=== PATIENT | female | born 1945 | race Caucasian/White ===

== ENCOUNTER 2017-02-10 16:35 | Emergency (ER) | payer MEDICARE, MEDICAID ==
[2017-02-10] MEDS ORDERED: IPRATROPIUM/ALBUTEROL 0.5-2.5 MG/3 ML AMPUL NEB ONE (17:17)
[2017-02-10] MEDS ORDERED: METHYLPREDNISOLONE INJ 125 MG/2 ML SDV IV ONE (17:18)
--- NOTE | 2017-02-10 17:22 | ER Document Report ---
ED Medical Screen (RME) - General Mode of Arrival: Ambulatory Information source: Patient TRAVEL OUTSIDE OF THE [place] IN LAST 30 DAYS: No <TATE RIVERA - Last Filed: 02/10/17 17:39> <STU COYNE - Last Filed: 02/10/17 20:17> - General Chief Complaint: Blood Pressure Problem Stated Complaint: BLOOD PRESSURE ISSUES Time Seen by Provider: 02/10/17 17:13 Notes: Patient is a 71 year old female with a history of COPD presents to the emergency department complaining of sore throat, discomfort in her chest, and a high blood pressure problem with associated symptoms of a productive cough with green sputum. Patient states that she went to a walk in clinic where they found her blood pressure to be 230/120. Upon arrival to the emergency department her blood pressure dropped to 165/117. Patient states that the discomfort in her chest feels similar to when she previously had bronchitis and pneumonia. I have greeted and performed a rapid initial assessment of this patient. A comprehensive ED assessment and evaluation of the patient, analysis of test results and completion of the medical decision making process will be conducted by additional ED providers. (TATE RIVERA) - Related Data Allergies/Adverse Reactions: acetaminophen [From Percocet] Allergy (Verified 02/09/16 16:46) atorvastatin calcium [From Lipitor] Allergy (Verified 02/09/16 16:46) ciprofloxacin [From Cipro] Allergy (Verified 02/09/16 16:46) ciprofloxacin HCl [From Cipro] Allergy (Verified 02/09/16 16:46) erythromycin base [Erythromycin Base] Allergy (Verified 02/09/16 16:46) oxycodone HCl [From Percocet] Allergy (Verified 02/09/16 16:46) simvastatin [Simvastatin] Allergy (Verified 02/09/16 16:46) Sulfa (Sulfonamide Antibiotics) Allergy (Verified 02/09/16 16:46) Past Medical History - General Information source: Patient - Past Medical History Cardiac Medical History: Reports: Hx Hypertension Pulmonary Medical History: Reports: Hx COPD <TATE RIVERA - Last Filed: 02/10/17 17:39> - Vital signs Vitals: Temp Pulse Resp BP Pulse Ox 98.9 F 89 24 H 155/117 H 86 L 02/10/17 16:51 02/10/17 16:51 02/10/17 16:51 02/10/17 16:51 02/10/17 16:51 Course <TATE RIVERA - Last Filed: 02/10/17 17:39> - Laboratory Result Diagrams: 02/10/17 18:21 02/10/17 18:21 <STU COYNE - Last Filed: 02/10/17 20:17> - Re-evaluation Re-evalutation: 02/10/17 20:17 I personally performed the services described in the documentation, reviewed and edited the documentation which was dictated to the scribe in my presence, and it accurately records my words and actions. (STU COYNE) - Vital Signs Vital signs: Temp Pulse Resp BP Pulse Ox 98.9 F 89 24 H 155/117 H 86 L 02/10/17 16:51 02/10/17 16:51 02/10/17 16:51 02/10/17 16:51 02/10/17 16:51 - Laboratory Laboratory results interpreted by me: 02/10/17 02/10/17 02/10/17 18:21 18:21 19:03 MCH 26.9 L MCHC 31.6 L RDW 14.7 H Monocytes % 15.9 H Carbon Dioxide 35 H Est GFR (Non-Af Amer) 54 L Alkaline Phosphatase 146 H Urine Blood SMALL H Scribe Documentation - Scribe Written by Scribkatina:: Katelyn Coelho, 02/10/2017 17:22 acting as scribe for :: Edilberto <TATE RIVERA - Last Filed: 02/10/17 17:39>
[2017-02-10 18:51] LABS: ABSOLUTE BASOPHILS # (AUTO) 0.1 10^3/uL (0.0-0.2); ABSOLUTE EOSINOPHILS # (AUTO) 0.1 10^3/uL (0.0-0.6); ABSOLUTE LYMPHOCYTES (AUTO) 2.6 10^3/uL (0.5-4.7); ABSOLUTE MONOCYTES (AUTO) 1.2 10^3/uL (0.1-1.4); ABSOLUTE NEUT (AUTO) 3.3 10^3/uL (1.7-8.2); EOSINOPHILS % (AUTO) 1.7 % (0-6); HEMATOCRIT 38.2 % (36.0-47.0); LYMPHOCYTES % (AUTO) 35.5 % (13-45); MEAN CORPUSCULAR HEMOGLOBIN 26.9 pg (27.0-33.4); MEAN CORPUSCULAR HGB CONC 31.6 g/dL (32.0-36.0); MEAN CORPUSCULAR VOLUME 85 fl (80-97); MONOCYTES % (AUTO) 15.9 % (3-13); PLATELET COUNT 229 10^3/uL (150-450); RED BLOOD COUNT 4.47 10^6/uL (3.72-5.28); RED CELL DISTRIBUTION WIDTH 14.7 % (11.5-14.0); SEGMENTED NEUTROPHILS % (AUTO) 45.9 % (42-78); TOTAL CELLS COUNTED % (AUTO) 100 %; WHITE BLOOD COUNT 7.2 10^3/uL (4.0-10.5)
--- NOTE | 2017-02-10 18:51 | RADIOLOGY REPORT (SQ) ---
EXAM DESCRIPTION: CHEST PA/LAT COMPLETED DATE/TIME: 02/10/2017 6:41 pm REASON FOR STUDY: cough COMPARISON: 02/09/2016. EXAM PARAMETERS: NUMBER OF VIEWS: two views TECHNIQUE: Digital Frontal and Lateral radiographic views of the chest acquired. RADIATION DOSE: NA LIMITATIONS: none FINDINGS: LUNGS AND PLEURA: No opacities, masses or pneumothorax. No pleural effusion. MEDIASTINUM AND HILAR STRUCTURES: No masses or contour abnormalities. HEART AND VASCULAR STRUCTURES: Heart normal size. No evidence for failure. BONES: No acute findings. HARDWARE: None in the chest. OTHER: No other significant finding. IMPRESSION: NO SIGNIFICANT RADIOGRAPHIC FINDING IN THE CHEST. TECHNICAL DOCUMENTATION: JOB ID: [id number] [employer]- All Rights Reserved
--- NOTE | 2017-02-10 19:14 | ER Document Report ---
ED General - General Chief Complaint: Blood Pressure Problem Stated Complaint: BLOOD PRESSURE ISSUES Time Seen by Provider: 02/10/17 17:13 Mode of Arrival: Ambulatory Notes: 71 years old female presents today with difficulty in breathing, feverish, coughing yellow-green sputum for the last 4 days, with a history of COPD on oxygen at home. Her blood pressure also was elevated. Denies any chest pain. Denies any palpitation diaphoresis. Denies any other constitutional symptoms TRAVEL OUTSIDE OF THE [place] IN LAST 30 DAYS: No - Related Data Allergies/Adverse Reactions: acetaminophen [From Percocet] Allergy (Verified 02/09/16 16:46) atorvastatin calcium [From Lipitor] Allergy (Verified 02/09/16 16:46) ciprofloxacin [From Cipro] Allergy (Verified 02/09/16 16:46) ciprofloxacin HCl [From Cipro] Allergy (Verified 02/09/16 16:46) erythromycin base [Erythromycin Base] Allergy (Verified 02/09/16 16:46) oxycodone HCl [From Percocet] Allergy (Verified 02/09/16 16:46) simvastatin [Simvastatin] Allergy (Verified 02/09/16 16:46) Sulfa (Sulfonamide Antibiotics) Allergy (Verified 02/09/16 16:46) Past Medical History - General Information source: Patient - Social History Smoking Status: Former Smoker Frequency of alcohol use: None Drug Abuse: None Family History: Reviewed & Not Pertinent, COPD, Hyperlipidemia, Hypertension Patient has suicidal ideation: No Patient has homicidal ideation: No - Past Medical History Cardiac Medical History: Reports: Hx Hypertension Pulmonary Medical History: Reports: Hx COPD Renal/ Medical History: Denies: Hx Peritoneal Dialysis Review of Systems - Review of Systems Notes: REVIEW OF SYSTEMS: CONSTITUTIONAL : Denies fever, chills, or sweats. Denies recent illness. EENT: Denies eye, ear, throat, or mouth pain or symptoms. Denies nasal or sinus congestion or discharge. Denies throat, tongue, or mouth swelling or difficulty swallowing. CARDIOVASCULAR: Denies chest pain. Denies palpitations or racing or irregular heart beat. Denies ankle edema. RESPIRATORY: As per history of complain GASTROINTESTINAL: Denies abdominal pain or distention. Denies nausea, vomiting , or diarrhea. Denies blood in vomitus, stools, or per rectum. Denies black, tarry stools. Denies constipation. GENITOURINARY: Denies difficulty urinating, painful urination, burning, frequency, blood in urine, or discharge. FEMALE GENITOURINARY: Denies vaginal bleeding, heavy or abnormal periods, irregular periods. Denies vaginal discharge or odor. MUSCULOSKELETAL: Denies back or neck pain or stiffness. Denies joint pain or swelling. SKIN: Denies rash, lesions or sores. HEMATOLOGIC : Denies easy bruising or bleeding. LYMPHATIC: Denies swollen, enlarged glands. NEUROLOGICAL: Denies confusion or altered mental status. Denies passing out or loss of consciousness. Denies dizziness or lightheadedness. Denies headache. Denies weakness or paralysis or loss of use of either side. Denies problems with gait or speech. Denies sensory loss, numbness, or tingling. Denies seizures. PSYCHIATRIC: Denies anxiety or stress. Denies depression, suicidal ideation, or homicidal ideation. ALL OTHER SYSTEMS REVIEWED AND NEGATIVE. PHYSICAL EXAMINATION: GENERAL: Well-appearing, morbidly obese, mild to moderate discomfort HEAD: Atraumatic, normocephalic. EYES: Pupils equal round and reactive to light, extraocular movements intact, conjunctiva are normal. ENT: Nares patent, oropharynx clear without exudates. Moist mucous membranes. NECK: Normal range of motion, supple without lymphadenopathy LUNGS: Bilaterally decreased breath sounds scattered mild wheezes throughout the lung field HEART: Regular rate and rhythm without murmurs ABDOMEN: Soft, nontender, nondistended abdomen. No guarding, no rebound. No masses appreciated. Female : deferred Musculoskeletal: Normal range of motion, no pitting or edema. No cyanosis. NEUROLOGICAL: Cranial nerves grossly intact. Normal speech, normal gait. Normal sensory, motor exams PSYCH: Normal mood, normal affect. SKIN: Warm, Dry, normal turgor, no rashes or lesions noted. Dictation was performed using [employer] voice recognition software Physical Exam - Vital signs Vitals: Temp Pulse Resp BP Pulse Ox 98.9 F 89 24 H 155/117 H 86 L 02/10/17 16:51 02/10/17 16:51 02/10/17 16:51 02/10/17 16:51 02/10/17 16:51 Course - Re-evaluation Re-evalutation: 02/10/17 21:29 Blood pressure was elevated therefore she was given clonidine, on reexamination lungs have improved daily variation no wheezing, patient is feeling much better. - Vital Signs Vital signs: Temp Pulse Resp BP Pulse Ox 98.9 F 89 24 H 155/117 H 86 L 02/10/17 16:51 02/10/17 16:51 02/10/17 16:51 02/10/17 16:51 02/10/17 16:51 - Laboratory Result Diagrams: 02/10/17 18:21 02/10/17 18:21 Laboratory results interpreted by me: 02/10/17 02/10/17 02/10/17 18:21 18:21 19:03 MCH 26.9 L MCHC 31.6 L RDW 14.7 H Monocytes % 15.9 H Carbon Dioxide 35 H Est GFR (Non-Af Amer) 54 L Alkaline Phosphatase 146 H Urine Blood SMALL H - Diagnostic Test Radiology reviewed: Reports reviewed - Radiology report reviewed appears normal chest x-ray - EKG Interpretation by Me EKG shows normal: Sinus rhythm - Sinus rhythm at the rate of 74 bpm, lots of muscular activity is noted, otherwise no acute ST elevation ST depression T- wave inversion noted. Discharge - Discharge Clinical Impression: COPD with exacerbation Hypertension Qualifiers: Hypertension type: essential hypertension Qualified Code(s): I10 - Essential ( primary) hypertension Condition: Fair Disposition: HOME, SELF-CARE Instructions: Chronic Obstructive Lung Disease ([facility]), High Blood Pressure ([facility]) Prescriptions: Albuterol Sulfate [Proair Hfa Inhalation Aerosol 8.5 gm Mdi] 2 puff IH Q4 PRN # 1 mdi PRN Reason: Methylprednisolone [Medrol Dosepack (4 mg/Tab) 21 Tab/Dosepak] 4 mg PO ASDIR PRN #21 tab.[id number] PRN Reason: Referrals: JOSE JUAN ARTIS MD [Primary Care Provider] - Follow up as needed
[2017-02-10 19:19] LABS: ALANINE AMINOTRANSFERASE 29 U/L (9-52); ALKALINE PHOSPHATASE 146 U/L (38-126); ANION GAP 6 (5-19); ASPARTATE AMINO TRANSFERASE 26 U/L (14-36); BILIRUBIN,DIRECT 0.3 mg/dL (0.0-0.4); BILIRUBIN,TOTAL 0.3 mg/dL (0.2-1.3); BLOOD UREA NITROGEN 11 mg/dL (7-20); CALCIUM 9.3 mg/dL (8.4-10.2); CARBON DIOXIDE 35 mmol/L (22-30); CHLORIDE 98 mmol/L (98-107); GLUCOSE 99 mg/dL (75-110); POTASSIUM 4.7 mmol/L (3.6-5.0); SODIUM 138.7 mmol/L (137-145); TOTAL PROTEIN 8.2 g/dL (6.3-8.2)
[2017-02-10 19:29] LABS: APPEARANCE,URINE CLEAR; BILIRUBIN,URINE NEGATIVE (NEGATIVE); COLOR,URINE YELLOW; GLUCOSE, URINE NEGATIVE (NEGATIVE); KETONES,URINE NEGATIVE (NEGATIVE); LEUKOCYTE ESTERASE,URINE NEGATIVE (NEGATIVE); NITRITE,URINE NEGATIVE (NEGATIVE); PROTEIN,URINE NEGATIVE (NEGATIVE); URINE SPECIFIC GRAVITY 1.011; UROBILINOGEN,URINE NEGATIVE mg/dL (<2.0)
[2017-02-10 19:40] LABS: INTERNATIONAL RATION (INR) 0.85; PROTHROMBIN TIME 12.3 SEC (11.4-15.4)
[2017-02-10] MEDS ORDERED: CLONIDINE HCL 0.2 MG TABLET PO ONE (21:12)
[2017-02-10 23:14] VITALS: BP 141/93
--- NOTE | 2017-02-11 12:10 | EKG REPORT ---
SEVERITY:- ABNORMAL ECG - SINUS TACHYCARDIA MULTIFORM VENTRICULAR PREMATURE COMPLEXES BORDERLINE INFERIOR Q WAVES ABNRM R PROG, CONSIDER ASMI OR LEAD PLACEMENT : Confirmed by: Tori Mcdaniel MD 11-Feb-2017 12:10:01
== END 2017-02-10 23:14 | disposition home or self-care (01) ==
LOC: ER 16:35
DX: J44.1 Chronic obstructive pulmonary disease with (acute) exacerbation (principal); Z99.81 Dependence on supplemental oxygen; I10 Essential (primary) hypertension; R05 Cough; E66.01 Morbid (severe) obesity due to excess calories; Z68.43 Body mass index [BMI] 50.0-59.9, adult; Z88.5 Allergy status to narcotic agent; Z88.8 Allergy status to other drugs, medicaments and biological substances; Z88.1 Allergy status to other antibiotic agents; Z88.2 Allergy status to sulfonamides; Z87.891 Personal history of nicotine dependence
CPT/HCPCS: 93005; 94640; 99284; 36415; 87040; 87086; 85025; 85610; 87088; 80053; 81001; 87186; 83605; 71020; 93010; A9270 ×2; J7620

== ENCOUNTER 2017-04-13 15:30 | Inpatient (IN) | payer MEDICARE, MEDICAID ==
[2017-04-13] MEDS ORDERED: ASPIRIN 81 MG TABLET, CHEWABLE PO ONE (16:05)
[2017-04-13] MEDS ORDERED: FUROSEMIDE INJ/PF 40 MG/4 ML SDV IV ONE (16:06)
--- NOTE | 2017-04-13 16:07 | ER Document Report ---
ED Respiratory Problem - General Chief Complaint: Respiratory Distress Stated Complaint: RESPIRATORY DISTRESS Time Seen by Provider: 04/13/17 16:05 Notes: 71-year-old female to the emergency department chief complaint of respiratory distress. [facility]. Has been home for 5 days. States that she began to get worsening shortness of breath. States that she is not on any antibiotics currently but on steroids. When EMS arrived found patient with increased respiratory rate with oxygen saturations of 88% on room air. States that she has had shingles for approximately 1 month on the left side of the chest. Complaining of pain in the right lower chest at this time. Denies any fever, chills, sweats. No abdominal pain. Pain in the right side of the chest is described as sharp and nonradiating. Nothing seems to make it better or worse. Extremely out of breath. TRAVEL OUTSIDE OF THE [place] IN LAST 30 DAYS: No - HPI Patient complains to provider of: Chest pain, Short of breath Duration: Worse/persistent - Related Data Allergies/Adverse Reactions: acetaminophen [From Percocet] Allergy (Verified 04/13/17 16:04) atorvastatin calcium [From Lipitor] Allergy (Verified 04/13/17 16:04) ciprofloxacin [From Cipro] Allergy (Verified 04/13/17 16:04) ciprofloxacin HCl [From Cipro] Allergy (Verified 04/13/17 16:04) erythromycin base [Erythromycin Base] Allergy (Verified 04/13/17 16:04) oxycodone HCl [From Percocet] Allergy (Verified 04/13/17 16:04) simvastatin [Simvastatin] Allergy (Verified 04/13/17 16:04) Sulfa (Sulfonamide Antibiotics) Allergy (Verified 04/13/17 16:04) Past Medical History - General Information source: Patient, Emergency Med Personnel - Social History Smoking Status: Former Smoker Cigarette use (# per day): No Chew tobacco use (# tins/day): No Frequency of alcohol use: None Drug Abuse: None Lives with: Family Family History: Reviewed & Not Pertinent, COPD, Hyperlipidemia, Hypertension Patient has suicidal ideation: No Patient has homicidal ideation: No - Past Medical History Cardiac Medical History: Reports: Hx Hypertension Pulmonary Medical History: Reports: Hx COPD Renal/ Medical History: Denies: Hx Peritoneal Dialysis Review of Systems - Review of Systems Constitutional: denies: Fever, Malaise, Weakness EENT: denies: Double vision, Throat pain, Difficulty swallowing, Mouth pain Cardiovascular: Chest pain, Dyspnea. denies: Palpitations, Heart racing Respiratory: Cough, Short of breath, Wheezing Gastrointestinal: denies: Abdominal pain, Diarrhea, Nausea Genitourinary: denies: Dysuria, Hematuria, Urgency Musculoskeletal: denies: Back pain, Joint pain, Muscle pain Skin: Lesions, Rash, Other - Shingles Hematologic/Lymphatic: denies: Anemia, Blood clots, Easy bleeding, Easy bruising Neurological/Psychological: denies: Dementia, Weakness, Headaches, Numbness Physical Exam - Vital signs Vitals: Resp Pulse Ox 28 H 94 04/13/17 15:45 04/13/17 15:45 Interpretation: Normal - General General appearance: Appears well, Alert Notes: Currently on CPAP - HEENT Head: Normocephalic, Atraumatic Eyes: Normal Pupils: PERRL - Respiratory Respiratory status: No respiratory distress Chest status: Nontender Breath sounds: Normal. No: Rhonchi, Stridor, Wheezing Chest palpation: Normal - Cardiovascular Rhythm: Regular Heart sounds: Normal auscultation Murmur: No - Abdominal Inspection: Normal Distension: No distension Bowel sounds: Normal Tenderness: Nontender Organomegaly: No organomegaly - Back Back: Normal, Nontender - Extremities General upper extremity: Normal inspection, Nontender, Normal color, Normal ROM , Normal temperature General lower extremity: Normal inspection, Nontender, Edema, Normal color, Normal ROM, Normal temperature, Normal weight bearing. No: Carlie's sign - Neurological Neuro grossly intact: Yes Cognition: Normal Orientation: AAOx4 Tamara Coma Scale Eye Opening: Spontaneous [place] Coma Scale Verbal: Oriented [place] Coma Scale Motor: Obeys Commands Tamara Coma Scale Total: 15 Speech: Normal Motor strength normal: LUE, RUE, LLE, RLE Sensory: Normal - Psychological Associated symptoms: Normal affect, Normal mood - Skin Skin Temperature: Warm Skin Moisture: Dry Skin Color: Normal Course - Re-evaluation Re-evalutation: 04/13/17 16:47 Patient placed on CPAP. History of the. Recently hospitalized in [place]. Patient states that she is currently on steroids. Afebrile at this time. Will continue on CPAP. Get chest x-ray, ABG. Complaining of pain in her right chest. Recent hospitalization could be concerning for PE. Will order d-dimer at this time and reassess per 04/13/17 17:44 Patient with slightly elevated potassium at 6.0, mild renal insufficiency with creatinine of 1.5. D-dimer extremely elevated with recent hospital stay will get CTA of the chest. Chest x-ray consistent with right pleural effusion. Patient complaining of right-sided chest pain. Need to rule out PE. Consulted hospitalist, Dr. Knapp will admit at this time once CT is completed. Starting on antibiotics as well based on elevated WBC count and questionable pneumonia on CT. No prior history of MRSA so starting on Zosyn at this time with her history of allergy to fluoroquinolones 04/13/17 17:45 Laboratory 04/13/17 04/13/17 04/13/17 15:50 15:50 15:50 WBC 21.5 H RBC 4.54 Hgb 12.3 Hct 38.4 MCV 85 MCH 27.2 MCHC 32.1 RDW 16.4 H Plt Count 204 Total Counted 100 Seg Neutrophils % Not Reportable Seg Neuts % (Manual) 81 H Band Neutrophils % 10 H Lymphocytes % Not Reportable Lymphocytes % (Manual) 6 L Monocytes % Not Reportable Monocytes % (Manual) 3 Eosinophils % Not Reportable Eosinophils % (Manual) 0 Basophils % Not Reportable Basophils % (Manual) 0 Absolute Neutrophils Not Reportable Abs Neuts (Manual) 19.6 H Absolute Lymphocytes Not Reportable Abs Lymphs (Manual) 1.3 Absolute Monocytes Not Reportable Abs Monocytes (Manual) 0.6 Absolute Eosinophils Not Reportable Absolute Eos (Manual) 0.0 Absolute Basophils Not Reportable Abs Basophils (Manual) 0.0 Large Platelets PRESENT Platelet Comment ADEQUATE Polychromasia SLIGHT Anisocytosis 1+ PT INR D-Dimer Carbonic Acid HCO3/H2CO3 Ratio ABG pH ABG pCO2 ABG pO2 ABG HCO3 ABG Total CO2 ABG O2 Saturation ABG Base Excess FiO2 Sodium 134.7 L Potassium 6.0 H* Chloride 94 L Carbon Dioxide 29 Anion Gap 12 BUN 48 H Creatinine 1.49 H Est GFR ( Amer) 42 L Est GFR (Non-Af Amer) 34 L Glucose 259 H Calcium 9.1 Total Bilirubin 0.9 Direct Bilirubin 0.3 Neonat Total Bilirubin Not Reportable Neonat Direct Bilirubin Not Reportable Neonat Indirect Bili Not Reportable AST 20 ALT 34 Alkaline Phosphatase 85 Creatine Kinase < 20 L CK-MB (CK-2) 0.26 Troponin I 0.016 NT-Pro-B Natriuret Pep 942 H Total Protein 6.7 Albumin 3.9 04/13/17 04/13/17 15:50 16:00 WBC RBC Hgb Hct MCV MCH MCHC RDW Plt Count Total Counted Seg Neutrophils % Seg Neuts % (Manual) Band Neutrophils % Lymphocytes % Lymphocytes % (Manual) Monocytes % Monocytes % (Manual) Eosinophils % Eosinophils % (Manual) Basophils % Basophils % (Manual) Absolute Neutrophils Abs Neuts (Manual) Absolute Lymphocytes Abs Lymphs (Manual) Absolute Monocytes Abs Monocytes (Manual) Absolute Eosinophils Absolute Eos (Manual) Absolute Basophils Abs Basophils (Manual) Large Platelets Platelet Comment Polychromasia Anisocytosis PT 12.9 INR 0.91 D-Dimer 3.84 H Carbonic Acid 1.28 HCO3/H2CO3 Ratio 21:1 ABG pH 7.43 ABG pCO2 42.4 ABG pO2 70.4 L ABG HCO3 27.6 H ABG Total CO2 28.9 H ABG O2 Saturation 94.6 ABG Base Excess 3.0 FiO2 40% Sodium Potassium Chloride Carbon Dioxide Anion Gap BUN Creatinine Est GFR ( Amer) Est GFR (Non-Af Amer) Glucose Calcium Total Bilirubin Direct Bilirubin Neonat Total Bilirubin Neonat Direct Bilirubin Neonat Indirect Bili AST ALT Alkaline Phosphatase Creatine Kinase CK-MB (CK-2) Troponin I NT-Pro-B Natriuret Pep Total Protein Albumin Chest X-Ray 04/13/17 16:05 IMPRESSION: LEFT LOWER LOBE INFILTRATE SUSPICIOUS FOR PNEUMONIA. FAINT DENSITY IN THE RIGHT LUNG BASE. POSSIBLE SMALL PLEURAL EFFUSIONS. - Vital Signs Vital signs: Temp Pulse Resp BP Pulse Ox 97.9 F 83 26 H 133/57 H 93 04/13/17 16:04 04/13/17 16:04 04/13/17 16:04 04/13/17 16:04 04/13/17 16:04 - Laboratory Result Diagrams: 04/13/17 15:50 04/13/17 15:50 Laboratory results interpreted by me: 04/13/17 04/13/17 04/13/17 15:50 15:50 15:50 WBC 21.5 H RDW 16.4 H Seg Neuts % (Manual) 81 H Band Neutrophils % 10 H Lymphocytes % (Manual) 6 L Abs Neuts (Manual) 19.6 H D-Dimer ABG pO2 ABG HCO3 ABG Total CO2 Sodium 134.7 L Potassium 6.0 H* Chloride 94 L BUN 48 H Creatinine 1.49 H Est GFR ( Amer) 42 L Est GFR (Non-Af Amer) 34 L Glucose 259 H Creatine Kinase < 20 L NT-Pro-B Natriuret Pep 942 H 04/13/17 04/13/17 15:50 16:00 WBC RDW Seg Neuts % (Manual) Band Neutrophils % Lymphocytes % (Manual) Abs Neuts (Manual) D-Dimer 3.84 H ABG pO2 70.4 L ABG HCO3 27.6 H ABG Total CO2 28.9 H Sodium Potassium Chloride BUN Creatinine Est GFR ( Amer) Est GFR (Non-Af Amer) Glucose Creatine Kinase NT-Pro-B Natriuret Pep - EKG Interpretation by Nd EKG shows normal: Sinus rhythm, [place], Intervals, QRS Complexes, ST-T Waves Critical Care Note - Critical Care Note Total time excluding time spent on procedures (mins): 60 Comments: Hypoxia, respiratory distress Discharge - Discharge Clinical Impression: Pneumonia of both lower lobes Qualifiers: Pneumonia type: due to unspecified organism Qualified Code(s): J18.9 - Pneumonia, unspecified organism Disposition: ADMITTED INPATIENT Admitting Provider: Hospitalist Unit Admitted: IMCU - Dr. Knapp Referrals: JOSE JUAN ARTIS MD [Primary Care Provider] - Follow up as needed
[2017-04-13 16:17] LABS: HEMATOCRIT 38.4 % (36.0-47.0); HEMOGLOBIN 12.3 g/dL (12.0-15.5); MEAN CORPUSCULAR HEMOGLOBIN 27.2 pg (27.0-33.4); MEAN CORPUSCULAR HGB CONC 32.1 g/dL (32.0-36.0); MEAN CORPUSCULAR VOLUME 85 fl (80-97); PLATELET COUNT 204 10^3/uL (150-450); RED BLOOD COUNT 4.54 10^6/uL (3.72-5.28); RED CELL DISTRIBUTION WIDTH 16.4 % (11.5-14.0); WHITE BLOOD COUNT 21.5 10^3/uL (4.0-10.5)
[2017-04-13 16:20] LABS: INTERNATIONAL RATION (INR) 0.91; PROTHROMBIN TIME 12.9 SEC (11.4-15.4)
[2017-04-13 16:23] LABS: D-DIMER 3.84 ug/mL (0.00-0.50)
[2017-04-13 16:33] LABS: ABSOLUTE LYMPHOCYTES# (MANUAL) 1.3 10^3/uL (0.5-4.7); ABSOLUTE MONOCYTES # (MANUAL) 0.6 10^3/uL (0.1-1.4); ABSOLUTE NEUTROPHILS# (MANUAL) 19.6 10^3/uL (1.7-8.2); BAND NEUTROPHILS % (MANUAL) 10 % (3-5); BASOPHILS % (MANUAL) 0 % (0-2); EOSINOPHILS % (MANUAL) 0 % (0-6); LYMPHOCYTES % (MANUAL) 6 % (13-45); MONOCYTES % (MANUAL) 3 % (3-13); SEGMENTED NEUTROPHILS % (MAN) 81 % (42-78); TOTAL CELLS COUNTED 100
[2017-04-13 16:34] LABS: PLATELET COMMENT ADEQUATE
[2017-04-13 16:35] LABS: ALANINE AMINOTRANSFERASE 34 U/L (9-52); ALBUMIN 3.9 g/dL (3.5-5.0); ALKALINE PHOSPHATASE 85 U/L (38-126); ANION GAP 12 (5-19); ANISOCYTOSIS 1+; ASPARTATE AMINO TRANSFERASE 20 U/L (14-36); BILIRUBIN,DIRECT 0.3 mg/dL (0.0-0.4); BILIRUBIN,TOTAL 0.9 mg/dL (0.2-1.3); BLOOD UREA NITROGEN 48 mg/dL (7-20); CALCIUM 9.1 mg/dL (8.4-10.2); CARBON DIOXIDE 29 mmol/L (22-30); CHLORIDE 94 mmol/L (98-107); GLUCOSE 259 mg/dL (75-110); PLATELET LARGE PRESENT; POLYCHROMASIA SLIGHT; SODIUM 134.7 mmol/L (137-145); TOTAL PROTEIN 6.7 g/dL (6.3-8.2)
[2017-04-13 16:39] LABS: CREATINE KINASE < 20 U/L (30-135)
[2017-04-13] MEDS ORDERED: HYDROMORPHONE HCL INJ/PF 2 MG/ML AMPULE IV ONE (16:40)
[2017-04-13 16:48] LABS: CREATINE KINASE MB 0.26 ng/mL (<4.55); TROPONIN I 0.016 ng/mL
--- NOTE | 2017-04-13 16:56 | RADIOLOGY REPORT (SQ) ---
EXAM DESCRIPTION: CHEST SINGLE VIEW COMPLETED DATE/TIME: 04/13/2017 4:48 pm REASON FOR STUDY: sob COMPARISON: 02/10/2017. EXAM PARAMETERS: NUMBER OF VIEWS: One view. TECHNIQUE: Single frontal radiographic view of the chest acquired. RADIATION DOSE: NA LIMITATIONS: None. FINDINGS: LUNGS AND PLEURA: Left lower lobe infiltrate. Faint density in the right lung base. Poss ible pleural effusions. MEDIASTINUM AND HILAR STRUCTURES: No masses. Contour normal. HEART AND VASCULAR STRUCTURES: Cardiomegaly. Normal vasculature. BONES: No acute findings. HARDWARE: None in the chest. OTHER: No other significant finding. IMPRESSION: LEFT LOWER LOBE INFILTRATE SUSPICIOUS FOR PNEUMONIA. FAINT DENSITY IN THE RIGHT LUNG BA SE. POSSIBLE SMALL PLEURAL EFFUSIONS. TECHNICAL DOCUMENTATION: JOB ID: [id number] [employer]- All Rights Reserved Reading location - IP/workstation name: [email or web address]
[2017-04-13 17:10] LABS: ARTERIAL BLOOD FIO2 40%; ARTERIAL BLOOD H2CO3 1.28 mmol/L (1.05-1.35); ARTERIAL BLOOD HCO3 27.6 mmol/L (20-26); ARTERIAL BLOOD O2 SATURATION 94.6 % (94-98); ARTERIAL BLOOD PCO2 42.4 mmHg (35-45); ARTERIAL BLOOD PH 7.43 (7.35-7.45); ARTERIAL BLOOD PO2 70.4 mmHg (80-100); ARTERIAL BLOOD TOTAL CO2 28.9 mmol/L (21-25)
[2017-04-13] MEDS ORDERED: PIPERACILLIN/TAZOBACTAM 3.375 GM VIAL IV ONE (17:37)
[2017-04-13] MEDS ORDERED: NORMAL SALINE 1000 ML 1,000 ML IV ONE (18:44)
[2017-04-13] MEDS ORDERED: ALBUTEROL SULFATE 0.083% NEB 2.5 MG/3 ML AMPUL NEB ONE (18:46)
[2017-04-13] MEDS ORDERED: CALCIUM GLUCONATE 1000 MG/10 ML INJ IV ONE ×2 (18:47→20:30)
[2017-04-13] MEDS ORDERED: GLUCAGON,HUMAN RECOMB 1 MG INJ SUBCUT PRN (19:11)
[2017-04-13] MEDS ORDERED: DEXTROSE 40% GEL 15 GM TUBE PO PRN ×2 (19:11)
[2017-04-13] MEDS ORDERED: DEXTROSE 50%-WATER 25 GM/50 ML DISP.SYRIN IV PRN ×2 (19:11)
[2017-04-13 19:26] LABS: APPEARANCE,URINE CLEAR; BILIRUBIN,URINE NEGATIVE (NEGATIVE); COLOR,URINE YELLOW; GLUCOSE, URINE NEGATIVE (NEGATIVE); KETONES,URINE NEGATIVE (NEGATIVE); LEUKOCYTE ESTERASE,URINE NEGATIVE (NEGATIVE); NITRITE,URINE NEGATIVE (NEGATIVE); PROTEIN,URINE NEGATIVE (NEGATIVE); URINE SPECIFIC GRAVITY 1.012; UROBILINOGEN,URINE NEGATIVE mg/dL (<2.0)
[2017-04-13] MEDS ORDERED: VANCOMYCIN HCL INJ 1000 MG VIAL IV ONE (19:27)
--- NOTE | 2017-04-13 19:54 | PDOC H&P ---
History of Present Illness Admission Date/PCP: 04/13/17 17:54 JOSE JUAN ARTIS MD Patient complains of: SOB, right sided chest pain, weakness History of Present Illness: JEANNIE NAVA is a 71 year old female with history of HTN, CAD, and multiple recent hospitalizations who presents to ED for worsening respiratory distress. Was recently discharged from [facility] 2 weeks ago with CHF and herpes zoster. States that over the last 3-4 days she has become progressively more SOB. Associated symptoms include right sided pleuretic chest pain. She notes subjective fevers. Denies chills, abdominal pain, NV. She did have zoster on left chest wall which was diagnosed over 2 weeks ago and has been healing. She no longer is on anti-viral therapy for shingles. In ED, CXR was notable for LLL infiltrate. She was noted to have elevated d. dimer however troponin was negative. WBC was 21.5 with left shift. ABG showed pH 7.43 however pO2 was 70.4. Started on BiPAP with improvement in breathing. Other labs notable for K 6.0. At time of my examination, patient was awake and coversant. States she was feeling much better overall. CTA chest ordered and pending. Past Medical History Cardiac Medical History: Reports: Congestive Heart Failure, Hypertension Pulmonary Medical History: Reports: Bronchitis, Chronic Obstructive Pulmonary Disease (COPD) Infectious Medical History: Reports: Other Infectious History Note: Herpes Zoster Social History Information Source: Patient Lives with: Family Smoking Status: Former Smoker Frequency of Alcohol Use: None Family History Family History: Reviewed & Not Pertinent, COPD, Hyperlipidemia, Hypertension Parental Family History Reviewed: No Children Family History Reviewed: NA Sibling(s) Family History Reviewed.: NA Medication/Allergy Home Medications: Alprazolam [Xanax] 1 mg PO DAILY 04/13/17 Amlodipine Besylate [Norvasc 2.5 mg Tablet] 2.5 mg PO DAILY 04/13/17 Aspirin [Aspirin 81 mg Chewable Tablet] 81 mg PO DAILY 04/13/17 Fluoxetine HCl [Prozac] 10 mg PO DAILY 04/13/17 Furosemide [Lasix 40 mg Tablet] 60 mg PO DAILY 04/13/17 Isosorbide Mononitrate [Isosorbide Mononitrate ER] 30 mg PO QPM 04/13/17 Isosorbide Mononitrate [Isosorbide Mononitrate ER] 60 mg PO QAM 04/13/17 Methylprednisolone [Medrol Dosepack (4 mg/Tab) 21 Tab/Dosepak] 4 mg PO ASDIR PRN 04/13/17 Metoprolol Succinate [Toprol Xl 50 mg Tab.sr] 50 mg PO DAILY 04/13/17 Nitroglycerin [Nitrostat] 0.4 mg SL Q5MP PRN 04/13/17 Ondansetron [Zofran Odt 4 mg Tablet] 4 mg PO Q8HP PRN 04/13/17 Pantoprazole Sodium [Protonix] 40 mg PO DAILY 04/13/17 Spironolactone [Aldactone 25 mg Tablet] 25 mg PO DAILY 04/13/17 Tiotropium [place] [Spiriva Handihaler 18 mcg/dose (30 Dose)] 1 cap IH DAILY 03/02 Valsartan [Diovan 80 mg Tablet] 80 mg PO DAILY 04/13/17 Allergies/Adverse Reactions: acetaminophen [From Percocet] Allergy (Verified 04/13/17 16:04) atorvastatin calcium [From Lipitor] Allergy (Verified 04/13/17 16:04) ciprofloxacin [From Cipro] Allergy (Verified 04/13/17 16:04) ciprofloxacin HCl [From Cipro] Allergy (Verified 04/13/17 16:04) erythromycin base [Erythromycin Base] Allergy (Verified 04/13/17 16:04) oxycodone HCl [From Percocet] Allergy (Verified 04/13/17 16:04) simvastatin [Simvastatin] Allergy (Verified 04/13/17 16:04) Sulfa (Sulfonamide Antibiotics) Allergy (Verified 04/13/17 16:04) Review of Systems All systems: reviewed and no additional remarkable complaints except as stated Constitutional: PRESENT: as per HPI Physical Exam Vital Signs: Temp Pulse Resp BP Pulse Ox 97.9 F 83 26 H 133/57 H 93 04/13/17 16:04 04/13/17 16:04 04/13/17 16:04 04/13/17 16:04 04/13/17 16:04 General appearance: PRESENT: cooperative, mild distress - On BiPAP, morbidly obese Head exam: PRESENT: normocephalic Ear exam: PRESENT: other - BiPAP in place Respiratory exam: PRESENT: chest wall tenderness - left sided, s/p shingles, crackles, decreased breath sounds - bilateral R>L, difficult exam due to habitus , rhonchi Cardiovascular exam: PRESENT: RRR, +S1, +S2. ABSENT: tachycardia GI/Abdominal exam: PRESENT: soft. ABSENT: tenderness Extremities exam: PRESENT: pedal edema Neurological exam: PRESENT: alert, awake, CN II-XII grossly intact Psychiatric exam: PRESENT: appropriate affect Results Impressions: Chest X-Ray 04/13/17 16:05 IMPRESSION: LEFT LOWER LOBE INFILTRATE SUSPICIOUS FOR PNEUMONIA. FAINT DENSITY IN THE RIGHT LUNG BASE. POSSIBLE SMALL PLEURAL EFFUSIONS. Assessment & Plan - Diagnosis (1) Pneumonia of both lower lobes Qualifiers: Pneumonia type: due to unspecified organism Qualified Code(s): J18.9 - Pneumonia, unspecified organism Is this a current diagnosis for this admission?: Yes Plan: SOB, hypoxia, leukocytosis, CXR with LLL inflitrate - Recent hospitalization so will cover for HCAP - Started on Zosyn IV q8 hours + Vanc * 1 dose (no history of MRSA) - Blood cultures pending - Improving on BiPAP, will continue overnight, repeat ABG in AM (2) CAD (coronary artery disease) Is this a current diagnosis for this admission?: Yes Plan: Known ischemic disease, medically managed - Continue home beta-chiara and imdur - Holding lisinopril for now given active infection (3) Pulmonary emboli Is this a current diagnosis for this admission?: No Plan: Rule out PE given right sided chest pain and elevated D dimer. Patient is in sinus rhythm and troponin is negative. However did have recent hospitalization and obese, which increases risk for clot - CTA chest ordered - Will be followed up tonight, if positive start Heparin GTT (4) Hyperkalemia Is this a current diagnosis for this admission?: Yes Plan: K 6.0, unable to review EKG - Will give IVF, IV calcium gluconate and kayaxalate - Follow up on EKG - Recheck K at 0000 on 3/2, am labs (5) YARELY (acute kidney injury) Is this a current diagnosis for this admission?: Yes Plan: Unclear baseline, diruesis with IV lasix in setting of pleural effusions and volume overload - Will closely monitor as patient is getting contrast with CT today (6) HTN (hypertension) Qualifiers: Hypertension type: essential hypertension Qualified Code(s): I10 - Essential (primary) hypertension Is this a current diagnosis for this admission?: Yes Plan: Per above, holding some home meds in setting of infection. (7) Leukocytosis Qualifiers: Leukocytosis type: bandemia Qualified Code(s): D72.825 - Bandemia Is this a current diagnosis for this admission?: Yes Plan: Secondary to PNA - Will check UA and blood cultures - On broad spectrum antibiotics, will nima (8) Herpes zoster Qualifiers: Herpes zoster complications: without complications Qualified Code(s): B02.9 - Zoster without complications Is this a current diagnosis for this admission?: Yes Plan: Diagnosed at recent hospitalization 2+ weeks ago - Completed anti-viral course - Continues to have lesions on left chest wall but improving - Discussed with charge out clerk regarding isolation who felt that patient did not need droplet precautions at this time - Time Time Spent: Greater than 70 Minutes Medications reviewed and adjusted accordingly: Yes
[2017-04-13] MEDS ORDERED: SODIUM POLYSTYRENE SULFONATE 15 GM/60 ML PO ONE (20:30)
[2017-04-13] MEDS: VANCOMYCIN HCL 1,500 MG in DEXTROSE 5%-WATER 250 ML IV SCH (22:07)
[2017-04-13] MEDS: HEPARIN SOD (PORCINE) 5,000 UNIT/ML 1 ML SYRINGE SUBCUT SCH (22:07)
[2017-04-14] MEDS ORDERED: PIPERACILLIN/TAZOBACTAM 2.25 GM VIAL IV SCH
[2017-04-14 00:40] LABS: ANION GAP 10 (5-19); BLOOD UREA NITROGEN 50 mg/dL (7-20); CALCIUM 9.4 mg/dL (8.4-10.2); CARBON DIOXIDE 26 mmol/L (22-30); CHLORIDE 96 mmol/L (98-107); GLUCOSE 262 mg/dL (75-110); POTASSIUM 5.4 mmol/L (3.6-5.0); SODIUM 131.6 mmol/L (137-145)
[2017-04-14] MEDS: PIPERACILLIN SODIUM/TAZOBACTAM 2.25 GM in NORMAL SALINE 100 ML IV SCH ×3 (01:24→17:36)
[2017-04-14] MEDS: HYDROMORPHONE HCL INJ/PF 2 MG/ML AMPULE IV PRN ×4 (02:33→23:39)
[2017-04-14] MEDS: HEPARIN SOD (PORCINE) 5,000 UNIT/ML 1 ML SYRINGE SUBCUT SCH ×3 (05:27→21:20)
[2017-04-14 05:37] LABS: HEMATOCRIT 37.5 % (36.0-47.0); HEMOGLOBIN 11.7 g/dL (12.0-15.5); MEAN CORPUSCULAR HEMOGLOBIN 26.4 pg (27.0-33.4); MEAN CORPUSCULAR HGB CONC 31.2 g/dL (32.0-36.0); MEAN CORPUSCULAR VOLUME 85 fl (80-97); PLATELET COUNT 155 10^3/uL (150-450); RED BLOOD COUNT 4.43 10^6/uL (3.72-5.28); RED CELL DISTRIBUTION WIDTH 16.4 % (11.5-14.0); WHITE BLOOD COUNT 16.4 10^3/uL (4.0-10.5)
[2017-04-14 05:57] LABS: ANION GAP 11 (5-19); BLOOD UREA NITROGEN 51 mg/dL (7-20); CALCIUM 9.1 mg/dL (8.4-10.2); CARBON DIOXIDE 29 mmol/L (22-30); CHLORIDE 96 mmol/L (98-107); GLUCOSE 203 mg/dL (75-110); POTASSIUM 5.1 mmol/L (3.6-5.0); SODIUM 135.6 mmol/L (137-145)
[2017-04-14 06:08] LABS: ABSOLUTE LYMPHOCYTES# (MANUAL) 1.1 10^3/uL (0.5-4.7); ABSOLUTE MONOCYTES # (MANUAL) 0.3 10^3/uL (0.1-1.4); ABSOLUTE NEUTROPHILS# (MANUAL) 14.9 10^3/uL (1.7-8.2); BAND NEUTROPHILS % (MANUAL) 6 % (3-5); BASOPHILS % (MANUAL) 0 % (0-2); EOSINOPHILS % (MANUAL) 0 % (0-6); LYMPHOCYTES % (MANUAL) 7 % (13-45); MONOCYTES % (MANUAL) 2 % (3-13); SEGMENTED NEUTROPHILS % (MAN) 85 % (42-78); TOTAL CELLS COUNTED 100
[2017-04-14 06:13] LABS: ANISOCYTOSIS 1+; OVALOCYTES SLIGHT; PLATELET COMMENT ADEQUATE; TOXIC GRANULATION SLIGHT; TOXIC VACUOLATION PRESENT
--- NOTE | 2017-04-14 06:42 | EKG REPORT ---
SEVERITY:- BORDERLINE ECG - SINUS RHYTHM BORDERLINE INFERIOR Q WAVES : Confirmed by: Andrew Berger MD 14-Apr-2017 06:42:08
[2017-04-14 06:58] LABS: ARTERIAL BLOOD BASE EXCESS 3.7 mmol/L; ARTERIAL BLOOD H2CO3 1.69 mmol/L (1.05-1.35); ARTERIAL BLOOD HCO3 30.6 mmol/L (20-26); ARTERIAL BLOOD O2 SATURATION 94.2 % (94-98); ARTERIAL BLOOD PCO2 56.1 mmHg (35-45); ARTERIAL BLOOD PH 7.35 (7.35-7.45); ARTERIAL BLOOD PO2 74.9 mmHg (80-100); ARTERIAL BLOOD TOTAL CO2 32.3 mmol/L (21-25)
[2017-04-14 07:06] LABS: ARTERIAL BLOOD FIO2 45%
[2017-04-14] MEDS ORDERED: ISOSORBIDE MONONITRATE 30 MG TAB.ER.24H PO SCH (08:00)
[2017-04-14] MEDS: ISOSORBIDE MONONITRATE 60 MG TAB.ER.24H PO SCH (08:32)
[2017-04-14] MEDS: METOPROLOL SUCCINATE 50 MG TAB.SR.24H PO SCH (09:19)
[2017-04-14] MEDS: ASPIRIN 81 MG TABLET, CHEWABLE PO SCH (09:19)
[2017-04-14] MEDS: TIOTROPIUM BROMIDE DPI 5 CAP/KIT (18 MCG/CAP) IH SCH (09:20)
[2017-04-14] MEDS ORDERED: ALPRAZOLAM 0.5 MG TABLET PO SCH (10:00)
--- NOTE | 2017-04-14 15:34 | PDOC PROGRESS REPORT ---
Subjective Progress Note for:: 04/14/17 Subjective:: On BiPAP overnight. Breathing much improved. Was able to get down to 4L NC with good O2 sats. Requested to be put back on BipAP for comfort reasons later this morning however was not hypoxic. Continues to have right sided CP with coughing. CTA chest was never down due to difficulty placing IV access. Denies fevers, chills, abdominal pain, NV. Was able to eat full breakfast while BiPAP was off earlier in day. No other complaints at this time. Reason For Visit: PNEUMONIA Physical Exam Vital Signs: Temp Pulse Resp BP Pulse Ox 97.9 F 80 16 98/44 L 94 04/14/17 11:52 04/14/17 11:52 04/14/17 11:52 04/14/17 11:52 04/14/17 11:52 Intake & Output 04/13/17 04/14/17 04/15/17 06:59 06:59 06:59 Intake Total 531 237 Output Total 875 500 Balance -344 -263 Weight 135.2 kg General appearance: PRESENT: no acute distress, morbidly obese, other - Comfortable on BiPAP Head exam: PRESENT: normocephalic Mouth exam: PRESENT: dry mucosa Respiratory exam: PRESENT: rhonchi, unlabored Cardiovascular exam: PRESENT: RRR. ABSENT: tachycardia GI/Abdominal exam: PRESENT: soft. ABSENT: tenderness Extremities exam: PRESENT: +1 edema Neurological exam: PRESENT: alert, awake, CN II-XII grossly intact Psychiatric exam: PRESENT: appropriate affect Results Laboratory Results: 04/14/17 05:13 04/14/17 05:13 04/14/17 04/14/17 04/14/17 00:16 05:13 05:13 WBC 16.4 H RBC 4.43 Hgb 11.7 L Hct 37.5 MCV 85 MCH 26.4 L MCHC 31.2 L RDW 16.4 H Plt Count 155 Seg Neutrophils % Not Reportable Lymphocytes % Not Reportable Monocytes % Not Reportable Eosinophils % Not Reportable Basophils % Not Reportable Absolute Neutrophils Not Reportable Absolute Lymphocytes Not Reportable Absolute Monocytes Not Reportable Absolute Eosinophils Not Reportable Absolute Basophils Not Reportable Carbonic Acid HCO3/H2CO3 Ratio ABG pH ABG pCO2 ABG pO2 ABG HCO3 ABG O2 Saturation ABG Base Excess FiO2 Sodium 131.6 L 135.6 L Potassium 5.4 H 5.1 H Chloride 96 L 96 L Carbon Dioxide 26 29 Anion Gap 10 11 BUN 50 H 51 H Creatinine 1.55 H 1.65 H Est GFR ( Amer) 40 L 37 L Est GFR (Non-Af Amer) 33 L 30 L Glucose 262 H 203 H Calcium 9.4 9.1 04/14/17 06:35 WBC RBC Hgb Hct MCV MCH MCHC RDW Plt Count Seg Neutrophils % Lymphocytes % Monocytes % Eosinophils % Basophils % Absolute Neutrophils Absolute Lymphocytes Absolute Monocytes Absolute Eosinophils Absolute Basophils Carbonic Acid 1.69 H HCO3/H2CO3 Ratio 18:1 ABG pH 7.35 ABG pCO2 56.1 H ABG pO2 74.9 L ABG HCO3 30.6 H ABG O2 Saturation 94.2 ABG Base Excess 3.7 FiO2 45% Sodium Potassium Chloride Carbon Dioxide Anion Gap BUN Creatinine Est GFR ( Amer) Est GFR (Non-Af Amer) Glucose Calcium 04/13/17 19:55 Troponin I < 0.012 Impressions: Chest X-Ray 04/13/17 16:05 IMPRESSION: LEFT LOWER LOBE INFILTRATE SUSPICIOUS FOR PNEUMONIA. FAINT DENSITY IN THE RIGHT LUNG BASE. POSSIBLE SMALL PLEURAL EFFUSIONS. Assessment & Plan - Diagnosis (1) Pneumonia of both lower lobes Qualifiers: Pneumonia type: due to unspecified organism Qualified Code(s): J18.9 - Pneumonia, unspecified organism Is this a current diagnosis for this admission?: Yes Plan: SOB, hypoxia, leukocytosis, CXR with LLL inflitrate - Recent hospitalization so will cover for HCAP - Blood cultures 1/2 bottles for GPC, will await speciation - Continue Zosyn IV 2.25 q8 hours + Vanc qhs - ABG from 04/14: compensated, Oxygenat - Improving on BiPAP, can use as needed, repeat VBG and lactate in AM (2) CAD (coronary artery disease) Is this a current diagnosis for this admission?: Yes Plan: Known ischemic disease, medically managed - Continue home beta-chiara and imdur - Holding lisinopril for now given YARELY - BP well controlled, can add back medications when stabilized (3) Pulmonary emboli Is this a current diagnosis for this admission?: No Plan: Initial c/f PE given right sided chest pain and elevated D dimer. Patient is in sinus rhythm and troponin is negative. Has been HDS and not tachycardic. She did did have recent hospitalization and obese, which increases risk for clot. Has had trouble obtaining IV access. Given improvement in respiratory status, cancelled CTA. Low threshold to obtain if pt persistently hypoxic or worsens symptomatically (4) Hyperkalemia Is this a current diagnosis for this admission?: Yes Plan: Improving -=K 6.0 at admission, unable to review EKG - Received IVF, IV calcium gluconate and kayaxalate - Improved K today, currently 06/13 - Recheck K at 0000 on 3/2, am labs (5) YARELY (acute kidney injury) Is this a current diagnosis for this admission?: Yes Plan: Unclear baseline, unchanged from admission, Will closely monitor (6) HTN (hypertension) Qualifiers: Hypertension type: essential hypertension Qualified Code(s): I10 - Essential (primary) hypertension Is this a current diagnosis for this admission?: Yes Plan: Per above, holding some home meds in setting of infection and YARELY (7) Leukocytosis Qualifiers: Leukocytosis type: bandemia Qualified Code(s): D72.825 - Bandemia Is this a current diagnosis for this admission?: Yes Plan: Secondary to PNA, improving currently 16.4 - UA negative - Blood cultures per above - On broad spectrum antibiotics, will tailor based on speciation (8) Herpes zoster Qualifiers: Herpes zoster complications: without complications Qualified Code(s): B02.9 - Zoster without complications Is this a current diagnosis for this admission?: Yes
[2017-04-14] MEDS: IPRATROPIUM/ALBUTEROL 0.5-2.5 MG/3 ML AMPUL NEB SCH ×2 (16:42→20:57)
[2017-04-14] MEDS: VANCOMYCIN HCL 1,500 MG in DEXTROSE 5%-WATER 250 ML IV SCH (21:20)
[2017-04-15 01:33] LABS: CREATINE KINASE MB 0.55 ng/mL (<4.55)
[2017-04-15 01:38] LABS: TROPONIN I < 0.012 ng/mL
[2017-04-15] MEDS: PIPERACILLIN SODIUM/TAZOBACTAM 2.25 GM in NORMAL SALINE 100 ML IV SCH ×3 (03:29→17:07)
[2017-04-15] MEDS: HEPARIN SOD (PORCINE) 5,000 UNIT/ML 1 ML SYRINGE SUBCUT SCH ×3 (05:26→22:24)
[2017-04-15 06:23] LABS: ABSOLUTE LYMPHOCYTES (AUTO) 0.9 10^3/uL (0.5-4.7); ABSOLUTE MONOCYTES (AUTO) 0.7 10^3/uL (0.1-1.4); ABSOLUTE NEUT (AUTO) 12.9 10^3/uL (1.7-8.2); BASOPHILS % (AUTO) 0.2 % (0-2); EOSINOPHILS % (AUTO) 0.2 % (0-6); HEMATOCRIT 35.1 % (36.0-47.0); HEMOGLOBIN 10.9 g/dL (12.0-15.5); LYMPHOCYTES % (AUTO) 6.3 % (13-45); MEAN CORPUSCULAR HEMOGLOBIN 26.3 pg (27.0-33.4); MEAN CORPUSCULAR HGB CONC 31.1 g/dL (32.0-36.0); MEAN CORPUSCULAR VOLUME 85 fl (80-97); MONOCYTES % (AUTO) 4.6 % (3-13); PLATELET COUNT 149 10^3/uL (150-450); RED BLOOD COUNT 4.14 10^6/uL (3.72-5.28); RED CELL DISTRIBUTION WIDTH 16.7 % (11.5-14.0); SEGMENTED NEUTROPHILS % (AUTO) 88.7 % (42-78); TOTAL CELLS COUNTED % (AUTO) 100 %; WHITE BLOOD COUNT 14.5 10^3/uL (4.0-10.5)
[2017-04-15 07:10] LABS: ANION GAP 9 (5-19); BLOOD UREA NITROGEN 59 mg/dL (7-20); CALCIUM 8.5 mg/dL (8.4-10.2); CARBON DIOXIDE 30 mmol/L (22-30); CHLORIDE 96 mmol/L (98-107); CREATINE KINASE 48 U/L (30-135); GLUCOSE 141 mg/dL (75-110); POTASSIUM 4.5 mmol/L (3.6-5.0); SODIUM 134.8 mmol/L (137-145)
[2017-04-15 07:18] LABS: CREATINE KINASE MB 0.52 ng/mL (<4.55)
[2017-04-15 07:19] LABS: TROPONIN I < 0.012 ng/mL
[2017-04-15] MEDS: ISOSORBIDE MONONITRATE 60 MG TAB.ER.24H PO SCH (07:54)
--- NOTE | 2017-04-15 08:45 | EKG REPORT ---
SEVERITY:- ABNORMAL ECG - SINUS TACHYCARDIA EARLY PRECORDIAL TRANSITIION, CONSIDER OLD INFEROPOSTERIOR [place]. : Confirmed by: Andrew Berger MD 15-Apr-2017 08:44:48
[2017-04-15] MEDS: IPRATROPIUM/ALBUTEROL 0.5-2.5 MG/3 ML AMPUL NEB SCH ×4 (09:04→20:25)
[2017-04-15] MEDS: TIOTROPIUM BROMIDE DPI 5 CAP/KIT (18 MCG/CAP) IH SCH (09:30)
[2017-04-15] MEDS: METOPROLOL SUCCINATE 50 MG TAB.SR.24H PO SCH (09:31)
[2017-04-15] MEDS: ASPIRIN 81 MG TABLET, CHEWABLE PO SCH (09:31)
[2017-04-15] MEDS: ALPRAZOLAM 0.5 MG TABLET PO SCH (09:32)
--- NOTE | 2017-04-15 11:17 | PDOC PROGRESS REPORT ---
Subjective Progress Note for:: 04/15/17 Reason For Visit: PNEUMONIA Physical Exam Vital Signs: Temp Pulse Resp BP Pulse Ox 98.0 F 90 18 111/54 L 90 L 04/15/17 07:38 04/15/17 09:04 04/15/17 09:04 04/15/17 07:38 04/15/17 09:04 Intake & Output 04/14/17 04/15/17 04/16/17 06:59 06:59 06:59 Intake Total 531 2085 Output Total 875 1550 Balance -344 535 Weight 135.2 kg 124.8 kg General appearance: PRESENT: no acute distress, morbidly obese, well-developed Head exam: PRESENT: atraumatic Eye exam: PRESENT: conjunctiva pink, EOMI, PERRLA. ABSENT: scleral icterus Ear exam: PRESENT: normal external ear exam Respiratory exam: PRESENT: decreased breath sounds, rhonchi, unlabored Cardiovascular exam: PRESENT: RRR. ABSENT: diastolic murmur, rubs, systolic murmur Pulses: PRESENT: normal dorsalis pedis pul GI/Abdominal exam: PRESENT: normal bowel sounds, soft. ABSENT: distended, guarding, mass, organolmegaly, rebound, tenderness Extremities exam: PRESENT: full ROM. ABSENT: calf tenderness, clubbing, pedal edema Neurological exam: PRESENT: alert, awake, oriented to person, oriented to place , oriented to time, oriented to situation, CN II-XII grossly intact. ABSENT: motor sensory deficit Results Laboratory Results: 04/15/17 05:45 04/15/17 05:45 04/15/17 04/15/17 05:45 05:45 WBC 14.5 H RBC 4.14 Hgb 10.9 L Hct 35.1 L MCV 85 MCH 26.3 L MCHC 31.1 L RDW 16.7 H Plt Count 149 L Seg Neutrophils % 88.7 H Lymphocytes % 6.3 L Monocytes % 4.6 Eosinophils % 0.2 Basophils % 0.2 Absolute Neutrophils 12.9 H Absolute Lymphocytes 0.9 Absolute Monocytes 0.7 Absolute Eosinophils 0.0 Absolute Basophils 0.0 Sodium 134.8 L Potassium 4.5 Chloride 96 L Carbon Dioxide 30 Anion Gap 9 BUN 59 H Creatinine 1.48 H Est GFR ( Amer) 42 L Est GFR (Non-Af Amer) 35 L Glucose 141 H Calcium 8.5 04/13/17 04/15/17 04/15/17 19:55 00:33 00:33 Creatine Kinase 53 CK-MB (CK-2) 0.55 Troponin I < 0.012 < 0.012 04/15/17 04/15/17 05:45 05:45 Creatine Kinase 48 CK-MB (CK-2) 0.52 Troponin I < 0.012 Impressions: Chest X-Ray 04/13/17 16:05 IMPRESSION: LEFT LOWER LOBE INFILTRATE SUSPICIOUS FOR PNEUMONIA. FAINT DENSITY IN THE RIGHT LUNG BASE. POSSIBLE SMALL PLEURAL EFFUSIONS. Assessment & Plan - Time Time Spent with patient: 15-24 minutes Medications reviewed and adjusted accordingly: Yes Anticipated discharge: Home - Plan Summary Plan Summary: Patient admitted with respiratory failure and was initially on BiPAP but currently improved. She states that her breathing is better although continues to have some pleuritic chest pain she has been tolerating nasal cannula and I have encouraged her to ambulate as tolerated Pneumonia of both lobes due to unspecified organisms. She was recently hospitalized so she is receiving coverage for possible H. 2. Acute hypoxemic respiratory failure secondary to pneumonia this is improving will continue oxygen support as tolerated 3. Stable coronary artery disease currently in beta-blockers and vasodilators. Lisinopril is currently on hold due to [place] I. 4. Hypokalemia with initial potassium at 6. She has received Kayexalate as well as calcium gluconate and potassium is now within normal. 5. Acute kidney injury likely secondary to ATN secondary to acute infection will continue to monitor kidney function. 6. There is a suggestion of pulmonary embolism initially on admission however it appears that this has been ruled out based on clinical grounds as the patient 's respiratory failure has improved and there is a low probability of infection. 7. Hypertension benign essential 8. Possible sepsis at admission with tachypnea hypoxemia leukocytosis and source infection of pneumonia. This is resolving
[2017-04-15] MEDS ORDERED: BISACODYL 5 MG TABEC PO PRN (13:03)
[2017-04-15 13:37] LABS: CREATINE KINASE MB 0.46 ng/mL (<4.55); TROPONIN I 0.017 ng/mL
[2017-04-15] MEDS ORDERED: POLYETHYLENE GLYCOL 3350 POWDER 17 GM/1 PACKET PO ONE (14:00)
[2017-04-15] MEDS: OXYCODONE-ACETAMINOPHEN 5-325 MG TABLET PO PRN (14:11)
[2017-04-15] MEDS: DOCUSATE SODIUM 100 MG CAPSULE PO SCH (17:06)
[2017-04-15] MEDS: VANCOMYCIN HCL 1,500 MG in DEXTROSE 5%-WATER 250 ML IV SCH (22:24)
[2017-04-16 06:29] LABS: ABSOLUTE EOSINOPHILS # (AUTO) 0.2 10^3/uL (0.0-0.6); ABSOLUTE LYMPHOCYTES (AUTO) 1.3 10^3/uL (0.5-4.7); ABSOLUTE MONOCYTES (AUTO) 0.7 10^3/uL (0.1-1.4); ABSOLUTE NEUT (AUTO) 7.9 10^3/uL (1.7-8.2); BASOPHILS % (AUTO) 0.1 % (0-2); EOSINOPHILS % (AUTO) 2.3 % (0-6); HEMATOCRIT 34.2 % (36.0-47.0); HEMOGLOBIN 10.9 g/dL (12.0-15.5); LYMPHOCYTES % (AUTO) 12.7 % (13-45); MEAN CORPUSCULAR HEMOGLOBIN 26.7 pg (27.0-33.4); MEAN CORPUSCULAR HGB CONC 31.8 g/dL (32.0-36.0); MEAN CORPUSCULAR VOLUME 84 fl (80-97); MONOCYTES % (AUTO) 6.9 % (3-13); PLATELET COUNT 149 10^3/uL (150-450); RED BLOOD COUNT 4.07 10^6/uL (3.72-5.28); RED CELL DISTRIBUTION WIDTH 16.3 % (11.5-14.0); TOTAL CELLS COUNTED % (AUTO) 100 %; WHITE BLOOD COUNT 10.2 10^3/uL (4.0-10.5)
[2017-04-16 06:34] LABS: ANION GAP 7 (5-19); BLOOD UREA NITROGEN 49 mg/dL (7-20); CARBON DIOXIDE 31 mmol/L (22-30); CHLORIDE 100 mmol/L (98-107); GLUCOSE 116 mg/dL (75-110); POTASSIUM 4.7 mmol/L (3.6-5.0); SODIUM 137.8 mmol/L (137-145)
[2017-04-16] MEDS: PIPERACILLIN SODIUM/TAZOBACTAM 2.25 GM in NORMAL SALINE 100 ML IV SCH ×2 (07:31→10:21)
[2017-04-16] MEDS: HEPARIN SOD (PORCINE) 5,000 UNIT/ML 1 ML SYRINGE SUBCUT SCH ×2 (07:32→13:28)
[2017-04-16] MEDS: IPRATROPIUM/ALBUTEROL 0.5-2.5 MG/3 ML AMPUL NEB SCH ×4 (08:13→20:35)
[2017-04-16] MEDS: ISOSORBIDE MONONITRATE 60 MG TAB.ER.24H PO SCH (09:00)
[2017-04-16] MEDS: OXYCODONE-ACETAMINOPHEN 5-325 MG TABLET PO PRN (09:22)
[2017-04-16] MEDS: NITROGLYCERIN 0.4 MG/TAB 25 TAB/BOTTLE SL PRN (09:41)
[2017-04-16] MEDS: POLYETHYLENE GLYCOL 3350 POWDER 17 GM/1 PACKET PO SCH (10:18)
[2017-04-16] MEDS: TIOTROPIUM BROMIDE DPI 5 CAP/KIT (18 MCG/CAP) IH SCH (10:19)
[2017-04-16] MEDS: DOCUSATE SODIUM 100 MG CAPSULE PO SCH ×2 (10:20→17:52)
[2017-04-16] MEDS: ASPIRIN 81 MG TABLET, CHEWABLE PO SCH (10:20)
[2017-04-16] MEDS: METOPROLOL SUCCINATE 50 MG TAB.SR.24H PO SCH (10:20)
[2017-04-16] MEDS: ALPRAZOLAM 0.5 MG TABLET PO SCH (10:21)
--- NOTE | 2017-04-16 13:38 | PDOC PROGRESS REPORT ---
Subjective Progress Note for:: 04/16/17 Subjective:: Patient reports feeling better, has a cough with productive sputum Reason For Visit: PNEUMONIA Physical Exam Vital Signs: Temp Pulse Resp BP Pulse Ox 98.7 F 94 22 H 137/62 H 98 04/16/17 12:09 04/16/17 12:09 04/16/17 12:09 04/16/17 12:09 04/16/17 12:09 Intake & Output 04/15/17 04/16/17 04/17/17 06:59 06:59 06:59 Intake Total 2085 1251 173 Output Total 1550 1475 Balance 535 -224 173 Weight 124.8 kg 124.1 kg General appearance: PRESENT: no acute distress, obese, well-developed, well- nourished Head exam: PRESENT: atraumatic Eye exam: PRESENT: conjunctiva pink, EOMI, PERRLA. ABSENT: scleral icterus Ear exam: PRESENT: normal external ear exam Respiratory exam: PRESENT: crackles, rales, rhonchi, unlabored. ABSENT: chest wall tenderness, tachypnea, wheezes Cardiovascular exam: PRESENT: RRR. ABSENT: diastolic murmur, rubs, systolic murmur GI/Abdominal exam: PRESENT: normal bowel sounds, soft. ABSENT: distended, guarding, mass, organolmegaly, rebound, tenderness Rectal exam: PRESENT: deferred Neurological exam: PRESENT: alert, awake, oriented to person, oriented to place , oriented to time, oriented to situation, CN II-XII grossly intact. ABSENT: motor sensory deficit Results Laboratory Results: 04/16/17 05:20 04/16/17 05:20 04/16/17 04/16/17 05:20 05:20 WBC 10.2 RBC 4.07 Hgb 10.9 L Hct 34.2 L MCV 84 MCH 26.7 L MCHC 31.8 L RDW 16.3 H Plt Count 149 L Seg Neutrophils % 78.0 Lymphocytes % 12.7 L Monocytes % 6.9 Eosinophils % 2.3 Basophils % 0.1 Absolute Neutrophils 7.9 Absolute Lymphocytes 1.3 Absolute Monocytes 0.7 Absolute Eosinophils 0.2 Absolute Basophils 0.0 Sodium 137.8 Potassium 4.7 Chloride 100 Carbon Dioxide 31 H Anion Gap 7 BUN 49 H Creatinine 1.15 Est GFR ( Amer) 56 L Est GFR (Non-Af Amer) 46 L Glucose 116 H Calcium 9.0 04/13/17 19:55 Blood Blood Culture - Final Staphylococcus Aureus 04/13/17 04/15/17 04/15/17 19:55 00:33 00:33 Creatine Kinase 53 CK-MB (CK-2) 0.55 Troponin I < 0.012 < 0.012 04/15/17 04/15/17 04/15/17 05:45 05:45 12:39 Creatine Kinase 48 40 CK-MB (CK-2) 0.52 Troponin I < 0.012 04/15/17 12:39 Creatine Kinase CK-MB (CK-2) 0.46 Troponin I 0.017 Impressions: Chest X-Ray 04/13/17 16:05 IMPRESSION: LEFT LOWER LOBE INFILTRATE SUSPICIOUS FOR PNEUMONIA. FAINT DENSITY IN THE RIGHT LUNG BASE. POSSIBLE SMALL PLEURAL EFFUSIONS. Assessment & Plan - Time Time Spent with patient: 15-24 minutes Medications reviewed and adjusted accordingly: Yes Anticipated discharge: Home - Plan Summary Plan Summary: Pneumonia of both lobes due to unspecified organisms. I have stopped Zosyn and Vanc and started Clindamycin for MSSA coverage 2. Acute hypoxemic respiratory failure secondary to pneumonia this is improving. She uses 2 L of oxygen chronically 3. Stable coronary artery disease currently in beta-blockers and vasodilators. Lisinopril is currently on hold due to AK I. Restarted as appropriate 4. Hypokalemia with initial potassium at 6. She has received Kayexalate as well as calcium gluconate and potassium is now within normal. 5. Acute kidney injury likely secondary to ATN secondary to acute infection will continue to monitor kidney function. 6. There is a suggestion of pulmonary embolism initially on admission however this has been ruled out based on clinical grounds as the patient's respiratory failure has improved and there is a low pretest probability of PE. 7. Hypertension benign essential controlled 8. Possible sepsis at admission with tachypnea hypoxemia leukocytosis and source infection of pneumonia. This is resolving 9. MSSA bacteremia currently on clindamycin. Once she is stable this can be changed to oral clindamycin and she can be discharged home
[2017-04-16] MEDS ORDERED: CLINDAMYCIN 300 MG/D5W RTU 300 MG/50 ML RTUPB IV ONE (15:00)
[2017-04-17] MEDS: HEPARIN SOD (PORCINE) 5,000 UNIT/ML 1 ML SYRINGE SUBCUT SCH ×4 (00:22→21:31)
[2017-04-17] MEDS: CLINDAMYCIN 300 MG/D5W RTU 300 MG/50 ML RTUPB IV SCH ×4 (00:22→21:31)
[2017-04-17] MEDS: IPRATROPIUM/ALBUTEROL 0.5-2.5 MG/3 ML AMPUL NEB SCH ×4 (08:07→21:05)
[2017-04-17] MEDS: ASPIRIN 81 MG TABLET, CHEWABLE PO SCH (09:49)
[2017-04-17] MEDS: POLYETHYLENE GLYCOL 3350 POWDER 17 GM/1 PACKET PO SCH (09:50)
[2017-04-17] MEDS: METOPROLOL SUCCINATE 50 MG TAB.SR.24H PO SCH (09:50)
[2017-04-17] MEDS: ALPRAZOLAM 0.5 MG TABLET PO SCH (09:50)
[2017-04-17] MEDS: DOCUSATE SODIUM 100 MG CAPSULE PO SCH ×2 (09:51→18:18)
[2017-04-17] MEDS: TIOTROPIUM BROMIDE DPI 5 CAP/KIT (18 MCG/CAP) IH SCH (09:51)
[2017-04-17] MEDS: ISOSORBIDE MONONITRATE 60 MG TAB.ER.24H PO SCH (09:51)
[2017-04-17] MEDS: OXYCODONE-ACETAMINOPHEN 5-325 MG TABLET PO PRN ×2 (10:00→21:29)
--- NOTE | 2017-04-17 16:44 | PDOC PROGRESS REPORT ---
Subjective Progress Note for:: 04/17/17 Subjective:: Patient reports feeling better, has a cough with productive sputum. This appears to be loosening up with IS Reason For Visit: PNEUMONIA Physical Exam Vital Signs: Temp Pulse Resp BP Pulse Ox 98.2 F 86 20 123/49 L 97 04/17/17 11:55 04/17/17 11:55 04/17/17 11:55 04/17/17 11:55 04/17/17 11:55 Intake & Output 04/16/17 04/17/17 04/18/17 06:59 06:59 06:59 Intake Total 1251 781 Output Total 1475 Balance -224 781 Weight 124.1 kg 125 kg General appearance: PRESENT: no acute distress, morbidly obese, well-developed, well-nourished Head exam: PRESENT: atraumatic Ear exam: PRESENT: normal external ear exam Neck exam: ABSENT: carotid bruit, JVD, lymphadenopathy, thyromegaly Respiratory exam: PRESENT: crackles - bases, rhonchi Cardiovascular exam: PRESENT: RRR. ABSENT: diastolic murmur, rubs, systolic murmur Pulses: PRESENT: normal dorsalis pedis pul GI/Abdominal exam: PRESENT: normal bowel sounds, soft. ABSENT: distended, guarding, mass, organolmegaly, rebound, tenderness Rectal exam: PRESENT: deferred Extremities exam: PRESENT: full ROM. ABSENT: calf tenderness, clubbing, pedal edema Neurological exam: PRESENT: alert, awake, oriented to person, oriented to place , oriented to time, oriented to situation, CN II-XII grossly intact. ABSENT: motor sensory deficit Results Laboratory Results: 04/16/17 05:20 04/16/17 05:20 04/13/17 04/15/17 04/15/17 19:55 00:33 00:33 Creatine Kinase 53 CK-MB (CK-2) 0.55 Troponin I < 0.012 < 0.012 04/15/17 04/15/17 04/15/17 05:45 05:45 12:39 Creatine Kinase 48 40 CK-MB (CK-2) 0.52 Troponin I < 0.012 04/15/17 12:39 Creatine Kinase CK-MB (CK-2) 0.46 Troponin I 0.017 Impressions: Chest X-Ray 03/01/18 16:05 IMPRESSION: LEFT LOWER LOBE INFILTRATE SUSPICIOUS FOR PNEUMONIA. FAINT DENSITY IN THE RIGHT LUNG BASE. POSSIBLE SMALL PLEURAL EFFUSIONS. Assessment & Plan - Time Time Spent with patient: 15-24 minutes Medications reviewed and adjusted accordingly: Yes Anticipated discharge: Home Within: within 72 hours - Plan Summary Plan Summary: 1. Bilateral Pneumonia due to MSSA. I have stopped Zosyn and Vanc and started Clindamycin for MSSA coverage on 04/16 2. Acute hypoxemic respiratory failure secondary to pneumonia this is improving. She uses 2 L of oxygen chronically 3. Stable coronary artery disease currently in beta-blockers and vasodilators. Lisinopril is currently on hold due to [place] I. Restarted as appropriate 4. Hypokalemia with initial potassium at 6. She has received Kayexalate as well as calcium gluconate and potassium is now within normal. 5. Acute kidney injury likely secondary to ATN secondary to acute infection will continue to monitor kidney function. 6. There is a suggestion of pulmonary embolism initially on admission however this has been ruled out based on clinical grounds as the patient's respiratory failure has improved and there is a low pretest probability of PE. 7. Hypertension benign essential controlled 8. Sepsis on admission with tachypnea hypoxemia leukocytosis and source infection of pneumonia. This is resolving 9. MSSA bacteremia currently on clindamycin. Once she is stable this can be changed to oral clindamycin and she can be discharged home 10. Encourage ambulation as tolerated
[2017-04-18] MEDS: CLINDAMYCIN 300 MG/D5W RTU 300 MG/50 ML RTUPB IV SCH ×3 (05:22→21:13)
[2017-04-18] MEDS: OXYCODONE-ACETAMINOPHEN 5-325 MG TABLET PO PRN ×3 (05:36→19:53)
[2017-04-18] MEDS: HEPARIN SOD (PORCINE) 5,000 UNIT/ML 1 ML SYRINGE SUBCUT SCH ×3 (05:37→21:11)
[2017-04-18 06:01] LABS: ABSOLUTE EOSINOPHILS # (AUTO) 0.3 10^3/uL (0.0-0.6); ABSOLUTE LYMPHOCYTES (AUTO) 1.4 10^3/uL (0.5-4.7); ABSOLUTE MONOCYTES (AUTO) 0.8 10^3/uL (0.1-1.4); BASOPHILS % (AUTO) 0.3 % (0-2); EOSINOPHILS % (AUTO) 4.1 % (0-6); HEMOGLOBIN 10.9 g/dL (12.0-15.5); LYMPHOCYTES % (AUTO) 18.6 % (13-45); MEAN CORPUSCULAR HGB CONC 32.2 g/dL (32.0-36.0); MEAN CORPUSCULAR VOLUME 84 fl (80-97); PLATELET COUNT 154 10^3/uL (150-450); RED BLOOD COUNT 4.05 10^6/uL (3.72-5.28); RED CELL DISTRIBUTION WIDTH 16.2 % (11.5-14.0); TOTAL CELLS COUNTED % (AUTO) 100 %; WHITE BLOOD COUNT 7.6 10^3/uL (4.0-10.5)
[2017-04-18 06:20] LABS: ANION GAP 9 (5-19); BLOOD UREA NITROGEN 33 mg/dL (7-20); CALCIUM 8.8 mg/dL (8.4-10.2); CARBON DIOXIDE 26 mmol/L (22-30); CHLORIDE 103 mmol/L (98-107); GLUCOSE 113 mg/dL (75-110); SODIUM 138.3 mmol/L (137-145)
[2017-04-18] MEDS: IPRATROPIUM/ALBUTEROL 0.5-2.5 MG/3 ML AMPUL NEB SCH ×4 (08:27→20:11)
[2017-04-18] MEDS: ASPIRIN 81 MG TABLET, CHEWABLE PO SCH (09:35)
[2017-04-18] MEDS: ISOSORBIDE MONONITRATE 60 MG TAB.ER.24H PO SCH (09:35)
[2017-04-18] MEDS: DOCUSATE SODIUM 100 MG CAPSULE PO SCH ×2 (09:36→18:02)
[2017-04-18] MEDS: METOPROLOL SUCCINATE 50 MG TAB.SR.24H PO SCH (09:36)
[2017-04-18] MEDS: ALPRAZOLAM 0.5 MG TABLET PO SCH (09:36)
[2017-04-18] MEDS: POLYETHYLENE GLYCOL 3350 POWDER 17 GM/1 PACKET PO SCH (09:36)
[2017-04-18] MEDS: TIOTROPIUM BROMIDE DPI 5 CAP/KIT (18 MCG/CAP) IH SCH (09:37)
--- NOTE | 2017-04-18 15:39 | PDOC PROGRESS REPORT ---
Subjective Progress Note for:: 04/18/17 Subjective:: Patient reports that she is having left-sided back pain. Patient states that it feels like pins and needles. Patient reports that she has had shingles in the past is concerned that she has shingles this time. Patient reports that her plan is to go home however she states that she has not worked with physical therapy and she does not feel strong enough to ambulate safely on her own. Reason For Visit: PNEUMONIA Physical Exam Vital Signs: Temp Pulse Resp BP Pulse Ox 98.0 F 88 18 138/66 H 91 L 04/18/17 12:05 04/18/17 14:00 04/18/17 12:18 04/18/17 12:05 04/18/17 12:18 Intake & Output 04/17/17 04/18/17 04/19/17 06:59 06:59 06:59 Intake Total 781 1120 700 Output Total 150 Balance 781 970 700 Weight 125 kg General appearance: PRESENT: no acute distress, well-developed, well-nourished Head exam: PRESENT: atraumatic, normocephalic Eye exam: PRESENT: conjunctiva pink, EOMI. ABSENT: scleral icterus Ear exam: PRESENT: normal external ear exam Mouth exam: PRESENT: moist, tongue midline Neck exam: ABSENT: carotid bruit, JVD, lymphadenopathy, thyromegaly Respiratory exam: PRESENT: clear to auscultation ayden. ABSENT: rales, rhonchi, wheezes Cardiovascular exam: PRESENT: RRR. ABSENT: diastolic murmur, rubs, systolic murmur Pulses: PRESENT: normal dorsalis pedis pul Vascular exam: PRESENT: normal capillary refill GI/Abdominal exam: PRESENT: normal bowel sounds, soft. ABSENT: distended, guarding, mass, organolmegaly, rebound, tenderness Rectal exam: PRESENT: deferred Extremities exam: PRESENT: full ROM. ABSENT: calf tenderness, clubbing, pedal edema Musculoskeletal exam: PRESENT: full ROM Neurological exam: PRESENT: alert, awake, oriented to person, oriented to place , oriented to time, oriented to situation, CN II-XII grossly intact. ABSENT: motor sensory deficit Psychiatric exam: PRESENT: appropriate affect, normal mood. ABSENT: homicidal ideation, suicidal ideation Skin exam: PRESENT: other - Left side back tenderness to palpation with mild erythema present no blisters found Results Laboratory Results: 04/18/17 05:20 04/18/17 05:20 04/18/17 04/18/17 05:20 05:20 WBC 7.6 RBC 4.05 Hgb 10.9 L Hct 34.0 L MCV 84 MCH 27.0 MCHC 32.2 RDW 16.2 H Plt Count 154 Seg Neutrophils % 66.0 Lymphocytes % 18.6 Monocytes % 11.0 Eosinophils % 4.1 Basophils % 0.3 Absolute Neutrophils 5.0 Absolute Lymphocytes 1.4 Absolute Monocytes 0.8 Absolute Eosinophils 0.3 Absolute Basophils 0.0 Sodium 138.3 Potassium 5.0 Chloride 103 Carbon Dioxide 26 Anion Gap 9 BUN 33 H Creatinine 1.01 Est GFR ( Amer) > 60 Est GFR (Non-Af Amer) 54 L Glucose 113 H Calcium 8.8 04/13/17 04/15/17 04/15/17 19:55 00:33 00:33 Creatine Kinase 53 CK-MB (CK-2) 0.55 Troponin I < 0.012 < 0.012 04/15/17 04/15/17 04/15/17 05:45 05:45 12:39 Creatine Kinase 48 40 CK-MB (CK-2) 0.52 Troponin I < 0.012 04/15/17 12:39 Creatine Kinase CK-MB (CK-2) 0.46 Troponin I 0.017 Impressions: Chest X-Ray 04/13/17 16:05 IMPRESSION: LEFT LOWER LOBE INFILTRATE SUSPICIOUS FOR PNEUMONIA. FAINT DENSITY IN THE RIGHT LUNG BASE. POSSIBLE SMALL PLEURAL EFFUSIONS. Assessment & Plan - Diagnosis (1) MSSA (methicillin susceptible Staphylococcus aureus) septicemia Is this a current diagnosis for this admission?: Yes Plan: Clindamycin (2) Hypertension Is this a current diagnosis for this admission?: Yes Plan: Continue current treatment (3) Sepsis Is this a current diagnosis for this admission?: Yes Plan: Secondary to MSSA bacteremia and pneumonia: continue clindamycin (4) CAD (coronary artery disease) Is this a current diagnosis for this admission?: Yes Plan: We will continue home medications (5) Herpes zoster Qualifiers: Herpes zoster complications: without complications Qualified Code(s): B02.9 - Zoster without complications Is this a current diagnosis for this admission?: Yes Plan: Will start patient on Valtrex (6) Leukocytosis Qualifiers: Leukocytosis type: bandemia Qualified Code(s): D72.825 - Bandemia Is this a current diagnosis for this admission?: Yes Plan: Resolved (7) Pneumonia of both lower lobes Qualifiers: Pneumonia type: due to unspecified organism Qualified Code(s): J18.9 - Pneumonia, unspecified organism Is this a current diagnosis for this admission?: Yes Plan: Secondary to MSSA pneumonia: We will continue clindamycin - Time Time Spent with patient: 25-34 minutes
[2017-04-18] MEDS ORDERED: METOCLOPRAMIDE HCL ORAL SOLN 10 MG/10 ML UDCUP PO ONE (18:30)
[2017-04-18] MEDS ORDERED: LIDOCAINE 2% VISCOUS SOLN 20 ML UDCUP PO ONE (18:30)
[2017-04-18] MEDS ORDERED: MAG HYDROX/AL HYDROX/SIMETH SUSP 30 ML UDCUP PO ONE (18:30)
[2017-04-18] MEDS: NITROGLYCERIN 0.4 MG/TAB 25 TAB/BOTTLE SL PRN (20:56)
[2017-04-18] MEDS: VALACYCLOVIR HCL 500 MG TABLET PO SCH (21:12)
--- NOTE | 2017-04-18 21:18 | EKG REPORT ---
SEVERITY:- ABNORMAL ECG - SINUS TACHYCARDIA INFERIOR INFARCT, AGE INDETERMINATE : Confirmed by: Samuel Henao 18-Apr-2017 21:17:23
[2017-04-19] MEDS: OXYCODONE-ACETAMINOPHEN 5-325 MG TABLET PO PRN ×3 (04:39→17:14)
[2017-04-19] MEDS: CLINDAMYCIN 300 MG/D5W RTU 300 MG/50 ML RTUPB IV SCH ×3 (06:07→21:48)
[2017-04-19] MEDS: VALACYCLOVIR HCL 500 MG TABLET PO SCH ×3 (06:08→21:33)
[2017-04-19] MEDS: LANSOPRAZOLE 30 MG TAB.RAP.DR PO SCH (06:09)
[2017-04-19] MEDS: HEPARIN SOD (PORCINE) 5,000 UNIT/ML 1 ML SYRINGE SUBCUT SCH ×3 (06:11→21:48)
[2017-04-19 06:35] LABS: HEMATOCRIT 32.3 % (36.0-47.0); HEMOGLOBIN 10.2 g/dL (12.0-15.5); MEAN CORPUSCULAR HEMOGLOBIN 26.8 pg (27.0-33.4); MEAN CORPUSCULAR HGB CONC 31.5 g/dL (32.0-36.0); MEAN CORPUSCULAR VOLUME 85 fl (80-97); PLATELET COUNT 160 10^3/uL (150-450); RED BLOOD COUNT 3.81 10^6/uL (3.72-5.28); RED CELL DISTRIBUTION WIDTH 16.7 % (11.5-14.0)
[2017-04-19 06:45] LABS: ALANINE AMINOTRANSFERASE 57 U/L (9-52); ALBUMIN 2.6 g/dL (3.5-5.0); ALKALINE PHOSPHATASE 173 U/L (38-126); ANION GAP 6 (5-19); ASPARTATE AMINO TRANSFERASE 32 U/L (14-36); BILIRUBIN,DIRECT 0.5 mg/dL (0.0-0.4); BILIRUBIN,TOTAL 0.6 mg/dL (0.2-1.3); BLOOD UREA NITROGEN 30 mg/dL (7-20); CALCIUM 9.1 mg/dL (8.4-10.2); CARBON DIOXIDE 26 mmol/L (22-30); CHLORIDE 105 mmol/L (98-107); GLUCOSE 105 mg/dL (75-110); POTASSIUM 5.2 mmol/L (3.6-5.0); SODIUM 136.7 mmol/L (137-145); TOTAL PROTEIN 5.5 g/dL (6.3-8.2)
[2017-04-19 07:11] LABS: ABSOLUTE LYMPHOCYTES# (MANUAL) 1.5 10^3/uL (0.5-4.7); ABSOLUTE MONOCYTES # (MANUAL) 0.6 10^3/uL (0.1-1.4); ABSOLUTE NEUTROPHILS# (MANUAL) 4.5 10^3/uL (1.7-8.2); BAND NEUTROPHILS % (MANUAL) 4 % (3-5); BASOPHILS % (MANUAL) 0 % (0-2); EOSINOPHILS % (MANUAL) 6 % (0-6); LYMPHOCYTES % (MANUAL) 21 % (13-45); MONOCYTES % (MANUAL) 9 % (3-13); NUCLEATED RED BLOOD CELLS 1 /100 WBC (0); SEGMENTED NEUTROPHILS % (MAN) 60 % (42-78); TOTAL CELLS COUNTED 100
[2017-04-19 07:12] LABS: ANISOCYTOSIS 1+; POLYCHROMASIA SLIGHT; TOXIC GRANULATION SLIGHT
[2017-04-19 07:13] LABS: OVALOCYTES SLIGHT; PLATELET COMMENT ADEQUATE; POIKILOCYTOSIS SLIGHT; SCHISTOCYTES SLIGHT
[2017-04-19] MEDS: IPRATROPIUM/ALBUTEROL 0.5-2.5 MG/3 ML AMPUL NEB SCH ×4 (08:35→20:20)
[2017-04-19] MEDS: ISOSORBIDE MONONITRATE 60 MG TAB.ER.24H PO SCH (08:44)
[2017-04-19] MEDS: NITROGLYCERIN 0.4 MG/TAB 25 TAB/BOTTLE SL PRN (09:28)
[2017-04-19] MEDS: ASPIRIN 81 MG TABLET, CHEWABLE PO SCH (09:30)
[2017-04-19] MEDS: DOCUSATE SODIUM 100 MG CAPSULE PO SCH ×2 (09:30→17:14)
[2017-04-19] MEDS: ALPRAZOLAM 0.5 MG TABLET PO SCH (09:30)
[2017-04-19] MEDS: POLYETHYLENE GLYCOL 3350 POWDER 17 GM/1 PACKET PO SCH (09:31)
[2017-04-19] MEDS: METOPROLOL SUCCINATE 50 MG TAB.SR.24H PO SCH (09:31)
[2017-04-19] MEDS: TIOTROPIUM BROMIDE DPI 5 CAP/KIT (18 MCG/CAP) IH SCH (11:34)
--- NOTE | 2017-04-19 12:38 | PDOC PROGRESS REPORT ---
Subjective Progress Note for:: 04/19/17 Subjective:: Patient states that she is not doing very well due to feeling weak. Patient states that she is coughing. Readdressed the importance of patient going to rehab prior to going home. Patient states that she gets that she will be agreeable to going to rehab because she can not go home the way that she is currently. Spoke to case management about rehab placement Reason For Visit: PNEUMONIA Physical Exam Vital Signs: Temp Pulse Resp BP Pulse Ox 99.1 F 85 16 130/48 H 95 04/19/17 08:03 04/19/17 11:56 04/19/17 11:56 04/19/17 08:03 04/19/17 11:56 Intake & Output 04/18/17 04/19/17 04/20/17 06:59 06:59 06:59 Intake Total 1120 1305 Output Total 150 300 Balance 970 1005 Weight 124.1 kg General appearance: PRESENT: no acute distress, well-developed, well-nourished Head exam: PRESENT: atraumatic, normocephalic Eye exam: PRESENT: conjunctiva pink, EOMI, PERRLA. ABSENT: scleral icterus Ear exam: PRESENT: normal external ear exam Mouth exam: PRESENT: moist, tongue midline Neck exam: ABSENT: carotid bruit, JVD, lymphadenopathy, thyromegaly Respiratory exam: PRESENT: decreased breath sounds, other - + coarse breath sounds upper and lower lobes. ABSENT: rales, rhonchi, wheezes Cardiovascular exam: PRESENT: RRR. ABSENT: diastolic murmur, rubs, systolic murmur Pulses: PRESENT: normal dorsalis pedis pul Vascular exam: PRESENT: normal capillary refill GI/Abdominal exam: PRESENT: normal bowel sounds, soft. ABSENT: distended, guarding, mass, organolmegaly, rebound, tenderness Rectal exam: PRESENT: deferred Extremities exam: PRESENT: full ROM. ABSENT: calf tenderness, clubbing, pedal edema Musculoskeletal exam: PRESENT: full ROM Neurological exam: PRESENT: alert, awake, oriented to person, oriented to place , oriented to time, oriented to situation, CN II-XII grossly intact. ABSENT: motor sensory deficit Psychiatric exam: PRESENT: appropriate affect, normal mood. ABSENT: homicidal ideation, suicidal ideation Skin exam: PRESENT: dry, intact, warm. ABSENT: cyanosis, rash Results Laboratory Results: 04/19/17 05:40 04/19/17 05:40 04/19/17 04/19/17 05:40 05:40 WBC 7.0 RBC 3.81 Hgb 10.2 L Hct 32.3 L MCV 85 MCH 26.8 L MCHC 31.5 L RDW 16.7 H Plt Count 160 Seg Neutrophils % Not Reportable Lymphocytes % Not Reportable Monocytes % Not Reportable Eosinophils % Not Reportable Basophils % Not Reportable Absolute Neutrophils Not Reportable Absolute Lymphocytes Not Reportable Absolute Monocytes Not Reportable Absolute Eosinophils Not Reportable Absolute Basophils Not Reportable Sodium 136.7 L Potassium 5.2 H Chloride 105 Carbon Dioxide 26 Anion Gap 6 BUN 30 H Creatinine 1.03 Est GFR ( Amer) > 60 Est GFR (Non-Af Amer) 53 L Glucose 105 Calcium 9.1 Magnesium 1.8 Total Bilirubin 0.6 AST 32 ALT 57 H Alkaline Phosphatase 173 H Total Protein 5.5 L Albumin 2.6 L 04/16/17 10:40 Sputum Gram Stain - Final 04/16/17 10:40 Sputum Sputum Culture - Final Staphylococcus Aureus Greatly Reduced Normal Brunilda 04/13/17 04/15/17 04/15/17 19:55 00:33 00:33 Creatine Kinase 53 CK-MB (CK-2) 0.55 Troponin I < 0.012 < 0.012 04/15/17 04/15/17 04/15/17 05:45 05:45 12:39 Creatine Kinase 48 40 CK-MB (CK-2) 0.52 Troponin I < 0.012 04/15/17 12:39 Creatine Kinase CK-MB (CK-2) 0.46 Troponin I 0.017 Impressions: Chest X-Ray 04/13/17 16:05 IMPRESSION: LEFT LOWER LOBE INFILTRATE SUSPICIOUS FOR PNEUMONIA. FAINT DENSITY IN THE RIGHT LUNG BASE. POSSIBLE SMALL PLEURAL EFFUSIONS. Assessment & Plan - Diagnosis (1) MSSA (methicillin susceptible Staphylococcus aureus) septicemia Is this a current diagnosis for this admission?: Yes Plan: Clindamycin (2) Hypertension Is this a current diagnosis for this admission?: Yes Plan: Continue current treatment (3) Sepsis Is this a current diagnosis for this admission?: Yes Plan: Secondary to MSSA bacteremia and pneumonia: continue clindamycin (4) CAD (coronary artery disease) Is this a current diagnosis for this admission?: Yes Plan: We will continue home medications (5) Herpes zoster Qualifiers: Herpes zoster complications: without complications Qualified Code(s): B02.9 - Zoster without complications Is this a current diagnosis for this admission?: Yes Plan: Will continue on Valtrex (6) Leukocytosis Qualifiers: Leukocytosis type: bandemia Qualified Code(s): D72.825 - Bandemia Is this a current diagnosis for this admission?: Yes Plan: Resolved (7) Pneumonia of both lower lobes Qualifiers: Pneumonia type: due to unspecified organism Qualified Code(s): J18.9 - Pneumonia, unspecified organism Is this a current diagnosis for this admission?: Yes Plan: Secondary to MSSA pneumonia: We will continue clindamycin (8) Debility Is this a current diagnosis for this admission?: Yes Plan: Patient is agreed to go to rehab. PT OT has been ordered and case management has been made aware. - Time Time Spent with patient: 15-24 minutes
[2017-04-19] MEDS ORDERED: SODIUM POLYSTYRENE SULFONATE 15 GM/60 ML PO ONE (13:30)
[2017-04-19] MEDS: GABAPENTIN 100 MG CAPSULE PO SCH (21:32)
[2017-04-20] MEDS: OXYCODONE-ACETAMINOPHEN 5-325 MG TABLET PO PRN ×2 (03:59→14:38)
[2017-04-20] MEDS: CLINDAMYCIN 300 MG/D5W RTU 300 MG/50 ML RTUPB IV SCH (05:17)
[2017-04-20] MEDS: LANSOPRAZOLE 30 MG TAB.RAP.DR PO SCH (05:18)
[2017-04-20] MEDS: VALACYCLOVIR HCL 500 MG TABLET PO SCH ×3 (05:18→23:26)
[2017-04-20] MEDS: GABAPENTIN 100 MG CAPSULE PO SCH ×3 (05:18→23:26)
[2017-04-20] MEDS: HEPARIN SOD (PORCINE) 5,000 UNIT/ML 1 ML SYRINGE SUBCUT SCH ×3 (05:18→23:26)
[2017-04-20 05:28] LABS: ABSOLUTE EOSINOPHILS # (AUTO) 0.3 10^3/uL (0.0-0.6); ABSOLUTE LYMPHOCYTES (AUTO) 1.7 10^3/uL (0.5-4.7); ABSOLUTE MONOCYTES (AUTO) 0.8 10^3/uL (0.1-1.4); ABSOLUTE NEUT (AUTO) 4.4 10^3/uL (1.7-8.2); BASOPHILS % (AUTO) 0.3 % (0-2); EOSINOPHILS % (AUTO) 3.7 % (0-6); HEMATOCRIT 33.2 % (36.0-47.0); HEMOGLOBIN 10.6 g/dL (12.0-15.5); LYMPHOCYTES % (AUTO) 23.5 % (13-45); MEAN CORPUSCULAR HEMOGLOBIN 27.2 pg (27.0-33.4); MEAN CORPUSCULAR VOLUME 85 fl (80-97); MONOCYTES % (AUTO) 10.7 % (3-13); PLATELET COUNT 181 10^3/uL (150-450); RED BLOOD COUNT 3.92 10^6/uL (3.72-5.28); RED CELL DISTRIBUTION WIDTH 16.9 % (11.5-14.0); SEGMENTED NEUTROPHILS % (AUTO) 61.8 % (42-78); TOTAL CELLS COUNTED % (AUTO) 100 %; WHITE BLOOD COUNT 7.1 10^3/uL (4.0-10.5)
[2017-04-20 05:42] LABS: ANION GAP 8 (5-19); BLOOD UREA NITROGEN 29 mg/dL (7-20); CALCIUM 9.1 mg/dL (8.4-10.2); CARBON DIOXIDE 28 mmol/L (22-30); CHLORIDE 103 mmol/L (98-107); GLUCOSE 118 mg/dL (75-110); POTASSIUM 4.8 mmol/L (3.6-5.0)
[2017-04-20] MEDS: IPRATROPIUM/ALBUTEROL 0.5-2.5 MG/3 ML AMPUL NEB SCH ×4 (07:25→19:29)
[2017-04-20] MEDS: ISOSORBIDE MONONITRATE 60 MG TAB.ER.24H PO SCH (07:52)
[2017-04-20] MEDS: TIOTROPIUM BROMIDE DPI 5 CAP/KIT (18 MCG/CAP) IH SCH (09:27)
[2017-04-20] MEDS: POLYETHYLENE GLYCOL 3350 POWDER 17 GM/1 PACKET PO SCH (09:27)
[2017-04-20] MEDS: METOPROLOL SUCCINATE 50 MG TAB.SR.24H PO SCH (09:28)
[2017-04-20] MEDS: DOCUSATE SODIUM 100 MG CAPSULE PO SCH ×2 (09:28→18:10)
[2017-04-20] MEDS: ASPIRIN 81 MG TABLET, CHEWABLE PO SCH (09:28)
[2017-04-20] MEDS: ALPRAZOLAM 0.5 MG TABLET PO SCH (09:28)
--- NOTE | 2017-04-20 13:37 | PDOC DISCHARGE SUMMARY ---
General - Admit/Disc Date/PCP Admission Date/Primary Care Provider: 04/13/17 17:54 JOSE JUAN ARTIS MD Discharge Date: 04/20/17 - Discharge Diagnosis (1) MSSA (methicillin susceptible Staphylococcus aureus) septicemia Is this a current diagnosis for this admission?: Yes Summary: Secondary to MSSA pneumonia: Patient will continue on clindamycin. She will complete a total of 14 days. (2) Hypertension Is this a current diagnosis for this admission?: Yes Summary: Continue current medications. Patient's Lasix has been changed to as needed. (3) Sepsis Is this a current diagnosis for this admission?: Yes Summary: MSSA pneumonia and bacteremia: Patient's on clindamycin will complete a total of 14 days of treatment. (4) CAD (coronary artery disease) Is this a current diagnosis for this admission?: Yes Summary: Continue current management (5) Herpes zoster Is this a current diagnosis for this admission?: Yes Summary: Continue antiviral. (6) Leukocytosis Is this a current diagnosis for this admission?: Yes Summary: Resolved. Secondary to MSSA pneumonia and bacteremia. (7) Pneumonia of both lower lobes Is this a current diagnosis for this admission?: Yes Summary: MSSA pneumonia: We will continue on clindamycin (8) Debility Is this a current diagnosis for this admission?: Yes Summary: Patient will go to rehab for strengthening. - Additional Information Resuscitation Status: Do Not Intubate Discharge Diet: Cardiac Discharge Activity: Activity As Tolerated Prescriptions: Alprazolam [Xanax] 1 mg PO DAILY #5 tablet Clindamycin HCl [Cleocin 300 mg Capsule] 300 mg PO TID #21 capsule Furosemide [Lasix 40 mg Tablet] 40 mg PO DAILYP PRN #30 tablet PRN Reason: If weight increases by 3-5lbs Gabapentin [Neurontin 100 mg Capsule] 100 mg PO Q8 #24 capsule Lisinopril [Zestril] 2.5 mg PO DAILY #30 tablet Oxycodone HCl/Acetaminophen [Percocet 5-325 mg Tablet] 2 tab PO Q6HP PRN #5 tablet PRN Reason: Valacyclovir HCl [Valtrex 500 mg Tablet] 1,000 mg PO Q8 #60 tablet Home Medications: Amlodipine Besylate [Norvasc 2.5 mg Tablet] 2.5 mg PO DAILY 04/13/17 Aspirin [Aspirin 81 mg Chewable Tablet] 81 mg PO DAILY 04/13/17 Fluoxetine HCl [Prozac] 10 mg PO DAILY 04/13/17 Isosorbide Mononitrate [Isosorbide Mononitrate ER] 60 mg PO QAM 04/13/17 Metoprolol Succinate [Toprol Xl 50 mg Tab.sr] 50 mg PO DAILY 04/13/17 Nitroglycerin [Nitrostat] 0.4 mg SL Q5MP PRN 04/13/17 Ondansetron [Zofran Odt 4 mg Tablet] 4 mg PO Q8HP PRN 04/13/17 Spironolactone [Aldactone 25 mg Tablet] 25 mg PO DAILY 04/13/17 Tiotropium [place] [Spiriva Handihaler 18 mcg/dose (30 Dose)] 1 cap IH DAILY 03/02 Alprazolam [Xanax] 1 mg PO DAILY #5 tablet 04/20/17 Clindamycin HCl [Cleocin 300 mg Capsule] 300 mg PO TID #21 capsule 04/20/17 Furosemide [Lasix 40 mg Tablet] 40 mg PO DAILYP PRN #30 tablet 04/20/17 Gabapentin [Neurontin 100 mg Capsule] 100 mg PO Q8 #24 capsule 04/20/17 Ipratropium/Albuterol Sulfate [Duoneb 3 ml Ampul] 3 ml [facility] [id number] vial.neb 09/30 Lansoprazole [Prevacid 30 mg Odt Tablet] 30 mg PO Q6AM tab.rap. 04/20/17 Lisinopril [Zestril] 2.5 mg PO DAILY #30 tablet 04/20/17 Oxycodone HCl/Acetaminophen [Percocet 5-325 mg Tablet] 2 tab PO Q6HP PRN #5 tablet 04/20/17 Polyethylene Glycol 3350 [Miralax Powder 17 gm/Packet] 17 gm PO DAILY powd.pack 04/20/17 Valacyclovir HCl [Valtrex 500 mg Tablet] 1,000 mg PO Q8 #60 tablet 04/20/17 History of Present Illness Patient complains of: Shortness of breath and right-sided chest discomfort History of Present Illness: JEANNIE NAVA is a 71 year old female presented to our facility with complaint of shortness of breath. Patient was recently discharged from [facility] 2 weeks ago for CHF and herpes zoster. Hospital Course Hospital Course: Patient 71-year-old female that presents to our facility with complaints of shortness of breath. Patient was found to have MSSA pneumonia and bacteremia. Patient was initially placed on vancomycin and then switched to clindamycin. Patient will complete a total of 14 days of treatment. Patient was noted to be debilitated and therefore recommendation was for patient to go to rehab. Patient complained of left side back discomfort which demonstrated erythema consistent with herpes zoster therefore patient was placed back on Valtrex. Patient's blood pressure medications were adjusted as well as diuretic made as needed. Physical Exam Vital Signs: Temp Pulse Resp BP Pulse Ox 98.1 F 90 18 133/67 H 98 04/20/17 12:41 04/20/17 12:41 04/20/17 12:41 04/20/17 12:41 04/20/17 12:41 Intake & Output 04/19/17 04/20/17 04/21/17 06:59 06:59 06:59 Intake Total 1305 1302 847 Output Total 300 Balance 1005 1302 847 Weight 124.1 kg 125.1 kg General appearance: PRESENT: no acute distress, well-developed, well-nourished Head exam: PRESENT: atraumatic, normocephalic Eye exam: PRESENT: conjunctiva pink, EOMI. ABSENT: scleral icterus Ear exam: PRESENT: normal external ear exam Mouth exam: PRESENT: moist, tongue midline Neck exam: ABSENT: carotid bruit, JVD, lymphadenopathy, thyromegaly Respiratory exam: PRESENT: other - Coarse breath sounds heard at bases. ABSENT : rales, rhonchi Cardiovascular exam: PRESENT: RRR. ABSENT: diastolic murmur, rubs, systolic murmur Pulses: PRESENT: normal dorsalis pedis pul Vascular exam: PRESENT: normal capillary refill GI/Abdominal exam: PRESENT: normal bowel sounds, soft. ABSENT: distended, guarding, mass, organolmegaly, rebound, tenderness Rectal exam: PRESENT: deferred Extremities exam: PRESENT: full ROM. ABSENT: calf tenderness, clubbing, pedal edema Musculoskeletal exam: PRESENT: full ROM Neurological exam: PRESENT: alert, awake, oriented to person, oriented to place , oriented to time, oriented to situation, CN II-XII grossly intact. ABSENT: motor sensory deficit Psychiatric exam: PRESENT: appropriate affect, normal mood. ABSENT: homicidal ideation, suicidal ideation Skin exam: PRESENT: dry, intact, warm. ABSENT: cyanosis, rash Results Laboratory Results: 04/20/17 04:43 04/20/17 04:43 04/20/17 04/20/17 04:43 04:43 WBC 7.1 RBC 3.92 Hgb 10.6 L Hct 33.2 L MCV 85 MCH 27.2 MCHC 32.0 RDW 16.9 H Plt Count 181 Seg Neutrophils % 61.8 Lymphocytes % 23.5 Monocytes % 10.7 Eosinophils % 3.7 Basophils % 0.3 Absolute Neutrophils 4.4 Absolute Lymphocytes 1.7 Absolute Monocytes 0.8 Absolute Eosinophils 0.3 Absolute Basophils 0.0 Sodium 139.0 Potassium 4.8 Chloride 103 Carbon Dioxide 28 Anion Gap 8 BUN 29 H Creatinine 1.13 Est GFR ( Amer) 57 L Est GFR (Non-Af Amer) 47 L Glucose 118 H Calcium 9.1 Magnesium 1.8 04/13/17 04/15/17 04/15/17 19:55 00:33 00:33 Creatine Kinase 53 CK-MB (CK-2) 0.55 Troponin I < 0.012 < 0.012 04/15/17 04/15/17 04/15/17 05:45 05:45 12:39 Creatine Kinase 48 40 CK-MB (CK-2) 0.52 Troponin I < 0.012 04/15/17 12:39 Creatine Kinase CK-MB (CK-2) 0.46 Troponin I 0.017 Impressions: Chest X-Ray 04/13/17 16:05 IMPRESSION: LEFT LOWER LOBE INFILTRATE SUSPICIOUS FOR PNEUMONIA. FAINT DENSITY IN THE RIGHT LUNG BASE. POSSIBLE SMALL PLEURAL EFFUSIONS. Qualifiers - * PATEINT BEING DISCHARGED WITH ANY OF THE FOLLOWING DIAGNOSIS?: No Plan Time Spent: Greater than 30 Minutes
[2017-04-20] MEDS ORDERED: NAFCILLIN SODIUM IV PRN (14:34)
[2017-04-20] MEDS ORDERED: NORMAL SALINE IV PRN (14:34)
--- NOTE | 2017-04-20 14:35 | Progress Note ---
Provider Note Provider Note: ID Consult Note Pt is a 71 yo female who p/w respiratory distress, leukocytosis, and LLL PNA on CXR with sputum growth of MSSA and MSSA in blood cx obtained on admission on 04/13. She has methicillin sensitive Staph aureus bacteremia due to pneumonia. Recommendations 1. Repeat blood cultures to document clearance of bacteremia 2. Treat patient with IV Ancef 2 g q 8h 3. Obtain a TTE. If this is positive for infective endocarditis, then the patient will need further evaluation and a prolonged course of IV Ancef. 4. Treat for a minimum of one additional week of IV Ancef if the repeat blood cultures are negative, the TTE is negative, and there is not any evidence of metastatic infection on exam or by history (e.g. bacteremic seeding of a joint or new onset back pain that would raise suspicion for discitis/vertebral osteomyelitis). Mike Starks MD Pager: [phone]
--- NOTE | 2017-04-20 14:46 | PDOC PROGRESS REPORT ---
Subjective Progress Note for:: 04/20/17 Subjective:: Pt states that she is doing better. No new issues. Reason For Visit: PNEUMONIA Physical Exam Vital Signs: Temp Pulse Resp BP Pulse Ox 98.1 F 90 18 133/67 H 98 04/20/17 12:41 04/20/17 12:41 04/20/17 12:41 04/20/17 12:41 04/20/17 12:41 Intake & Output 04/19/17 04/20/17 04/21/17 06:59 06:59 06:59 Intake Total 1305 1302 847 Output Total 300 Balance 1005 1302 847 Weight 124.1 kg 125.1 kg General appearance: PRESENT: no acute distress, well-developed, well-nourished Head exam: PRESENT: atraumatic, normocephalic Eye exam: PRESENT: conjunctiva pink, EOMI. ABSENT: scleral icterus Ear exam: PRESENT: normal external ear exam Mouth exam: PRESENT: moist, tongue midline Neck exam: ABSENT: carotid bruit, JVD, lymphadenopathy, thyromegaly Respiratory exam: PRESENT: clear to auscultation ayden. ABSENT: rales, rhonchi, wheezes Cardiovascular exam: PRESENT: RRR. ABSENT: diastolic murmur, rubs, systolic murmur Pulses: PRESENT: normal dorsalis pedis pul Vascular exam: PRESENT: normal capillary refill GI/Abdominal exam: PRESENT: normal bowel sounds, soft. ABSENT: distended, guarding, mass, organolmegaly, rebound, tenderness Rectal exam: PRESENT: deferred Extremities exam: PRESENT: pedal edema. ABSENT: calf tenderness, clubbing Musculoskeletal exam: PRESENT: full ROM Neurological exam: PRESENT: alert, awake, oriented to person, oriented to place , oriented to time, oriented to situation, CN II-XII grossly intact. ABSENT: motor sensory deficit Psychiatric exam: PRESENT: appropriate affect, normal mood. ABSENT: homicidal ideation, suicidal ideation Skin exam: PRESENT: dry, intact, warm. ABSENT: cyanosis, rash Results Laboratory Results: 04/20/17 04:43 04/20/17 04:43 04/20/17 04/20/17 04:43 04:43 WBC 7.1 RBC 3.92 Hgb 10.6 L Hct 33.2 L MCV 85 MCH 27.2 MCHC 32.0 RDW 16.9 H Plt Count 181 Seg Neutrophils % 61.8 Lymphocytes % 23.5 Monocytes % 10.7 Eosinophils % 3.7 Basophils % 0.3 Absolute Neutrophils 4.4 Absolute Lymphocytes 1.7 Absolute Monocytes 0.8 Absolute Eosinophils 0.3 Absolute Basophils 0.0 Sodium 139.0 Potassium 4.8 Chloride 103 Carbon Dioxide 28 Anion Gap 8 BUN 29 H Creatinine 1.13 Est GFR ( Amer) 57 L Est GFR (Non-Af Amer) 47 L Glucose 118 H Calcium 9.1 Magnesium 1.8 04/13/17 04/15/17 04/15/17 19:55 00:33 00:33 Creatine Kinase 53 CK-MB (CK-2) 0.55 Troponin I < 0.012 < 0.012 04/15/17 04/15/17 04/15/17 05:45 05:45 12:39 Creatine Kinase 48 40 CK-MB (CK-2) 0.52 Troponin I < 0.012 04/15/17 12:39 Creatine Kinase CK-MB (CK-2) 0.46 Troponin I 0.017 Impressions: Chest X-Ray 04/13/17 16:05 IMPRESSION: LEFT LOWER LOBE INFILTRATE SUSPICIOUS FOR PNEUMONIA. FAINT DENSITY IN THE RIGHT LUNG BASE. POSSIBLE SMALL PLEURAL EFFUSIONS. Assessment & Plan - Diagnosis (1) MSSA (methicillin susceptible Staphylococcus aureus) septicemia Is this a current diagnosis for this admission?: Yes Plan: Received call from Dr. Starks who recommended that patient have a RAMONA, repeat blood cultures and switch patient to Nafcillin. Appreciate his assistance with care. Will hold on discharge. (2) Hypertension Is this a current diagnosis for this admission?: Yes Plan: Continue current treatment (3) Sepsis Is this a current diagnosis for this admission?: Yes Plan: Secondary to MSSA bacteremia and pneumonia: We will place on nafcillin (4) CAD (coronary artery disease) Is this a current diagnosis for this admission?: Yes Plan: We will continue home medications (5) Herpes zoster Qualifiers: Herpes zoster complications: without complications Qualified Code(s): B02.9 - Zoster without complications Is this a current diagnosis for this admission?: Yes Plan: Will continue on Valtrex (6) Leukocytosis Qualifiers: Leukocytosis type: bandemia Qualified Code(s): D72.825 - Bandemia Is this a current diagnosis for this admission?: Yes Plan: Resolved (7) Pneumonia of both lower lobes Qualifiers: Pneumonia type: due to unspecified organism Qualified Code(s): J18.9 - Pneumonia, unspecified organism Is this a current diagnosis for this admission?: Yes Plan: Secondary to MSSA pneumonia: Dr. Starks recommended that patient have RAMONA, repeat blood cultures, and be switched to Nafcillin. (8) Debility Is this a current diagnosis for this admission?: Yes Plan: Patient is agreed to go to rehab. PT OT has been ordered and case management has been made aware. - Time Time Spent with patient: 15-24 minutes
[2017-04-20] MEDS: NITROGLYCERIN 0.4 MG/TAB 25 TAB/BOTTLE SL PRN (19:32)
[2017-04-21] MEDS: HEPARIN SOD (PORCINE) 5,000 UNIT/ML 1 ML SYRINGE SUBCUT SCH ×3 (05:21→22:06)
[2017-04-21] MEDS: VALACYCLOVIR HCL 500 MG TABLET PO SCH ×3 (05:22→22:06)
[2017-04-21] MEDS: GABAPENTIN 100 MG CAPSULE PO SCH ×3 (05:22→22:07)
[2017-04-21] MEDS: LANSOPRAZOLE 30 MG TAB.RAP.DR PO SCH (05:22)
[2017-04-21 07:13] LABS: ALANINE AMINOTRANSFERASE 72 U/L (9-52); ALBUMIN 3.2 g/dL (3.5-5.0); ALKALINE PHOSPHATASE 243 U/L (38-126); ANION GAP 11 (5-19); ASPARTATE AMINO TRANSFERASE 37 U/L (14-36); BILIRUBIN,DIRECT 1.5 mg/dL (0.0-0.4); BILIRUBIN,TOTAL 1.7 mg/dL (0.2-1.3); BLOOD UREA NITROGEN 32 mg/dL (7-20); CALCIUM 9.8 mg/dL (8.4-10.2); CARBON DIOXIDE 25 mmol/L (22-30); CHLORIDE 101 mmol/L (98-107); GLUCOSE 144 mg/dL (75-110); POTASSIUM 5.2 mmol/L (3.6-5.0); SODIUM 136.5 mmol/L (137-145); TOTAL PROTEIN 6.5 g/dL (6.3-8.2)
[2017-04-21] MEDS: IPRATROPIUM/ALBUTEROL 0.5-2.5 MG/3 ML AMPUL NEB SCH ×4 (08:00→20:38)
[2017-04-21] MEDS: POLYETHYLENE GLYCOL 3350 POWDER 17 GM/1 PACKET PO SCH (11:21)
[2017-04-21] MEDS: OXYCODONE-ACETAMINOPHEN 5-325 MG TABLET PO PRN ×2 (11:21→22:06)
[2017-04-21] MEDS: DOCUSATE SODIUM 100 MG CAPSULE PO SCH ×2 (11:23→18:44)
[2017-04-21] MEDS: ALPRAZOLAM 0.5 MG TABLET PO SCH (11:23)
[2017-04-21] MEDS: ASPIRIN 81 MG TABLET, CHEWABLE PO SCH (11:24)
[2017-04-21] MEDS: METOPROLOL SUCCINATE 50 MG TAB.SR.24H PO SCH (11:24)
[2017-04-21] MEDS: ISOSORBIDE MONONITRATE 60 MG TAB.ER.24H PO SCH (11:25)
[2017-04-21] MEDS: TIOTROPIUM BROMIDE DPI 5 CAP/KIT (18 MCG/CAP) IH SCH (11:26)
--- NOTE | 2017-04-21 14:14 | PDOC PROGRESS REPORT ---
Subjective Progress Note for:: 04/21/17 Subjective:: Patient states that she is feeling tired. Reason For Visit: PNEUMONIA Physical Exam Vital Signs: Temp Pulse Resp BP Pulse Ox 97.9 F 91 18 129/53 H 93 04/21/17 11:45 04/21/17 11:45 04/21/17 11:45 04/21/17 11:45 04/21/17 11:45 Intake & Output 04/20/17 04/21/17 04/22/17 06:59 06:59 06:59 Intake Total 1302 1319 350 Balance 1302 1319 350 Weight 125.1 kg 125.4 kg General appearance: PRESENT: no acute distress, well-developed, well-nourished Head exam: PRESENT: atraumatic, normocephalic Eye exam: PRESENT: conjunctiva pink, EOMI Ear exam: PRESENT: normal external ear exam Mouth exam: PRESENT: moist, tongue midline Neck exam: ABSENT: carotid bruit, JVD, lymphadenopathy, thyromegaly Respiratory exam: PRESENT: clear to auscultation ayden. ABSENT: rales, rhonchi, wheezes Cardiovascular exam: PRESENT: RRR. ABSENT: diastolic murmur, rubs, systolic murmur Pulses: PRESENT: normal dorsalis pedis pul Vascular exam: PRESENT: normal capillary refill GI/Abdominal exam: PRESENT: normal bowel sounds, soft. ABSENT: distended, guarding, mass, organolmegaly, rebound, tenderness Rectal exam: PRESENT: deferred Extremities exam: PRESENT: full ROM. ABSENT: calf tenderness, clubbing, pedal edema Neurological exam: PRESENT: alert, awake, oriented to person, oriented to place , oriented to time, oriented to situation, CN II-XII grossly intact. ABSENT: motor sensory deficit Psychiatric exam: PRESENT: appropriate affect, normal mood. ABSENT: homicidal ideation, suicidal ideation Skin exam: PRESENT: dry, intact, warm. ABSENT: cyanosis, rash Results Laboratory Results: 04/20/17 04:43 04/21/17 06:35 04/21/17 06:35 Sodium 136.5 L Potassium 5.2 H Chloride 101 Carbon Dioxide 25 Anion Gap 11 BUN 32 H Creatinine 1.32 H Est GFR ( Amer) 48 L Est GFR (Non-Af Amer) 39 L Glucose 144 H Calcium 9.8 Total Bilirubin 1.7 H AST 37 H ALT 72 H Alkaline Phosphatase 243 H Total Protein 6.5 Albumin 3.2 L 04/13/17 04/15/17 04/15/17 19:55 00:33 00:33 Creatine Kinase 53 CK-MB (CK-2) 0.55 Troponin I < 0.012 < 0.012 04/15/17 04/15/17 04/15/17 05:45 05:45 12:39 Creatine Kinase 48 40 CK-MB (CK-2) 0.52 Troponin I < 0.012 04/15/17 12:39 Creatine Kinase CK-MB (CK-2) 0.46 Troponin I 0.017 Impressions: Chest X-Ray 04/13/17 16:05 IMPRESSION: LEFT LOWER LOBE INFILTRATE SUSPICIOUS FOR PNEUMONIA. FAINT DENSITY IN THE RIGHT LUNG BASE. POSSIBLE SMALL PLEURAL EFFUSIONS. Assessment & Plan - Diagnosis (1) MSSA (methicillin susceptible Staphylococcus aureus) septicemia Is this a current diagnosis for this admission?: Yes Plan: TE D echo pending and patient on Ancef. Patient repeat blood cultures obtained. (2) Hypertension Is this a current diagnosis for this admission?: Yes Plan: Continue current treatment (3) Sepsis Is this a current diagnosis for this admission?: Yes Plan: Secondary to MSSA bacteremia and pneumonia: We will place on Ancef (4) CAD (coronary artery disease) Is this a current diagnosis for this admission?: Yes Plan: We will continue home medications (5) Herpes zoster Qualifiers: Herpes zoster complications: without complications Qualified Code(s): B02.9 - Zoster without complications Is this a current diagnosis for this admission?: Yes Plan: Will continue on Valtrex (6) Leukocytosis Qualifiers: Leukocytosis type: bandemia Qualified Code(s): D72.825 - Bandemia Is this a current diagnosis for this admission?: Yes Plan: Resolved (7) Pneumonia of both lower lobes Qualifiers: Pneumonia type: due to unspecified organism Is this a current diagnosis for this admission?: Yes Plan: Secondary to MSSA pneumonia: 2D echo pending, repeat cultures obtained, patient on Ancef (8) Debility Is this a current diagnosis for this admission?: Yes Plan: Patient is agreed to go to rehab. PT OT has been ordered and case management has been made aware. (9) Hyperkalemia Is this a current diagnosis for this admission?: Yes Plan: We will give Kayexalate. BMP in am. - Time Time Spent with patient: 15-24 minutes
[2017-04-21] MEDS ORDERED: SODIUM POLYSTYRENE SULFONATE 15 GM/60 ML PO ONE (14:45)
--- NOTE | 2017-04-21 18:05 | XCELERA REPORT ---
[address] [address] Transthoracic Echocardiogram Report Name: JEANNIE NAVA Age: 71 yrs Gender: Female : 1945 Patient Status: Inpatient Patient Location: [address] [place] [address] Study Date: 04/21/2017 10:46 AM Height: 62 in Weight: 275 lb BSA: 2.2 m2 Procedure: A complete two-dimensional transthoracic echocardiogram was performed (2D, M-mode, spectral and color flow Doppler). The study was technically difficult with many images being suboptimal in quality. Reason For Study: MSSA Bacteremia Ordering Physician: NASH ESPAÑA Performed By: Edwige Quigley Interpretation Summary The study was technically difficult with many images being suboptimal in quality. The left ventricular ejection fraction is normal. Doppler measurements suggest pseudonormalized left ventricular relaxation, which is associated with grade II/IV or mild to moderate diastolic dysfunction There is borderline concentric left ventricular hypertrophy. The left ventricle is grossly normal size. Wall motion cannot be accurately commented on, but no definite regional wall motion abnormalities noted. The right ventricular systolic function is normal. The right atrium is normal in size The left atrial size is normal. There is no mitral valve stenosis. There is no mitral regurgitation noted. There is no aortic valve stenosis No aortic regurgitation is present. There is a trace to mild amount of tricuspid regurgitation There is mild to moderate pulmonary hypertension by echo Right ventricular systolic pressure is estimated to be elevated at 40- 50mmHg. The aortic root is not well visualized. The inferior vena cava was not well visualized There is no pericardial effusion. No definite vegetations noted but if clinical suspicion is high, then consider RAMONA and multiple blood cultures. MMode/2D Measurements & Calculations RVDd: 2.8 cm LVIDd: 4.9 cm FS: 29.9 % Ao root diam: 2.2 cm IVSd: 0.98 cm LVIDs: 3.4 cm EDV(Teich): 111.8 ml LVPWd: 0.96 cm ESV(Teich): 48.2 ml Ao root area: 3.8 cm2 EF(Teich): 56.9 % LA dimension: 2.8 cm Doppler Measurements & Calculations MV E max juanita: MV P1/2t max juanita: Ao V2 max: LV V1 max P.7 cm/sec 65.2 cm/sec 154.2 cm/sec 6.1 mmHg MV A max juanita: MV P1/2t: 65.4 msec Ao max PG: LV V1 max: 144.1 cm/sec 9.5 mmHg 123.9 cm/sec MV E/A: 0.45 MVA(P1/2t): 3.4 cm2 MV dec slope: 291.9 cm/sec2 MV dec time: 0.21 sec PA V2 max: TR max juanita: 115.5 cm/sec 310.8 cm/sec PA max P.3 mmHgTR max P.6 mmHg Left Ventricle The left ventricle is grossly normal size. There is borderline concentric left ventricular hypertrophy. The left ventricular ejection fraction is normal. Doppler measurements suggest pseudonormalized left ventricular relaxation, which is associated with grade II/IV or mild to moderate diastolic dysfunction. Wall motion cannot be accurately commented on, but no definite regional wall motion abnormalities noted. Right Ventricle The right ventricle is grossly normal size. There is normal right ventricular wall thickness. The right ventricular systolic function is normal. Atria The right atrium is normal in size. The left atrial size is normal. Interarterial septum not well visualized and not well dopplered. Cannot comment on ASD/PFO presence. Mitral Valve The mitral valve is not well visualized. There is no mitral valve stenosis. There is no mitral regurgitation noted. Aortic Valve The aortic valve is not well visualized secondary to technical limitations. There is no aortic valve stenosis. No aortic regurgitation is present. Tricuspid Valve The tricuspid valve is not well visualized secondary to technical limitations. There is no tricuspid stenosis. There is a trace to mild amount of tricuspid regurgitation. There is mild to moderate pulmonary hypertension by echo. Right ventricular systolic pressure is estimated to be elevated at 40-50mmHg. Pulmonic Valve The pulmonic valve is not well visualized. Great Vessels The aortic root is not well visualized. The inferior vena cava was not well visualized. Effusions There is no pericardial effusion. Incidental Findings No definite vegetations noted but if clinical suspicion is high, then consider RAMONA and multiple blood cultures. : ANSH ESPAÑA > Samuel Henao
[2017-04-21] MEDS: CEFAZOLIN 2 GM/D5W RTU 2 GM/50 ML RTUPB IV SCH (18:42)
[2017-04-22] MEDS: CEFAZOLIN 2 GM/D5W RTU 2 GM/50 ML RTUPB IV SCH ×2 (02:48→10:07)
[2017-04-22] MEDS: GABAPENTIN 100 MG CAPSULE PO SCH ×3 (05:34→21:03)
[2017-04-22] MEDS: LANSOPRAZOLE 30 MG TAB.RAP.DR PO SCH (05:34)
[2017-04-22] MEDS: VALACYCLOVIR HCL 500 MG TABLET PO SCH ×2 (05:35→13:22)
[2017-04-22] MEDS: HEPARIN SOD (PORCINE) 5,000 UNIT/ML 1 ML SYRINGE SUBCUT SCH ×3 (05:35→21:02)
[2017-04-22 07:49] LABS: ALANINE AMINOTRANSFERASE 49 U/L (9-52); ALBUMIN 2.6 g/dL (3.5-5.0); ALKALINE PHOSPHATASE 218 U/L (38-126); ANION GAP 11 (5-19); ASPARTATE AMINO TRANSFERASE 33 U/L (14-36); BLOOD UREA NITROGEN 41 mg/dL (7-20); CALCIUM 8.6 mg/dL (8.4-10.2); CARBON DIOXIDE 25 mmol/L (22-30); CHLORIDE 106 mmol/L (98-107); GLUCOSE 111 mg/dL (75-110); POTASSIUM 4.2 mmol/L (3.6-5.0); SODIUM 142.1 mmol/L (137-145); TOTAL PROTEIN 5.8 g/dL (6.3-8.2)
[2017-04-22 07:54] LABS: ABSOLUTE EOSINOPHILS # (AUTO) 0.3 10^3/uL (0.0-0.6); ABSOLUTE LYMPHOCYTES (AUTO) 1.5 10^3/uL (0.5-4.7); ABSOLUTE MONOCYTES (AUTO) 0.6 10^3/uL (0.1-1.4); ABSOLUTE NEUT (AUTO) 5.5 10^3/uL (1.7-8.2); BASOPHILS % (AUTO) 0.4 % (0-2); EOSINOPHILS % (AUTO) 3.2 % (0-6); HEMATOCRIT 30.9 % (36.0-47.0); HEMOGLOBIN 9.8 g/dL (12.0-15.5); LYMPHOCYTES % (AUTO) 19.4 % (13-45); MEAN CORPUSCULAR HEMOGLOBIN 27.1 pg (27.0-33.4); MEAN CORPUSCULAR HGB CONC 31.7 g/dL (32.0-36.0); MEAN CORPUSCULAR VOLUME 86 fl (80-97); MONOCYTES % (AUTO) 7.7 % (3-13); PLATELET COUNT 197 10^3/uL (150-450); RED BLOOD COUNT 3.62 10^6/uL (3.72-5.28); RED CELL DISTRIBUTION WIDTH 16.8 % (11.5-14.0); SEGMENTED NEUTROPHILS % (AUTO) 69.3 % (42-78); TOTAL CELLS COUNTED % (AUTO) 100 %; WHITE BLOOD COUNT 7.9 10^3/uL (4.0-10.5)
[2017-04-22] MEDS: ISOSORBIDE MONONITRATE 60 MG TAB.ER.24H PO SCH (08:23)
[2017-04-22] MEDS: IPRATROPIUM/ALBUTEROL 0.5-2.5 MG/3 ML AMPUL NEB SCH ×4 (08:27→20:11)
[2017-04-22] MEDS: ASPIRIN 81 MG TABLET, CHEWABLE PO SCH (10:03)
[2017-04-22] MEDS: METOPROLOL SUCCINATE 50 MG TAB.SR.24H PO SCH (10:04)
[2017-04-22] MEDS: POLYETHYLENE GLYCOL 3350 POWDER 17 GM/1 PACKET PO SCH (10:04)
[2017-04-22] MEDS: DOCUSATE SODIUM 100 MG CAPSULE PO SCH ×2 (10:04→17:05)
[2017-04-22] MEDS: TIOTROPIUM BROMIDE DPI 5 CAP/KIT (18 MCG/CAP) IH SCH (10:06)
[2017-04-22] MEDS ORDERED: RINGERS SOLUTION,LACTATED 1,000 ML IV PRN (11:04)
--- NOTE | 2017-04-22 11:18 | PDOC PROGRESS REPORT ---
Subjective Progress Note for:: 04/22/17 Subjective:: Patient reports that she feels weak today. Reason For Visit: PNEUMONIA Physical Exam Vital Signs: Temp Pulse Resp BP Pulse Ox 97.3 F 81 20 152/83 H 95 04/22/17 07:38 04/22/17 08:27 04/22/17 08:27 04/22/17 07:38 04/22/17 08:27 Intake & Output 04/21/17 04/22/17 04/23/17 06:59 06:59 07:59 Intake Total 1319 195 Balance 1319 1955 Weight 125.4 kg 124.9 kg General appearance: PRESENT: no acute distress, well-developed, well-nourished Head exam: PRESENT: atraumatic, normocephalic Eye exam: PRESENT: conjunctiva pink, EOMI. ABSENT: scleral icterus Ear exam: PRESENT: normal external ear exam Mouth exam: PRESENT: moist, tongue midline Neck exam: ABSENT: carotid bruit, JVD, lymphadenopathy, thyromegaly Respiratory exam: PRESENT: decreased breath sounds. ABSENT: rales, rhonchi, wheezes Cardiovascular exam: PRESENT: RRR. ABSENT: diastolic murmur, rubs, systolic murmur Pulses: PRESENT: normal dorsalis pedis pul Vascular exam: PRESENT: normal capillary refill GI/Abdominal exam: PRESENT: normal bowel sounds, soft. ABSENT: distended, guarding, mass, organolmegaly, rebound, tenderness Rectal exam: PRESENT: deferred Extremities exam: PRESENT: full ROM, pedal edema, +1 edema. ABSENT: calf tenderness, clubbing Musculoskeletal exam: PRESENT: full ROM Neurological exam: PRESENT: alert, awake, oriented to person, oriented to place , oriented to time, oriented to situation, CN II-XII grossly intact. ABSENT: motor sensory deficit Psychiatric exam: PRESENT: appropriate affect, normal mood. ABSENT: homicidal ideation, suicidal ideation Skin exam: PRESENT: dry, intact, warm. ABSENT: cyanosis, rash Results Laboratory Results: 04/22/17 06:55 04/22/17 06:55 04/22/17 04/22/17 06:55 06:55 WBC 7.9 RBC 3.62 L Hgb 9.8 L Hct 30.9 L MCV 86 MCH 27.1 MCHC 31.7 L RDW 16.8 H Plt Count 197 Seg Neutrophils % 69.3 Lymphocytes % 19.4 Monocytes % 7.7 Eosinophils % 3.2 Basophils % 0.4 Absolute Neutrophils 5.5 Absolute Lymphocytes 1.5 Absolute Monocytes 0.6 Absolute Eosinophils 0.3 Absolute Basophils 0.0 Sodium 142.1 Potassium 4.2 Chloride 106 Carbon Dioxide 25 Anion Gap 11 BUN 41 H Creatinine 2.76 H Est GFR ( Amer) 20 L Est GFR (Non-Af Amer) 17 L Glucose 111 H Calcium 8.6 Total Bilirubin 1.0 AST 33 ALT 49 Alkaline Phosphatase 218 H Total Protein 5.8 L Albumin 2.6 L 04/13/17 04/15/17 04/15/17 19:55 00:33 00:33 Creatine Kinase 53 CK-MB (CK-2) 0.55 Troponin I < 0.012 < 0.012 04/15/17 04/15/17 04/15/17 05:45 05:45 12:39 Creatine Kinase 48 40 CK-MB (CK-2) 0.52 Troponin I < 0.012 04/15/17 12:39 Creatine Kinase CK-MB (CK-2) 0.46 Troponin I 0.017 Impressions: Chest X-Ray 04/13/17 16:05 IMPRESSION: LEFT LOWER LOBE INFILTRATE SUSPICIOUS FOR PNEUMONIA. FAINT DENSITY IN THE RIGHT LUNG BASE. POSSIBLE SMALL PLEURAL EFFUSIONS. Assessment & Plan - Diagnosis (1) YARELY (acute kidney injury) Is this a current diagnosis for this admission?: Yes Plan: Adding of chronic kidney disease stage II now with presumed ATN from nafcillin: ID had recommended nafcillin or Ancef therefore nafcillin was started however ID then changed recommendation to Ancef and patient was switched to Ancef. Patient has developed acute renal injury and has been placed on IV fluids. Renal ultrasound has been ordered. Will have Menard placed for strict ins and outs. Pharmacy has been called to renally reduce dose of Ancef. (2) MSSA (methicillin susceptible Staphylococcus aureus) septicemia Is this a current diagnosis for this admission?: Yes Plan: 2 D echo negative and patient on Ancef. Pharmacy to have Ancef dose adjusted. Patient has developed acute renal injury. During phone call Dr. Starks had recommended nafcillin or Ancef therefore order was placed for nafcillin and then switched to Ancef after Dr. Starks posted his note. (3) Hypertension Is this a current diagnosis for this admission?: Yes Plan: Continue current treatment (4) Sepsis Is this a current diagnosis for this admission?: Yes Plan: Secondary to MSSA bacteremia and pneumonia: We will place on Ancef (5) CAD (coronary artery disease) Is this a current diagnosis for this admission?: Yes Plan: We will continue home medications (6) Herpes zoster Qualifiers: Herpes zoster complications: without complications Qualified Code(s): B02.9 - Zoster without complications Is this a current diagnosis for this admission?: Yes Plan: Will continue on Valtrex (7) Leukocytosis Qualifiers: Leukocytosis type: bandemia Qualified Code(s): D72.825 - Bandemia Is this a current diagnosis for this admission?: Yes Plan: Resolved (8) Pneumonia of both lower lobes Qualifiers: Pneumonia type: due to unspecified organism Is this a current diagnosis for this admission?: Yes Plan: Secondary to MSSA pneumonia: 2D echo negative, repeat cultures obtained no growth, patient on Ancef (9) Debility Is this a current diagnosis for this admission?: Yes Plan: Patient is agreed to go to rehab. PT OT has been ordered and case management has been made aware. (10) Hyperkalemia Is this a current diagnosis for this admission?: Yes Plan: Resolved - Time Time Spent with patient: 25-34 minutes
[2017-04-22] MEDS ORDERED: NORMAL SALINE 1000 ML 500 ML IV ONE (12:30)
[2017-04-22] MEDS: CEFAZOLIN 1 GM/D5W RTU 1 GM/50 ML RTUPB IV SCH (21:03)
[2017-04-23] MEDS: LANSOPRAZOLE 30 MG TAB.RAP.DR PO SCH (06:02)
[2017-04-23] MEDS: HEPARIN SOD (PORCINE) 5,000 UNIT/ML 1 ML SYRINGE SUBCUT SCH ×3 (06:03→22:02)
[2017-04-23] MEDS: GABAPENTIN 100 MG CAPSULE PO SCH ×3 (06:05→22:02)
[2017-04-23 06:10] LABS: ABSOLUTE EOSINOPHILS # (AUTO) 0.3 10^3/uL (0.0-0.6); ABSOLUTE LYMPHOCYTES (AUTO) 1.4 10^3/uL (0.5-4.7); ABSOLUTE MONOCYTES (AUTO) 0.6 10^3/uL (0.1-1.4); BASOPHILS % (AUTO) 0.6 % (0-2); EOSINOPHILS % (AUTO) 3.6 % (0-6); HEMATOCRIT 31.9 % (36.0-47.0); HEMOGLOBIN 10.1 g/dL (12.0-15.5); LYMPHOCYTES % (AUTO) 19.5 % (13-45); MEAN CORPUSCULAR HGB CONC 31.7 g/dL (32.0-36.0); MEAN CORPUSCULAR VOLUME 85 fl (80-97); MONOCYTES % (AUTO) 8.7 % (3-13); PLATELET COUNT 223 10^3/uL (150-450); RED BLOOD COUNT 3.74 10^6/uL (3.72-5.28); SEGMENTED NEUTROPHILS % (AUTO) 67.6 % (42-78); TOTAL CELLS COUNTED % (AUTO) 100 %; WHITE BLOOD COUNT 7.3 10^3/uL (4.0-10.5)
[2017-04-23 06:49] LABS: ALANINE AMINOTRANSFERASE 26 U/L (9-52); ALBUMIN 2.7 g/dL (3.5-5.0); ALKALINE PHOSPHATASE 227 U/L (38-126); ANION GAP 10 (5-19); ASPARTATE AMINO TRANSFERASE 30 U/L (14-36); BILIRUBIN,DIRECT 0.6 mg/dL (0.0-0.4); BILIRUBIN,TOTAL 0.6 mg/dL (0.2-1.3); BLOOD UREA NITROGEN 35 mg/dL (7-20); CALCIUM 8.6 mg/dL (8.4-10.2); CARBON DIOXIDE 23 mmol/L (22-30); CHLORIDE 110 mmol/L (98-107); GLUCOSE 104 mg/dL (75-110); POTASSIUM 4.2 mmol/L (3.6-5.0); SODIUM 142.6 mmol/L (137-145); TOTAL PROTEIN 6.2 g/dL (6.3-8.2)
[2017-04-23] MEDS: IPRATROPIUM/ALBUTEROL 0.5-2.5 MG/3 ML AMPUL NEB SCH ×4 (08:13→20:02)
[2017-04-23] MEDS: TIOTROPIUM BROMIDE DPI 5 CAP/KIT (18 MCG/CAP) IH SCH (10:15)
[2017-04-23] MEDS: VALACYCLOVIR HCL 500 MG TABLET PO SCH (10:15)
[2017-04-23] MEDS: ASPIRIN 81 MG TABLET, CHEWABLE PO SCH (10:19)
[2017-04-23] MEDS: METOPROLOL SUCCINATE 50 MG TAB.SR.24H PO SCH (10:19)
[2017-04-23] MEDS: ISOSORBIDE MONONITRATE 60 MG TAB.ER.24H PO SCH (10:21)
[2017-04-23] MEDS: CEFAZOLIN 1 GM/D5W RTU 1 GM/50 ML RTUPB IV SCH ×2 (10:21→22:02)
[2017-04-23] MEDS: DOCUSATE SODIUM 100 MG CAPSULE PO SCH ×2 (10:22→18:34)
[2017-04-23] MEDS: POLYETHYLENE GLYCOL 3350 POWDER 17 GM/1 PACKET PO SCH (10:22)
--- NOTE | 2017-04-23 11:28 | PDOC PROGRESS REPORT ---
Subjective Progress Note for:: 04/23/17 Subjective:: Pt states that she is doing ok. Pt states that she is breathing well. Nursing states that pt has not had any additional issues. Reason For Visit: PNEUMONIA Physical Exam Vital Signs: Temp Pulse Resp BP Pulse Ox 98.6 F 102 H 20 149/80 H 97 04/23/17 05:13 04/23/17 08:13 04/23/17 08:13 04/23/17 05:13 04/23/17 08:13 Intake & Output 04/22/17 04/23/17 04/24/17 05:59 06:59 06:59 Intake Total Output Total Balance Weight General appearance: PRESENT: no acute distress, well-developed, well-nourished Head exam: PRESENT: atraumatic, normocephalic Eye exam: PRESENT: conjunctiva pink, EOMI. ABSENT: scleral icterus Ear exam: PRESENT: normal external ear exam Mouth exam: PRESENT: moist, tongue midline Neck exam: ABSENT: carotid bruit, JVD, lymphadenopathy, thyromegaly Respiratory exam: PRESENT: decreased breath sounds. ABSENT: rales, rhonchi, wheezes Cardiovascular exam: PRESENT: RRR. ABSENT: diastolic murmur, rubs, systolic murmur Pulses: PRESENT: normal dorsalis pedis pul Vascular exam: PRESENT: normal capillary refill GI/Abdominal exam: PRESENT: normal bowel sounds, soft. ABSENT: distended, guarding, mass, organolmegaly, rebound, tenderness Rectal exam: PRESENT: deferred Extremities exam: PRESENT: full ROM, pedal edema, +1 edema. ABSENT: calf tenderness, clubbing Musculoskeletal exam: PRESENT: full ROM Neurological exam: PRESENT: alert, awake, oriented to person, oriented to place , oriented to time, oriented to situation, CN II-XII grossly intact. ABSENT: motor sensory deficit Psychiatric exam: PRESENT: appropriate affect, normal mood. ABSENT: homicidal ideation, suicidal ideation Skin exam: PRESENT: dry, intact, warm. ABSENT: cyanosis, rash Results Laboratory Results: 04/23/17 05:48 04/23/17 05:48 04/23/17 04/23/17 05:48 05:48 WBC 7.3 RBC 3.74 Hgb 10.1 L Hct 31.9 L MCV 85 MCH 27.0 MCHC 31.7 L RDW 17.0 H Plt Count 223 Seg Neutrophils % 67.6 Lymphocytes % 19.5 Monocytes % 8.7 Eosinophils % 3.6 Basophils % 0.6 Absolute Neutrophils 5.0 Absolute Lymphocytes 1.4 Absolute Monocytes 0.6 Absolute Eosinophils 0.3 Absolute Basophils 0.0 Sodium 142.6 Potassium 4.2 Chloride 110 H Carbon Dioxide 23 Anion Gap 10 BUN 35 H Creatinine 2.16 H Est GFR ( Amer) 27 L Est GFR (Non-Af Amer) 22 L Glucose 104 Calcium 8.6 Magnesium 1.7 Total Bilirubin 0.6 AST 30 ALT 26 Alkaline Phosphatase 227 H Total Protein 6.2 L Albumin 2.7 L 04/13/17 04/15/17 04/15/17 19:55 00:33 00:33 Creatine Kinase 53 CK-MB (CK-2) 0.55 Troponin I < 0.012 < 0.012 04/15/17 04/15/17 04/15/17 05:45 05:45 12:39 Creatine Kinase 48 40 CK-MB (CK-2) 0.52 Troponin I < 0.012 04/15/17 12:39 Creatine Kinase CK-MB (CK-2) 0.46 Troponin I 0.017 Impressions: Chest X-Ray 04/13/17 16:05 IMPRESSION: LEFT LOWER LOBE INFILTRATE SUSPICIOUS FOR PNEUMONIA. FAINT DENSITY IN THE RIGHT LUNG BASE. POSSIBLE SMALL PLEURAL EFFUSIONS. Assessment & Plan - Diagnosis (1) YARELY (acute kidney injury) Is this a current diagnosis for this admission?: Yes Plan: Adding of chronic kidney disease stage II now with presumed ATN from nafcillin: ID had recommended nafcillin or Ancef therefore nafcillin was started however ID then changed recommendation to Ancef and patient was switched to Ancef. Patient has developed acute renal injury and has been placed on IV fluids. Renal function is improving. Will continue IVFs at current rate. (2) MSSA (methicillin susceptible Staphylococcus aureus) septicemia Is this a current diagnosis for this admission?: Yes Plan: 2 D echo negative and patient on Ancef. Pharmacy to have Ancef dose adjusted. (3) Hypertension Is this a current diagnosis for this admission?: Yes Plan: Continue current treatment (4) Sepsis Is this a current diagnosis for this admission?: Yes Plan: Secondary to MSSA bacteremia and pneumonia: We will continue Ancef (5) CAD (coronary artery disease) Is this a current diagnosis for this admission?: Yes Plan: We will continue home medications (6) Herpes zoster Qualifiers: Herpes zoster complications: without complications Qualified Code(s): B02.9 - Zoster without complications Is this a current diagnosis for this admission?: Yes Plan: Will continue on Valtrex (7) Leukocytosis Qualifiers: Leukocytosis type: bandemia Qualified Code(s): D72.825 - Bandemia Is this a current diagnosis for this admission?: Yes Plan: Resolved (8) Pneumonia of both lower lobes Qualifiers: Pneumonia type: due to unspecified organism Is this a current diagnosis for this admission?: Yes Plan: Secondary to MSSA pneumonia: 2D echo negative, repeat cultures obtained no growth, and patient on Ancef (9) Debility Is this a current diagnosis for this admission?: Yes Plan: Patient is agreed to go to rehab. PT OT has been ordered and case management has been made aware. (10) Hyperkalemia Is this a current diagnosis for this admission?: Yes Plan: Resolved - Time Time Spent with patient: 15-24 minutes
[2017-04-24] MEDS: GABAPENTIN 100 MG CAPSULE PO SCH ×3 (05:02→22:13)
[2017-04-24] MEDS: LANSOPRAZOLE 30 MG TAB.RAP.DR PO SCH (06:15)
[2017-04-24] MEDS: HEPARIN SOD (PORCINE) 5,000 UNIT/ML 1 ML SYRINGE SUBCUT SCH ×3 (06:15→22:13)
[2017-04-24] MEDS: ONDANSETRON 4 MG TAB.RAPDIS PO PRN (07:07)
[2017-04-24 07:20] LABS: ABSOLUTE EOSINOPHILS # (AUTO) 0.2 10^3/uL (0.0-0.6); ABSOLUTE LYMPHOCYTES (AUTO) 1.2 10^3/uL (0.5-4.7); ABSOLUTE MONOCYTES (AUTO) 0.6 10^3/uL (0.1-1.4); ABSOLUTE NEUT (AUTO) 4.1 10^3/uL (1.7-8.2); BASOPHILS % (AUTO) 0.6 % (0-2); EOSINOPHILS % (AUTO) 3.9 % (0-6); HEMATOCRIT 30.1 % (36.0-47.0); HEMOGLOBIN 9.6 g/dL (12.0-15.5); LYMPHOCYTES % (AUTO) 19.2 % (13-45); MEAN CORPUSCULAR HEMOGLOBIN 27.2 pg (27.0-33.4); MEAN CORPUSCULAR HGB CONC 31.9 g/dL (32.0-36.0); MEAN CORPUSCULAR VOLUME 85 fl (80-97); PLATELET COUNT 221 10^3/uL (150-450); RED BLOOD COUNT 3.54 10^6/uL (3.72-5.28); RED CELL DISTRIBUTION WIDTH 17.1 % (11.5-14.0); SEGMENTED NEUTROPHILS % (AUTO) 66.3 % (42-78); TOTAL CELLS COUNTED % (AUTO) 100 %; WHITE BLOOD COUNT 6.3 10^3/uL (4.0-10.5)
[2017-04-24 07:41] LABS: ALANINE AMINOTRANSFERASE 21 U/L (9-52); ALBUMIN 2.6 g/dL (3.5-5.0); ALKALINE PHOSPHATASE 200 U/L (38-126); ANION GAP 10 (5-19); ASPARTATE AMINO TRANSFERASE 44 U/L (14-36); BILIRUBIN,DIRECT 0.5 mg/dL (0.0-0.4); BILIRUBIN,TOTAL 0.5 mg/dL (0.2-1.3); BLOOD UREA NITROGEN 24 mg/dL (7-20); CALCIUM 8.7 mg/dL (8.4-10.2); CARBON DIOXIDE 24 mmol/L (22-30); CHLORIDE 108 mmol/L (98-107); GLUCOSE 88 mg/dL (75-110); POTASSIUM 4.5 mmol/L (3.6-5.0); SODIUM 141.7 mmol/L (137-145); TOTAL PROTEIN 5.5 g/dL (6.3-8.2)
[2017-04-24] MEDS: ISOSORBIDE MONONITRATE 60 MG TAB.ER.24H PO SCH (08:09)
[2017-04-24] MEDS: IPRATROPIUM/ALBUTEROL 0.5-2.5 MG/3 ML AMPUL NEB SCH ×4 (09:03→19:56)
[2017-04-24] MEDS: CEFAZOLIN 1 GM/D5W RTU 1 GM/50 ML RTUPB IV SCH ×2 (10:34→22:13)
[2017-04-24] MEDS: TIOTROPIUM BROMIDE DPI 5 CAP/KIT (18 MCG/CAP) IH SCH (10:35)
[2017-04-24] MEDS: ASPIRIN 81 MG TABLET, CHEWABLE PO SCH (10:35)
[2017-04-24] MEDS: METOPROLOL SUCCINATE 50 MG TAB.SR.24H PO SCH (10:37)
[2017-04-24] MEDS: VALACYCLOVIR HCL 500 MG TABLET PO SCH (10:39)
[2017-04-24] MEDS: DOCUSATE SODIUM 100 MG CAPSULE PO SCH ×2 (10:40→17:09)
[2017-04-24] MEDS: POLYETHYLENE GLYCOL 3350 POWDER 17 GM/1 PACKET PO SCH (10:40)
--- NOTE | 2017-04-24 11:20 | PDOC PROGRESS REPORT ---
Subjective Progress Note for:: 04/24/17 Subjective:: Pt states that she is having difficulty swallowing. Pt states that it started 3 days ago but then mentions that it has been going on for a while. Pt states that she can not eat anything. Pt denies difficulty breathing, no chest pain, no numbness or tingling. Pt was eating a popsicle at time of encounter. Reason For Visit: PNEUMONIA Physical Exam Vital Signs: Temp Pulse Resp BP Pulse Ox 99.1 F 110 H 20 174/82 H 98 04/24/17 07:50 04/24/17 09:03 04/24/17 09:03 04/24/17 07:50 04/24/17 09:03 Intake & Output 04/23/17 04/24/17 04/25/17 06:59 06:59 06:59 Intake Total 4037 Output Total 1050 Balance 2987 Weight 126 kg General appearance: PRESENT: no acute distress, well-developed, well-nourished, other - Sitting in chair and appeared in no acute distress. Head exam: PRESENT: atraumatic, normocephalic Eye exam: PRESENT: conjunctiva pink, EOMI. ABSENT: scleral icterus Ear exam: PRESENT: normal external ear exam Mouth exam: PRESENT: moist, tongue midline Neck exam: ABSENT: carotid bruit, JVD, lymphadenopathy, thyromegaly Respiratory exam: PRESENT: clear to auscultation ayden. ABSENT: rales, rhonchi, wheezes Cardiovascular exam: PRESENT: RRR. ABSENT: diastolic murmur, rubs, systolic murmur Pulses: PRESENT: normal dorsalis pedis pul Vascular exam: PRESENT: normal capillary refill GI/Abdominal exam: PRESENT: normal bowel sounds, soft. ABSENT: distended, guarding, mass, organolmegaly, rebound, tenderness Rectal exam: PRESENT: deferred Extremities exam: PRESENT: full ROM, pedal edema, +1 edema. ABSENT: calf tenderness, clubbing Musculoskeletal exam: PRESENT: full ROM Neurological exam: PRESENT: alert, awake, oriented to person, oriented to place , oriented to time, oriented to situation, CN II-XII grossly intact. ABSENT: motor sensory deficit Psychiatric exam: PRESENT: appropriate affect, normal mood. ABSENT: homicidal ideation, suicidal ideation Skin exam: PRESENT: dry, intact, warm. ABSENT: cyanosis, rash Results Laboratory Results: 04/24/17 06:25 04/24/17 06:25 04/24/17 04/24/17 06:25 06:25 WBC 6.3 RBC 3.54 L Hgb 9.6 L Hct 30.1 L MCV 85 MCH 27.2 MCHC 31.9 L RDW 17.1 H Plt Count 221 Seg Neutrophils % 66.3 Lymphocytes % 19.2 Monocytes % 10.0 Eosinophils % 3.9 Basophils % 0.6 Absolute Neutrophils 4.1 Absolute Lymphocytes 1.2 Absolute Monocytes 0.6 Absolute Eosinophils 0.2 Absolute Basophils 0.0 Sodium 141.7 Potassium 4.5 Chloride 108 H Carbon Dioxide 24 Anion Gap 10 BUN 24 H Creatinine 1.33 H Est GFR ( Amer) 47 L Est GFR (Non-Af Amer) 39 L Glucose 88 Calcium 8.7 Magnesium 1.5 L Total Bilirubin 0.5 AST 44 H ALT 21 Alkaline Phosphatase 200 H Total Protein 5.5 L Albumin 2.6 L 04/13/17 04/15/17 04/15/17 19:55 00:33 00:33 Creatine Kinase 53 CK-MB (CK-2) 0.55 Troponin I < 0.012 < 0.012 04/15/17 04/15/17 04/15/17 05:45 05:45 12:39 Creatine Kinase 48 40 CK-MB (CK-2) 0.52 Troponin I < 0.012 04/15/17 12:39 Creatine Kinase CK-MB (CK-2) 0.46 Troponin I 0.017 Impressions: Chest X-Ray 04/13/17 16:05 IMPRESSION: LEFT LOWER LOBE INFILTRATE SUSPICIOUS FOR PNEUMONIA. FAINT DENSITY IN THE RIGHT LUNG BASE. POSSIBLE SMALL PLEURAL EFFUSIONS. Assessment & Plan - Diagnosis (1) YARELY (acute kidney injury) Is this a current diagnosis for this admission?: Yes Plan: Adding of chronic kidney disease stage II now with presumed ATN from nafcillin: Resolved. Will continue IVF for one more day and then discontinue. (2) MSSA (methicillin susceptible Staphylococcus aureus) septicemia Is this a current diagnosis for this admission?: Yes Plan: 2 D echo negative and patient on Ancef. (3) Hypertension Is this a current diagnosis for this admission?: Yes Plan: Will place on hydralazine PRN for SBP greater than 160mmHg. (4) Sepsis Is this a current diagnosis for this admission?: Yes Plan: Secondary to MSSA bacteremia and pneumonia: We will continue Ancef (5) CAD (coronary artery disease) Is this a current diagnosis for this admission?: Yes Plan: We will continue home medications (6) Herpes zoster Qualifiers: Herpes zoster complications: without complications Qualified Code(s): B02.9 - Zoster without complications Is this a current diagnosis for this admission?: Yes Plan: Will continue on Valtrex (7) Leukocytosis Qualifiers: Leukocytosis type: bandemia Qualified Code(s): D72.825 - Bandemia Is this a current diagnosis for this admission?: Yes Plan: Resolved (8) Pneumonia of both lower lobes Qualifiers: Pneumonia type: due to unspecified organism Is this a current diagnosis for this admission?: Yes Plan: Secondary to MSSA pneumonia: 2D echo negative, repeat cultures obtained no growth, and patient on Ancef (9) Debility Is this a current diagnosis for this admission?: Yes Plan: Patient is agreed to go to rehab. PT OT has been ordered and case management has been made aware. (10) Hyperkalemia Is this a current diagnosis for this admission?: Yes Plan: Resolved (11) Hypomagnesemia Is this a current diagnosis for this admission?: Yes Plan: Will give magnesium replacement. Will check Mg in am. (12) Dysphagia Is this a current diagnosis for this admission?: Yes Plan: Will order Modified Barium swallow. - Time Time Spent with patient: 25-34 minutes
[2017-04-24] MEDS: MAGNESIUM SULFATE/D5W 1 GM/100 ML RTUPB IV SCH ×2 (14:09→15:17)
--- NOTE | 2017-04-24 14:14 | RADIOLOGY REPORT (SQ) ---
EXAM DESCRIPTION: PICC INSERTION; FLUORO/CV PLACEMENT; U/S GUIDE FOR VASCULAR ACCESS COMPLETED DATE/TIME: 04/24/2017 1:40 pm REASON FOR STUDY: IV antibiotics; IV ABX COMPARISON: None. FLUOROSCOPY TIME: 0.22 minutes. 1 images saved to PACS. TECHNIQUE: Fluoroscopic and ultrasound guided PICC placement. LIMITATIONS: None. PROCEDURE: After written consent and assessment were obtained, the patient was brought into the fluo roscopy room and place supine on the table. Ultrasound was used on the patient's right arm for PICC access. The right arm was prepped and draped in a sterile fashion along with the ultrasound probe. Th e entry site was anesthetized with 1% lidocaine. A 21 gauge 7 cm needle was advanced through the skin and into the basilic vein under live ultrasound guidance. An ultrasound image was saved to PACS con firming access site. A .018 guide wire was then inserted through the needle and into the venous syst em. The needle was the removed and an 11 blade scalpel was used to make a 1cm skin incision. A 5 fr peel-away sheath was advanced over the wire and into the venous system. A measurement was then made u sing the existing wire and live fluoroscopic guidance. The wire was then removed and the trimmed. The PICC was advanced through the peel-away sheath and into the venous system. The peel-away sheath was removed and the catheter was adhered to the patients arm with a stat lock. The catheter was then aspi rated and flushed and a sterile bandage was placed over the access site. A fluoroscopic spot image w as saved to PACS confirming the catheter tip within the superior vena cava. IMPRESSION: SUCCESSFUL PLACEMENT OF A 5 FR DUAL LUMEN 39 CM PICC IN THE RIGHT BASILIC VEIN. COMMENT: Patient medication list reviewed: Yes- Quality ID# [id number]:Eligible professional attests to doc umenting in the medical record they obtained, updated, or reviewed the patient's current medications. . Quality ID 145: Final reports for procedures using fluoroscopy that document radiation exposure cecilia darrell, or exposure time and number of fluorographic images (if radiation exposure indices are not avail able) Quality ID #76: The patient was prepped and draped using maximum sterile barrier technique including cap, mask, sterile gown, sterile gloves, a large sterile sheet, hand hygiene, and 2% Chlorhexidine fo r cutaneous antisepsis. When ultrasound is used, sterile ultrasound techniques are followed requiring sterile gel and sterile probes. TECHNICAL DOCUMENTATION: JOB ID: [id number] [employer]- All Rights Reserved Reading location - IP/workstation name: [email or web address]
--- NOTE | 2017-04-24 14:55 | Progress Note ---
Provider Note Provider Note: ID Consult Note Reviewed chart and spoke with clinical pharmacist. Ms Figueredo has had repeat BCx that are negative x 3 days. She also had TTE, which did not describe any mobile echodensities but unfortunately was not able to clearly visualize the aortic valve or mitral valve. She had an increase in creatinine while on nafcillin, which has improved to 1.3. She is now on cefazolin IV. Impression / Recommendations MSSA bacteremia due to pneumonia - Low grade initial bacteremia with negative, although suboptimal TTE, and negative repeat blood cultures. - If clinical suspicion for endocarditis is low, would complete 3 more days of therapy with IV Ancef. Mike Starks MD pager [phone]
--- NOTE | 2017-04-24 15:15 | ST Inp Modified Barium Swallow ---
Medical Diagnosis - ICD-10 Tx Diagnosis Coding (1) Dysphagia ICD-10 Code(s): R13.10 - DYSPHAGIA, UNSPECIFIED ST Inpatient MBS - General Date: 04/24/17 Date of Onset: 04/17/17 - History History Obtained From: Other - EMR -: Medical - Current diagnoses per progress note: acute kidney injury, methicillin susceptible staphyloccus aureus septicemia, hypertension, sepsis, coronary artery disease, herpes zoster, leukocytosis, pneumonia of both lower lobes, debility, hyperkalemia, hypomagnesemia, dysphagia. Per 04/24/17 progress note, patient informed physician she can't eat anything. Urgent MBSS ordered. Patient reports food & liquids get to level below larynx but above sternal notch and get stuck. Reports if they go further she begins to regurgitate and cough. Reports has been occurring for last week. Reports previous swallowing problems, reflux, and gallbladder problems but that current problems are worse. Reports is able to eat popsicles but denies any other foods that are consistently able to be swallowed. Medications: Medications Reviewed Allergies: Refer to medical record - Subjective Current Nutritional Means: PO Current PO Diet: Regular - patient reports at baseline she has many foods she avoids such as chewy & crunchy foods Current Symptoms: Poor intake Pain: 4/5 - "rotten" feeling; reports pain in arm due to shingles - Objective Assessment: Upright, Left Lateral - Food Trials Food Trials Used: Thin liquids, Pureed, Soft solids The Patient: Was Able to Self Feed - Assessment Labial Function: Within Functional Limits Lingual Function: Within Functional Limits Mandibular Function: Within Functional Limits - Pharyngeal Stage Initiation of Pharyngeal Stage: Delayed Decreased Laryngeal Elevation: No Reduced Velo-Pharyngeal Closure: no Reduced Pressure Generation: Yes Reduced Tongue Base Retraction: No Pre-Swallowing Pooling in Valleculae: Mild Pre-Swallowing Pooling in Pyriforms: None Reduced Thyro-Hyiod Approximation: No Reduced Epiglottic Excursion: No Reduced Pharyngeal Peristalsis: Yes Multiple Swallows With: Cleared w/ Dry Swallow Post Swallow Residuals in Valleculae: Mild Post Swallow Residuals in Pyriforms: Mild - Impression/Summary Laryngeal Penetration: No Tracheal Aspiration: no Effective Compensatory Strategies: hard swallow Patient Presents With: Pharyngeal stage dysph., Mild-Moderate Risk of Aspiration: Moderate Risk of Nutritional Compromise: Severe - Recommendations NPO: no Solid Diet Recommendations: Mechanical Soft, Chopped Meat Liquid Diet Recommendations: Thin Regular Diet: No Strict Aspitarion Precautions: Yes Dysphagia Therapy with FILM PRODUCER: Yes, Inpatient - follow up x1 to ensure understandings of precautions Recommended Techniques: Fully Upright During Meal, Small Bites and Sips, Alternate Bites/Sips Supervision: Distant Other Recommendations: Patient presents with residuals in vallecula that cleared with second swallow. Patient independently initiates second swallow for puree & solids, but required verbal cue for liquids. Unable to visualize esophageal stage but given patient's history and presentation further assessment may be beneficial. Recommendations: 1. Mechanical soft diet with chopped meats. 2. Thin liquids by cup or spoon, no straws. 3. Alternate bites & sips, small bites & sips, hard or dry swallow after sips of liquids. 4. Strict aspiration precautions. 5. Follow up with ST to ensure understanding of precautions. ST provided verbal and written information at [facility] to patient. - Time Total Time: 20 Total Timed Minutes: 0 ST F.L. Impairment Category - Rationale Based On Rationale Based On: Clin Find., Obj Measures - Swallowing Current G8996: CI 1-19% Impaired Goal G8997: CI 1-19% Impaired
--- NOTE | 2017-04-24 15:33 | RADIOLOGY REPORT (SQ) ---
EXAM DESCRIPTION: SVETA SWALLOW COMPLETED DATE/TIME: 04/24/2017 1:39 pm REASON FOR STUDY: difficulty swallowing. COMPARISON: None. TECHNIQUE: Videofluoroscopic swallowing examination was performed in conjunction with speech patholo gy. Videofluoroscopic imaging was obtained and reviewed and these are the findings: RADIATION DOSE: 1 minutes 51 seconds of fluoroscopy was used. 1 images saved to PACS. LIMITATIONS: None FINDINGS: The patient was brought into the fluoro room and placed upright on a modified barium swall ow chair. The patient was then given multiple consistencies mixed with barium to swallow under live fluoroscopic video guidance. According to the Speech Pathologist there was no penetration or aspirat ion. Post swallow residual contrast seen within the vallecula and piriform sinuses. IMPRESSION: NO EVIDENCE OF PENETRATION OR ASPIRATION. PLEASE SEE SPEECH PATHOLOGIST REPORT FOR OTHE R FINDINGS AND RECOMMENDATIONS. COMMENT: Quality ID 145: Final reports for procedures using fluoroscopy that document radiation exp osure indices, or exposure time and number of fluorographic images (if radiation exposure indices are not available) TECHNICAL DOCUMENTATION: JOB ID: [id number] [employer]- All Rights Reserved Reading location - IP/workstation name: [facility]
[2017-04-24] MEDS ORDERED: NORMAL SALINE 10 ML SDV (AFTER EACH USE) IV PRN (15:52)
[2017-04-24] MEDS: NORMAL SALINE 10 ML SDV (SCHEDULED) IV SCH (22:13)
[2017-04-24] MEDS: HYDRALAZINE HCL 50 MG TABLET PO PRN (23:43)
[2017-04-25] MEDS: LANSOPRAZOLE 30 MG TAB.RAP.DR PO SCH (06:11)
[2017-04-25] MEDS: GABAPENTIN 100 MG CAPSULE PO SCH ×3 (06:11→23:32)
[2017-04-25] MEDS: HEPARIN SOD (PORCINE) 5,000 UNIT/ML 1 ML SYRINGE SUBCUT SCH ×3 (06:11→23:32)
[2017-04-25] MEDS: IPRATROPIUM/ALBUTEROL 0.5-2.5 MG/3 ML AMPUL NEB SCH ×4 (07:59→20:13)
[2017-04-25] MEDS: ISOSORBIDE MONONITRATE 60 MG TAB.ER.24H PO SCH (08:10)
[2017-04-25] MEDS: HYDRALAZINE HCL 50 MG TABLET PO PRN (08:10)
[2017-04-25] MEDS: VALACYCLOVIR HCL 500 MG TABLET PO SCH ×2 (10:34→23:33)
[2017-04-25] MEDS: METOPROLOL SUCCINATE 50 MG TAB.SR.24H PO SCH (10:34)
[2017-04-25] MEDS: CEFAZOLIN 1 GM/D5W RTU 1 GM/50 ML RTUPB IV SCH (10:36)
[2017-04-25] MEDS: ASPIRIN 81 MG TABLET, CHEWABLE PO SCH (10:36)
[2017-04-25] MEDS: TIOTROPIUM BROMIDE DPI 5 CAP/KIT (18 MCG/CAP) IH SCH (10:36)
[2017-04-25] MEDS: NORMAL SALINE 10 ML SDV (SCHEDULED) IV SCH ×2 (10:37→23:32)
[2017-04-25] MEDS: POLYETHYLENE GLYCOL 3350 POWDER 17 GM/1 PACKET PO SCH (10:38)
[2017-04-25] MEDS: DOCUSATE SODIUM 100 MG CAPSULE PO SCH ×2 (10:38→18:14)
[2017-04-25 13:47] LABS: ANION GAP 7 (5-19); BLOOD UREA NITROGEN 19 mg/dL (7-20); CALCIUM 8.9 mg/dL (8.4-10.2); CARBON DIOXIDE 28 mmol/L (22-30); CHLORIDE 105 mmol/L (98-107); GLUCOSE 125 mg/dL (75-110); POTASSIUM 4.4 mmol/L (3.6-5.0); SODIUM 139.8 mmol/L (137-145)
[2017-04-25] MEDS: CEFAZOLIN 2 GM/D5W RTU 2 GM/50 ML RTUPB IV SCH (18:15)
--- NOTE | 2017-04-25 21:09 | PDOC PROGRESS REPORT ---
Subjective Progress Note for:: 04/25/17 Subjective:: Pt states that she is still having problems swallowing. Pt states that her breathing is about the same. Reason For Visit: PNEUMONIA Physical Exam Vital Signs: Temp Pulse Resp BP Pulse Ox 98.8 F 96 18 178/86 H 98 04/25/17 16:14 04/25/17 16:30 04/25/17 16:30 04/25/17 16:14 04/25/17 16:30 Intake & Output 04/24/17 04/25/17 04/26/17 06:59 06:59 06:59 Intake Total 4037 1989 1117 Output Total 1050 975 800 Balance 2987 1014 317 Weight 126 kg 128 kg General appearance: PRESENT: no acute distress, morbidly obese, well-developed, well-nourished Head exam: PRESENT: atraumatic, normocephalic Eye exam: PRESENT: conjunctiva pink, EOMI. ABSENT: scleral icterus Ear exam: PRESENT: normal external ear exam Mouth exam: PRESENT: moist, tongue midline Neck exam: ABSENT: carotid bruit, JVD, lymphadenopathy, thyromegaly Respiratory exam: PRESENT: clear to auscultation ayden. ABSENT: rales, rhonchi, wheezes Cardiovascular exam: PRESENT: RRR. ABSENT: diastolic murmur, rubs, systolic murmur Pulses: PRESENT: normal dorsalis pedis pul Vascular exam: PRESENT: normal capillary refill GI/Abdominal exam: PRESENT: normal bowel sounds, soft. ABSENT: distended, guarding, mass, organolmegaly, rebound, tenderness Rectal exam: PRESENT: deferred Extremities exam: PRESENT: full ROM, pedal edema, +1 edema. ABSENT: calf tenderness, clubbing Neurological exam: PRESENT: alert, awake, oriented to person, oriented to place , oriented to time, oriented to situation, CN II-XII grossly intact. ABSENT: motor sensory deficit Psychiatric exam: PRESENT: appropriate affect, normal mood. ABSENT: homicidal ideation, suicidal ideation Skin exam: PRESENT: dry, intact, warm. ABSENT: cyanosis, rash Results Laboratory Results: 04/24/17 06:25 04/25/17 12:45 04/25/17 12:45 Sodium 139.8 Potassium 4.4 Chloride 105 Carbon Dioxide 28 Anion Gap 7 BUN 19 Creatinine 1.17 Est GFR ( Amer) 55 L Est GFR (Non-Af Amer) 45 L Glucose 125 H Calcium 8.9 04/20/17 16:22 Blood Blood Culture - Final NO GROWTH IN 5 DAYS 04/20/17 14:55 Blood Blood Culture - Final NO GROWTH IN 5 DAYS 04/13/17 04/15/17 04/15/17 19:55 00:33 00:33 Creatine Kinase 53 CK-MB (CK-2) 0.55 Troponin I < 0.012 < 0.012 04/15/17 04/15/17 04/15/17 05:45 05:45 12:39 Creatine Kinase 48 40 CK-MB (CK-2) 0.52 Troponin I < 0.012 04/15/17 12:39 Creatine Kinase CK-MB (CK-2) 0.46 Troponin I 0.017 Impressions: Chest X-Ray 04/13/17 16:05 IMPRESSION: LEFT LOWER LOBE INFILTRATE SUSPICIOUS FOR PNEUMONIA. FAINT DENSITY IN THE RIGHT LUNG BASE. POSSIBLE SMALL PLEURAL EFFUSIONS. Guidance Fluoroscopy 04/24/17 00:00 IMPRESSION: SUCCESSFUL PLACEMENT OF A 5 FR DUAL LUMEN 39 CM PICC IN THE RIGHT BASILIC VEIN. Interventional Vascular Procedure 04/24/17 00:00 IMPRESSION: SUCCESSFUL PLACEMENT OF A 5 FR DUAL LUMEN 39 CM PICC IN THE RIGHT BASILIC VEIN. Modified Barium Swallow 04/24/17 00:00 IMPRESSION: NO EVIDENCE OF PENETRATION OR ASPIRATION. PLEASE SEE SPEECH PATHOLOGIST REPORT FOR OTHER FINDINGS AND RECOMMENDATIONS. PICC Line Insertion 04/24/17 00:00 IMPRESSION: SUCCESSFUL PLACEMENT OF A 5 FR DUAL LUMEN 39 CM PICC IN THE RIGHT BASILIC VEIN. Assessment & Plan - Diagnosis (1) YARELY (acute kidney injury) Is this a current diagnosis for this admission?: Yes Plan: Adding of chronic kidney disease stage II now with presumed ATN from nafcillin: Resolved. Fluids discontinued. (2) MSSA (methicillin susceptible Staphylococcus aureus) septicemia Is this a current diagnosis for this admission?: Yes Plan: 2 D echo negative and patient on Ancef. (3) Hypertension Is this a current diagnosis for this admission?: Yes Plan: Will place on hydralazine PRN for SBP greater than 160mmHg. (4) Sepsis Is this a current diagnosis for this admission?: Yes Plan: Secondary to MSSA bacteremia and pneumonia: We will continue Ancef (5) CAD (coronary artery disease) Is this a current diagnosis for this admission?: Yes Plan: We will continue home medications (6) Herpes zoster Qualifiers: Herpes zoster complications: without complications Qualified Code(s): B02.9 - Zoster without complications Is this a current diagnosis for this admission?: Yes Plan: Will continue on Valtrex (7) Leukocytosis Qualifiers: Leukocytosis type: bandemia Qualified Code(s): D72.825 - Bandemia Is this a current diagnosis for this admission?: Yes Plan: Resolved (8) Pneumonia of both lower lobes Qualifiers: Pneumonia type: due to unspecified organism Is this a current diagnosis for this admission?: Yes Plan: Secondary to MSSA pneumonia: 2D echo negative, repeat cultures obtained no growth, and patient on Ancef (9) Debility Is this a current diagnosis for this admission?: Yes Plan: Patient is agreed to go to rehab. PT OT has been ordered and case management has been made aware. (10) Hyperkalemia Is this a current diagnosis for this admission?: Yes Plan: Resolved (11) Hypomagnesemia Is this a current diagnosis for this admission?: Yes Plan: Will give magnesium replacement. Will check Mg in am. (12) Dysphagia Is this a current diagnosis for this admission?: Yes Plan: Pt passed swallow evaluation. - Time Time Spent with patient: 15-24 minutes
[2017-04-26] MEDS: CEFAZOLIN 2 GM/D5W RTU 2 GM/50 ML RTUPB IV SCH ×3 (01:58→17:49)
[2017-04-26 05:51] LABS: ALANINE AMINOTRANSFERASE 23 U/L (9-52); ALBUMIN 2.5 g/dL (3.5-5.0); ALKALINE PHOSPHATASE 184 U/L (38-126); ASPARTATE AMINO TRANSFERASE 26 U/L (14-36); BILIRUBIN,DIRECT 0.3 mg/dL (0.0-0.4); BILIRUBIN,TOTAL 0.3 mg/dL (0.2-1.3); BLOOD UREA NITROGEN 15 mg/dL (7-20); CALCIUM 8.7 mg/dL (8.4-10.2); GLUCOSE 102 mg/dL (75-110); POTASSIUM 4.2 mmol/L (3.6-5.0); TOTAL PROTEIN 5.8 g/dL (6.3-8.2)
[2017-04-26 05:56] LABS: CARBON DIOXIDE 30 mmol/L (22-30); CHLORIDE 106 mmol/L (98-107); SODIUM 141.5 mmol/L (137-145)
[2017-04-26 06:00] LABS: ANION GAP 6 (5-19)
[2017-04-26] MEDS: VALACYCLOVIR HCL 500 MG TABLET PO SCH ×3 (06:07→21:16)
[2017-04-26] MEDS: LANSOPRAZOLE 30 MG TAB.RAP.DR PO SCH (06:07)
[2017-04-26] MEDS: GABAPENTIN 100 MG CAPSULE PO SCH ×3 (06:07→21:16)
[2017-04-26] MEDS: HEPARIN SOD (PORCINE) 5,000 UNIT/ML 1 ML SYRINGE SUBCUT SCH ×3 (06:07→22:48)
[2017-04-26 07:34] LABS: HEMATOCRIT 30.1 % (36.0-47.0); HEMOGLOBIN 9.5 g/dL (12.0-15.5); MEAN CORPUSCULAR HEMOGLOBIN 27.4 pg (27.0-33.4); MEAN CORPUSCULAR HGB CONC 31.7 g/dL (32.0-36.0); MEAN CORPUSCULAR VOLUME 86 fl (80-97); PLATELET COUNT 256 10^3/uL (150-450); RED BLOOD COUNT 3.49 10^6/uL (3.72-5.28); RED CELL DISTRIBUTION WIDTH 16.8 % (11.5-14.0); WHITE BLOOD COUNT 4.8 10^3/uL (4.0-10.5)
[2017-04-26] MEDS: IPRATROPIUM/ALBUTEROL 0.5-2.5 MG/3 ML AMPUL NEB SCH ×4 (07:43→20:32)
[2017-04-26 08:23] LABS: ABSOLUTE LYMPHOCYTES# (MANUAL) 1.2 10^3/uL (0.5-4.7); ABSOLUTE MONOCYTES # (MANUAL) 0.6 10^3/uL (0.1-1.4); ABSOLUTE NEUTROPHILS# (MANUAL) 2.7 10^3/uL (1.7-8.2); BASOPHILS % (MANUAL) 0 % (0-2); EOSINOPHILS % (MANUAL) 5 % (0-6); LYMPHOCYTES % (MANUAL) 25 % (13-45); MONOCYTES % (MANUAL) 13 % (3-13); SEGMENTED NEUTROPHILS % (MAN) 57 % (42-78); TOTAL CELLS COUNTED 100
[2017-04-26 08:26] LABS: ANISOCYTOSIS 1+; PLATELET COMMENT ADEQUATE; TOXIC GRANULATION 1+
[2017-04-26] MEDS: METOPROLOL SUCCINATE 50 MG TAB.SR.24H PO SCH (09:15)
[2017-04-26] MEDS: ASPIRIN 81 MG TABLET, CHEWABLE PO SCH (09:15)
[2017-04-26] MEDS: TIOTROPIUM BROMIDE DPI 5 CAP/KIT (18 MCG/CAP) IH SCH (09:16)
[2017-04-26] MEDS: ISOSORBIDE MONONITRATE 60 MG TAB.ER.24H PO SCH (09:16)
[2017-04-26] MEDS: NORMAL SALINE 10 ML SDV (SCHEDULED) IV SCH ×2 (09:17→21:16)
[2017-04-26] MEDS: DOCUSATE SODIUM 100 MG CAPSULE PO SCH ×2 (09:18→17:49)
[2017-04-26] MEDS: POLYETHYLENE GLYCOL 3350 POWDER 17 GM/1 PACKET PO SCH (09:18)
[2017-04-26] MEDS ORDERED: MAGNESIUM SULFATE INJ 8 MEQ/2 ML IV ONE (20:46)
--- NOTE | 2017-04-26 20:54 | PDOC PROGRESS REPORT ---
Subjective Progress Note for:: 04/26/17 Reason For Visit: 71-year-old female with bilateral pneumonia and blood cultures positive for MSSA on Ancef IV antibiotics. Patient with resolving shingles outbreak. Describes continued pain around her left-sided dermatome. She appears to be improving in her pneumonia. Renal function has improved. Physical Exam Vital Signs: Temp Pulse Resp BP Pulse Ox 97.8 F 89 20 136/87 H 94 04/26/17 20:01 04/26/17 20:01 04/26/17 20:01 04/26/17 20:01 04/26/17 20:01 Intake & Output 04/25/17 04/26/17 04/27/17 06:59 06:59 06:59 Intake Total 7776 1411 431 Output Total 977 1425 525 Balance 101394 Weight 128 kg 127 kg General appearance: PRESENT: cooperative, morbidly obese Head exam: PRESENT: atraumatic, normocephalic Eye exam: PRESENT: EOMI, PERRLA Mouth exam: PRESENT: moist, neck supple, tongue midline Throat exam: ABSENT: tonsillar exudate, tonsillogmegaly Neck exam: PRESENT: full ROM. ABSENT: tenderness, thyromegaly Respiratory exam: ABSENT: accessory muscle use, chest wall tenderness, crackles , rales Cardiovascular exam: PRESENT: RRR, +S1, +S2. ABSENT: bradycardia Pulses: PRESENT: +2 pedal pulses bilateral. ABSENT: normal radial pulses GI/Abdominal exam: ABSENT: ascites, diminished bowel sounds, distended Extremities exam: ABSENT: calf tenderness, joint swelling Musculoskeletal exam: ABSENT: ambulatory, full ROM Neurological exam: PRESENT: alert, oriented to person, oriented to place, oriented to time, CN II-XII grossly intact Psychiatric exam: ABSENT: agitated, anxious, flat affect, manic Focused psych exam: ABSENT: catatonic, paranoid Skin exam: ABSENT: cyanosis, erythema, jaundice Results Laboratory Results: 04/26/17 07:00 04/26/17 04:45 04/26/17 04/26/17 04:45 07:00 WBC 4.8 RBC 3.49 L Hgb 9.5 L Hct 30.1 L MCV 86 MCH 27.4 MCHC 31.7 L RDW 16.8 H Plt Count 256 Seg Neutrophils % Not Reportable Lymphocytes % Not Reportable Monocytes % Not Reportable Eosinophils % Not Reportable Basophils % Not Reportable Absolute Neutrophils Not Reportable Absolute Lymphocytes Not Reportable Absolute Monocytes Not Reportable Absolute Eosinophils Not Reportable Absolute Basophils Not Reportable Sodium 141.5 Potassium 4.2 Chloride 106 Carbon Dioxide 30 Anion Gap 6 BUN 15 Creatinine 1.12 Est GFR ( Amer) 58 L Est GFR (Non-Af Amer) 48 L Glucose 102 Calcium 8.7 Magnesium 1.7 Total Bilirubin 0.3 AST 26 ALT 23 Alkaline Phosphatase 184 H Total Protein 5.8 L Albumin 2.5 L 04/13/17 04/15/17 04/15/17 19:55 00:33 00:33 Creatine Kinase 53 CK-MB (CK-2) 0.55 Troponin I < 0.012 < 0.012 04/15/17 04/15/17 04/15/17 05:45 05:45 12:39 Creatine Kinase 48 40 CK-MB (CK-2) 0.52 Troponin I < 0.012 04/15/17 12:39 Creatine Kinase CK-MB (CK-2) 0.46 Troponin I 0.017 Impressions: Chest X-Ray 04/13/17 16:05 IMPRESSION: LEFT LOWER LOBE INFILTRATE SUSPICIOUS FOR PNEUMONIA. FAINT DENSITY IN THE RIGHT LUNG BASE. POSSIBLE SMALL PLEURAL EFFUSIONS. Guidance Fluoroscopy 04/24/17 00:00 IMPRESSION: SUCCESSFUL PLACEMENT OF A 5 FR DUAL LUMEN 39 CM PICC IN THE RIGHT BASILIC VEIN. Interventional Vascular Procedure 04/24/17 00:00 IMPRESSION: SUCCESSFUL PLACEMENT OF A 5 FR DUAL LUMEN 39 CM PICC IN THE RIGHT BASILIC VEIN. Modified Barium Swallow 04/24/17 00:00 IMPRESSION: NO EVIDENCE OF PENETRATION OR ASPIRATION. PLEASE SEE SPEECH PATHOLOGIST REPORT FOR OTHER FINDINGS AND RECOMMENDATIONS. PICC Line Insertion 04/24/17 00:00 IMPRESSION: SUCCESSFUL PLACEMENT OF A 5 FR DUAL LUMEN 39 CM PICC IN THE RIGHT BASILIC VEIN. Assessment & Plan - Plan Summary Plan Summary: 1. MSSA septicemia On Ancef TTE negative for vegetative growth on valves. 2. Hypertension Blood pressure control today. Continue metoprolol and Imdur 3. Sepsis Secondary to MSSA bacteremia and pneumonia On Ancef 4. Acute kidney injury Improved now off nafcillin 5. CAD continue aspirin 6. Herpes zoster continue Valtrex 7. Bilateral Pneumonia. continue Ancef, blood cultures negative on 04/20/17 8. Debility PT consulted 9. hypomagnesemia. continue replacing. 10. Hyperkalemia. resolved
[2017-04-26] MEDS ORDERED: MAGNESIUM SULFATE/D5W 1 GM/100 ML RTUPB IV ONE (21:00)
[2017-04-26] MEDS: ALPRAZOLAM 0.5 MG TABLET PO PRN (21:16)
[2017-04-26] MEDS ORDERED: ALPRAZOLAM 0.5 MG TABLET PO SCH (22:00)
[2017-04-27] MEDS: CEFAZOLIN 2 GM/D5W RTU 2 GM/50 ML RTUPB IV SCH ×3 (01:59→17:35)
[2017-04-27 05:09] LABS: HEMATOCRIT 28.3 % (36.0-47.0); HEMOGLOBIN 9.2 g/dL (12.0-15.5); MEAN CORPUSCULAR HEMOGLOBIN 27.9 pg (27.0-33.4); MEAN CORPUSCULAR HGB CONC 32.4 g/dL (32.0-36.0); MEAN CORPUSCULAR VOLUME 86 fl (80-97); PLATELET COUNT 283 10^3/uL (150-450); RED BLOOD COUNT 3.29 10^6/uL (3.72-5.28); RED CELL DISTRIBUTION WIDTH 16.9 % (11.5-14.0); WHITE BLOOD COUNT 5.2 10^3/uL (4.0-10.5)
[2017-04-27 05:25] LABS: ALBUMIN 2.4 g/dL (3.5-5.0); BLOOD UREA NITROGEN 16 mg/dL (7-20); CALCIUM 8.8 mg/dL (8.4-10.2); GLUCOSE 95 mg/dL (75-110); PHOSPHORUS 3.8 mg/dL (2.5-4.5); POTASSIUM 4.1 mmol/L (3.6-5.0)
[2017-04-27] MEDS: LANSOPRAZOLE 30 MG TAB.RAP.DR PO SCH (05:59)
[2017-04-27] MEDS: GABAPENTIN 100 MG CAPSULE PO SCH ×3 (05:59→21:21)
[2017-04-27] MEDS: VALACYCLOVIR HCL 500 MG TABLET PO SCH ×3 (05:59→21:21)
[2017-04-27] MEDS: HEPARIN SOD (PORCINE) 5,000 UNIT/ML 1 ML SYRINGE SUBCUT SCH ×3 (05:59→21:21)
[2017-04-27 06:02] LABS: CARBON DIOXIDE 29 mmol/L (22-30); CHLORIDE 107 mmol/L (98-107); SODIUM 140.4 mmol/L (137-145)
[2017-04-27 06:03] LABS: ANION GAP 4 (5-19)
[2017-04-27] MEDS: IPRATROPIUM/ALBUTEROL 0.5-2.5 MG/3 ML AMPUL NEB SCH ×4 (08:15→20:47)
[2017-04-27] MEDS: METOPROLOL SUCCINATE 50 MG TAB.SR.24H PO SCH (09:15)
[2017-04-27] MEDS: ISOSORBIDE MONONITRATE 60 MG TAB.ER.24H PO SCH (09:16)
[2017-04-27] MEDS: DOCUSATE SODIUM 100 MG CAPSULE PO SCH ×2 (09:16→17:13)
[2017-04-27] MEDS: ASPIRIN 81 MG TABLET, CHEWABLE PO SCH (09:16)
[2017-04-27] MEDS: POLYETHYLENE GLYCOL 3350 POWDER 17 GM/1 PACKET PO SCH (09:17)
[2017-04-27] MEDS: TIOTROPIUM BROMIDE DPI 5 CAP/KIT (18 MCG/CAP) IH SCH (09:17)
[2017-04-27] MEDS: NORMAL SALINE 10 ML SDV (SCHEDULED) IV SCH ×2 (09:17→21:24)
--- NOTE | 2017-04-27 14:33 | RADIOLOGY REPORT (SQ) ---
EXAM DESCRIPTION: CHEST PA/LAT COMPLETED DATE/TIME: 04/27/2017 1:58 pm REASON FOR STUDY: pneumonia COMPARISON: 04/13/2017. NUMBER OF VIEWS: Two views. TECHNIQUE: Frontal and lateral radiographic views of the chest acquired. LIMITATIONS: Limited visualization of the lung bases to the patient's obesity. FINDINGS: LUNGS AND PLEURA: No opacities, masses or pneumothorax. Small pleural effusions. MEDIASTINUM AND HILAR STRUCTURES: No masses or contour abnormality. HEART AND VASCULAR STRUCTURES: Cardiac enlargement. Vascular congestion. BONES: No acute findings. HARDWARE: None in the chest. OTHER: No other significant finding. IMPRESSION: CARDIAC ENLARGEMENT. VASCULAR CONGESTION. TECHNICAL DOCUMENTATION: JOB ID: [id number] [employer]- All Rights Reserved Reading location - IP/workstation name: [email or web address]
[2017-04-27] MEDS ORDERED: METHYLPREDNISOLONE INJ 40 MG/1 ML SDV IV ONE (15:00)
--- NOTE | 2017-04-27 16:29 | PDOC PROGRESS REPORT ---
Subjective Progress Note for:: 04/27/17 Subjective:: 71-year-old female with bilateral pneumonia and blood cultures positive for MSSA on Ancef IV antibiotics, Day 7. Would anticipate a minimum of 10 days of antibiotic coverage. Patient with significant wheezing on exam. Continue Steroids and Nebulized treatment today. Patient on 4L NC O2, her baseline O2 at home is 2L. Discussed plans regarding discharge. Patient agrees to placement in a rehab/SNF at discharge. At present her continued wheezing and higher O2 requirements are preventing her transfer to rehab. Reason For Visit: PNEUMONIA Physical Exam Vital Signs: Temp Pulse Resp BP Pulse Ox 97.3 F 86 20 138/61 H 99 04/27/17 11:52 04/27/17 14:00 04/27/17 11:52 04/27/17 11:52 04/27/17 11:52 Intake & Output 04/26/17 04/27/17 04/28/17 06:59 06:59 06:59 Intake Total 1411 503 118 Output Total 1425 1000 450 Balance -14 -497 -332 Weight 127 kg 128.8 kg General appearance: PRESENT: no acute distress Head exam: PRESENT: atraumatic, normocephalic Eye exam: PRESENT: EOMI, PERRLA. ABSENT: conjunctiva pink Ear exam: ABSENT: normal external ear exam Mouth exam: ABSENT: dry mucosa, moist Neck exam: PRESENT: full ROM. ABSENT: carotid bruit, JVD, tenderness Respiratory exam: PRESENT: wheezes. ABSENT: accessory muscle use, crackles, rales, rhonchi Cardiovascular exam: PRESENT: RRR, +S1, +S2. ABSENT: bradycardia, diastolic murmur, systolic murmur Pulses: PRESENT: normal radial pulses Vascular exam: PRESENT: normal capillary refill. ABSENT: pallor GI/Abdominal exam: PRESENT: soft. ABSENT: ascites, distended, firm, rigid Extremities exam: ABSENT: calf tenderness, clubbing, joint swelling Musculoskeletal exam: PRESENT: full ROM. ABSENT: normal inspection Neurological exam: PRESENT: awake, oriented to person, oriented to place, oriented to time. ABSENT: alert, altered Psychiatric exam: ABSENT: agitated, anxious, depressed, manic Focused psych exam: ABSENT: catatonic, flight of ideas, paranoid Skin exam: ABSENT: abrasion, erythema, jaundice Results Laboratory Results: 04/27/17 04:45 04/27/17 04:45 04/27/17 04/27/17 04:45 04:45 WBC 5.2 RBC 3.29 L Hgb 9.2 L Hct 28.3 L MCV 86 MCH 27.9 MCHC 32.4 RDW 16.9 H Plt Count 283 Sodium 140.4 Potassium 4.1 Chloride 107 Carbon Dioxide 29 Anion Gap 4 L BUN 16 Creatinine 1.07 Est GFR ( Amer) > 60 Est GFR (Non-Af Amer) 50 L Glucose 95 Calcium 8.8 Phosphorus 3.8 Albumin 2.4 L 04/13/17 04/15/17 04/15/17 19:55 00:33 00:33 Creatine Kinase 53 CK-MB (CK-2) 0.55 Troponin I < 0.012 < 0.012 04/15/17 04/15/17 04/15/17 05:45 05:45 12:39 Creatine Kinase 48 40 CK-MB (CK-2) 0.52 Troponin I < 0.012 04/15/17 12:39 Creatine Kinase CK-MB (CK-2) 0.46 Troponin I 0.017 Impressions: Guidance Fluoroscopy 04/24/17 00:00 IMPRESSION: SUCCESSFUL PLACEMENT OF A 5 FR DUAL LUMEN 39 CM PICC IN THE RIGHT BASILIC VEIN. Interventional Vascular Procedure 04/24/17 00:00 IMPRESSION: SUCCESSFUL PLACEMENT OF A 5 FR DUAL LUMEN 39 CM PICC IN THE RIGHT BASILIC VEIN. Modified Barium Swallow 04/24/17 00:00 IMPRESSION: NO EVIDENCE OF PENETRATION OR ASPIRATION. PLEASE SEE SPEECH PATHOLOGIST REPORT FOR OTHER FINDINGS AND RECOMMENDATIONS. PICC Line Insertion 04/24/17 00:00 IMPRESSION: SUCCESSFUL PLACEMENT OF A 5 FR DUAL LUMEN 39 CM PICC IN THE RIGHT BASILIC VEIN. Chest X-Ray 04/27/17 00:00 IMPRESSION: CARDIAC ENLARGEMENT. VASCULAR CONGESTION. Assessment & Plan - Plan Summary Plan Summary: 1. MSSA Pneumonia. On Ancef, Day 7. Would complete 10 days coverage. pneumonia source, bacteremia with blood culture + TTE negative for vegetative growth on valves. Sepsis resolved. add Bacid, probiotic. 2. Hypertension Blood pressure control today. Continue metoprolol and Imdur 3. Sepsis resolved Secondary to MSSA bacteremia and pneumonia On Ancef 4. Acute kidney injury Improved now off nafcillin renal improvement 5. CAD continue aspirin 6. Herpes zoster continue Valtrex at present dermatome is resolving. 7. Bilateral Pneumonia. continue Ancef, blood cultures negative on 04/20/17 8. Debility PT consulted will need d/c to rehab: [facility] 9. hypomagnesemia. monitor level tomorrow 10. Hyperkalemia. resolved
[2017-04-27] MEDS: LACTOBACILLUS ACIDOPHILUS 250 MG TAB PO SCH (17:13)
[2017-04-27] MEDS: METHYLPREDNISOLONE INJ 40 MG/1 ML SDV IV SCH (21:20)
[2017-04-27] MEDS: ALPRAZOLAM 0.5 MG TABLET PO PRN (21:26)
[2017-04-28] MEDS: CEFAZOLIN 2 GM/D5W RTU 2 GM/50 ML RTUPB IV SCH ×3 (02:43→17:07)
[2017-04-28] MEDS: HEPARIN SOD (PORCINE) 5,000 UNIT/ML 1 ML SYRINGE SUBCUT SCH ×3 (06:00→21:20)
[2017-04-28] MEDS: METHYLPREDNISOLONE INJ 40 MG/1 ML SDV IV SCH ×3 (06:00→21:16)
[2017-04-28] MEDS: GABAPENTIN 100 MG CAPSULE PO SCH ×3 (06:00→21:18)
[2017-04-28] MEDS: VALACYCLOVIR HCL 500 MG TABLET PO SCH ×2 (06:00→14:58)
[2017-04-28] MEDS: LANSOPRAZOLE 30 MG TAB.RAP.DR PO SCH (06:00)
[2017-04-28 06:18] LABS: HEMATOCRIT 28.5 % (36.0-47.0); HEMOGLOBIN 9.1 g/dL (12.0-15.5); MEAN CORPUSCULAR HEMOGLOBIN 27.5 pg (27.0-33.4); MEAN CORPUSCULAR HGB CONC 31.8 g/dL (32.0-36.0); MEAN CORPUSCULAR VOLUME 87 fl (80-97); PLATELET COUNT 326 10^3/uL (150-450); RED BLOOD COUNT 3.29 10^6/uL (3.72-5.28); WHITE BLOOD COUNT 4.1 10^3/uL (4.0-10.5)
[2017-04-28 06:36] LABS: ALBUMIN 2.7 g/dL (3.5-5.0); ANION GAP 7 (5-19); BLOOD UREA NITROGEN 19 mg/dL (7-20); CALCIUM 8.9 mg/dL (8.4-10.2); CARBON DIOXIDE 29 mmol/L (22-30); CHLORIDE 105 mmol/L (98-107); GLUCOSE 170 mg/dL (75-110); PHOSPHORUS 4.1 mg/dL (2.5-4.5); POTASSIUM 5.2 mmol/L (3.6-5.0); SODIUM 141.4 mmol/L (137-145)
[2017-04-28] MEDS: IPRATROPIUM/ALBUTEROL 0.5-2.5 MG/3 ML AMPUL NEB SCH ×4 (09:06→20:33)
[2017-04-28] MEDS: ASPIRIN 81 MG TABLET, CHEWABLE PO SCH (09:11)
[2017-04-28] MEDS: LACTOBACILLUS ACIDOPHILUS 250 MG TAB PO SCH ×2 (09:11→17:15)
[2017-04-28] MEDS: METOPROLOL SUCCINATE 50 MG TAB.SR.24H PO SCH (09:11)
[2017-04-28] MEDS: ISOSORBIDE MONONITRATE 60 MG TAB.ER.24H PO SCH (09:11)
[2017-04-28] MEDS: DOCUSATE SODIUM 100 MG CAPSULE PO SCH ×2 (09:11→17:15)
[2017-04-28] MEDS: POLYETHYLENE GLYCOL 3350 POWDER 17 GM/1 PACKET PO SCH (09:12)
[2017-04-28] MEDS: NORMAL SALINE 10 ML SDV (SCHEDULED) IV SCH ×2 (09:12→21:18)
[2017-04-28] MEDS: NITROGLYCERIN 0.4 MG/TAB 25 TAB/BOTTLE SL PRN (09:51)
--- NOTE | 2017-04-28 12:52 | XCELERA REPORT ---
[address] [address] Upper Extremity Venous Evaluation Name: JEANNIE NAVA Age: 71 yrs Gender: Female : 1945 Patient Status: Inpatient Patient Location: [address] [place] [address] Study Date: 04/28/2017 11:39 AM Procedure: Unilateral duplex scan of the right upper extremity veins was performed, including responses to compression and other maneuvers. Reason For Study: eval for SVTor DVT-----right upper arm---swollen Ordering Physician: MARYELLEN MARRUFO Performed By: Rob Hagan Right Side Venous Evaluation Normal vessel filling wall to wall, compression and augmentation as well as Colour flow down to the forarm veins. Interpretation Summary No duplex evidence of DVT or obstruction in the right upper extremity. : MARYELLEN MARRUFO > Alejandro Welch
--- NOTE | 2017-04-28 17:54 | PDOC PROGRESS REPORT ---
Subjective Progress Note for:: 04/28/17 Subjective:: 71-year-old female with bilateral pneumonia and blood cultures positive for MSSA on Ancef IV antibiotics, Day 8. Would anticipate finishing 10 days of antibiotics. Shingles outbreak healed nicely, d/c Valtrex, completed 11 days. Good air movement on exam today. On 3L NC, at home she wears 2L NC. Will d/c villagran catheter. Anticipate placement in SNF/Rehab possible on Monday. Reason For Visit: PNEUMONIA Physical Exam Vital Signs: Temp Pulse Resp BP Pulse Ox 97.7 F 95 18 138/90 H 96 04/28/17 11:25 04/28/17 14:00 04/28/17 12:19 04/28/17 11:25 04/28/17 12:19 Intake & Output 04/27/17 04/28/17 04/29/17 06:59 06:59 06:59 Intake Total 503 1386 100 Output Total 1000 850 200 Balance -497 536 -100 Weight 128.8 kg 128.8 kg General appearance: PRESENT: no acute distress, morbidly obese. ABSENT: mild distress Eye exam: PRESENT: EOMI, PERRLA. ABSENT: conjunctiva pink Ear exam: PRESENT: normal external ear exam Mouth exam: PRESENT: moist, neck supple, tongue midline Neck exam: ABSENT: JVD, thyromegaly Respiratory exam: ABSENT: crackles, rales, rhonchi Cardiovascular exam: PRESENT: RRR, +S1, +S2. ABSENT: bradycardia Pulses: PRESENT: normal radial pulses, normal dorsalis pedis pul Vascular exam: PRESENT: normal capillary refill. ABSENT: pallor GI/Abdominal exam: PRESENT: normal bowel sounds, soft. ABSENT: ascites, mass, Vazquez's sign, rigid Extremities exam: ABSENT: joint swelling, pedal edema Musculoskeletal exam: PRESENT: full ROM. ABSENT: ambulatory Neurological exam: PRESENT: alert, oriented to person, oriented to place, oriented to time, CN II-XII grossly intact Psychiatric exam: ABSENT: agitated, anxious Focused psych exam: ABSENT: catatonic, delusional, pressured speech Skin exam: ABSENT: mottled, normal color, petechiae Results Laboratory Results: 04/28/17 05:40 04/28/17 05:40 04/28/17 04/28/17 05:40 05:40 WBC 4.1 RBC 3.29 L Hgb 9.1 L Hct 28.5 L MCV 87 MCH 27.5 MCHC 31.8 L RDW 17.0 H Plt Count 326 Sodium 141.4 Potassium 5.2 H Chloride 105 Carbon Dioxide 29 Anion Gap 7 BUN 19 Creatinine 0.99 Est GFR ( Amer) > 60 Est GFR (Non-Af Amer) 55 L Glucose 170 H Calcium 8.9 Phosphorus 4.1 Magnesium 1.7 Albumin 2.7 L 04/13/17 04/15/17 04/15/17 19:55 00:33 00:33 Creatine Kinase 53 CK-MB (CK-2) 0.55 Troponin I < 0.012 < 0.012 04/15/17 04/15/17 04/15/17 05:45 05:45 12:39 Creatine Kinase 48 40 CK-MB (CK-2) 0.52 Troponin I < 0.012 04/15/17 12:39 Creatine Kinase CK-MB (CK-2) 0.46 Troponin I 0.017 Impressions: Guidance Fluoroscopy 04/24/17 00:00 IMPRESSION: SUCCESSFUL PLACEMENT OF A 5 FR DUAL LUMEN 39 CM PICC IN THE RIGHT BASILIC VEIN. Interventional Vascular Procedure 04/24/17 00:00 IMPRESSION: SUCCESSFUL PLACEMENT OF A 5 FR DUAL LUMEN 39 CM PICC IN THE RIGHT BASILIC VEIN. Modified Barium Swallow 04/24/17 00:00 IMPRESSION: NO EVIDENCE OF PENETRATION OR ASPIRATION. PLEASE SEE SPEECH PATHOLOGIST REPORT FOR OTHER FINDINGS AND RECOMMENDATIONS. PICC Line Insertion 04/24/17 00:00 IMPRESSION: SUCCESSFUL PLACEMENT OF A 5 FR DUAL LUMEN 39 CM PICC IN THE RIGHT BASILIC VEIN. Chest X-Ray 04/27/17 00:00 IMPRESSION: CARDIAC ENLARGEMENT. VASCULAR CONGESTION. Assessment & Plan - Plan Summary Plan Summary: 1. MSSA Pneumonia. On Ancef, Day 8. Would complete 10 days coverage. pneumonia source, bacteremia with blood culture + TTE negative for vegetative growth on valves. Sepsis resolved. on Bacid, probiotic. Anticipate placement into rehab on Monday. 2. Hypertension Blood pressure control today. Continue metoprolol and Imdur 3. Sepsis resolved Secondary to MSSA bacteremia and pneumonia On Ancef 4. Acute kidney injury Improved now off nafcillin YARELY resolved 5. CAD continue aspirin 6. Herpes zoster dermatome has resolved d/c Valtrex, completed 11 days 7. Bilateral Pneumonia. continue Ancef for 10 days, Day 8 today blood cultures negative on 04/20/17 8. Debility PT consulted will need d/c to rehab: [facility] 9. hypomagnesemia. replacing 10. Hyperkalemia. resolved 11. Lower Limb Edema restart home lasix, 60mg daily
[2017-04-28] MEDS ORDERED: MAGNESIUM SULFATE INJ 8 MEQ/2 ML IV ONE (19:00)
[2017-04-28] MEDS: ALPRAZOLAM 0.5 MG TABLET PO PRN (21:23)
[2017-04-29] MEDS: CEFAZOLIN 2 GM/D5W RTU 2 GM/50 ML RTUPB IV SCH ×3 (02:40→18:42)
[2017-04-29] MEDS: METHYLPREDNISOLONE INJ 40 MG/1 ML SDV IV SCH ×3 (05:20→21:10)
[2017-04-29] MEDS: HEPARIN SOD (PORCINE) 5,000 UNIT/ML 1 ML SYRINGE SUBCUT SCH ×3 (05:25→21:09)
[2017-04-29] MEDS: GABAPENTIN 100 MG CAPSULE PO SCH ×3 (05:26→21:10)
[2017-04-29] MEDS: LANSOPRAZOLE 30 MG TAB.RAP.DR PO SCH (05:26)
[2017-04-29 06:57] LABS: HEMATOCRIT 29.4 % (36.0-47.0); HEMOGLOBIN 9.3 g/dL (12.0-15.5); MEAN CORPUSCULAR HEMOGLOBIN 27.5 pg (27.0-33.4); MEAN CORPUSCULAR HGB CONC 31.5 g/dL (32.0-36.0); MEAN CORPUSCULAR VOLUME 87 fl (80-97); PLATELET COUNT 403 10^3/uL (150-450); RED BLOOD COUNT 3.37 10^6/uL (3.72-5.28); WHITE BLOOD COUNT 7.8 10^3/uL (4.0-10.5)
[2017-04-29 07:48] LABS: ALBUMIN 2.8 g/dL (3.5-5.0); ANION GAP 7 (5-19); BLOOD UREA NITROGEN 32 mg/dL (7-20); CALCIUM 8.9 mg/dL (8.4-10.2); CARBON DIOXIDE 26 mmol/L (22-30); CHLORIDE 107 mmol/L (98-107); GLUCOSE 163 mg/dL (75-110); PHOSPHORUS 3.9 mg/dL (2.5-4.5); POTASSIUM 5.1 mmol/L (3.6-5.0); SODIUM 139.7 mmol/L (137-145)
[2017-04-29] MEDS: ISOSORBIDE MONONITRATE 60 MG TAB.ER.24H PO SCH (07:55)
[2017-04-29] MEDS: IPRATROPIUM/ALBUTEROL 0.5-2.5 MG/3 ML AMPUL NEB SCH ×4 (08:49→20:50)
[2017-04-29] MEDS ORDERED: FUROSEMIDE 40 MG TABLET PO SCH (10:00)
[2017-04-29] MEDS: POLYETHYLENE GLYCOL 3350 POWDER 17 GM/1 PACKET PO SCH (10:14)
[2017-04-29] MEDS: LACTOBACILLUS ACIDOPHILUS 250 MG TAB PO SCH ×2 (10:19→18:41)
[2017-04-29] MEDS: DOCUSATE SODIUM 100 MG CAPSULE PO SCH ×2 (10:19→18:41)
[2017-04-29] MEDS: METOPROLOL SUCCINATE 50 MG TAB.SR.24H PO SCH (10:19)
[2017-04-29] MEDS: ASPIRIN 81 MG TABLET, CHEWABLE PO SCH (10:20)
[2017-04-29] MEDS: NORMAL SALINE 10 ML SDV (SCHEDULED) IV SCH ×2 (10:21→21:12)
--- NOTE | 2017-04-29 14:19 | PDOC PROGRESS REPORT ---
Subjective Progress Note for:: 04/29/17 Subjective:: The patient is a 71-year-old female currently admitted for bilateral pneumonia. Culture is showing MSSA. Her hospital course has been complicated by the development of herpes zoster. She notes general improvement since admission, but, she still more short of breath than her baseline. Reason For Visit: PNEUMONIA Physical Exam Vital Signs: Temp Pulse Resp BP Pulse Ox 98.1 F 87 16 145/63 H 97 04/29/17 08:41 04/29/17 12:24 04/29/17 12:24 04/29/17 08:41 04/29/17 12:24 Intake & Output 04/28/17 04/29/17 04/30/17 06:59 06:59 06:59 Intake Total 1386 1630 Output Total 850 500 Balance 536 1130 Weight 128.8 kg 128.6 kg Additional comments: The patient appears to be fairly healthy for her age. She is sitting up to a chair. Unfortunately, she is super morbidly obese. Her mentation appears to be appropriate and she answers questions appropriately. Her facial appearance is unremarkable. She has diffuse wheezing both anteriorly and posteriorly. Her cardiac exam is regular. I do not appreciate any murmurs, gallops or rubs. The abdomen is obese but soft. Bowel sounds are noted. The exam is somewhat limited. Her lower extremities demonstrate 1+ edema. She does not have any skin lesions or rashes in the visible areas. Results Laboratory Results: 04/29/17 06:13 04/29/17 06:13 04/29/17 04/29/17 06:13 06:13 WBC 7.8 RBC 3.37 L Hgb 9.3 L Hct 29.4 L MCV 87 MCH 27.5 MCHC 31.5 L RDW 17.0 H Plt Count 403 Sodium 139.7 Potassium 5.1 H Chloride 107 Carbon Dioxide 26 Anion Gap 7 BUN 32 H Creatinine 0.97 Est GFR ( Amer) > 60 Est GFR (Non-Af Amer) 56 L Glucose 163 H Calcium 8.9 Phosphorus 3.9 Magnesium 2.1 Albumin 2.8 L 04/13/17 04/15/17 04/15/17 19:55 00:33 00:33 Creatine Kinase 53 CK-MB (CK-2) 0.55 Troponin I < 0.012 < 0.012 04/15/17 04/15/1704/15/18 05:45 05:45 12:39 Creatine Kinase 48 40 CK-MB (CK-2) 0.52 Troponin I < 0.012 04/15/17 12:39 Creatine Kinase CK-MB (CK-2) 0.46 Troponin I 0.017 Impressions: Guidance Fluoroscopy 04/24/17 00:00 IMPRESSION: SUCCESSFUL PLACEMENT OF A 5 FR DUAL LUMEN 39 CM PICC IN THE RIGHT BASILIC VEIN. Interventional Vascular Procedure 04/24/17 00:00 IMPRESSION: SUCCESSFUL PLACEMENT OF A 5 FR DUAL LUMEN 39 CM PICC IN THE RIGHT BASILIC VEIN. Modified Barium Swallow 04/24/17 00:00 IMPRESSION: NO EVIDENCE OF PENETRATION OR ASPIRATION. PLEASE SEE SPEECH PATHOLOGIST REPORT FOR OTHER FINDINGS AND RECOMMENDATIONS. PICC Line Insertion 04/24/17 00:00 IMPRESSION: SUCCESSFUL PLACEMENT OF A 5 FR DUAL LUMEN 39 CM PICC IN THE RIGHT BASILIC VEIN. Chest X-Ray 04/27/17 00:00 IMPRESSION: CARDIAC ENLARGEMENT. VASCULAR CONGESTION. Assessment & Plan - Diagnosis (1) MSSA (methicillin susceptible Staphylococcus aureus) septicemia Is this a current diagnosis for this admission?: Yes Plan: Today is day #9 of [address] [facility]. (2) Pneumonia of both lower lobes Qualifiers: Pneumonia type: due to unspecified organism Is this a current diagnosis for this admission?: Yes Plan: As above. (3) YARELY (acute kidney injury) Is this a current diagnosis for this admission?: Yes (4) CAD (coronary artery disease) Is this a current diagnosis for this admission?: Yes Plan: Continue aspirin (5) Debility Is this a current diagnosis for this admission?: Yes Plan: The plan will be for discharge to [facility] (6) HTN (hypertension) Qualifiers: Hypertension type: essential hypertension Qualified Code(s): I10 - Essential (primary) hypertension Is this a current diagnosis for this admission?: Yes Plan: Continue metoprolol and Imdur. Patient also has underlying coronary artery disease. (7) Herpes zoster Qualifiers: Herpes zoster complications: without complications Qualified Code(s): B02.9 - Zoster without complications Is this a current diagnosis for this admission?: Yes Plan: Resolved. Patient completed 11 days of Valtrex. - Time Time Spent with patient: 25-34 minutes - Inpatient Certification Medical Necessity: Need for IV Antibiotics
[2017-04-29] MEDS: ALPRAZOLAM 0.5 MG TABLET PO PRN (21:10)
[2017-04-29] MEDS: NITROGLYCERIN 0.4 MG/TAB 25 TAB/BOTTLE SL PRN ×2 (21:34→22:05)
[2017-04-29] MEDS ORDERED: LACTULOSE SYRUP 20 GM/30 ML UDCUP PO ONE (22:30)
[2017-04-29] MEDS ORDERED: METOPROLOL TARTRATE PF/INJ 5 MG/5 ML SDV IV ONE ×3 (22:30→23:59)
[2017-04-29 23:06] LABS: CREATINE KINASE MB 0.63 ng/mL (<4.55)
[2017-04-29 23:12] LABS: TROPONIN I 0.181 ng/mL
[2017-04-29] MEDS ORDERED: ASPIRIN 325 MG TABLET ONE (23:16)
[2017-04-29] MEDS ORDERED: FENTANYL CITRATE INJ/PF 100 MCG/2 ML AMPUL ONE (23:17)
[2017-04-29] MEDS ORDERED: ONDANSETRON HCL INJ/PF 4 MG/2 ML SDV ONE (23:37)
[2017-04-29] MEDS ORDERED: CLOPIDOGREL BISULFATE 300 MG TABLET PO ONE (23:45)
--- NOTE | 2017-04-29 23:47 | EKG REPORT ---
SEVERITY:- ABNORMAL ECG - SINUS TACHYCARDIA PROBABLE INFERIOR INFARCT, AGE INDETERMINATE CONSIDER POSTERIOR WALL INVOLVEMENT : Confirmed by: Andrew Berger MD 29-Apr-2017 23:47:15
[2017-04-29] MEDS ORDERED: ASPIRIN 325 MG TABLET PO ONE (23:59)
[2017-04-29] MEDS ORDERED: FONDAPARINUX SODIUM INJ 2.5 MG/0.5 ML DISP.SYRIN SUBCUT ONE (23:59)
[2017-04-29] MEDS ORDERED: FENTANYL CITRATE INJ/PF 100 MCG/2 ML AMPUL IV ONE (23:59)
[2017-04-29] MEDS ORDERED: ONDANSETRON HCL INJ/PF 4 MG/2 ML SDV IV ONE (23:59)
[2017-04-29] MEDS ORDERED: ENALAPRILAT DIHYDRATE INJ/PF 1.25 MG/1 ML SDV IV ONE (23:59)
[2017-04-30] MEDS: CEFAZOLIN 2 GM/D5W RTU 2 GM/50 ML RTUPB IV SCH ×2 (02:58→11:10)
[2017-04-30 05:06] LABS: ANION GAP 11 (5-19); BLOOD UREA NITROGEN 47 mg/dL (7-20); CALCIUM 9.4 mg/dL (8.4-10.2); CARBON DIOXIDE 27 mmol/L (22-30); CHLORIDE 103 mmol/L (98-107); CREATINE KINASE 54 U/L (30-135); GLUCOSE 179 mg/dL (75-110); POTASSIUM 5.2 mmol/L (3.6-5.0); SODIUM 140.9 mmol/L (137-145)
[2017-04-30 05:14] LABS: CREATINE KINASE MB 3.61 ng/mL (<4.55)
[2017-04-30 05:19] LABS: TROPONIN I 1.46 ng/mL
[2017-04-30] MEDS: METHYLPREDNISOLONE INJ 40 MG/1 ML SDV IV SCH ×2 (05:31→13:45)
[2017-04-30] MEDS: LANSOPRAZOLE 30 MG TAB.RAP.DR PO SCH (05:32)
[2017-04-30] MEDS: GABAPENTIN 100 MG CAPSULE PO SCH ×2 (05:32→14:31)
--- NOTE | 2017-04-30 08:47 | EKG REPORT ---
SEVERITY:- ABNORMAL ECG - SINUS RHYTHM INFERIOR INFARCT, OLD : Confirmed by: Andrew Berger MD 30-Apr-2017 08:47:06
[2017-04-30] MEDS: IPRATROPIUM/ALBUTEROL 0.5-2.5 MG/3 ML AMPUL NEB SCH ×3 (09:29→15:33)
--- NOTE | 2017-04-30 09:37 | PDOC CONSULTATION ---
Consultation Consult Date: 04/30/17 Consult reason:: elevated cardiac biomarker History of Present Illness Admission Date/PCP: 04/13/17 17:54 JOSE JUAN ARTIS MD History of Present Illness: Here is a very pleasant 71-year-old female patient with past medical history of COPD on home oxygen, morbid obesity, coronary artery disease (details unknown), hypertension who has been hospitalized few days earlier for pneumonia and has been on antibiotic therapy for it. She was supposed to be discharged tomorrow to a nursing facility. Last night she was reported to have jaw pain that radiated to her throat which was relieved with nitroglycerin. Cardiac biomarkers were checked and were elevated indicative of myocardial injury. Patient seen at bedside and at this time denies any complaints of chest pain or palpitations or jaw pain but does report jaw pain happening relatively frequently over the last few weeks. She sees a clinical nursing assistant in [place] and claims that she had a cardiac cath around 6 months ago where she was told that 1 of the arteries at the back of her heart was completely occluded and that she was not a candidate for bypass grafting due to her lung condition. She lives by herself and her son lives a few miles away. She used to smoke 2 packs of cigarettes a day but now quit 3 years ago. She denies alcohol abuse. She says that her mother of a melanoma in her father of a stroke. At this point of time she has limited ambulatory capacity because of shortness of breath and she has bilateral leg swelling. She denies any bleeding per rectum or black stools and claims that she has had a colonoscopy in the last 10 years. She reports a rash of herpes zoster on the left side of chest and back which as healed now. Past Medical History Cardiac Medical History: Reports: Congestive Heart Failure, Hypertension Pulmonary Medical History: Reports: Bronchitis, Chronic Obstructive Pulmonary Disease (COPD) Endocrine Medical History: Reports: Obesity Psychiatric Medical History: Reports: Depression Hematology: Reports: Anemia Infectious Medical History: Reports: Other Past Surgical History Past Surgical History: Reports: Cardiac Catheterization Social History Information Source: Patient Lives with: Alone Smoking Status: Former Smoker Frequency of Alcohol Use: None Hx Recreational Drug Use: No Drugs: None Hx Prescription Drug Abuse: No - Advance Directive Resuscitation Status: Do Not Intubate Family History Family History: Reviewed & Not Pertinent, COPD, CVA, Hyperlipidemia, Hypertension, Malignancy Parental Family History Reviewed: Yes Children Family History Reviewed: Yes Sibling(s) Family History Reviewed.: Yes Medication/Allergy Home Medications: Amlodipine Besylate [Norvasc 2.5 mg Tablet] 2.5 mg PO DAILY 04/13/17 Aspirin [Aspirin 81 mg Chewable Tablet] 81 mg PO DAILY 04/13/17 Fluoxetine HCl [Prozac] 10 mg PO DAILY 04/13/17 Isosorbide Mononitrate [Isosorbide Mononitrate ER] 60 mg PO QAM 04/13/17 Metoprolol Succinate [Toprol Xl 50 mg Tab.sr] 50 mg PO DAILY 04/13/17 Nitroglycerin [Nitrostat] 0.4 mg SL Q5MP PRN 04/13/17 Ondansetron [Zofran Odt 4 mg Tablet] 4 mg PO Q8HP PRN 04/13/17 Spironolactone [Aldactone 25 mg Tablet] 25 mg PO DAILY 04/13/17 Tiotropium [place] [Spiriva Handihaler 18 mcg/dose (30 Dose)] 1 cap IH DAILY 03/02 Alprazolam [Xanax] 1 mg PO DAILY #5 tablet 04/20/17 Clindamycin HCl [Cleocin 300 mg Capsule] 300 mg PO TID #21 capsule 04/20/17 Furosemide [Lasix 40 mg Tablet] 40 mg PO DAILYP PRN #30 tablet 04/20/17 Gabapentin [Neurontin 100 mg Capsule] 100 mg PO Q8 #24 capsule 04/20/17 Ipratropium/Albuterol Sulfate [Duoneb 3 ml Ampul] 3 ml [facility] [id number] vial.neb 09/30 Lansoprazole [Prevacid 30 mg Odt Tablet] 30 mg PO Q6AM tab.rap. 04/20/17 Lisinopril [Zestril] 2.5 mg PO DAILY #30 tablet 04/20/17 Oxycodone HCl/Acetaminophen [Percocet 5-325 mg Tablet] 2 tab PO Q6HP PRN #5 tablet 04/20/17 Polyethylene Glycol 3350 [Miralax Powder 17 gm/Packet] 17 gm PO DAILY powd.pack 04/20/17 Valacyclovir HCl [Valtrex 500 mg Tablet] 1,000 mg PO Q8 #60 tablet 04/20/17 Allergies/Adverse Reactions: acetaminophen [From Percocet] Allergy (Verified 04/13/17 16:04) atorvastatin calcium [From Lipitor] Allergy (Verified 04/13/17 16:04) ciprofloxacin [From Cipro] Allergy (Verified 04/13/17 16:04) ciprofloxacin HCl [From Cipro] Allergy (Verified 04/13/17 16:04) erythromycin base [Erythromycin Base] Allergy (Verified 04/13/17 16:04) oxycodone HCl [From Percocet] Allergy (Verified 04/13/17 16:04) simvastatin [Simvastatin] Allergy (Verified 04/13/17 16:04) Sulfa (Sulfonamide Antibiotics) Allergy (Verified 04/13/17 16:04) Review of Systems Nose, Mouth, and Throat: PRESENT: other - Jaw pain radiating to the throat relieved with nitroglycerin. Cardiovascular: PRESENT: dyspnea on exertion, edema, orthropnea Hematologic/Lymphatic: PRESENT: easy bruising Physical Exam Vital Signs: Temp Pulse Resp BP Pulse Ox 98.2 F 90 24 H 154/75 H 99 04/30/17 07:25 04/30/17 07:25 04/30/17 07:25 04/30/17 07:25 04/30/17 07:25 Intake & Output 04/29/17 04/30/17 05/01/17 06:59 06:59 06:59 Intake Total 1630 1195 Output Total 500 200 Balance 1130 995 Weight 128.6 kg 127.2 kg General appearance: PRESENT: no acute distress, other - Morbidly obese female patient on supplemental oxygen via nasal cannula. Head exam: PRESENT: atraumatic Neck exam: PRESENT: other - JVP not appreciated due to short neck and morbid obesity. Extremities exam: PRESENT: +2 edema Skin exam: PRESENT: other - Ecchymosis noted on extremities and abdominal wall Results Laboratory Results: 04/29/17 06:13 04/30/17 04:14 04/30/17 04:14 Sodium 140.9 Potassium 5.2 H Chloride 103 Carbon Dioxide 27 Anion Gap 11 BUN 47 H Creatinine 1.21 Est GFR ( Amer) 53 L Est GFR (Non-Af Amer) 44 L Glucose 179 H Calcium 9.4 04/13/17 04/15/17 04/15/17 19:55 00:33 00:33 Creatine Kinase 53 CK-MB (CK-2) 0.55 Troponin I < 0.012 < 0.012 04/15/17 04/15/17 04/15/17 05:45 05:45 12:39 Creatine Kinase 48 40 CK-MB (CK-2) 0.52 Troponin I < 0.012 04/15/17 04/29/17 04/29/17 12:39 22:25 22:25 Creatine Kinase < 20 L CK-MB (CK-2) 0.46 0.63 Troponin I 0.017 0.181 04/30/17 04/30/17 04:14 04:14 Creatine Kinase 54 CK-MB (CK-2) 3.61 Troponin I 1.460 Impressions: Guidance Fluoroscopy 04/24/17 00:00 IMPRESSION: SUCCESSFUL PLACEMENT OF A 5 FR DUAL LUMEN 39 CM PICC IN THE RIGHT BASILIC VEIN. Interventional Vascular Procedure 04/24/17 00:00 IMPRESSION: SUCCESSFUL PLACEMENT OF A 5 FR DUAL LUMEN 39 CM PICC IN THE RIGHT BASILIC VEIN. Modified Barium Swallow 04/24/17 00:00 IMPRESSION: NO EVIDENCE OF PENETRATION OR ASPIRATION. PLEASE SEE SPEECH PATHOLOGIST REPORT FOR OTHER FINDINGS AND RECOMMENDATIONS. PICC Line Insertion 04/24/17 00:00 IMPRESSION: SUCCESSFUL PLACEMENT OF A 5 FR DUAL LUMEN 39 CM PICC IN THE RIGHT BASILIC VEIN. Chest X-Ray 04/27/17 00:00 IMPRESSION: CARDIAC ENLARGEMENT. VASCULAR CONGESTION. Assessment & Plan - Diagnosis (1) Acute non-ST elevation myocardial infarction (NSTEMI) Is this a current diagnosis for this admission?: Yes (2) CAD (coronary artery disease) Qualifiers: Coronary Disease-Associated Artery/Lesion type: [place] artery Associated angina: with unspecified angina Is this a current diagnosis for this admission?: Yes (3) HTN (hypertension) Qualifiers: Hypertension type: essential hypertension Qualified Code(s): I10 - Essential (primary) hypertension Is this a current diagnosis for this admission?: Yes - Notes Notes: Recommendations Morbidly obese patient with COPD on home oxygen with history of coronary artery disease with details unknown to us at this time now presenting with picture of unstable angina over the past few weeks with acute non-ST elevation NE now. Patient has her primary clinical nursing assistant at [place] and the primary team has made a call to her primary clinical nursing assistant to see if they will accept the patient in transfer for management of her non-ST elevation NE. In the meanwhile in the absence of chest pain at this time we recommend patient be anticoagulated as per guidelines for acute non-ST elevation NE along with dual antiplatelet therapy, continue beta-chiara and up titration of nitrate therapy. Consider alternative statin to atorvastatin to see if patient can tolerate statin for risk factor reduction. Would consider up titration of diuretic therapy to at least twice a day for now to improve her volume status with close monitoring of her renal function. Would recommend a limited echo to look for any wall motion abnormalities or reduction in LVEF which will then suggest a need for more aggressive care/intervention. Discussed our recommendations at length with primary team. She will need close monitoring of her hemoglobin/hematocrit while on anticoagulation therapy. Please call us if any questions arise. - Time Time Spent: 50 to 70 Minutes
[2017-04-30] MEDS ORDERED: FONDAPARINUX SODIUM INJ 2.5 MG/0.5 ML DISP.SYRIN SUBCUT SCH (10:00)
[2017-04-30] MEDS ORDERED: HEPARIN SOD (PORCINE) 1,000 UNIT/ML 10 ML VIAL IV ONE (10:10)
[2017-04-30] MEDS ORDERED: HEPARIN SODIUM,PORCINE/D5W 25,000 UNIT/250 ML RTUINJ IV PRN (10:10)
[2017-04-30] MEDS ORDERED: ISOSORBIDE MONONITRATE 60 MG TAB.ER.24H PO SCH (10:14)
[2017-04-30] MEDS: METOPROLOL SUCCINATE 50 MG TAB.SR.24H PO SCH (11:11)
[2017-04-30] MEDS: LACTOBACILLUS ACIDOPHILUS 250 MG TAB PO SCH (11:12)
[2017-04-30] MEDS: DOCUSATE SODIUM 100 MG CAPSULE PO SCH (11:12)
[2017-04-30] MEDS: ASPIRIN 81 MG TABLET, CHEWABLE PO SCH (11:13)
[2017-04-30] MEDS: NITROGLYCERIN 0.4 MG/TAB 25 TAB/BOTTLE SL PRN ×4 (11:16→12:30)
[2017-04-30] MEDS: NORMAL SALINE 10 ML SDV (SCHEDULED) IV SCH (11:19)
[2017-04-30 11:24] LABS: PARTIAL THROMBOPLASTIN TIME 27.5 SEC (23.5-35.8); PROTHROMBIN TIME 12.8 SEC (11.4-15.4)
[2017-04-30 11:29] LABS: HEMATOCRIT 33.3 % (36.0-47.0); HEMOGLOBIN 10.4 g/dL (12.0-15.5); MEAN CORPUSCULAR HEMOGLOBIN 27.5 pg (27.0-33.4); MEAN CORPUSCULAR HGB CONC 31.2 g/dL (32.0-36.0); MEAN CORPUSCULAR VOLUME 88 fl (80-97); PLATELET COUNT 455 10^3/uL (150-450); RED BLOOD COUNT 3.79 10^6/uL (3.72-5.28); RED CELL DISTRIBUTION WIDTH 16.9 % (11.5-14.0); WHITE BLOOD COUNT 8.5 10^3/uL (4.0-10.5)
[2017-04-30] MEDS: POLYETHYLENE GLYCOL 3350 POWDER 17 GM/1 PACKET PO SCH (11:35)
[2017-04-30 11:46] LABS: CREATINE KINASE MB 3.5 ng/mL (<4.55); TROPONIN I 1.3 ng/mL
--- NOTE | 2017-04-30 11:48 | PDOC TRANSFER SUMMARY ---
General Admission Date/PCP: 04/13/17 17:54 JOSE JUAN ARTIS MD Resuscitation Status: Do Not Intubate - Transfer Diagnosis (1) Acute non-ST elevation myocardial infarction (NSTEMI) Is this a current diagnosis for this admission?: Yes (2) MSSA (methicillin susceptible Staphylococcus aureus) septicemia Is this a current diagnosis for this admission?: Yes (3) Pneumonia of both lower lobes Is this a current diagnosis for this admission?: Yes (4) YARELY (acute kidney injury) Is this a current diagnosis for this admission?: Yes (5) CAD (coronary artery disease) Is this a current diagnosis for this admission?: Yes (6) Debility Is this a current diagnosis for this admission?: Yes (7) HTN (hypertension) Is this a current diagnosis for this admission?: Yes (8) Herpes zoster Is this a current diagnosis for this admission?: Yes (9) Anemia Is this a current diagnosis for this admission?: Yes (10) Hyperkalemia Is this a current diagnosis for this admission?: Yes - Transfer Medications Home Medications: Amlodipine Besylate [Norvasc 2.5 mg Tablet] 2.5 mg PO DAILY 04/13/17 Aspirin [Aspirin 81 mg Chewable Tablet] 81 mg PO DAILY 04/13/17 Fluoxetine HCl [Prozac] 10 mg PO DAILY 04/13/17 Isosorbide Mononitrate [Isosorbide Mononitrate ER] 60 mg PO QAM 04/13/17 Metoprolol Succinate [Toprol Xl 50 mg Tab.sr] 50 mg PO DAILY 04/13/17 Nitroglycerin [Nitrostat] 0.4 mg SL Q5MP PRN 04/13/17 Ondansetron [Zofran Odt 4 mg Tablet] 4 mg PO Q8HP PRN 04/13/17 Spironolactone [Aldactone 25 mg Tablet] 25 mg PO DAILY 04/13/17 Tiotropium [place] [Spiriva Handihaler 18 mcg/dose (30 Dose)] 1 cap IH DAILY 03/02 Transfer Medications: Current Medications Albuterol/Ipratropium (Duoneb 3 Ml Ampul) 3 ml NEB [id number] MANISHA Stop: 05/14/17 15:59 Last Admin: 04/30/17 09:29 Dose: 3 ml Alprazolam (Xanax 0.5 Mg Tablet) 1 mg PO QHS PRN PRN Reason: insomnia Stop: 05/03/17 21:59 Last Admin: 04/29/17 21:10 Dose: 1 mg Aspirin (Aspirin 81 Mg Chewable Tablet) 81 mg PO DAILY MANISHA Stop: 05/14/17 09:59 Last Admin: 04/29/17 10:20 Dose: 81 mg Bisacodyl (Dulcolax 5 Mg Tablet) 10 mg PO DAILYP PRN PRN Reason: UNRESOLVED CONSTIPATION Stop: 05/15/17 13:02 Last Admin: 04/15/17 14:10 Dose: 10 mg Clopidogrel Bisulfate (Plavix 75 Mg Tablet) 75 mg PO DAILY [facility] Stop: 05/31/17 09:59 Dextrose (Dextrose Inj 50% Syringe (25 Gm/50 Ml)) 12.5 gm IV PRN PRN; Protocol PRN Reason: FOR BG 50-69 IN ALERT PATIENT Stop: 05/13/17 19:10 Dextrose (Dextrose Inj 50% Syringe (25 Gm/50 Ml)) 25 gm IV PRN PRN; Protocol PRN Reason: See Label Comments Stop: 05/13/17 19:10 Docusate Sodium (Colace 100 Mg Capsule) 100 mg PO BID [facility] Stop: 05/15/17 17:59 Last Admin: 04/29/17 18:41 Dose: 100 mg Furosemide (Lasix Inj/Pf 20 Mg/2 Ml Sdv) 60 mg IV BID [facility] Stop: 05/30/17 17:59 Gabapentin (Neurontin 100 Mg Capsule) 100 mg PO Q8 [facility] Stop: 05/19/17 21:59 Last Admin: 04/30/17 05:32 Dose: 100 mg Glucagon (Glucagen Inj 1 Mg Vial) 1 mg SUBCUT PRN PRN; Protocol PRN Reason: Evaluate for BG < 70 Stop: 05/13/17 19:10 Glucose (Glutose 40% Gel 15 Gm Tube) 30 gm PO PRN PRN; Protocol PRN Reason: FOR BG < 50 IN ALERT PATIENT Stop: 05/13/17 19:10 Glucose (Glutose 40% Gel 15 Gm Tube) 15 gm PO PRN PRN; Protocol PRN Reason: For BG 50-69 in Alert Patient Stop: 05/13/17 19:10 Heparin Sodium (Porcine) (Heparin Flush 10 Unit/Ml 5 Ml Disp.Syrg) 30 unit IV Q12 MANISHA Stop: 05/24/17 21:59 Last Admin: 04/29/17 21:11 Dose: 30 unit Heparin Sodium (Porcine) (Heparin Inj 1,000 Unit/Ml 10 Ml Vial) 0 - 12,000 unit IV .BOLUS PER PROTOCOL PRN; Protocol PRN Reason: RESPOND TO aPTT VALUE Stop: 05/30/17 13:10 Hydralazine HCl (Apresoline 50 Mg Tablet) 50 mg PO Q6HP PRN PRN Reason: For SBP greater than 160mmHg Stop: 05/24/17 11:15 Last Admin: 04/25/17 08:10 Dose: 50 mg Cefazolin Sodium/Dextrose (Ancef Rtu 2 Gm/D5w 50 Ml Premix Bag) 2 gm in 50 mls @ 100 mls/hr IV Q8A [facility] Stop: 05/02/17 17:59 Last Admin: 04/30/17 02:58 Dose: 50 ml Heparin Sodium/Dextrose (Heparin Rtu 25,000 Unit/250 Ml D5w Premix) 25,000 unit in 250 mls @ 0 mls/hr IV CONTINUOUS PRN; Protocol; Titrate PRN Reason: THIS MED IS NOT "PRN" Stop: 05/30/17 10:09 Isosorbide Mononitrate (Imdur 60 Mg Tablet.Er) 90 mg PO QAM [facility] Stop: 05/30/17 10:12 Lactobacillus Acidophilus (Bacid 250 Mg Tablet) 500 mg PO BID [facility] Stop: 05/27/17 17:59 Last Admin: 04/29/17 18:41 Dose: 500 mg Lansoprazole (Prevacid 30 Mg Odt Tablet) 30 mg PO Q6AM [facility] Stop: 05/19/17 05:59 Last Admin: 04/30/17 05:32 Dose: 30 mg Methylprednisolone Sodium Succinate (Solu-Medrol Inj/Pf 40 Mg/1 Ml Sdv) 40 mg IV Q8 [facility] Stop: 05/27/17 21:59 Last Admin: 04/30/17 05:31 Dose: 40 mg Metoprolol Succinate (Toprol Xl 50 Mg Tab.Sr) 50 mg PO DAILY [facility] Stop: 05/14/17 09:59 Last Admin: 04/29/17 10:19 Dose: 50 mg Nitroglycerin (Nitrostat 0.4 Mg (1/150 Gr) Tabs 25/Bottle) 1 tab SL Q5MP PRN PRN Reason: For Jaw Pain Stop: 05/28/17 17:23 Last Admin: 04/29/17 22:05 Dose: 1 tab Ondansetron HCl (Zofran Odt 4 Mg Tablet) 4 mg PO Q8HP PRN PRN Reason: NAUSEA Stop: 05/13/17 19:22 Last Admin: 04/24/17 07:07 Dose: 4 mg Polyethylene Glycol (Miralax Powder 17 Gm/Packet) 17 gm PO DAILY MANISHA Stop: 05/16/17 09:59 Last Admin: 04/29/17 10:14 Dose: 17 gm Sodium Chloride (Saline Flush 2.5 Ml Monoject Prefil Syrin) 2.5 ml IV Q8 MANISHA Stop: 05/13/17 21:59 Last Admin: 04/30/17 05:32 Dose: 2.5 ml Sodium Chloride (Nacl 0.9% Inj/Pf 10 Ml Sdv) 10 ml IV Q12 MNAISHA Stop: 05/24/17 21:59 Last Admin: 04/29/17 21:12 Dose: 10 ml - Allergies Allergies/Adverse Reactions: acetaminophen [From Percocet] Allergy (Verified 04/13/17 16:04) atorvastatin calcium [From Lipitor] Allergy (Verified 04/13/17 16:04) ciprofloxacin [From Cipro] Allergy (Verified 04/13/17 16:04) ciprofloxacin HCl [From Cipro] Allergy (Verified 04/13/17 16:04) erythromycin base [Erythromycin Base] Allergy (Verified 04/13/17 16:04) oxycodone HCl [From Percocet] Allergy (Verified 04/13/17 16:04) simvastatin [Simvastatin] Allergy (Verified 04/13/17 16:04) Sulfa (Sulfonamide Antibiotics) Allergy (Verified 04/13/17 16:04) - Diet/Activity Discharge Diet: Cardiac Hospital Course Hospital Course: JEANNIE NAVA is a 71 year old female with history of HTN, CAD, and multiple recent hospitalizations who presents to ED for worsening respiratory distress. She also carries a diagnosis of oxygen dependent COPD. She generally uses oxygen 2 LPM. She was recently discharged from [facility] in mid March due to an exacerbation of CHF that was complicated by herpes zoster. When she presented for admission 04/13/17 she noted 3-4 days of progressive dyspnea. Associated symptoms include right sided pleuretic chest pain. She notes subjective fevers. Denies chills, abdominal pain, NV. Upon admission the shingles rash appeared to be well healed. In ED, CXR was notable for LLL infiltrate. She was noted to have elevated d. dimer however troponin was negative. WBC was 21.5 with left shift. ABG showed pH 7.43 however pO2 was 70.4. Started on BiPAP with improvement in breathing. Other labs notable for K 6.0. The patient had blood cultures drawn on the day of admission. In addition, a sputum culture was submitted on 04/16/2017. 1 of 2 blood cultures grew MSSA. The sputum culture also confirmed MSSA. Today is day 10 of Ancef. Initially, therapy was going to be discontinued after 10 days. However, in light of recent events with the need for invasive heart catheterization it may be prudent to continue Ancef for total of 14 days. Last evening the patient started to complain of left jaw pain. Her first troponin was positive. Her second troponin this morning is higher at 1.4. Therefore, the patient has ruled in for a non-ST elevation myocardial infarction. Her EKG demonstrates Q waves in 2 3 and aVF. By report she has known coronary disease. The patient's pain has responded to nitroglycerin. Last evening she was given 300 mg of Plavix and an additional dose of aspirin. This morning, the patient was started on a heparin drip per protocol. We have also continued dual antiplatelet therapy with Plavix and aspirin. Her dose of M Edwar has been increased from 60 mg to 90 mg. In addition, her Lasix dose which was 60 mg per day per oral route has been changed to Lasix 60 mg IV every 12 hours. The patient will continue her current dose of metoprolol which is 50 mg p.o. daily. She is currently not on statin therapy due to an allergy. She may require therapy with an alternative statin. I have spoken to the physicians at [facility], Dr. Joi Seay and Dr. Cali Perry. They have accepted the patient in transfer for interventional cardiac catheterization. The patient is noted to be anemic with a hemoglobin of 9. Her CBCs will need to be monitored while on heparin. She has not had any evidence of overt bleeding while here. Her creatinine is in it an acceptable range for cardiac cath at 1.2. Physical Exam Vital Signs: Temp Pulse Resp BP Pulse Ox 98.2 F 103 H 18 154/75 H 98 04/30/17 07:25 04/30/17 09:30 04/30/17 09:30 04/30/17 07:25 04/30/17 09:30 Intake & Output 04/29/17 04/30/17 05/01/17 06:59 06:59 06:59 Intake Total 1630 1195 Output Total 500 200 Balance 1130 995 Weight 128.6 kg 127.2 kg Additional comments: The patient was in bed this morning. She appeared to be resting comfortably. She denied pain this morning. She is super morbidly obese. She is tachypneic with conversation with a respiratory rate of 20. Her facial appearance is unremarkable. Her neck is supple. Due to obesity it is difficult to assess for JVD. Her lungs do demonstrate rails. She has anterior rales but rales are more prominent in the posterior lung garcia. They are bilateral. Her cardiac exam demonstrates a regular rate and rhythm. I do not appreciate any murmurs, gallops or rubs at this time. The abdomen is obese but soft. Bowel sounds are present. She does not have guarding or rebound and there are no hernias or masses present. The lower extremities demonstrate 2+ edema bilaterally. The skin is warm, dry and intact. Her skin is pallorous, reflecting her underlying anemia. Otherwise, there are no acute skin lesions or rashes. Results Laboratory Results: 04/30/17 04:14 04/30/17 04:14 Sodium 140.9 Potassium 5.2 H Chloride 103 Carbon Dioxide 27 Anion Gap 11 BUN 47 H Creatinine 1.21 Est GFR ( Amer) 53 L Est GFR (Non-Af Amer) 44 L Glucose 179 H Calcium 9.4 04/13/17 04/15/17 04/15/17 19:55 00:33 00:33 Creatine Kinase 53 CK-MB (CK-2) 0.55 Troponin I < 0.012 < 0.012 04/15/17 04/15/17 04/15/17 05:45 05:45 12:39 Creatine Kinase 48 40 CK-MB (CK-2) 0.52 Troponin I < 0.012 04/15/17 04/29/17 04/29/17 12:39 22:25 22:25 Creatine Kinase < 20 L CK-MB (CK-2) 0.46 0.63 Troponin I 0.017 0.181 04/30/17 04/30/17 04:14 04:14 Creatine Kinase 54 CK-MB (CK-2) 3.61 Troponin I 1.460 Impressions: Guidance Fluoroscopy 04/24/17 00:00 IMPRESSION: SUCCESSFUL PLACEMENT OF A 5 FR DUAL LUMEN 39 CM PICC IN THE RIGHT BASILIC VEIN. Interventional Vascular Procedure 04/24/17 00:00 IMPRESSION: SUCCESSFUL PLACEMENT OF A 5 FR DUAL LUMEN 39 CM PICC IN THE RIGHT BASILIC VEIN. Modified Barium Swallow 04/24/17 00:00 IMPRESSION: NO EVIDENCE OF PENETRATION OR ASPIRATION. PLEASE SEE SPEECH PATHOLOGIST REPORT FOR OTHER FINDINGS AND RECOMMENDATIONS. PICC Line Insertion 04/24/17 00:00 IMPRESSION: SUCCESSFUL PLACEMENT OF A 5 FR DUAL LUMEN 39 CM PICC IN THE RIGHT BASILIC VEIN. Chest X-Ray 04/27/17 00:00 IMPRESSION: CARDIAC ENLARGEMENT. VASCULAR CONGESTION. Plan Discharge Plan: The patient is going to be transferred to [facility] for invasive risk stratification secondary to acute non-ST elevation myocardial infarction. The accepting physician is Dr. Cl Seay. Time Spent: Greater than 30 Minutes
[2017-04-30 11:50] LABS: ABSOLUTE LYMPHOCYTES# (MANUAL) 1.4 10^3/uL (0.5-4.7); ABSOLUTE MONOCYTES # (MANUAL) 0.4 10^3/uL (0.1-1.4); ABSOLUTE NEUTROPHILS# (MANUAL) 6.7 10^3/uL (1.7-8.2); BASOPHILS % (MANUAL) 0 % (0-2); EOSINOPHILS % (MANUAL) 0 % (0-6); LYMPHOCYTES % (MANUAL) 16 % (13-45); MONOCYTES % (MANUAL) 5 % (3-13); NUCLEATED RED BLOOD CELLS 1 /100 WBC (0); SEGMENTED NEUTROPHILS % (MAN) 79 % (42-78); TOTAL CELLS COUNTED 100
[2017-04-30 11:52] LABS: ANISOCYTOSIS 1+; POLYCHROMASIA SLIGHT
[2017-04-30 11:53] LABS: OVALOCYTES SLIGHT; PLATELET CLUMPS PRESENT; PLATELET COMMENT INCREASED; POIKILOCYTOSIS SLIGHT
[2017-04-30 12:15] LABS: APPEARANCE,URINE CLEAR; BILIRUBIN,URINE NEGATIVE (NEGATIVE); COLOR,URINE YELLOW; GLUCOSE, URINE 50 mg/dL (NEGATIVE); KETONES,URINE NEGATIVE (NEGATIVE); LEUKOCYTE ESTERASE,URINE NEGATIVE (NEGATIVE); NITRITE,URINE NEGATIVE (NEGATIVE); PROTEIN,URINE NEGATIVE (NEGATIVE); URINE SPECIFIC GRAVITY 1.018; UROBILINOGEN,URINE NEGATIVE mg/dL (<2.0)
[2017-04-30] MEDS ORDERED: NITROGLYCERIN/D5W 50 MG/250 ML RTUINJ IV ONE (12:49)
[2017-04-30] MEDS: ONDANSETRON 4 MG TAB.RAPDIS PO PRN (12:57)
[2017-04-30] MEDS ORDERED: HEPARIN SOD (PORCINE) 1,000 UNIT/ML 10 ML VIAL IV PRN (13:11)
[2017-04-30] MEDS ORDERED: DEXTROSE 5%-WATER 250 ML with NITROPRUSSIDE SODIUM 50 MG IV PRN ×2 (13:27)
[2017-04-30] MEDS ORDERED: INSULIN LISPRO 100 UNIT/ML 3 ML VIAL SUBCUT PRN (13:27)
[2017-04-30] MEDS ORDERED: NITROGLYCERIN 50 MG/D5W 250 ML IV PRN (13:29)
[2017-04-30] MEDS ORDERED: MORPHINE SULFATE 10 MG/ML INJ ONE (13:40)
[2017-04-30] MEDS ORDERED: METOPROLOL TARTRATE PF/INJ 5 MG/5 ML SDV IV ONE (13:55)
[2017-04-30] MEDS ORDERED: MORPHINE SULFATE 10 MG/ML INJ IV PRN (14:20)
[2017-04-30 14:39] VITALS: BP 164/9
[2017-04-30] MEDS ORDERED: FUROSEMIDE INJ/PF 20 MG/2 ML SDV IV SCH (18:00)
[2017-05-01] MEDS ORDERED: CLOPIDOGREL BISULFATE 75 MG TABLET PO SCH (10:00)
== END 2017-04-30 15:41 | disposition short-term general hospital (02) | DRG 871 ==
LOC: ER 15:30 → EH 17:54 → 3S 20:17
PROVIDERS: ADMIT Student in an Organized Health Care Education/Training Program; ATTEND Student in an Organized Health Care Education/Training Program
PROC: 5A09357 Assistance with Respiratory Ventilation, Less than 24 Consecutive Hours, Continuous Positive Airway Pressure (ICD-10-PCS; 2017-04-13)
PROC: 02HV33Z Insertion of Infusion Device into Superior Vena Cava, Percutaneous Approach (ICD-10-PCS; principal; 2017-04-24)
PROC: B548ZZA Ultrasonography of Superior Vena Cava, Guidance (ICD-10-PCS; 2017-04-24)
PROC: B5181ZA Fluoroscopy of Superior Vena Cava using Low Osmolar Contrast, Guidance (ICD-10-PCS; 2017-04-24)
DX: A41.01 Sepsis due to Methicillin susceptible Staphylococcus aureus (principal); I21.4 Non-ST elevation (NSTEMI) myocardial infarction; J15.211 Pneumonia due to Methicillin susceptible Staphylococcus aureus; N17.9 Acute kidney failure, unspecified; B02.9 Zoster without complications; E87.5 Hyperkalemia; I25.10 Atherosclerotic heart disease of native coronary artery without angina pectoris; I10 Essential (primary) hypertension; D64.9 Anemia, unspecified; Z79.899 Other long term (current) drug therapy; Z87.891 Personal history of nicotine dependence; Z79.82 Long term (current) use of aspirin; Z88.1 Allergy status to other antibiotic agents; Z88.8 Allergy status to other drugs, medicaments and biological substances; Z88.2 Allergy status to sulfonamides
CPT/HCPCS: 36415; 36569; 36600; 71045; 71046; 74230; 76937; 77001; 80048; 80053; 80069; 81001; 82550; 82553; 82803; 82962; 83605; 83735; 83880; 84484; 85025; 85027; 85379; 85610; 85730; 87040; 87070; 87077; 87086; 87186; 87205; 93005; 93010; 93306; 93971; 94640; 94660; 94667; 94799; 96374; 96375; 99291; G8978-GP; G8979-GP; G8987-GO; G8988-GO; G8996-GN; G8997-GN; G8998-GN; J0610; J0690; J1170; J1642; J1644; J1652; J1815; J1940; J2270; J2405; J2543; J2920; J3010; J3370; J3475; J3490; J7030; J7040; J7060; J7120; J7620; S0032; S0119

== ENCOUNTER 2019-03-12 04:58 | Emergency (ER) | payer MEDICARE, MEDICAID ==
--- NOTE | 2019-03-12 05:14 | ER Document Report ---
ED Medical Screen (RME) - General Stated Complaint: CHEST TIGHTNESS,RIGHT SIDE LOWER BACK PAIN Time Seen by Provider: 03/12/19 05:11 Primary Care Provider: JOSE JUAN ARTIS MD [Primary Care Provider] - Follow up as needed TRAVEL OUTSIDE OF THE [place] IN LAST 30 DAYS: No - Related Data Allergies/Adverse Reactions: acetaminophen [From Percocet] Allergy (Verified 04/13/17 16:04) atorvastatin calcium [From Lipitor] Allergy (Verified 04/13/17 16:04) ciprofloxacin [From Cipro] Allergy (Verified 04/13/17 16:04) ciprofloxacin HCl [From Cipro] Allergy (Verified 04/13/17 16:04) erythromycin base [Erythromycin Base] Allergy (Verified 04/13/17 16:04) oxycodone HCl [From Percocet] Allergy (Verified 04/13/17 16:04) simvastatin [Simvastatin] Allergy (Verified 04/13/17 16:04) Sulfa (Sulfonamide Antibiotics) Allergy (Verified 04/13/17 16:04) Past Medical History - Past Medical History Cardiac Medical History: Reports: Hx Congestive Heart Failure, Hx Hypertension Pulmonary Medical History: Reports: Hx Bronchitis, Hx COPD Renal/ Medical History: Denies: Hx Peritoneal Dialysis Psychiatric Medical History: Reports: Hx Depression Past Surgical History: Reports: Hx Cardiac Catheterization Physical Exam - Vital signs Vitals: Temp Pulse Resp BP Pulse Ox 97.6 F 97 19 161/79 H 97 03/12/19 04:59 03/12/19 04:59 03/12/19 04:59 03/12/19 04:59 03/12/19 04:59 Course - Vital Signs Vital signs: Temp Pulse Resp BP Pulse Ox 97.6 F 97 19 161/79 H 97 03/12/19 04:59 03/12/19 04:59 03/12/19 04:59 03/12/19 04:59 03/12/19 04:59 - Laboratory Result Diagrams: 03/12/19 05:07 03/12/19 05:07 Doctor's Discharge - Discharge Referrals: JOSE JUAN ARTIS MD [Primary Care Provider] - Follow up as needed
[2019-03-12] MEDS ORDERED: MORPHINE SULFATE 10 MG/ML INJ IV ONE ×2 (05:19→08:36)
[2019-03-12 05:20] LABS: ABSOLUTE EOSINOPHILS # (AUTO) 0.1 10^3/uL (0.0-0.6); ABSOLUTE LYMPHOCYTES (AUTO) 1.4 10^3/uL (0.5-4.7); ABSOLUTE MONOCYTES (AUTO) 0.7 10^3/uL (0.1-1.4); ABSOLUTE NEUT (AUTO) 6.1 10^3/uL (1.7-8.2); BASOPHILS % (AUTO) 0.5 % (0-2); EOSINOPHILS % (AUTO) 1.1 % (0-6); HEMATOCRIT 39.1 % (36.0-47.0); HEMOGLOBIN 12.7 g/dL (12.0-15.5); LYMPHOCYTES % (AUTO) 17.1 % (13-45); MEAN CORPUSCULAR HEMOGLOBIN 30.3 pg (27.0-33.4); MEAN CORPUSCULAR HGB CONC 32.6 g/dL (32.0-36.0); MEAN CORPUSCULAR VOLUME 93 fl (80-97); PLATELET COUNT 182 10^3/uL (150-450); RED CELL DISTRIBUTION WIDTH 13.4 % (11.5-14.0); SEGMENTED NEUTROPHILS % (AUTO) 73.3 % (42-78); TOTAL CELLS COUNTED % (AUTO) 100 %; WHITE BLOOD COUNT 8.4 10^3/uL (4.0-10.5)
--- NOTE | 2019-03-12 05:22 | ER Document Report ---
ED Cardiac - General Chief Complaint: Chest Pain Stated Complaint: CHEST TIGHTNESS,RIGHT SIDE LOWER BACK PAIN Time Seen by Provider: 03/12/19 05:11 Primary Care Provider: [facility] [Provider Group] - Follow up in 1 week JOSE JUAN ARTIS MD [Primary Care Provider] - Follow up in 3-5 days Notes: Patient is a 73-year-old female who presents emergency department with a chief complaint of right flank pain that radiates from her flank area to her abdomen. She also has complaints of chest tightness. Her symptoms started at 1:00 this morning. 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 She is normally on 2 L nasal cannula. Patient was brought in by EMS. She was given aspirin and nitroglycerin. Patient states that she still has pain in her flank area. Denies any difficulty breathing. Patient also states that she has had right ear pain for the past 2 days. Denies any drainage from the ear. Denies any ringing in the ear. States that it feels like an ear infection. TRAVEL OUTSIDE OF THE [place] IN LAST 30 DAYS: No - Related Data Allergies/Adverse Reactions: acetaminophen [From Percocet] Allergy (Verified 04/13/17 16:04) atorvastatin calcium [From Lipitor] Allergy (Verified 04/13/17 16:04) ciprofloxacin [From Cipro] Allergy (Verified 04/13/17 16:04) ciprofloxacin HCl [From Cipro] Allergy (Verified 04/13/17 16:04) erythromycin base [Erythromycin Base] Allergy (Verified 04/13/17 16:04) oxycodone HCl [From Percocet] Allergy (Verified 04/13/17 16:04) simvastatin [Simvastatin] Allergy (Verified 04/13/17 16:04) Sulfa (Sulfonamide Antibiotics) Allergy (Verified 04/13/17 16:04) Past Medical History - Social History Smoking Status: Former Smoker Family History: Reviewed & Not Pertinent, COPD, CVA, Hyperlipidemia, Hypertension, Malignancy Patient has suicidal ideation: No Patient has homicidal ideation: No - Past Medical History Cardiac Medical History: Reports: Hx Congestive Heart Failure, Hx Hypertension Pulmonary Medical History: Reports: Hx Bronchitis, Hx COPD Renal/ Medical History: Denies: Hx Peritoneal Dialysis Psychiatric Medical History: Reports: Hx Depression Past Surgical History: Reports: Hx Cardiac Catheterization - Immunizations Hx Pneumococcal Vaccination: 02/13/13 Review of Systems - Review of Systems Notes: REVIEW OF SYSTEMS: CONSTITUTIONAL : Denies recent illness. Denies recent unintentional weight loss. Denies fever, chills, or sweats. EENT: Denies eye, ear, throat, or mouth pain, discharge, or symptoms. Denies nasal or sinus congestion. CARDIOVASCULAR: See HPI. RESPIRATORY: Denies shortness of breath, cough, congestion, difficulty breathing, or wheezing. GASTROINTESTINAL: Denies nausea, vomiting, and diarrhea. Denies abdominal pain. Denies constipation. GENITOURINARY: Denies difficulty urinating, burning, blood in urine, urgency or frequency. MUSCULOSKELETAL: See HPI. Denies joint pain or swelling. SKIN: Denies rash, itchiness, or lesions HEMATOLOGIC : Denies easy bruising or bleeding. LYMPHATIC: Denies swollen, painful, enlarged glands. NEUROLOGICAL: Denies no numbness or tingling denies weakness. Denies headache. Denies altered mental status. Denies alteration in speech. PSYCHIATRIC: Denies stress, anxiety, alteration in sleep patterns, or depression. All other systems reviewed and negative. Physical Exam - Vital signs Vitals: Temp Pulse Resp BP Pulse Ox 97.6 F 97 19 161/79 H 97 03/12/19 04:59 03/12/19 04:59 03/12/19 04:59 03/12/19 04:59 03/12/19 04:59 - Notes Notes: PHYSICAL EXAMINATION: GENERAL: Appears well, obese, no acute distress. HEAD: Normocephalic, atraumatic. EYES: PERRL, conjunctiva normal, all extraocular movements intact, sclera nonicteric ENT: Dry mucous membranes. Purulent drainage noted behind right tympanic membrane. NECK: Supple, no noticeable swelling, redness, rash. Normal range of motion. LUNGS: Equal breath sounds bilaterally and clear to auscultation. No wheezes rales or rhonchi. CARDIOVASCULAR: S1-S2, regular rate, regular rhythm. Radial pulses 2+, normal. ABDOMEN: Normoactive bowel sounds. Soft, nontender, no guarding, no rebound tenderness, and no masses palpated. EXTREMITIES: Normal strength and range of motion, no pitting or edema. No cyanosis. NEUROLOGICAL: Moves all extremities upon command. Strength 5/5 in all extremities. PSYCH: Normal mood, normal affect. SKIN: Warm, dry. No rash, lesions, ulcerations noted. Normal skin turgor. BACK: Right CVA tenderness. Course - Re-evaluation Re-evalutation: 03/12/19 06:00 Chest x-ray shows atelectasis, but I am not quite sure if this is actually atelectasis, or a poor image. Patient will be sent for CT of the abdomen, pelvis, and chest.Hematology is unremarkable. No anemia or leukocytosis noted. Patient has a potassium of 5.4, creatinine of 1.68, and BUN of 26. She will receive a liter of IV fluids. Her glucose is also 207, which IV fluids will correct. BNP is normal. Initial troponin is negative. Patient's urinalysis is unremarkable. 03/12/19 08:37 Patient has a 0.2 cm stone noted at the UVJ. There is mild hydronephrosis and hydroureter ureter. She will receive Flomax and IV fluids. Pain was able to be controlled here in the emergency department. Patient is tolerating oral intake. Clinical history is not consistent with an acute abdominal aneurysm or dissection, MD, or pulmonary embolus. Urinalysis does not show findings consistent with an infected stone. Vitals have remained within normal limits. Patient will be discharged with recommendations to follow-up with urology, pain medications, and return precautions. They are in agreement with this plan and verbalized indications return to emergency department. - Vital Signs Vital signs: Temp Pulse Resp BP Pulse Ox 97.4 F 97 17 165/74 H 95 03/12/19 06:01 03/12/19 04:59 03/12/19 06:01 03/12/19 06:01 03/12/19 06:01 - Laboratory Result Diagrams: 03/12/19 05:07 03/12/19 05:07 Laboratory results interpreted by me: 03/12/19 03/12/19 05:07 06:16 Potassium 5.4 H BUN 26 H Creatinine 1.68 H Est GFR ( Amer) 36 L Est GFR (MDRD) Non-Af 30 L Glucose 207 H Urine Glucose (UA) 150 H Discharge - Discharge Clinical Impression: Kidney stone on right side Right otitis media Qualifiers: Otitis media type: unspecified Qualified Code(s): H66.91 - Otitis media, unspecified, right ear Condition: Stable Disposition: HOME, SELF-CARE Additional Instructions: You were seen today in the emergency department for pain in your back. Your symptoms should improve over the course of the next one week. If you continue to have pain for greater than one week or your pain is not controlled with the pain medications that you have been sent home with you need to return to the emergency department. Please also return if you develop fever, persistent vomiting, or any other symptoms that are concerning to you. You should take Tylenol 1000 mg every 6 hours and use the oral morphine as prescribed only for pain not controlled by ibuprofen. You are also been sent home with a medication called Flomax to help pass the stone. You've been given Zofran to assist with nausea. Please follow-up with urology in the next 2-3 days. You were seen today for ear pain and have an acute ear infection. Please take the antibiotic that has been prescribed until it is completed even if you are feeling better before you have finished all the antibiotics. For your pain: Take acetaminophen 1000 mg every 6 hours together as needed for pain. Return if you have worsening of your pain, loss of hearing in the affected ear, worsening facial pain, headaches, pass out, or any other symptoms that are worrisome to y ou. Prescriptions: Amoxicillin Trihydrate [Amoxil 500 mg Capsule] 500 mg PO BID 10 Days #20 capsule Tamsulosin HCl [Flomax 0.4 mg Cap.sr] 0.4 mg PO DAILY #7 cap.sr.24h Morphine Sulfate [Morphine Ir 15 Mg Tablet] 7.5 mg PO Q6H PRN #7 tablet PRN Reason: Ondansetron [Zofran Odt 4 mg Tablet] 1 - 2 tab PO Q4H PRN #15 tab.rapdis PRN Reason: For Nausea/Vomiting Referrals: [facility] [Provider Group] - Follow up in 1 week JOSE JUAN ARTIS MD [Primary Care Provider] - Follow up in 3-5 days
[2019-03-12 05:37] LABS: ALBUMIN 4.1 g/dL (3.5-5.0); ALKALINE PHOSPHATASE 105 U/L (38-126); ANION GAP 8 (5-19); ASPARTATE AMINO TRANSFERASE 22 U/L (14-36); BILIRUBIN,TOTAL 0.4 mg/dL (0.2-1.3); BLOOD UREA NITROGEN 26 mg/dL (7-20); CALCIUM 9.4 mg/dL (8.4-10.2); CARBON DIOXIDE 29 mmol/L (22-30); CHLORIDE 101 mmol/L (98-107); CREATINE KINASE 31 U/L (30-135); GLUCOSE 207 mg/dL (75-110); POTASSIUM 5.4 mmol/L (3.6-5.0); TOTAL PROTEIN 7.6 g/dL (6.3-8.2)
[2019-03-12 06:33] LABS: APPEARANCE,URINE CLEAR; BILIRUBIN,URINE NEGATIVE (NEGATIVE); COLOR,URINE STRAW; GLUCOSE, URINE 150 mg/dL (NEGATIVE); KETONES,URINE NEGATIVE (NEGATIVE); LEUKOCYTE ESTERASE,URINE NEGATIVE (NEGATIVE); NITRITE,URINE NEGATIVE (NEGATIVE); PROTEIN,URINE NEGATIVE (NEGATIVE); URINE SPECIFIC GRAVITY 1.013; UROBILINOGEN,URINE NEGATIVE mg/dL (<2.0)
--- NOTE | 2019-03-12 06:37 | RADIOLOGY REPORT (SQ) ---
EXAM: XR Chest, 1 View EXAM DATE/TIME: 03/12/2019 5:57 AM CLINICAL HISTORY: The patient is 73 years old and is Female; chest tightness TECHNIQUE: Frontal view of the chest. COMPARISON: Chest radiograph from 04/27/2017 FINDINGS: LUNGS: There are minimal bibasilar densities suggesting atelectasis. An irregular, somewhat nodular density is visualized projecting over the right lower chest, at the level of the right posterior 7th rib. This may be artifactual or related to atelectasis. The lungs are otherwise clear. No consolidation visualized. PLEURAL SPACE: Unremarkable. No pneumothorax. HEART: Stable moderate enlargement of the cardiac silhouette. MEDIASTINUM: Unremarkable. BONES/JOINTS: No acute osseous findings. VASCULATURE: Atherosclerotic calcifications are visualized within the aorta. IMPRESSION: 1. No acute findings visualized in the chest. 2. Small irregular density projecting over the right lower chest which may be related to atelectasis or artifact. However, a small pulmonary nodule is difficult to completely exclude. Recommend follow-up PA and lateral radiographs of the chest when feasible.
[2019-03-12] MEDS ORDERED: NORMAL SALINE 1000 ML 1,000 ML IV ONE (07:09)
--- NOTE | 2019-03-12 07:20 | RADIOLOGY REPORT (SQ) ---
EXAM DESCRIPTION: CT ABDOMEN PELVIS WITHOUT IV CONTRAST, CT CHEST WITHOUT IV CONTRAST COMPLETED DATE/TME: 03/12/2019 06:26 (accession [id number]), 03/12/2019 00:00 (accession [id number]) CLINICAL HISTORY: 73 years Female, RIGHT flank pain Comparison: None. Technique: No contrast. Coronal and sagittal reformat. This exam was performed according to our departmental dose-optimization program, which includes automated exposure control, adjustment of the mA and/or kV according to patient size and/or use of iterative reconstruction technique. [facility]: Dose Right [facility]: CareDose [facility]: Dose Right [facility]: Teradose 4D [facility]: [employer] LIMITATIONS: None Findings: 0.2 cm right ureterovesicular junction/bladder stone with mild right hydronephrosis/hydroureter. Moderate right perinephric fat stranding. Heterogeneous enlarged thyroid includes a 7.9 cm predominantly left-sided thyroid mass extending into the upper mediastinum. Recommend thyroid ultrasound. Small left perinephric fat stranding. Advanced coronary arterial calcification/stent. Atherosclerotic vascular disease. Renal arterial calcification. Colonic diverticulosis. Atelectasis/scar. Cholecystectomy. Mild L2 vertebral compression deformity with vertebroplasty. Mild L3 vertebral compression deformity. L3-L4 vacuum disc bulge with mild/moderate thecal sac compression and moderate bilateral L3 foraminal stenoses. No ascites. No pneumoperitoneum. Normal appendix. No bowel obstruction. No evidence of abdominal aortic aneurysm. No gross evidence of thecal sac/cord or nerve root compression. Unenhanced inferior neck, axillae, mediastinum, lungs, airway, heart, unenhanced abdominopelvic structures, lymphatics, vasculature, and musculoskeleton appear grossly unremarkable. Impression: 1. 0.2 cm right UVJ/bladder stone with low-grade obstruction. 2. Heterogeneous enlarged thyroid includes a 7.9 cm predominantly left-sided thyroid mass extending into the upper mediastinum. Recommend thyroid ultrasound. 3. Mild L2 vertebral compression deformity with vertebroplasty. Mild L3 vertebral compression deformity. Age-indeterminate.
--- NOTE | 2019-03-12 07:20 | RADIOLOGY REPORT (SQ) ---
EXAM DESCRIPTION: CT ABDOMEN PELVIS WITHOUT IV CONTRAST, CT CHEST WITHOUT IV CONTRAST COMPLETED DATE/TME: 03/12/2019 06:26 (accession [id number]), 03/12/2019 00:00 (accession [id number]) CLINICAL HISTORY: 73 years Female, RIGHT flank pain Comparison: None. Technique: No contrast. Coronal and sagittal reformat. This exam was performed according to our departmental dose-optimization program, which includes automated exposure control, adjustment of the mA and/or kV according to patient size and/or use of iterative reconstruction technique. [facility]: Dose Right [facility]: CareDose [facility]: Dose Right [facility]: Teradose 4D [facility]: [employer] LIMITATIONS: None Findings: 0.2 cm right ureterovesicular junction/bladder stone with mild right hydronephrosis/hydroureter. Moderate right perinephric fat stranding. Heterogeneous enlarged thyroid includes a 7.9 cm predominantly left-sided thyroid mass extending into the upper mediastinum. Recommend thyroid ultrasound. Small left perinephric fat stranding. Advanced coronary arterial calcification/stent. Atherosclerotic vascular disease. Renal arterial calcification. Colonic diverticulosis. Atelectasis/scar. Cholecystectomy. Mild L2 vertebral compression deformity with vertebroplasty. Mild L3 vertebral compression deformity. L3-L4 vacuum disc bulge with mild/moderate thecal sac compression and moderate bilateral L3 foraminal stenoses. No ascites. No pneumoperitoneum. Normal appendix. No bowel obstruction. No evidence of abdominal aortic aneurysm. No gross evidence of thecal sac/cord or nerve root compression. Unenhanced inferior neck, axillae, mediastinum, lungs, airway, heart, unenhanced abdominopelvic structures, lymphatics, vasculature, and musculoskeleton appear grossly unremarkable. Impression: 1. 0.2 cm right UVJ/bladder stone with low-grade obstruction. 2. Heterogeneous enlarged thyroid includes a 7.9 cm predominantly left-sided thyroid mass extending into the upper mediastinum. Recommend thyroid ultrasound. 3. Mild L2 vertebral compression deformity with vertebroplasty. Mild L3 vertebral compression deformity. Age-indeterminate.
[2019-03-12] MEDS ORDERED: TAMSULOSIN HCL 0.4 MG CAP.SR.24H PO ONE (08:13)
--- NOTE | 2019-03-12 09:46 | EKG REPORT ---
SEVERITY:- ABNORMAL ECG - SINUS RHYTHM PROBABLE INFERIOR INFARCT, AGE INDETERMINATE : Confirmed by: Samuel Henao 12-Mar-2019 09:45:20
[2019-03-12 09:52] VITALS: BP 115/51
== END 2019-03-12 10:05 | disposition home or self-care (01) ==
LOC: ER 04:58
DX: N20.0 Calculus of kidney (principal); H66.91 Otitis media, unspecified, right ear; R07.9 Chest pain, unspecified; M54.5 Low back pain; H92.01 Otalgia, right ear; Z87.891 Personal history of nicotine dependence; J44.9 Chronic obstructive pulmonary disease, unspecified; I50.9 Heart failure, unspecified; I11.0 Hypertensive heart disease with heart failure
CPT/HCPCS: 93005; 96376; 99285; 96361; 51701; 96374; 36415; 82550; 85025; 80053; 81001; 84484; 83880; 71045; 71250; 74176; 93010; J2270; A9270; J7030

== ENCOUNTER 2020-02-04 00:47 | Emergency (ER) | payer MEDICARE, MEDICAID ==
[2020-02-04] MEDS ORDERED: TRAMADOL HCL 50 MG TABLET PO ONE (02:04)
--- NOTE | 2020-02-04 02:24 | ER Document Report ---
ED General - General Chief Complaint: Neck and Upper Back Pain Stated Complaint: NECK AND SHOULDER PAIN Primary Care Provider: JOSE JUAN ARTIS MD [Primary Care Provider] - Follow up as needed Notes: 74-year-old female with CAD with stents, hypertension, hyperlipidemia, former smoker, COPD on home oxygen presents with approximately 2 weeks of intermittent pain in neck and left shoulder. Patient says that she is unsure when exactly pain started and describes aching pain her between her shoulder blades and having pain going down her arm exacerbated by sleeping in a recliner, certain movements. Patient denies having any similar pain in the past. Patient took nitroglycerin 3 times when pain became worse today which did not help her pain so she took Tylenol and came to the ED. Patient denies any chest pain, weakness or numbness, trauma, headache, neck stiffness, lower extremity symptoms, exertional symptoms, aortic history, shortness of breath, cough TRAVEL OUTSIDE OF THE [place] IN LAST 30 DAYS: No - Related Data Allergies/Adverse Reactions: acetaminophen [From Percocet] Allergy (Verified 02/04/20 01:36) atorvastatin calcium [From Lipitor] Allergy (Verified 02/04/20 01:36) ciprofloxacin [From Cipro] Allergy (Verified 02/04/20 01:36) ciprofloxacin HCl [From Cipro] Allergy (Verified 02/04/20 01:36) erythromycin base [Erythromycin Base] Allergy (Verified 02/04/20 01:36) oxycodone HCl [From Percocet] Allergy (Verified 02/04/20 01:36) simvastatin [Simvastatin] Allergy (Verified 02/04/20 01:36) Sulfa (Sulfonamide Antibiotics) Allergy (Verified 02/04/20 01:36) Past Medical History - General Information source: Patient, [facility] Records - Social History Smoking Status: Former Smoker Chew tobacco use (# tins/day): No Frequency of alcohol use: None Drug Abuse: None Family History: Reviewed & Not Pertinent, COPD, CVA, Hyperlipidemia, Hyper tension, Malignancy Patient has homicidal ideation: No - Past Medical History Cardiac Medical History: Reports: Hx Congestive Heart Failure, Hx Hypertension Pulmonary Medical History: Reports: Hx Bronchitis, Hx COPD Renal/ Medical History: Denies: Hx Peritoneal Dialysis Psychiatric Medical History: Reports: Hx Depression Past Surgical History: Reports: Hx Cardiac Catheterization - Immunizations Hx Pneumococcal Vaccination: 02/13/13 Review of Systems - Review of Systems Notes: REVIEW OF SYSTEMS: CONSTITUTIONAL : Denies fever, chills, or sweats. EENT: Denies recent cold/sinus symptoms, denies throat pain CARDIOVASCULAR: Denies chest pain, MEDARDO RESPIRATORY: Denies cough, denies shortness of breath. GASTROINTESTINAL: Denies abdominal pain, nausea/vomiting. GENITOURINARY: Denies difficulty urinating, painful urination. FEMALE GENITOURINARY: Denies abnormal vaginal bleeding, vaginal discharge. MUSCULOSKELETAL: + neck pain, +back pain. SKIN: Denies rash or skin lesions. HEMATOLOGIC : Denies easy bruising or bleeding. LYMPHATIC: Denies swollen, enlarged glands. NEUROLOGICAL: Denies headache, denies change in gait. PSYCHIATRIC: Denies anxiety or stress or depression. Physical Exam - Vital signs Vitals: Temp Pulse Resp BP Pulse Ox 97.5 F 88 18 157/62 H 100 02/03/20 13:15 02/03/20 13:15 02/03/20 13:15 02/03/20 13:15 02/03/20 13:15 - Notes Notes: PHYSICAL EXAMINATION: GENERAL: Well-appearing, well-nourished elderly woman lying in stretcher in no acute distress. HEAD: Atraumatic, normocephalic. EYES: Pupils equal round and appropriate constriction, sclera anicteric, conjunctiva are normal. ENT: nares patent, moist mucous membranes. NECK: Normal range of motion, supple without lymphadenopathy, no focal C/T/L/S- spine tenderness or deformity LUNGS: Breath sounds clear to auscultation bilaterally and equal. No wheezes rales or rhonchi. Normal respiratory rate and effort HEART: Regular rate and rhythm without murmurs, bilateral radial pulses sym metric and 2+ CHEST: Normal inspection, no tenderness, no rash ABDOMEN: Soft, nontender, no guarding, no masses, no CVAT EXTREMITIES: Normal range of motion, no pitting or edema. No cyanosis. B ilateral DP pulses 2+. No focal tenderness of shoulder, no deformity, full range of motion, area below left scapula with increased muscle tension and tenderness with palpation, upper left back paraspinal muscles also with minor tenderness, no skin abnormalities NEUROLOGICAL: Awake, alert, conversing appropriately, moves all extremities spontaneously. PSYCH: Normal mood, normal affect. SKIN: Warm, Dry, normal turgor, no rashes or lesions noted. Course - Re-evaluation Re-evalutation: 02/04/20 02:42 Exam most consistent with musculoskeletal strain of the left trapezoid, however given patient's age and comorbidities will obtain chest x-ray and D-dimer for rule out aortic dissection given low pretest probability and will obtain troponin to rule out atypical ACS, but despite patient's history very low pretest probability for ACS given patient's symptoms and exam with focal muscle tenderness to fully reproduces patient's pain. Will give tramadol as patient says she is allergic to Percocet but has taken other opioids without any allergy in the past and she does not have a severe allergy to Percocet (nausea). 02/04/20 04:39 Patient's vital signs remain stable, D-dimer positive so I have ordered CT aortic dissection protocol. Will continue to monitor. - Vital Signs Vital signs: Temp Pulse Resp BP Pulse Ox 98.3 F 88 18 143/78 H 98 02/04/20 01:54 02/03/20 13:15 02/04/20 05:00 02/04/20 04:28 02/04/20 05:00 - Laboratory Results Result Diagrams: 02/04/20 03:16 02/04/20 03:16 Laboratory Results Interpreted: 02/04/20 02/04/20 02/04/20 03:16 03:16 03:16 Hgb 11.2 L Hct 34.9 L D-Dimer 3.34 H Potassium 5.8 H BUN 52 H Creatinine 1.38 H Est GFR ( Amer) 45 L Est GFR (MDRD) Non-Af 37 L Glucose 140 H Total Protein 8.3 H Discharge - Discharge Referrals: JOSE JUAN ARITS MD [Primary Care Provider] - Follow up as needed
[2020-02-04 03:28] LABS: ABSOLUTE BASOPHILS # (AUTO) 0.1 10^3/uL (0.0-0.2); ABSOLUTE EOSINOPHILS # (AUTO) 0.2 10^3/uL (0.0-0.6); ABSOLUTE LYMPHOCYTES (AUTO) 1.9 10^3/uL (0.5-4.7); ABSOLUTE MONOCYTES (AUTO) 0.9 10^3/uL (0.1-1.4); ABSOLUTE NEUT (AUTO) 6.3 10^3/uL (1.7-8.2); BASOPHILS % (AUTO) 0.8 % (0-2); EOSINOPHILS % (AUTO) 2.2 % (0-6); HEMATOCRIT 34.9 % (36.0-47.0); HEMOGLOBIN 11.2 g/dL (12.0-15.5); LYMPHOCYTES % (AUTO) 20.4 % (13-45); MEAN CORPUSCULAR HEMOGLOBIN 29.4 pg (27.0-33.4); MEAN CORPUSCULAR HGB CONC 32.2 g/dL (32.0-36.0); MEAN CORPUSCULAR VOLUME 91 fl (80-97); MONOCYTES % (AUTO) 9.9 % (3-13); PLATELET COUNT 211 10^3/uL (150-450); RED BLOOD COUNT 3.83 10^6/uL (3.72-5.28); RED CELL DISTRIBUTION WIDTH 13.7 % (11.5-14.0); SEGMENTED NEUTROPHILS % (AUTO) 66.7 % (42-78); TOTAL CELLS COUNTED % (AUTO) 100 %; WHITE BLOOD COUNT 9.5 10^3/uL (4.0-10.5)
[2020-02-04 03:48] LABS: ALBUMIN 4.3 g/dL (3.5-5.0); ALKALINE PHOSPHATASE 105 U/L (38-126); ANION GAP 7 (5-19); ASPARTATE AMINO TRANSFERASE 27 U/L (14-36); BILIRUBIN,DIRECT 0.3 mg/dL (0.0-0.4); BILIRUBIN,TOTAL 0.5 mg/dL (0.2-1.3); BLOOD UREA NITROGEN 52 mg/dL (7-20); CALCIUM 9.7 mg/dL (8.4-10.2); CARBON DIOXIDE 27 mmol/L (22-30); CHLORIDE 104 mmol/L (98-107); GLUCOSE 140 mg/dL (75-110); POTASSIUM 5.8 mmol/L (3.6-5.0); TOTAL PROTEIN 8.3 g/dL (6.3-8.2)
[2020-02-04] MEDS ORDERED: NORMAL SALINE 500 ML IV ONE (04:15)
--- NOTE | 2020-02-04 05:40 | ER Document Report ---
ED Medical Screen (RME) - General Chief Complaint: Neck and Upper Back Pain Stated Complaint: NECK AND SHOULDER PAIN Primary Care Provider: JOSE JUAN ARTIS MD [Primary Care Provider] - Follow up as needed Notes: 74-year-old female with CAD with stents, hypertension, hyperlipidemia, former smoker, COPD on home oxygen presents with approximately 2 weeks of intermittent pain in neck and left shoulder. Patient says that she is unsure when exactly pain started and describes aching pain her between her shoulder blades and having pain going down her arm exacerbated by sleeping in a recliner, certain movements. Patient denies having any similar pain in the past. Patient took nitroglycerin 3 times when pain became worse today which did not help her pain so she took Tylenol and came to the ED. Patient denies any chest pain, weakness or numbness, trauma, headache, neck stiffness, lower extremity symptoms, exertional symptoms, aortic history, shortness of breath, cough TRAVEL OUTSIDE OF THE [place] IN LAST 30 DAYS: No - Related Data Allergies/Adverse Reactions: acetaminophen [From Percocet] Allergy (Verified 02/04/20 01:36) atorvastatin calcium [From Lipitor] Allergy (Verified 02/04/20 01:36) ciprofloxacin [From Cipro] Allergy (Verified 02/04/20 01:36) ciprofloxacin HCl [From Cipro] Allergy (Verified 02/04/20 01:36) erythromycin base [Erythromycin Base] Allergy (Verified 02/04/20 01:36) oxycodone HCl [From Percocet] Allergy (Verified 02/04/20 01:36) simvastatin [Simvastatin] Allergy (Verified 02/04/20 01:36) Sulfa (Sulfonamide Antibiotics) Allergy (Verified 02/04/20 01:36) Past Medical History - General Information source: Patient - Social History Chew tobacco use (# tins/day): No Frequency of alcohol use: None Drug Abuse: None - Past Medical History Cardiac Medical History: Reports: Hx Congestive Heart Failure, Hx Hypertension Pulmonary Medical History: Reports: Hx Bronchitis, Hx COPD Renal/ Medical History: Denies: Hx Peritoneal Dialysis Psychiatric Medical History: Reports: Hx Depression Past Surgical History: Reports: Hx Cardiac Catheterization Review of Systems - Review of Systems Notes: REVIEW OF SYSTEMS: CONSTITUTIONAL : Denies fever, chills, or sweats. EENT: Denies recent cold/sinus symptoms, denies throat pain CARDIOVASCULAR: Denies chest pain, MEDARDO RESPIRATORY: Denies cough, denies shortness of breath. GASTROINTESTINAL: Denies abdominal pain, nausea/vomiting. MUSCULOSKELETAL: + neck pain, +back pain. SKIN: Denies rash or skin lesions. Physical Exam - Vital signs Vitals: Temp Pulse Resp BP Pulse Ox 97.5 F 88 18 157/62 H 100 02/03/20 13:15 02/03/20 13:15 02/03/20 13:15 02/03/20 13:15 02/03/20 13:15 Course - Re-evaluation Re-evalutation: 02/04/20 02:42 Exam most consistent with musculoskeletal strain of the left trapezoid, however given patient's age and comorbidities will obtain chest x-ray and D-dimer for rule out aortic dissection given low pretest probability and will obtain troponin to rule out atypical ACS, but despite patient's history very low pretest probability for ACS given patient's symptoms and exam with focal muscle tenderness to fully reproduces patient's pain. Will give tramadol as patient says she is allergic to Percocet but has taken other opioids without any allergy in the past and she does not have a severe allergy to Percocet (nausea). 02/04/20 04:39 Patient's vital signs remain stable, D-dimer positive so I have ordered CT aortic dissection protocol. Will continue to monitor. Patient's exam and vitals remained stable. I have greeted and performed a rapid initial assessment of this patient. A comprehensive ED assessment and evaluation of the patient, analysis of test results and completion of medical decision making process will be conducted by additional ED providers. - Vital Signs Vital signs: Temp Pulse Resp BP Pulse Ox 98.3 F 88 18 143/78 H 98 02/04/20 01:54 02/03/20 13:15 02/04/20 05:00 02/04/20 04:28 02/04/20 05:00 - Laboratory Results Result Diagrams: 02/04/20 03:16 02/04/20 03:16 Laboratory Results Interpreted: 02/04/20 02/04/20 02/04/20 03:16 03:16 03:16 Hgb 11.2 L Hct 34.9 L D-Dimer 3.34 H Potassium 5.8 H BUN 52 H Creatinine 1.38 H Est GFR ( Amer) 45 L Est GFR (MDRD) Non-Af 37 L Glucose 140 H Total Protein 8.3 H Doctor's Discharge - Discharge Referrals: JOSE JUAN ARTIS MD [Primary Care Provider] - Follow up as needed
--- NOTE | 2020-02-04 06:23 | ER Document Report ---
ED Neck/Back Problem - General Chief Complaint: Neck and Upper Back Pain Stated Complaint: NECK AND SHOULDER PAIN Time Seen by Provider: 02/04/20 06:20 Primary Care Provider: JOSE JUAN ARTIS MD [Primary Care Provider] - Follow up as needed Notes: NOTES FROM DR WHITMAN SPEECH COMMUNICATION PROFESSOR (I took over 0600)ED Medical Screen (RME) - General Chief Complaint: Neck and Upper Back Pain Stated Complaint: NECK AND SHOULDER PAIN Primary Care Provider: JOSE JUAN ARTIS MD [Primary Care Provider] - Follow up as needed Notes: 74-year-old female with CAD with stents, hypertension, hyperlipidemia, former smoker, COPD on home oxygen presents with approximately 2 weeks of intermittent pain in neck and left shoulder. Patient says that she is unsure when exactly pain started and describes aching pain her between her shoulder blades and having pain going down her arm exacerbated by sleeping in a recliner, certain movements. Patient denies having any similar pain in the past. Patient took nitroglycerin 3 times when pain became worse today which did not help her pain so she took Tylenol and came to the ED. Patient denies any chest pain, weakness or numbness, trauma, headache, neck stiffness, lower extremity symptoms, exertional symptoms, aortic history, shortness of breath, cough TRAVEL OUTSIDE OF THE [place] IN LAST 30 DAYS: No - Related Data Allergies/Adverse Reactions: acetaminophen [From Percocet] Allergy (Verified 02/04/20 01:36) atorvastatin calcium [From Lipitor] Allergy (Verified 02/04/20 01:36) ciprofloxacin [From Cipro] Allergy (Verified 02/04/20 01:36) ciprofloxacin HCl [From Cipro] Allergy (Verified 02/04/20 01:36) erythromycin base [Erythromycin Base] Allergy (Verified 02/04/20 01:36) oxycodone HCl [From Percocet] Allergy (Verified 02/04/20 01:36) simvastatin [Simvastatin] Allergy (Verified 02/04/20 01:36) Sulfa (Sulfonamide Antibiotics) Allergy (Verified 02/04/20 01:36) Past Medical History - General Information source: Patient - Social History Chew tobacco use (# tins/day): No Frequency of alcohol use: None Drug Abuse: None - Past Medical History Cardiac Medical History: Reports: Hx Congestive Heart Failure, Hx Hypertension Pulmonary Medical History: Reports: Hx Bronchitis, Hx COPD Renal/ Medical History: Denies: Hx Peritoneal Dialysis Psychiatric Medical History: Reports: Hx Depression Past Surgical History: Reports: Hx Cardiac Catheterization 02/04/20 01:32 - ED Nursing Note by ALANNA PALUMBO [facility] Num: [id number] : 1945 Patient Age: 74 Pt. arrived via EMS, C/O of neck and shoulder pain X2 weeks. Pt. states that she has been having pain in the left side of her neck intermittently for the last 2 weeks. tonight she feel asleep sitting inher recliner when she woke the pain had become worse, and was moving across her back and down the top of her left arm. Pain is reproducible on palpation and Pt. states that she has had this pain before. Pt. is alert and orientated, is on her normal 2Ls of O2 by [place]. Reports no chest pain or shortness of breath. NAD at this time. Initialized on 02/04/20 01:32 - END OF NOTE MYNOTES 74-year-old female arrives by EMS after having 2 to 3 weeks of left upper chest left trapezial and left arm pain on and off but worse early this morning when it awoke her from sleep while she was in her recliner. She wears 2 L oxygen 24/7 for the last 5 years but has been using oxygen for at least 8 years because of COPD bronchitis problems. Patient denies any history of pulmonary embolism but does admit to CAD hypertension pneumonia. She does take aspirin and took an aspirin prior to arrival and prior to EMS arrival. She also took 3 nitroglycerin without resolution of her symptoms. Her son Denny was called and he went to her house and found her with increased pain to this described area without any nausea vomiting shortness of breath diaphoresis nuchal rigidity headache abdominal pain. EMS was called by Sudheer her son. Patient is a fair historian and her son Denny is excellent historian. TRAVEL OUTSIDE OF THE [place] IN LAST 30 DAYS: No - HPI Patient complains to provider of: Pain, Neck, Upper back Onset: Just prior to arrival Where: Home Timing: Constant, Worse Quality of pain: Achy Severity: Moderate Pain Level: 2 - Related Data Allergies/Adverse Reactions: acetaminophen [From Percocet] Allergy (Verified 02/04/20 01:36) atorvastatin calcium [From Lipitor] Allergy (Verified 02/04/20 01:36) ciprofloxacin [From Cipro] Allergy (Verified 02/04/20 01:36) ciprofloxacin HCl [From Cipro] Allergy (Verified 02/04/20 01:36) erythromycin base [Erythromycin Base] Allergy (Verified 02/04/20 01:36) oxycodone HCl [From Percocet] Allergy (Verified 02/04/20 01:36) simvastatin [Simvastatin] Allergy (Verified 02/04/20 01:36) Sulfa (Sulfonamide Antibiotics) Allergy (Verified 02/04/20 01:36) Past Medical History - General Information source: Patient - Social History Smoking Status: Former Smoker Cigarette use (# per day): No Chew tobacco use (# tins/day): No Smoking Education Provided: No Frequency of alcohol use: None Drug Abuse: None Lives with: Family Family History: Reviewed & Not Pertinent, COPD, CVA, Hyperlipidemia, Hypertension, Malignancy Patient has suicidal ideation: No Patient has homicidal ideation: No - Past Medical History Cardiac Medical History: Reports: Hx Congestive Heart Failure, Hx Hypertension Pulmonary Medical History: Reports: Hx Bronchitis, Hx COPD Renal/ Medical History: Denies: Hx Peritoneal Dialysis Psychiatric Medical History: Reports: Hx Depression Past Surgical History: Reports: Hx Cardiac Catheterization - Immunizations Hx Pneumococcal Vaccination: 02/13/13 Review of Systems - Review of Systems Constitutional: No symptoms reported EENT: See HPI, Other - Left lateral neck pain trapezial pain radiating to her left upper extremity. Cardiovascular: See HPI, Chest pain Respiratory: No symptoms reported Gastrointestinal: No symptoms reported Genitourinary: No symptoms reported Female Genitourinary: No symptoms reported Musculoskeletal: No symptoms reported Skin: No symptoms reported Hematologic/Lymphatic: No symptoms reported Neurological/Psychological: No symptoms reported -: Yes All other systems reviewed and negative Physical Exam - Vital signs Vitals: Temp Pulse Resp BP Pulse Ox 97.5 F 88 18 157/62 H 100 02/03/20 13:15 02/03/20 13:15 02/03/20 13:15 02/03/20 13:15 02/03/20 13:15 Interpretation: Hypertensive - General General appearance: Appears well, Alert - HEENT Head: Normocephalic, Atraumatic Eyes: Normal Conjunctiva: Normal Cornea: Normal Pupils: PERRL Tympanic membrane: Normal Pharynx: Normal Neck: Other - Tender left trapezial musculature on palpation range of motion. No obvious JVD or lymphadenopathy noted. No masses noted. - Respiratory Respiratory status: No respiratory distress Chest status: Nontender Breath sounds: Normal Chest palpation: Normal - Cardiovascular Rhythm: Regular Heart sounds: Normal auscultation Murmur: No - Abdominal Inspection: Normal Distension: No distension Bowel sounds: Normal Tenderness: Nontender Organomegaly: No organomegaly - Rectal Hemorrhoids: Other - Deferred - Genitourinary Bimanuel exam: Other - Deferred - Back Back: Normal, Nontender - Extremities General upper extremity: Normal inspection, Nontender, Normal color, Normal ROM, Normal temperature General lower extremity: Normal inspection, Nontender, Normal color, Normal ROM, Normal temperature, Normal weight bearing. No: Carlie's sign - Neurological Neuro grossly intact: Yes Cognition: Normal Orientation: AAOx4 Tamara Coma Scale Eye Opening: Spontaneous [place] Coma Scale Verbal: Oriented Taamra Coma Scale Motor: Obeys Commands [place] Coma Scale Total: 15 Speech: Normal Motor strength normal: LUE, RUE, LLE, RLE Sensory: Normal - Psychological Associated symptoms: Normal affect, Normal mood - Skin Skin Temperature: Warm Skin Moisture: Dry Skin Color: Normal Course - Vital Signs Vital signs: Temp Pulse Resp BP Pulse Ox 98.3 F 88 18 143/78 H 98 02/04/20 01:54 02/03/20 13:15 02/04/20 05:00 02/04/20 04:28 02/04/20 05:00 - Laboratory Results Result Diagrams: 02/04/20 03:16 02/04/20 03:16 Laboratory Results Interpreted: 02/04/20 02/04/20 02/04/20 03:16 03:16 03:16 Hgb 11.2 L Hct 34.9 L D-Dimer 3.34 H Potassium 5.8 H BUN 52 H Creatinine 1.38 H Est GFR ( Amer) 45 L Est GFR (MDRD) Non-Af 37 L Glucose 140 H Total Protein 8.3 H Critical Laboratory Results Reviewed: Yes Attending or Supervising Physician who Reviewed Labs: OLAYINKA VICTOR JR - Radiology Results Radiology Results Interpreted: 02/04/20 08:03 [address]. Riddle radiologist reading CT x-rays. Patient has no PE but pulmonary hypertension. Patient has positive goiter thyroid density with abdominal CT within normal limits. Shoulder x-ray within normal limits. Chest x-ray within normal limits. Critical Radiology Results Reviewed: Yes Attending or Supervising Physician who Reviewed Radiology: OLAYINKA VICTOR JR Critical Care Note - Critical Care Note Comments: I discussed findings with patient and her son in room #14 advised will treat for musculoskeletal left upper extremity left trapezial pain and advised him to follow-up with PMD about her goiter Discharge - Discharge Clinical Impression: Goiter, Abnormal [id number] ratio, Hyperkalemia Strain of left trapezius muscle Qualifiers: Encounter type: initial encounter Qualified Code(s): S46.812A - Strain of other muscles, fascia and tendons at shoulder and upper arm level, left arm, initial encounter Condition: Stable Disposition: HOME, SELF-CARE Additional Instructions: Avoid any potassium or banana nose or high potassium foods; try to eat bran or oatmeal for the next 1 to 2 days. Follow-up with personal doctor in 1 to 2 days for recheck on your potassium. Encourage fluids. Use Voltaren gel on your left trapezial muscular pain. Follow-up with personal doctor about your goiter thyroid disease as well. Prescriptions: Diclofenac Sodium 100 gm TP BID PRN #100 gel..gram. PRN Reason: Referrals: JOSE JUAN ARTIS MD [Primary Care Provider] - Follow up as needed
[2020-02-04] MEDS ORDERED: MORPHINE SULFATE 10 MG/ML INJ IV PRN (06:47)
[2020-02-04] MEDS ORDERED: ONDANSETRON HCL INJ/PF 4 MG/2 ML SDV IV ONE (06:47)
--- NOTE | 2020-02-04 06:49 | RADIOLOGY REPORT (SQ) ---
CTA CHEST, ABDOMEN, AND PELVIS WITH INTRAVENOUS CONTRAST: 02/04/2020 5:42 AM SINGER BACK TENDER HISTORY: 74-year old with upper and lower back pain. COMPARISON: CT of abdomen and pelvis from 03/04/2019 TECHNIQUE: Axial contiguous images were obtained from the thoracic inlet through the proximal femurs with intravenous contrast administered utilizing a CTA protocol. MIP reconstructed sagittal and coronal images were also obtained. This exam was performed according to our departmental dose-optimization program, which includes automated exposure control, adjustment of the mA and/or KV according to the patient's size and/or use of iterative reconstruction technique. FINDINGS: The heart size is at the upper limits of normal in size. No pericardial effusion is seen. Coronary artery calcifications are seen. The thoracic aorta is within normal limits in size. There is atherosclerotic calcification seen at the aorta. There is some mural thrombus seen at the descending aorta. The main pulmonary artery is enlarged and measures at least 3.5 cm in transverse dimension. No focal filling defect is seen at the visualized pulmonary arteries. The thyroid gland is enlarged and heterogeneous and extends below the level the sternum. This deviates the trachea to the right side. The distal esophagus is patulous with a small hiatal hernia present. The central tracheobronchial tree is patent. The visualized esophagus is patulous. There is no evidence of a focal consolidative airspace opacity. Moderate centrilobular emphysematous changes are present. There is no evidence of pleural effusions or a pneumothorax. The visualized hepatic parenchyma appears diffusely hypodense, suggesting hepatic steatosis. The gallbladder is surgically absent. The spleen is normal in size. The pancreas is unremarkable. The bilateral adrenal glands are unremarkable. Both kidneys demonstrate no evidence of hydronephrosis. The urinary bladder is mildly distended. The uterus is present. The stomach is mildly distended. The small bowel loops appear unremarkable. There are multiple diverticula seen within the sigmoid and descending colon, without evidence to suggest diverticulitis. No pericolonic inflammatory stranding is seen. The appendix is unremarkable. There is no evidence of pneumoperitoneum or free fluid. The IVC appears normal. There is moderate atherosclerotic calcification seen at the abdominal aorta and into the iliac arteries. This also extends into the mesenteric and renal artery origins. The visualized portions of the abdominal aorta are within normal limits of size. There is a normal three-vessel origination from the aortic arch. The celiac and superior mesenteric arteries are widely patent. The bilateral renal arteries are also patent. There are two left renal arteries present. The iliac through common femoral arteries appear patent. No significantly enlarged lymph nodes are seen in the abdomen or pelvis. Review of the bone show no evidence of any suspicious lytic or blastic lesions. There is sclerosis seen at L2 which is likely from prior kyphoplasty/vertebroplasty. There are compression deformities at the inferior plate of L3 and superior endplate of L2 demonstrating at least 25-50% loss of height. These are similar to prior imaging. IMPRESSION: No underlying acute aortic pathology is seen. The thoracic and abdominal aorta are within normal limits of size. Hepatic steatosis The main pulmonary is large, which can be seen with pulmonary hypertension. The thyroid gland is enlarged and deviates the trachea to the right side. This could be due to a goiter. This could be better evaluated with ultrasound imaging on a nonemergent basis. No focal filling defect is seen to suggest a pulmonary artery embolism.
--- NOTE | 2020-02-04 07:14 | RADIOLOGY REPORT (SQ) ---
EXAM DESCRIPTION: X-ray single view chest. CLINICAL HISTORY: 74 years Female, PA/lat for CP radiating to back/left shoulder COMPARISON: 03/12/2019 TECHNIQUE: Single portable x-ray view of the chest performed on 02/04/2020 at 5:56 AM FINDINGS: Originally, a two-view chest was ordered but the patient was unable to raise her arms for the lateral projection. The lungs are well expanded and are clear. There is no evidence of a pneumothorax. The cardiac silhouette is stable and is prominent. The mediastinal contours are normal. No acute osseous abnormality is identified. No focal soft tissue abnormalities are seen. Lines and tubes: None. IMPRESSION: No evidence of acute intrathoracic disease.
--- NOTE | 2020-02-04 07:16 | EKG REPORT ---
SEVERITY:- ABNORMAL ECG - SINUS RHYTHM INCOMPLETE RIGHT BUNDLE BRANCH BLOCK BORDERLINE INFERIOR Q WAVES : Confirmed by: Andrew Berger MD 04-Feb-2020 07:15:45
--- NOTE | 2020-02-04 07:17 | RADIOLOGY REPORT (SQ) ---
EXAM: SHOULDER LEFT 2 OR MORE VIEWS CLINICAL DATA: 74 years Female upper back shoulder pain TECHNICAL DATA: Three x-ray views of the left shoulder were performed on 02/04/2020 at 5:57 AM. COMPARISONS: None FINDINGS: There is no evidence of fracture or dislocation. There is no significant arthritis or degenerative change. No focal lytic or sclerotic bone lesions are seen. Bone mineralization is normal. No focal soft tissue abnormalities are identified. IMPRESSION: No evidence of acute osseous injury involving the left shoulder.
[2020-02-04] MEDS ORDERED: HYDROCODONE/ACETAMINOPHEN 5-325 MG (6 TAB/ER DISP) PO PRN (08:39)
[2020-02-04] MEDS ORDERED: SODIUM POLYSTYRENE SULFONATE 15 GM/60 ML PO ONE (08:44)
[2020-02-04 09:37] VITALS: BP 142/69
== END 2020-02-04 09:38 | disposition home or self-care (01) ==
LOC: ER 00:47
DX: E04.9 Nontoxic goiter, unspecified (principal); E87.5 Hyperkalemia; S46.812A Strain of other muscles, fascia and tendons at shoulder and upper arm level, left arm, initial encounter; M54.2 Cervicalgia; M54.6 Pain in thoracic spine; X58.XXXA Exposure to other specified factors, initial encounter; E78.5 Hyperlipidemia, unspecified; J44.9 Chronic obstructive pulmonary disease, unspecified; Z99.81 Dependence on supplemental oxygen; Z88.3 Allergy status to other anti-infective agents; I11.0 Hypertensive heart disease with heart failure; I50.9 Heart failure, unspecified
CPT/HCPCS: 93005; 99285; 96361; 96374; 96375; 36415; 84443; 85025; 80053; 84484; 85379; 71045; 73030; 71275; 74174; 93010; J2270; A9270 ×3; J2405; J7040

== ENCOUNTER 2020-02-17 17:06 | Emergency (ER) | payer MEDICARE, MEDICAID ==
[2020-02-17] MEDS ORDERED: ASPIRIN 81 MG TABLET, CHEWABLE PO ONE (17:29)
[2020-02-17] MEDS ORDERED: METHYLPREDNISOLONE INJ 125 MG/2 ML SDV IV ONE (17:31)
[2020-02-17] MEDS ORDERED: IPRATROPIUM/ALBUTEROL 0.5-2.5 MG/3 ML AMPUL NEB ONE (17:32)
--- NOTE | 2020-02-17 17:57 | RADIOLOGY REPORT (SQ) ---
EXAM DESCRIPTION: CHEST SINGLE VIEW IMAGES COMPLETED DATE/TIME: 02/17/2020 5:48 pm REASON FOR STUDY: htn COMPARISON: 02/04/2020 EXAM PARAMETERS: NUMBER OF VIEWS: One view. TECHNIQUE: Single frontal radiographic view of the chest acquired. RADIATION DOSE: NA LIMITATIONS: None. FINDINGS: LUNGS AND PLEURA: No opacities, masses or pneumothorax. No pleural effusion. MEDIASTINUM AND HILAR STRUCTURES: No masses. Contour normal. HEART AND VASCULAR STRUCTURES: Cardiomegaly. No pulmonary edema. BONES: No acute findings. HARDWARE: None in the chest. OTHER: No other significant finding. IMPRESSION: Cardiomegaly without pulmonary edema. TECHNICAL DOCUMENTATION: JOB ID: [id number] 2010 [employer]- All Rights Reserved Reading location - IP/workstation name: [email or web address]
[2020-02-17 17:58] LABS: ABSOLUTE LYMPHOCYTES (AUTO) 1.5 10^3/uL (0.5-4.7); ABSOLUTE MONOCYTES (AUTO) 0.8 10^3/uL (0.1-1.4); BASOPHILS % (AUTO) 0.4 % (0-2); EOSINOPHILS % (AUTO) 0.2 % (0-6); HEMATOCRIT 37.3 % (36.0-47.0); HEMOGLOBIN 12.2 g/dL (12.0-15.5); LYMPHOCYTES % (AUTO) 20.4 % (13-45); MEAN CORPUSCULAR HEMOGLOBIN 29.2 pg (27.0-33.4); MEAN CORPUSCULAR HGB CONC 32.7 g/dL (32.0-36.0); MEAN CORPUSCULAR VOLUME 89 fl (80-97); MONOCYTES % (AUTO) 10.8 % (3-13); PLATELET COUNT 178 10^3/uL (150-450); RED BLOOD COUNT 4.17 10^6/uL (3.72-5.28); RED CELL DISTRIBUTION WIDTH 14.2 % (11.5-14.0); SEGMENTED NEUTROPHILS % (AUTO) 68.2 % (42-78); TOTAL CELLS COUNTED % (AUTO) 100 %; WHITE BLOOD COUNT 7.3 10^3/uL (4.0-10.5)
[2020-02-17 18:31] LABS: ALKALINE PHOSPHATASE 107 U/L (38-126); ANION GAP 8 (5-19); ASPARTATE AMINO TRANSFERASE 28 U/L (14-36); BILIRUBIN,DIRECT 0.4 mg/dL (0.0-0.4); BILIRUBIN,TOTAL 0.6 mg/dL (0.2-1.3); BLOOD UREA NITROGEN 36 mg/dL (7-20); CALCIUM 9.5 mg/dL (8.4-10.2); CARBON DIOXIDE 28 mmol/L (22-30); CHLORIDE 102 mmol/L (98-107); GLUCOSE 140 mg/dL (75-110); POTASSIUM 5.4 mmol/L (3.6-5.0); TOTAL PROTEIN 7.6 g/dL (6.3-8.2)
[2020-02-17 18:42] LABS: NT PRO BNP 127 pg/mL (<450)
[2020-02-17 18:43] LABS: TROPONIN I < 0.012 ng/mL
--- NOTE | 2020-02-17 18:45 | ER Document Report ---
Entered by CHICHO DOBSON SCRIBE 02/17/20 1735 Acting as scribe for:ALBERT MANCILLA DO ED Respiratory Problem - General Stated Complaint: DIFFICULTY BREATHING Time Seen by Provider: 02/17/20 17:14 Primary Care Provider: JOSE JUAN ARTIS MD [Primary Care Provider] - Follow up as needed Mode of Arrival: Ambulatory Information source: Patient Notes: This 74 year old female patient presents to the emergency department today with complaints of wheezing with associated shortness of breath. Patient reports that she is on 2L of oxygen around the clock and is supposed to use CPAP at night but mentions that she is unable to tolerate the CPAP machine, stating that she has an appointment to be evaluated for BiPap soon. She has coughed up a small amount of dark yellow sputum as well. TRAVEL OUTSIDE OF THE [place] IN LAST 30 DAYS: No - Related Data Allergies/Adverse Reactions: acetaminophen [From Percocet] Allergy (Verified 02/04/20 01:36) atorvastatin calcium [From Lipitor] Allergy (Verified 02/04/20 01:36) ciprofloxacin [From Cipro] Allergy (Verified 02/04/20 01:36) ciprofloxacin HCl [From Cipro] Allergy (Verified 02/04/20 01:36) erythromycin base [Erythromycin Base] Allergy (Verified 02/04/20 01:36) oxycodone HCl [From Percocet] Allergy (Verified 02/04/20 01:36) simvastatin [Simvastatin] Allergy (Verified 02/04/20 01:36) Sulfa (Sulfonamide Antibiotics) Allergy (Verified 02/04/20 01:36) Past Medical History - General Information source: Patient - Social History Smoking Status: Never Smoker Cigarette use (# per day): No Frequency of alcohol use: None Drug Abuse: None Family History: Reviewed & Not Pertinent, COPD, CVA, Hyperlipidemia, Hypertension, Malignancy - Past Medical History Cardiac Medical History: Reports: Hx Congestive Heart Failure, Hx Hypertension Pulmonary Medical History: Reports: Hx Bronchitis, Hx COPD Psychiatric Medical History: Reports: Hx Depression Past Surgical History: Reports: Hx Cardiac Catheterization - Immunizations Hx Pneumococcal Vaccination: 02/13/13 Review of Systems - Review of Systems Constitutional: No symptoms reported EENT: No symptoms reported Cardiovascular: No symptoms reported Respiratory: See HPI, Short of breath, Wheezing Gastrointestinal: No symptoms reported Genitourinary: No symptoms reported Female Genitourinary: No symptoms reported Musculoskeletal: No symptoms reported Skin: No symptoms reported Hematologic/Lymphatic: No symptoms reported Neurological/Psychological: No symptoms reported -: Yes All other systems reviewed and negative Physical Exam - Vital signs Vitals: Resp Pulse Ox 26 H 97 02/17/20 17:18 02/17/20 17:18 - Notes Notes: Physical Exam: General: Alert, appears age appropriate. HEENT: Normocephalic. Atraumatic. PERRL. Extraocular movements intact. Oropharynx clear. Neck: Supple. Non-tender. Respiratory: Mild respiratory distress. Diminished in the bases bilaterally. Trace expiratory wheezing. Cardiovascular: Regular rate and rhythm. Abdominal: Morbidly obese. Non-tender. No distension. Normal Bowel Sounds. Back: No gross abnormalities. Extremities: Moves all four extremities. Upper extremities: Normal inspection. Normal ROM. Lower extremities: Trace edema to bilateral lower extremities. Normal ROM. Neurological: Normal cognition. AAOx4. Normal speech. Psychological: Normal affect. Normal Mood. Skin: Warm. Dry. Normal color. Course - Re-evaluation Re-evalutation: 02/17/20 21:12 2110 Pt rechecked and breathing is improved. Discussed follow up and she will see her doctor in [place] in follow up. We discussed return here precautions and she expressed understanding. - Vital Signs Vital signs: Temp Pulse Resp BP Pulse Ox 98.7 F 97 17 154/70 H 98 02/18/20 00:02 02/18/20 00:02 02/18/20 00:02 02/18/20 00:02 02/18/20 00:02 - Laboratory Results Result Diagrams: 02/17/20 17:30 02/17/20 17:30 Laboratory Results Interpreted: 02/17/20 02/17/20 17:30 17:30 RDW 14.2 H Potassium 5.4 H BUN 36 H Creatinine 1.35 H Est GFR ( Amer) 46 L Est GFR (MDRD) Non-Af 38 L Glucose 140 H Magnesium 1.4 L Critical Laboratory Results Reviewed: No Critical Results - Radiology Results Critical Radiology Results Reviewed: No Critical Results - EKG Interpretation by Me EKG shows normal: Sinus rhythm Rate: Normal Rhythm: NSR - NSR Nl [place] [address] elevation or depression my interpretation. Discharge - Discharge Clinical Impression: Hypomagnesemia, COPD exacerbation Condition: Stable Disposition: HOME, SELF-CARE Instructions: COVID-19 Guidance for Persons Under Investigation, Chronic Obstructive Lung Disease ([facility]) Additional Instructions: Your potassium was too high and that should be rechecked. Take the kayexalate as directed for the high potassium. Call your doctor in [place] in the morning for follow up. Take your medicine as directed. Please return here for chest pain, fever, shortness of breath or other problems or concerns. Your magnesium was too low and take the magnesium replacement as directed. Prescriptions: Albuterol Sulfate [Albuterol Sulfate Hfa] 2 puff IH TID #1 hfa.aer.ad Sodium Polystyrene Sulfonate [Sps] 30 gm PO DAILY #240 ml Magnesium Oxide [Magnesium] 400 mg PO BID 10 Days #20 tablet Prednisone 10 mg PO DAILY #1 tab.ds.pk Referrals: JOSE JUAN ARTIS MD [Primary Care Provider] - Follow up as needed I personally performed the services described in the documentation, reviewed and edited the documentation which was dictated to the scribe in my presence, and it accurately records my words and actions.
[2020-02-17] MEDS ORDERED: MAGNESIUM SULFATE/D5W 1 GM/100 ML RTUPB IV ONE (21:06)
[2020-02-18 00:05] VITALS: BP 154/70
--- NOTE | 2020-02-18 10:24 | EKG REPORT ---
SEVERITY:- ABNORMAL ECG - SINUS RHYTHM PROBABLE INFERIOR INFARCT, OLD : Confirmed by: Samuel Henao 18-Feb-2020 10:24:17
== END 2020-02-17 23:55 | disposition home or self-care (01) ==
LOC: ER 17:06
DX: E83.42 Hypomagnesemia (principal); J44.1 Chronic obstructive pulmonary disease with (acute) exacerbation; R06.2 Wheezing; R06.02 Shortness of breath; R05 Cough; Z99.81 Dependence on supplemental oxygen; Z88.1 Allergy status to other antibiotic agents; Z88.8 Allergy status to other drugs, medicaments and biological substances; I50.9 Heart failure, unspecified; I11.0 Hypertensive heart disease with heart failure; E66.01 Morbid (severe) obesity due to excess calories
CPT/HCPCS: 93005; 94640; 99285; 96375; 96365; 96366; 36415; 83735; 85025; 80053; 84484; 83880; 71045; 93010; U0003; A9270; J2930; J3475; C9803; 87635

== ENCOUNTER 2020-02-24 14:16 | Inpatient (IN) | payer MEDICARE, MEDICAID ==
[2020-02-24 15:40] LABS: VENOUS BLOOD BASE EXCESS 5.3 mmol/L; VENOUS BLOOD HCO3 31.4 mmol/L (20-32); VENOUS BLOOD PCO2 52.4 mmHg (35-63); VENOUS BLOOD PH 7.4 (7.30-7.42)
[2020-02-24 15:45] LABS: HEMATOCRIT 36.9 % (36.0-47.0); HEMOGLOBIN 11.8 g/dL (12.0-15.5); MEAN CORPUSCULAR HEMOGLOBIN 28.5 pg (27.0-33.4); MEAN CORPUSCULAR VOLUME 89 fl (80-97); PLATELET COUNT 166 10^3/uL (150-450); RED BLOOD COUNT 4.13 10^6/uL (3.72-5.28); RED CELL DISTRIBUTION WIDTH 13.7 % (11.5-14.0); WHITE BLOOD COUNT 12.7 10^3/uL (4.0-10.5)
--- NOTE | 2020-02-24 15:49 | RADIOLOGY REPORT (SQ) ---
EXAM DESCRIPTION: CHEST SINGLE VIEW IMAGES COMPLETED DATE/TIME: 02/24/2020 3:41 pm REASON FOR STUDY: COVID -19 COMPARISON: AP view of the chest from 02/17/2020. EXAM PARAMETERS: NUMBER OF VIEWS: One view. TECHNIQUE: An AP view of the chest was obtained. RADIATION DOSE: NA LIMITATIONS: None. FINDINGS: LUNGS AND PLEURA: Bilateral patchy parenchymal opacities in a peripheral distribution. Th ere is no sizable pleural effusion or pneumothorax. MEDIASTINUM AND HILAR STRUCTURES: No mediastinal or hilar contour abnormality. HEART AND VASCULAR STRUCTURES: The cardiac silhouette is enlarged. BONES: No acute findings. HARDWARE: None in the chest. OTHER: No other finding. IMPRESSION: Bilateral patchy parenchymal opacities in a peripheral distribution. Differential consi derations include a multifocal pneumonia (including atypical infections such as COVID-19) and CHF (in the setting of cardiomegaly). TECHNICAL DOCUMENTATION: JOB ID: [id number] 2010 [employer]- All Rights Reserved Reading location - IP/workstation name: [email or web address]
[2020-02-24 15:57] LABS: ALBUMIN 3.3 g/dL (3.5-5.0); ALKALINE PHOSPHATASE 121 U/L (38-126); ANION GAP 6 (5-19); ASPARTATE AMINO TRANSFERASE 22 U/L (14-36); BILIRUBIN,DIRECT 0.2 mg/dL (0.0-0.4); BILIRUBIN,TOTAL 0.5 mg/dL (0.2-1.3); BLOOD UREA NITROGEN 35 mg/dL (7-20); CALCIUM 8.9 mg/dL (8.4-10.2); CARBON DIOXIDE 31 mmol/L (22-30); CHLORIDE 98 mmol/L (98-107); GLUCOSE 185 mg/dL (75-110); POTASSIUM 3.9 mmol/L (3.6-5.0); TOTAL PROTEIN 6.4 g/dL (6.3-8.2)
[2020-02-24 16:18] LABS: ABSOLUTE LYMPHOCYTES# (MANUAL) 1.7 10^3/uL (0.5-4.7); ABSOLUTE MONOCYTES # (MANUAL) 0.9 10^3/uL (0.1-1.4); BAND NEUTROPHILS % (MANUAL) 1 % (3-5); BASOPHILS % (MANUAL) 0 % (0-2); EOSINOPHILS % (MANUAL) 1 % (0-6); LYMPHOCYTES % (MANUAL) 13 % (13-45); MONOCYTES % (MANUAL) 7 % (3-13); SEGMENTED NEUTROPHILS % (MAN) 78 % (42-78); TOTAL CELLS COUNTED 100
[2020-02-24 16:19] LABS: PLATELET COMMENT ADEQUATE; RBC MORPHOLOGY COMMENT NORMO-CYTIC/CHROMIC; TOXIC GRANULATION SLIGHT
--- NOTE | 2020-02-24 17:23 | ER Document Report ---
ED Respiratory Problem - General Chief Complaint: Shortness Of Breath Stated Complaint: RESPIRATORY DISTRESS Time Seen by Provider: 02/24/20 16:24 Notes: Patient is a 74-year-old female presents emergency department with a chief complaint of shortness of breath. About 13 days ago, she started to feel short of breath. She was seen at [facility] pharmacy and was tested negative for COVID-19. She then presented to the emergency department on February 16 and tested positive. Patient states that she wears 2 L nasal cannula at home and she normally sats 95% on her 2 L nasal cannula. She admits to some shortness of breath upon exertion. She states that she would walk 1 or 2 steps and became more short of breath. At home, her oxygen saturation went down to the 70s per her pulse ox. EMS picked her up and her oxygen saturation was 88 on her 2 L nasal cannula. They gave her 125 mg of Solu-Medrol. TRAVEL OUTSIDE OF THE [place] IN LAST 30 DAYS: No - Related Data Allergies/Adverse Reactions: acetaminophen [From Percocet] Allergy (Verified 02/04/20 01:36) atorvastatin calcium [From Lipitor] Allergy (Verified 02/04/20 01:36) ciprofloxacin [From Cipro] Allergy (Verified 02/04/20 01:36) ciprofloxacin HCl [From Cipro] Allergy (Verified 02/04/20 01:36) erythromycin base [Erythromycin Base] Allergy (Verified 02/04/20 01:36) oxycodone HCl [From Percocet] Allergy (Verified 02/04/20 01:36) simvastatin [Simvastatin] Allergy (Verified 02/04/20 01:36) Sulfa (Sulfonamide Antibiotics) Allergy (Verified 02/04/20 01:36) Home Medications: Pt. was unable to recall the names of all her meds Past Medical History - Social History Smoking Status: Former Smoker Chew tobacco use (# tins/day): No Frequency of alcohol use: None Drug Abuse: None Family History: Reviewed & Not Pertinent, COPD, CVA, Hyperlipidemia, Hypertension, Malignancy Patient has homicidal ideation: No - Past Medical History Cardiac Medical History: Reports: Hx Congestive Heart Failure, Hx Hypertension Pulmonary Medical History: Reports: Hx Bronchitis, Hx COPD Renal/ Medical History: Denies: Hx Peritoneal Dialysis Psychiatric Medical History: Reports: Hx Depression Past Surgical History: Reports: Hx Cardiac Catheterization - Immunizations Hx Pneumococcal Vaccination: 02/13/13 Review of Systems - Review of Systems Notes: REVIEW OF SYSTEMS: CONSTITUTIONAL : Denies recent illness. Denies recent unintentional weight loss. Denies fever, chills, or sweats. EENT: Denies eye, ear, throat, or mouth pain, discharge, or symptoms. Denies nasal or sinus congestion. CARDIOVASCULAR: Denies chest pain. RESPIRATORY: See HPI. GASTROINTESTINAL: Denies nausea, vomiting, and diarrhea. Denies abdominal pain. Denies constipation. GENITOURINARY: Denies difficulty urinating, burning, blood in urine, urgency or frequency. MUSCULOSKELETAL: Denies neck and back pain. Denies joint pain or swelling. SKIN: Denies rash, itchiness, or lesions HEMATOLOGIC : Denies easy bruising or bleeding. LYMPHATIC: Denies swollen, painful, enlarged glands. NEUROLOGICAL: Denies no numbness or tingling denies weakness. Denies headache. Denies altered mental status. Denies alteration in speech. PSYCHIATRIC: Denies stress, anxiety, alteration in sleep patterns, or depression. All other systems reviewed and negative. Physical Exam - Vital signs Vitals: Temp 97.8 F 02/24/20 14:16 - Notes Notes: PHYSICAL EXAMINATION: GENERAL: Appears chronically ill, no acute distress. HEAD: Normocephalic, atraumatic. EYES: PERRL, conjunctiva normal, all extraocular movements intact, sclera nonicteric ENT: Moist mucous membranes. NECK: Supple, no noticeable swelling, redness, rash. Normal range of motion. LUNGS: Equal breath sounds bilaterally and clear to auscultation. No wheezes rales or rhonchi. Oxygen saturation 89% on 4 L nasal cannula. CARDIOVASCULAR: S1-S2, regular rate, regular rhythm. Radial pulses 2+, normal. ABDOMEN: Normoactive bowel sounds. Soft, nontender, no guarding, no rebound tenderness, and no masses palpated. EXTREMITIES: Normal strength and range of motion, no pitting or edema. No cyanosis. NEUROLOGICAL: Moves all extremities upon command. Strength 5/5 in all extremities. PSYCH: Normal mood, normal affect. SKIN: Warm, dry. No rash, lesions, ulcerations noted. Normal skin turgor. Course - Re-evaluation Re-evalutation: 02/24/20 18:50 CTA of the chest does not show any pulmonary emboli. Hematology shows a leukocytosis of 12,700 with a hemoglobin of 11.8. Blood gas shows a PO2 of 58.9 on 4 L nasal cannula, which is higher than her normal 2 L. O2 saturation is 91 on on blood gas. Chemistries are unremarkable. Will call the [facility] hospitalist for admission. 02/24/20 19:[address] Brandt, the hospitalist. He will admit the patient. - Vital Signs Vital signs: Temp Pulse Resp BP Pulse Ox 97.8 F 21 H 178/77 H 90 L 02/24/20 14:16 02/24/20 20:01 02/24/20 20:01 02/24/20 20:01 - Laboratory Results Result Diagrams: 02/24/20 15:30 02/24/20 15:30 Laboratory Results Interpreted: 02/24/20 02/24/20 02/24/20 15:30 15:30 17:49 WBC 12.7 H Hgb 11.8 L Band Neutrophils % 1 L Abs Neuts (Manual) 10.0 H ABG pO2 58.9 L ABG HCO3 26.6 H ABG Total CO2 27.9 H ABG O2 Saturation 91.1 L Sodium 135.4 L Carbon Dioxide 31 H BUN 35 H Est GFR (MDRD) Non-Af 56 L Glucose 185 H Albumin 3.3 L Critical Laboratory Results Reviewed: No Critical Results - Radiology Results Critical Radiology Results Reviewed: No Critical Results Discharge - Discharge Clinical Impression: COVID-19, Hypoxia Condition: Fair Disposition: ADMITTED INPATIENT Admitting Provider: Rikki (Hospitalist) Unit Admitted: Telemetry - COVID 19
--- NOTE | 2020-02-24 17:58 | EKG REPORT ---
SEVERITY:- OTHERWISE NORMAL ECG - SINUS TACHYCARDIA VENTRICULAR PREMATURE COMPLEX : Confirmed by: Tori Mcdaniel MD 24-Feb-2020 17:57:38
[2020-02-24 18:06] LABS: ARTERIAL BLOOD H2CO3 1.25 mmol/L (1.05-1.35); ARTERIAL BLOOD HCO3 26.6 mmol/L (20-24); ARTERIAL BLOOD O2 SATURATION 91.1 % (94-98); ARTERIAL BLOOD PCO2 41.4 mmHg (35-45); ARTERIAL BLOOD PH 7.43 (7.35-7.45); ARTERIAL BLOOD PO2 58.9 mmHg (80-100); ARTERIAL BLOOD TOTAL CO2 27.9 mmol/L (21-25)
[2020-02-24 18:08] LABS: ARTERIAL BLOOD FIO2 41NC
--- NOTE | 2020-02-24 18:36 | RADIOLOGY REPORT (SQ) ---
EXAM DESCRIPTION: CTA CHEST IMAGES COMPLETED DATE/TIME: 02/24/2020 6:07 pm REASON FOR STUDY: covid + Eval PE?; shortness of breath COMPARISON: 02/04/2020 TECHNIQUE: CT scan of the chest performed using helical scanning technique with dynamic intravenous contrast injection. Images reviewed with lung, soft tissue and bone windows. Reconstructed coronal and sagittal MPR images reviewed. Additional 3 dimensional post-processing performed to develop Maximal Intensity Projection images ([place] P). All images stored on PACS. All CT scanners at this facility use dose modulation, iterative reconstruction, and/or weight based d osing when appropriate to reduce radiation dose to as low as reasonably achievable (ALARA). [facility]: Dose Right [facility]: CareDose [facility]: Dose Right [facility]: Teradose 4D [facility]: Gigzon CONTRAST TYPE AND DOSE: contrast/concentration: Isovue 350.00 mmol/ml; Total Contrast Delivered: 75. 0 ml; Total Saline Delivered: 42.7 ml Contrast bolus adequate for pulmonary arteries and aorta. RENAL FUNCTION: BUN 35 creatinine 0.97 RADIATION DOSE: CT Rad equipment meets quality standard of care and radiation dose reduction techniq ues were employed. CTDIvol: 24.8 - 38.1 mGy. DLP: 1362 mGy-cm. . LIMITATIONS: None. FINDINGS: LUNGS AND PLEURA: Bilateral ground-glass infiltrates are fairly extensive. No focal dense consolidation. AORTA AND GREAT VESSELS: No aneurysm. No dissection. HEART: No pericardial effusion. Moderate to marked coronary artery calcifications. PULMONARY ARTERIES: No emboli visualized in the main pulmonary arteries or the segmental branches. HILAR AND MEDIASTINAL STRUCTURES: There is a 5 cm upper mediastinal mass that appears to originate fr om the left lobe of the thyroid gland. HARDWARE: None in the chest. UPPER ABDOMEN: No significant findings. Limited exam. THYROID AND OTHER SOFT TISSUES: There appears to be a 5 cm mass arising from the left lobe of the thy roid, extending into the upper mediastinum. BONES: No acute or significant finding. 3D MIPS: Confirm above findings. OTHER: No other significant finding. IMPRESSION: 1. There is no pulmonary embolus. There is no aortic aneurysm or dissection. 2. Bilateral ground-glass infiltrates consistent with an atypical infectious/ inflammatory process s uch as COVID-19 pneumonia. 3. 5 cm substernal thyroid mass. COMMENT: Quality ID # [id number]: Final reports with documentation of one or more dose reduction techniques (e.g., Automated exposure control, adjustment of the mA and/or kV according to patient size, use of iterative reconstruction technique) TECHNICAL DOCUMENTATION: JOB ID: [id number] 2010 [employer]- All Rights Reserved Reading location - IP/workstation name: [email or web address]
[2020-02-24] MEDS ORDERED: ONDANSETRON HCL INJ/PF 4 MG/2 ML SDV IV PRN (20:44)
[2020-02-24] MEDS ORDERED: ACETAMINOPHEN 325 MG TABLET PO PRN (20:44)
[2020-02-24] MEDS ORDERED: ONDANSETRON 4 MG TAB.RAPDIS PO PRN (20:44)
[2020-02-24] MEDS ORDERED: FUROSEMIDE 40 MG TABLET PO PRN (21:06)
[2020-02-24] MEDS ORDERED: NITROGLYCERIN 0.4 MG/TAB 25 TAB/BOTTLE SL PRN (21:06)
[2020-02-24] MEDS ORDERED: OXYCODONE-ACETAMINOPHEN 5-325 MG TABLET PO PRN (21:06)
--- NOTE | 2020-02-24 21:23 | PDOC H&P ---
History of Present Illness Admission Date/PCP: 02/24/20 20:15 JOSE JUAN ARTIS MD History of Present Illness: JEANNIE NAVA is a 74 year old female with past medical history significant for HTN, HLD, CAD/PR status post coronary stent and multivessel disease, chronic combined CHF, COPD on chronic 2 L nasal cannula, asthma, morbid obesity with BMI 54.30 presents the ED with an 8-day history of progressive shortness of breath/KRAUSE/F/C/productive cough/diarrhea which has continued to get worse since her diagnosis of Covid on 02/16 when she had a positive test. She states her symptoms began on this day as well. Patient has been increasing her home oxygen up to 4 L without any significant relief in her dyspnea. Patient came to ED he does not have an oxygen saturation in the 70s on pulse ox. CTPA was done which showed no PE, positive for bilateral groundglass opacities consistent with Covid pneumonia, 5 cm thyroid mass. Patient admitted to Covid unit for standard of care treatment with current literature directed medications and interventions. Past Medical History Cardiac Medical History: Reports: Congestive Heart Failure, Coronary Artery Disease, Myocardial Infarction, Hyperlipidema, Hypertension Pulmonary Medical History: Reports: Asthma, Bronchitis, Chronic Obstructive Pulmonary Disease (COPD), Respiratory Failure EENT Medical History: Reports: Cataracts Malignancy Medical History: Reports: Other - Thyroid mass Psychiatric Medical History: Reports: Depression Hematology: Reports: Anemia Past Surgical History Past Surgical History: Reports: Cardiac Catheterization Social History Information Source: Patient, Emergency Med Personnel Lives with: Alone Smoking Status: Former Smoker Electronic Cigarette use?: No Frequency of Alcohol Use: None Hx Recreational Drug Use: No Drugs: None Hx Prescription Drug Abuse: No - Advance Directive Resuscitation Status: Full Code Surrogate healthcare decision maker:: Admitting diagnosis: COVID-19 pneumonia All aspects of code status discussed with patient/POA including cardioversion, chest compressions, and intubation and the patient/POA indicated they wish to be full code MPOA is designated as: Sudheer Hdez Time spent: Greater than 16 minutes Family History Family History: Reviewed & Not Pertinent, COPD, CVA, Hyperlipidemia, Hypertension, Malignancy Parental Family History Reviewed: Yes Children Family History Reviewed: Yes Sibling(s) Family History Reviewed.: Yes Medication/Allergy Home Medications: Amlodipine Besylate [Norvasc 2.5 mg Tablet] 2.5 mg PO DAILY 04/13/17 Aspirin [Aspirin 81 mg Chewable Tablet] 81 mg PO DAILY 04/13/17 Fluoxetine HCl [Prozac] 10 mg PO DAILY 04/13/17 Isosorbide Mononitrate [Isosorbide Mononitrate ER] 60 mg PO QAM 04/13/17 Metoprolol Succinate [Toprol Xl 50 mg Tab.sr] 50 mg PO DAILY 04/13/17 Nitroglycerin [Nitrostat] 0.4 mg SL Q5MP PRN 04/13/17 Ondansetron [Zofran Odt 4 mg Tablet] 4 mg PO Q8HP PRN 04/13/17 Spironolactone [Aldactone 25 mg Tablet] 25 mg PO DAILY 04/13/17 Tiotropium Stow [Spiriva Handihaler 18 mcg/dose (30 Dose)] 1 cap IH DAILY 04/13/17 Alprazolam [Xanax] 1 mg PO DAILY #5 tablet 04/20/17 Clindamycin HCl [Cleocin 300 mg Capsule] 300 mg PO TID #21 capsule 04/20/17 Furosemide [Lasix 40 mg Tablet] 40 mg PO DAILYP PRN #30 tablet 04/20/17 Gabapentin [Neurontin 100 mg Capsule] 100 mg PO Q8 #24 capsule 04/20/17 Ipratropium/Albuterol Sulfate [Duoneb 3 ml Ampul] 3 ml [facility] [id number] vial.neb 04/20/17 Lansoprazole [Prevacid 30 mg Odt Tablet] 30 mg PO Q6AM tab.rap. 04/20/17 Lisinopril [Zestril] 2.5 mg PO DAILY #30 tablet 04/20/17 Oxycodone HCl/Acetaminophen [Percocet 5-325 mg Tablet] 2 tab PO Q6HP PRN #5 tablet 04/20/17 Polyethylene Glycol 3350 [Miralax Powder 17 gm/Packet] 17 gm PO DAILY powd.pack 04/20/17 Valacyclovir HCl [Valtrex 500 mg Tablet] 1,000 mg PO Q8 #60 tablet 04/20/17 Amoxicillin Trihydrate [Amoxil 500 mg Capsule] 500 mg PO BID 10 Days #20 capsule 03/12/19 Morphine Sulfate [Morphine Ir 15 Mg Tablet] 7.5 mg PO Q6H PRN #10 tablet 03/12/19 Ondansetron [Zofran Odt 4 mg Tablet] 1 - 2 tab PO Q4H PRN #15 tab.rapdis 03/12/19 Tamsulosin HCl [Flomax 0.4 mg Cap.sr] 0.4 mg PO DAILY #7 cap.sr.24h 03/12/19 Diclofenac Sodium 100 gm TP BID PRN #100 gel..gram. 02/04/20 Albuterol Sulfate [Albuterol Sulfate Hfa] 2 puff IH TID #1 hfa.aer.ad 02/17/20 Magnesium Oxide [Magnesium] 400 mg PO BID 10 Days #20 tablet 02/17/20 Prednisone 10 mg PO DAILY #1 tab.ds.pk 02/17/20 Sodium Polystyrene Sulfonate [Sps] 30 gm PO DAILY #240 ml 02/17/20 Allergies/Adverse Reactions: acetaminophen [From Percocet] Allergy (Verified 02/04/20 01:36) atorvastatin calcium [From Lipitor] Allergy (Verified 02/04/20 01:36) ciprofloxacin [From Cipro] Allergy (Verified 02/04/20 01:36) ciprofloxacin HCl [From Cipro] Allergy (Verified 02/04/20 01:36) erythromycin base [Erythromycin Base] Allergy (Verified 02/04/20 01:36) oxycodone HCl [From Percocet] Allergy (Verified 02/04/20 01:36) simvastatin [Simvastatin] Allergy (Verified 02/04/20 01:36) Sulfa (Sulfonamide Antibiotics) Allergy (Verified 02/04/20 01:36) Review of Systems All systems: reviewed and no additional remarkable complaints except as stated - Per HPI otherwise negative Physical Exam Vital Signs: Temp Pulse Resp BP Pulse Ox 97.8 F 21 H 178/77 H 90 L 02/24/20 14:16 02/24/20 20:01 02/24/20 20:01 02/24/20 20:01 Intake & Output 02/23/20 02/24/20 02/25/20 06:59 06:59 06:59 Weight 134.6 kg Exam: General appearance: PRESENT: no acute distress, well-developed, well-nourished, morbidly obese with BMI 54.3, acutely ill-appearing elderly white female Head exam: PRESENT: atraumatic, normocephalic Eye exam: PRESENT: conjunctiva pink. ABSENT: scleral icterus Mouth exam: PRESENT: moist Respiratory exam: PRESENT: Mild crackles bilaterally ABSENT: rales, wheezes Cardiovascular exam: PRESENT: RRR. ABSENT: diastolic murmur, rubs, systolic murmur GI/Abdominal exam: PRESENT: normal bowel sounds, soft. ABSENT: distended, guarding, mass, organolmegaly, rebound, tenderness Neurological exam: PRESENT: alert, awake, oriented to person, oriented to place, oriented to time, oriented to situation Psychiatric exam: PRESENT: appropriate affect, normal mood Skin exam: PRESENT: dry, intact, warm Results Laboratory Results: 02/24/20 15:30 02/24/20 15:30 02/24/20 02/24/20 02/24/20 15:30 15:30 15:30 WBC 12.7 H RBC 4.13 Hgb 11.8 L Hct 36.9 MCV 89 MCH 28.5 MCHC 32.0 RDW 13.7 Plt Count 166 Seg Neutrophils % Not Reportable Carbonic Acid HCO3/H2CO3 Ratio ABG pH ABG pCO2 ABG pO2 ABG HCO3 ABG O2 Saturation ABG Base Excess VBG pH 7.40 VBG pCO2 52.4 VBG HCO3 31.4 VBG Base Excess 5.3 FiO2 Sodium 135.4 L Potassium 3.9 Chloride 98 Carbon Dioxide 31 H Anion Gap 6 BUN 35 H Creatinine 0.97 Est GFR ( Amer) > 60 Glucose 185 H Calcium 8.9 Total Bilirubin 0.5 AST 22 Alkaline Phosphatase 121 Total Protein 6.4 Albumin 3.3 L 02/24/20 17:49 WBC RBC Hgb Hct MCV MCH MCHC RDW Plt Count Seg Neutrophils % Carbonic Acid 1.25 HCO3/H2CO3 Ratio 21:1 ABG pH 7.43 ABG pCO2 41.4 ABG pO2 58.9 L ABG HCO3 26.6 H ABG O2 Saturation 91.1 L ABG Base Excess 2.0 VBG pH VBG pCO2 VBG HCO3 VBG Base Excess FiO2 41NC Sodium Potassium Chloride Carbon Dioxide Anion Gap BUN Creatinine Est GFR ( Amer) Glucose Calcium Total Bilirubin AST Alkaline Phosphatase Total Protein Albumin Impressions: Chest X-Ray 02/24/20 15:11 IMPRESSION: Bilateral patchy parenchymal opacities in a peripheral distribution. Differential considerations include a multifocal pneumonia (including atypical infections such as COVID-19) and CHF (in the setting of cardiomegaly). Chest/Abdomen CTA 02/24/20 17:23 IMPRESSION: 1. There is no pulmonary embolus. There is no aortic aneurysm or dissection. 2. Bilateral ground-glass infiltrates consistent with an atypical infectious/ inflammatory process such as COVID-19 pneumonia. 3. 5 cm substernal thyroid mass. Assessment and Plan - Diagnosis (1) Pneumonia due to COVID-19 virus Is this a current diagnosis for this admission?: Yes Plan: -Symptoms/history consistent with covid-19 infection -Covid-19 test: +1/4 -CXR showed: Bilateral infiltrates -CTPA showed: Bilateral groundglass opacities consistent with viral pneumonia, negative for PE, 5 cm thyroid mass -standard of care vitamin supplements: zinc, ascorbic acid, vitamin d, melatonin -maintain magnesium of 2 mg/dL or higher -Current literaturedoes not show clear benefit from the use of remdesivir, plaquenil, and convalescent plasma -supplemental oxygen and BiPAP/CPAP as needed -prn combivent/nebs as able -do not hold anticoagulation unless actively bleeding or platelet count <50 -close monitoring for acute respiratory decline requiring ICU transfer and intubation -consider ivermectin/doxycycline combination therapy (2) Acute on chronic respiratory failure with hypoxemia Is this a current diagnosis for this admission?: Yes Plan: Due to Covid pneumonia as above as well as COPD and asthma Chronically on 2 L nasal cannula at home, increased oxygen requirement since rafael COVID-19 Saturation goal is 89 to 92% in the setting of COPD Bronchial hygiene, pulmonary toilet, nebs (3) COPD (chronic obstructive pulmonary disease) Qualifiers: COPD type: emphysema Emphysema type: unspecified Qualified Code(s): J43.9 - Emphysema, unspecified Is this a current diagnosis for this admission?: Yes Plan: -Possible also underlying acute COPD exacerbation -Supplemental O2 to maintain sat of 89-94% -duonebs -steroids -abx indicated only if concomitant bacterial pneumonia is also suspected -bronchial hygiene -consider pulmonary rehab referral at [place] -no smoking (4) Asthma Qualifiers: Asthma severity: moderate Asthma persistence: persistent Asthma complication type: with acute exacerbation Qualified Code(s): J45.41 - Moderate persistent asthma with (acute) exacerbation Is this a current diagnosis for this admission?: Yes Plan: As above (5) History of PR (myocardial infarction) Is this a current diagnosis for this admission?: Yes Plan: Multivessel disease per patient, status post stents Follows with cardiology in [place] but she does not remember her physician (6) HLD (hyperlipidemia) Is this a current diagnosis for this admission?: Yes Plan: Statin (7) Chronic combined systolic and diastolic CHF (congestive heart failure) Is this a current diagnosis for this admission?: Yes Plan: Not in acute exacerbation No Recent echocardiograms on file here, last one was from 2018 which showed diastolic CHF and normal EF (8) Hypertension Is this a current diagnosis for this admission?: Yes Plan: Home medications continued - Time Time Spent with patient: 35 or more minutes Medications reviewed and adjusted accordingly: Yes Anticipated Discharge Disposition: Home with Home Health Anticipated Discharge Timeframe: within 72 hours - Inpatient Certification Based on my medical assessment, after consideration of the patient's comorbidities, presenting symptoms, or acuity I expect that the services needed warrant INPATIENT care.: Yes I certify that my determination is in accordance with my understanding of Medicare's requirements for reasonable and necessary INPATIENT services [42 CFR 412.3e].: Yes Medical Necessity: Significant Comorbidiites Make Outpatient Treatment Too Risky , Need Close Monitoring Due to Risk of Patient Decompensation, Risk of Complication if Not Cared For in Hospital, Risk of Diagnosis Which Will Require Inpatient Eval/Care/Monitoring
[2020-02-24] MEDS ORDERED: DOXYCYCLINE HYCLATE INJ 100 MG VIAL IV SCH (22:00)
[2020-02-24] MEDS: IVERMECTIN 3 MG TABLET PO SCH (23:00)
[2020-02-24] MEDS: ZINC SULFATE 220 MG CAPSULE PO SCH (23:15)
[2020-02-24] MEDS: VITAMIN B COMPLEX TABLET PO SCH (23:15)
[2020-02-24] MEDS: CHOLECALCIFEROL (D3) 1,000 UNIT (25 MCG) TABLET PO SCH (23:16)
[2020-02-24] MEDS: METHYLPREDNISOLONE INJ 40 MG/1 ML SDV IV SCH (23:17)
[2020-02-24] MEDS: GABAPENTIN 100 MG CAPSULE PO SCH (23:17)
[2020-02-24] MEDS: ASCORBIC ACID 500 MG TABLET PO SCH (23:17)
[2020-02-24] MEDS ORDERED: DOXYCYCLINE HYCLATE 100 MG in DEXTROSE 5%-WATER 250 ML IV ONE (23:30)
[2020-02-24] MEDS ORDERED: DOXYCYCLINE HYCLATE INJ 100 MG VIAL IV PRN (23:30)
[2020-02-24] MEDS ORDERED: DOXYCYCLINE HYCLATE INJ 100 MG VIAL ONE (23:43)
[2020-02-24] MEDS: ALPRAZOLAM 0.5 MG TABLET PO PRN (23:45)
[2020-02-25] MEDS: GABAPENTIN 100 MG CAPSULE PO SCH ×2 (05:14→13:52)
[2020-02-25] MEDS: METOPROLOL SUCCINATE 50 MG TAB.SR.24H PO SCH (05:15)
[2020-02-25 05:51] LABS: APPEARANCE,URINE SLIGHTLY-CLOUDY; BILIRUBIN,URINE NEGATIVE (NEGATIVE); COLOR,URINE YELLOW; GLUCOSE, URINE >=500 mg/dL (NEGATIVE); KETONES,URINE NEGATIVE (NEGATIVE); LEUKOCYTE ESTERASE,URINE NEGATIVE (NEGATIVE); NITRITE,URINE NEGATIVE (NEGATIVE); PROTEIN,URINE 30 mg/dL (NEGATIVE); URINE SPECIFIC GRAVITY 1.025; UROBILINOGEN,URINE NEGATIVE mg/dL (<2.0)
[2020-02-25] MEDS ORDERED: AMLODIPINE BESYLATE 2.5 MG TABLET PO SCH ×2 (06:00→10:00)
[2020-02-25] MEDS ORDERED: PANTOPRAZOLE SODIUM 40 MG TABLET.DR PO SCH ×2 (06:00)
[2020-02-25 07:08] LABS: HEMOGLOBIN 11.6 g/dL (12.0-15.5); MEAN CORPUSCULAR HEMOGLOBIN 29.3 pg (27.0-33.4); MEAN CORPUSCULAR VOLUME 89 fl (80-97); RED BLOOD COUNT 3.95 10^6/uL (3.72-5.28); RED CELL DISTRIBUTION WIDTH 13.9 % (11.5-14.0); WHITE BLOOD COUNT 9.8 10^3/uL (4.0-10.5)
[2020-02-25 07:38] LABS: ANION GAP 5 (5-19); BLOOD UREA NITROGEN 32 mg/dL (7-20); CARBON DIOXIDE 33 mmol/L (22-30); CHLORIDE 100 mmol/L (98-107); GLUCOSE 191 mg/dL (75-110); PHOSPHORUS 2.9 mg/dL (2.5-4.5); POTASSIUM 4.1 mmol/L (3.6-5.0)
[2020-02-25 07:54] LABS: C-REACTIVE PROTEIN 162.6 mg/L (<10.0)
[2020-02-25 08:36] LABS: ABSOLUTE LYMPHOCYTES# (MANUAL) 0.3 10^3/uL (0.5-4.7); ABSOLUTE MONOCYTES # (MANUAL) 0.2 10^3/uL (0.1-1.4); BASOPHILS % (MANUAL) 0 % (0-2); EOSINOPHILS % (MANUAL) 0 % (0-6); LYMPHOCYTES % (MANUAL) 3 % (13-45); MONOCYTES % (MANUAL) 2 % (3-13); NUCLEATED RED BLOOD CELLS 1 /100 WBC (0); SEGMENTED NEUTROPHILS % (MAN) 95 % (42-78); TOTAL CELLS COUNTED 100
[2020-02-25 08:37] LABS: PLATELET CLUMPS PRESENT; PLATELET COMMENT ADEQUATE; RBC MORPHOLOGY COMMENT NORMO-CYTIC/CHROMIC
[2020-02-25 08:39] LABS: PLATELET COUNT 159 10^3/uL (150-450)
[2020-02-25] MEDS: ZINC SULFATE 220 MG CAPSULE PO SCH (09:11)
[2020-02-25] MEDS: ASCORBIC ACID 500 MG TABLET PO SCH ×2 (09:11→18:16)
[2020-02-25] MEDS: TAMSULOSIN HCL 0.4 MG CAP.SR.24H PO SCH (09:11)
[2020-02-25] MEDS: ISOSORBIDE MONONITRATE 30 MG TAB.ER.24H PO SCH (09:11)
[2020-02-25] MEDS: METHYLPREDNISOLONE INJ 40 MG/1 ML SDV IV SCH ×2 (09:12→22:21)
[2020-02-25] MEDS: DOCUSATE SODIUM 100 MG CAPSULE PO SCH (09:12)
[2020-02-25] MEDS: SPIRONOLACTONE 25 MG TABLET PO SCH (09:12)
[2020-02-25] MEDS: CHOLECALCIFEROL (D3) 1,000 UNIT (25 MCG) TABLET PO SCH (09:12)
[2020-02-25] MEDS: ENOXAPARIN SODIUM INJ 150 MG/1 ML DISP.SYRIN SUBCUT SCH ×2 (09:13→22:21)
[2020-02-25] MEDS: POLYETHYLENE GLYCOL 3350 POWDER 17 GM/1 PACKET PO SCH (09:13)
[2020-02-25] MEDS: IVERMECTIN 3 MG TABLET PO SCH (09:16)
[2020-02-25] MEDS: MORPHINE SULFATE IR 15 MG TABLET PO PRN (09:18)
[2020-02-25] MEDS: VITAMIN B COMPLEX TABLET PO SCH (09:22)
[2020-02-25 09:35] LABS: FREE T4 (FREE THYROXINE) 2.15 ng/dL (0.78-2.19)
[2020-02-25 09:51] LABS: THYROID STIMULATING HORMONE < 0.01 uIU/mL (0.47-4.68)
[2020-02-25] MEDS ORDERED: ENOXAPARIN SODIUM INJ 40 MG/0.4 ML DISP.SYRIN SUBCUT SCH (10:00)
[2020-02-25] MEDS ORDERED: SODIUM POLYSTYRENE SULFONATE 15 GM/60 ML PO SCH (10:00)
[2020-02-25] MEDS ORDERED: METOPROLOL SUCCINATE 50 MG TAB.SR.24H PO SCH (10:00)
[2020-02-25] MEDS: UMECLIDINIUM BROMIDE 62.5 MCG/DOSE IH SCH (10:06)
[2020-02-25] MEDS: CALCIUM CARBONATE 500 MG TAB.CHEW PO SCH ×3 (15:42→23:48)
[2020-02-25] MEDS ORDERED: CALCIUM CARBONATE 500 MG TAB.CHEW PO SCH (17:00)
[2020-02-25] MEDS: PANTOPRAZOLE SODIUM 40 MG TABLET.DR PO SCH (18:16)
--- NOTE | 2020-02-25 19:31 | PDOC PROGRESS REPORT ---
Subjective Date:: 02/25/20 Subjective:: She is endorsing SOB/KRAUSE. Saturating 87% on 6L via NC at rest, so placed on oximizer this afternoon. Reason For Visit: ACUTE ON CHRONIC HYPOXEMIC RESPIRATORY FAILURE Physical Exam Vital Signs: Temp Pulse Resp BP Pulse Ox 98.2 F 77 20 147/61 H 91 L 02/25/20 12:37 02/25/20 14:00 02/25/20 12:37 02/25/20 12:37 02/25/20 16:05 Intake & Output 02/24/20 02/25/20 02/26/20 06:59 06:59 06:59 Intake Total 250 Output Total 430 Balance -180 Weight 132 kg 132 kg General appearance: PRESENT: no acute distress, cooperative Eye exam: ABSENT: scleral icterus Mouth exam: PRESENT: dry mucosa Throat exam: ABSENT: post pharyngeal erythema Neck exam: ABSENT: JVD Respiratory exam: PRESENT: rhonchi, tachypnea. ABSENT: crackles Cardiovascular exam: PRESENT: RRR GI/Abdominal exam: PRESENT: normal bowel sounds, soft. ABSENT: tenderness Extremities exam: ABSENT: pedal edema Neurological exam: PRESENT: alert, awake, oriented to person, oriented to place, oriented to time, oriented to situation Psychiatric exam: PRESENT: appropriate affect Skin exam: ABSENT: rash Results Laboratory Results: 02/25/20 06:44 02/25/20 06:44 02/24/20 02/25/20 02/25/20 15:30 04:55 06:44 WBC RBC Hgb Hct MCV MCH MCHC RDW Plt Count Seg Neutrophils % Sodium 137.8 Potassium 4.1 Chloride 100 Carbon Dioxide 33 H Anion Gap 5 BUN 32 H Creatinine 0.89 Est GFR ( Amer) > 60 Glucose 191 H Calcium 9.0 Phosphorus 2.9 Magnesium 1.8 Ferritin 122.00 C-Reactive Protein 162.6 H TSH Free T4 Urine Color YELLOW Urine Appearance SLIGHTLY-CLOUDY Urine pH 6.0 Ur Specific Zamora 1.025 Urine Protein 30 H Urine Glucose (UA) >=500 H Urine Ketones NEGATIVE Urine Blood NEGATIVE Urine Nitrite NEGATIVE Ur Leukocyte Esterase NEGATIVE Urine WBC (Auto) 1 02/25/20 02/25/20 06:44 06:44 WBC 9.8 RBC 3.95 Hgb 11.6 L Hct 35.0 L MCV 89 MCH 29.3 MCHC 33.0 RDW 13.9 Plt Count 159 Seg Neutrophils % Not Reportable Sodium Potassium Chloride Carbon Dioxide Anion Gap BUN Creatinine Est GFR ( Amer) Glucose Calcium Phosphorus Magnesium Ferritin C-Reactive Protein TSH < 0.01 L Free T4 2.15 Urine Color Urine Appearance Urine pH Ur Specific Zam[place] Urine Protein Urine Glucose (UA) Urine Ketones Urine Blood Urine Nitrite Ur Leukocyte Esterase Urine WBC (Auto) Impressions: Chest X-Ray 02/24/20 15:11 IMPRESSION: Bilateral patchy parenchymal opacities in a peripheral distribution. Differential considerations include a multifocal pneumonia (including atypical infections such as COVID-19) and CHF (in the setting of cardiomegaly). Chest/Abdomen CTA 02/24/20 17:23 IMPRESSION: 1. There is no pulmonary embolus. There is no aortic aneurysm or dissection. 2. Bilateral ground-glass infiltrates consistent with an atypical infectious/ inflammatory process such as COVID-19 pneumonia. 3. 5 cm substernal thyroid mass. Assessment and Plan - Diagnosis (1) Pneumonia due to COVID-19 virus Is this a current diagnosis for this admission?: Yes (2) Acute on chronic respiratory failure with hypoxemia Is this a current diagnosis for this admission?: Yes (3) COPD (chronic obstructive pulmonary disease) Qualifiers: COPD type: emphysema Emphysema type: unspecified Qualified Code(s): J43.9 - Emphysema, unspecified Is this a current diagnosis for this admission?: Yes (4) Chronic combined systolic and diastolic CHF (congestive heart failure) Is this a current diagnosis for this admission?: Yes (5) HLD (hyperlipidemia) Is this a current diagnosis for this admission?: Yes (6) History of [place] (myocardial infarction) Is this a current diagnosis for this admission?: Yes (7) HTN (hypertension) Qualifiers: Hypertension type: essential hypertension Qualified Code(s): I10 - Essen tial (primary) hypertension Is this a current diagnosis for this admission?: Yes - Plan Summary Summary: JEANNIE NAVA is a 74 year old female with past medical history significant for HTN, HLD, CAD/[place] status post coronary stent and multivessel disease, chronic combined CHF, COPD on chronic 2 L O2, morbid obesity with BMI 53 who presented to the ED with an 8-day history of progressive shortness of breath/KRAUSE/F/C/productive cough/diarrhea which has continued to get worse since her diagnosis of Covid on 02/16 when she had a positive test. She states her symptoms began on this day as well. Patient has been increasing her home oxygen up to 4 L without any significant relief in her dyspnea. Pneumonia due to COVID-19 virus -Covid-19 test: +02/16 -CXR showed: Bilateral infiltrates -CTPA showed: Bilateral groundglass opacities consistent with viral pneumonia, negative for PE, 5 cm thyroid mass -standard of care vitamin supplements: zinc, ascorbic acid, vitamin d, melatonin -Ivermectin on days 1 and 3 -D-dimer elevated, continue therapeutic Lovenox -maintain magnesium of 2 mg/dL or higher -Current literature does not show clear benefit from the use of remdesivir, plaquenil, and convalescent plasma -supplemental oxygen and BiPAP/CPAP as needed -prn combivent/nebs as able -do not hold anticoagulation unless actively bleeding or platelet count <50 Acute on chronic respiratory failure with hypoxemia Due to Covid pneumonia Chronically on 2 L nasal cannula at home, increased oxygen requirement since rafael COVID-19 Saturation goal is 89 to 92% in the setting of COPD Bronchial hygiene, pulmonary toilet, nebs Severe COPD (chronic obstructive pulmonary disease) on 2L Home O2 -Supplemental O2 to maintain sat of 89-92% -duonebs -steroids -abx indicated only if concomitant bacterial pneumonia is also suspected -bronchial hygiene -no smoking CAD s/p remote [place] Multivessel disease per patient, status post stents Follows with cardiology in [place] but she does not remember her physician continue Statin, BB, anti-anginal therapy chronic combined systolic and diastolic CHF Not in acute exacerbation No Recent echocardiograms on file here, last one was from 2018 which showed diastolic CHF and normal EF Hypertension Home medications continued GERD -restart home PPI BID -TUMS PRN Code Status: DNR/DNI - Time Time Spent with patient: 35 or more minutes Anticipated Discharge Disposition: Group Home Facility Anticipated Discharge Timeframe: unknown
--- NOTE | 2020-02-25 19:35 | ADVANCED CARE ---
- Diagnosis (1) Pneumonia due to COVID-19 virus Diagnosis Current: Yes (2) Acute on chronic respiratory failure with hypoxemia Diagnosis Current: Yes (3) COPD (chronic obstructive pulmonary disease) Diagnosis Current: Yes (4) Chronic combined systolic and diastolic CHF (congestive heart failure) Diagnosis Current: Yes (5) HLD (hyperlipidemia) Diagnosis Current: Yes (6) History of [place] (myocardial infarction) Diagnosis Current: Yes (7) HTN (hypertension) Diagnosis Current: Yes Resuscitation Status: Do Not Resuscitate Discussion: Discussed with patient her advanced age and multiple medical conditions, including severe COPD, morbid obesity and CAD which all put her at increased risk of mortality from Covid-19 infection. She is understanding. She tells me that she does not want aggressive interventions to prolong her life and does not want intubation, but wants everything else possible to maintain her quality of life, including NIPPV if needed. She is quite debilitated at baseline, getting severe SOB/KRAUSE with minimal exertion. She has an aid a few hours per day to do her housework and her children do her shopping. She will likely require SNF on discharge if she remains hospitalized for prolonged period due to baseline debility. If she can not make decisions for herself in the future, she wishes for her son, Denny Figueredo, to do so for her. She does not have an AD or living will. Time Spent: >30 minutes
[2020-02-25] MEDS: DOXYCYCLINE HYCLATE 100 MG in DEXTROSE 5%-WATER 250 ML IV SCH (22:20)
[2020-02-25] MEDS: ALPRAZOLAM 0.5 MG TABLET PO PRN (23:45)
[2020-02-26] MEDS: PANTOPRAZOLE SODIUM 40 MG TABLET.DR PO SCH ×2 (05:33→17:10)
[2020-02-26 07:01] LABS: HEMATOCRIT 37.3 % (36.0-47.0); MEAN CORPUSCULAR HEMOGLOBIN 28.6 pg (27.0-33.4); MEAN CORPUSCULAR HGB CONC 32.1 g/dL (32.0-36.0); MEAN CORPUSCULAR VOLUME 89 fl (80-97); PLATELET COUNT 166 10^3/uL (150-450); RED BLOOD COUNT 4.18 10^6/uL (3.72-5.28); RED CELL DISTRIBUTION WIDTH 13.8 % (11.5-14.0); WHITE BLOOD COUNT 11.5 10^3/uL (4.0-10.5)
[2020-02-26 07:17] LABS: ANION GAP 7 (5-19); BLOOD UREA NITROGEN 40 mg/dL (7-20); C-REACTIVE PROTEIN 89.8 mg/L (<10.0); CARBON DIOXIDE 34 mmol/L (22-30); CHLORIDE 100 mmol/L (98-107); GLUCOSE 191 mg/dL (75-110); POTASSIUM 4.1 mmol/L (3.6-5.0)
[2020-02-26 07:43] LABS: ABSOLUTE LYMPHOCYTES# (MANUAL) 0.3 10^3/uL (0.5-4.7); ABSOLUTE MONOCYTES # (MANUAL) 0.2 10^3/uL (0.1-1.4); BAND NEUTROPHILS % (MANUAL) 2 % (3-5); BASOPHILS % (MANUAL) 0 % (0-2); EOSINOPHILS % (MANUAL) 0 % (0-6); LYMPHOCYTES % (MANUAL) 3 % (13-45); MONOCYTES % (MANUAL) 2 % (3-13); SEGMENTED NEUTROPHILS % (MAN) 93 % (42-78); TOTAL CELLS COUNTED 100
[2020-02-26 07:44] LABS: PLATELET COMMENT ADEQUATE; RBC MORPHOLOGY COMMENT NORMO-CYTIC/CHROMIC
[2020-02-26] MEDS: METHYLPREDNISOLONE INJ 40 MG/1 ML SDV IV SCH ×2 (09:56→21:46)
[2020-02-26] MEDS: MORPHINE SULFATE IR 15 MG TABLET PO PRN (09:56)
[2020-02-26] MEDS: AMLODIPINE BESYLATE 5 MG TABLET PO SCH (09:57)
[2020-02-26] MEDS: ISOSORBIDE MONONITRATE 30 MG TAB.ER.24H PO SCH (09:57)
[2020-02-26] MEDS: GABAPENTIN 300 MG CAPSULE PO SCH ×3 (09:57→17:10)
[2020-02-26] MEDS: CALCIUM CARBONATE 500 MG TAB.CHEW PO SCH ×4 (09:57→21:44)
[2020-02-26] MEDS: ZINC SULFATE 220 MG CAPSULE PO SCH (09:59)
[2020-02-26] MEDS: TAMSULOSIN HCL 0.4 MG CAP.SR.24H PO SCH (09:59)
[2020-02-26] MEDS: ENOXAPARIN SODIUM INJ 150 MG/1 ML DISP.SYRIN SUBCUT SCH ×2 (10:00→21:42)
[2020-02-26] MEDS ORDERED: ALBUTEROL SULFATE HFA (90 MCG/PUFF) 8 GM MDI (1 MDI/ER DISP) IH SCH (10:00)
[2020-02-26] MEDS: METOPROLOL SUCCINATE 50 MG TAB.SR.24H PO SCH (10:00)
[2020-02-26] MEDS: SPIRONOLACTONE 25 MG TABLET PO SCH (10:00)
[2020-02-26] MEDS ORDERED: AMLODIPINE BESYLATE 2.5 MG TABLET PO SCH (10:00)
[2020-02-26] MEDS: CHOLECALCIFEROL (D3) 1,000 UNIT (25 MCG) TABLET PO SCH (10:00)
[2020-02-26] MEDS: DOCUSATE SODIUM 100 MG CAPSULE PO SCH (10:01)
[2020-02-26] MEDS: IVERMECTIN 3 MG TABLET PO SCH (10:01)
[2020-02-26] MEDS: ASCORBIC ACID 500 MG TABLET PO SCH ×2 (10:01→17:10)
[2020-02-26] MEDS: POLYETHYLENE GLYCOL 3350 POWDER 17 GM/1 PACKET PO SCH (10:01)
[2020-02-26] MEDS: ESCITALOPRAM OXALATE 10 MG TABLET PO SCH (10:01)
[2020-02-26] MEDS: ALBUTEROL SULFATE HFA (90 MCG/PUFF) 8 GM MDI IH SCH ×3 (10:02→17:11)
[2020-02-26] MEDS: VITAMIN B COMPLEX TABLET PO SCH (10:02)
[2020-02-26] MEDS: UMECLIDINIUM BROMIDE 62.5 MCG/DOSE IH SCH (10:03)
[2020-02-26] MEDS: NORMAL SALINE 1000 ML 1,000 ML IV PRN (10:05)
[2020-02-26] MEDS: IPRATROPIUM/ALBUTEROL 0.5-2.5 MG/3 ML AMPUL NEB PRN (16:08)
--- NOTE | 2020-02-26 18:52 | PDOC PROGRESS REPORT ---
Subjective Date:: 02/26/20 Subjective:: She feels somewhat better today in comparison to yesterday. Oxygen saturations remain 89-91% on 15 L O2. Reason For Visit: ACUTE ON CHRONIC HYPOXEMIC RESPIRATORY FAILURE Physical Exam Vital Signs: Temp Pulse Resp BP Pulse Ox 98.5 F 94 15 131/68 H 91 L 02/26/20 15:21 02/26/20 16:11 02/26/20 16:11 02/26/20 15:21 02/26/20 16:11 Intake & Output 02/25/20 02/26/20 02/27/20 06:59 06:59 06:59 Intake Total 250 1174 222 Output Total 430 950 400 Balance -180 224 -178 Weight 132 kg 127.7 kg General appearance: PRESENT: no acute distress, cooperative Eye exam: ABSENT: scleral icterus Mouth exam: PRESENT: dry mucosa Throat exam: ABSENT: post pharyngeal erythema Neck exam: ABSENT: JVD Respiratory exam: PRESENT: rhonchi, tachypnea, wheezes Cardiovascular exam: PRESENT: RRR GI/Abdominal exam: PRESENT: normal bowel sounds, soft. ABSENT: tenderness Extremities exam: ABSENT: pedal edema Neurological exam: PRESENT: alert, awake, oriented to person, oriented to place, oriented to time, oriented to situation Psychiatric exam: PRESENT: appropriate affect Skin exam: ABSENT: jaundice Results Laboratory Results: 02/26/20 06:01 02/26/20 06:01 02/26/20 02/26/20 06:01 06:01 WBC 11.5 H RBC 4.18 Hgb 12.0 Hct 37.3 MCV 89 MCH 28.6 MCHC 32.1 RDW 13.8 Plt Count 166 Seg Neutrophils % Not Reportable Sodium 140.9 Potassium 4.1 Chloride 100 Carbon Dioxide 34 H Anion Gap 7 BUN 40 H Creatinine 1.00 Est GFR ( Amer) > 60 Glucose 191 H Calcium 9.0 C-Reactive Protein 89.8 H Impressions: Chest X-Ray 02/24/20 15:11 IMPRESSION: Bilateral patchy parenchymal opacities in a peripheral distribution. Differential considerations include a multifocal pneumonia (including atypical infections such as COVID-19) and CHF (in the setting of cardiomegaly). Chest/Abdomen CTA 02/24/20 17:23 IMPRESSION: 1. There is no pulmonary embolus. There is no aortic aneurysm or dissection. 2. Bilateral ground-glass infiltrates consistent with an atypical infectious/ inflammatory process such as COVID-19 pneumonia. 3. 5 cm substernal thyroid mass. Assessment and Plan - Diagnosis (1) Pneumonia due to COVID-19 virus Is this a current diagnosis for this admission?: Yes (2) Acute on chronic respiratory failure with hypoxemia Is this a current diagnosis for this admission?: Yes (3) COPD (chronic obstructive pulmonary disease) Qualifiers: COPD type: emphysema Emphysema type: unspecified Qualified Code(s): J43.9 - Emphysema, unspecified Is this a current diagnosis for this admission?: Yes (4) Chronic combined systolic and diastolic CHF (congestive heart failure) Is this a current diagnosis for this admission?: Yes (5) HLD (hyperlipidemia) Is this a current diagnosis for this admission?: Yes (6) History of [place] (myocardial infarction) Is this a current diagnosis for this admission?: Yes (7) HTN (hypertension) Qualifiers: Hypertension type: essential hypertension Qualified Code(s): I10 - Essential (primary) hypertension Is this a current diagnosis for this admission?: Yes - Plan Summary Summary: JEANNIE NAVA is a 74 year old female with past medical history significant for HTN, HLD, CAD/[place] status post coronary stent and multivessel disease, chronic combined CHF, COPD on chronic 2 L O2, morbid obesity with BMI 53 who presented to the ED with an 8-day history of progressive shortness of breath/KRAUSE/F/C/productive cough/diarrhea which has continued to get worse since her diagnosis of Covid on 02/16 when she had a positive test. She states her symptoms began on this day as well. Patient has been increasing her home oxygen up to 4 L without any significant relief in her dyspnea. Pneumonia due to COVID-19 virus -Covid-19 test: +02/16 -CXR showed: Bilateral infiltrates -CTPA showed: Bilateral groundglass opacities consistent with viral pneumonia, negative for PE, 5 cm thyroid mass -standard of care vitamin supplements: zinc, ascorbic acid, vitamin d, melatonin -Ivermectin on days 1 and 3 -D-dimer elevated, continue therapeutic Lovenox -maintain magnesium of 2 mg/dL or higher -Current literature does not show clear benefit from the use of remdesivir, plaquenil, and convalescent plasma -supplemental oxygen and BiPAP/CPAP as needed -prn combivent/nebs as able -do not hold anticoagulation unless actively bleeding or platelet count <50 Acute on chronic respiratory failure with hypoxemia Due to Covid pneumonia Chronically on 2 L nasal cannula at home, increased oxygen requirement since rafael COVID-19 Saturation goal is 89 to 92% in the setting of COPD Bronchial hygiene, pulmonary toilet, nebs Severe COPD (chronic obstructive pulmonary disease) on 2L Home O2 -Supplemental O2 to maintain sat of 89-92% -duonebs -steroids -abx indicated only if concomitant bacterial pneumonia is also suspected -bronchial hygiene -no smoking CAD s/p remote [place] Multivessel disease per patient, status post stents Follows with cardiology in [place] but she does not remember her physician continue Statin, BB, anti-anginal therapy chronic combined systolic and diastolic CHF Not in acute exacerbation No Recent echocardiograms on file here, last one was from 2018 which showed diastolic CHF and normal EF Hypertension Home medications continued GERD -PPI BID -TUMS PRN Code Status: DNR/DNI - Time Time Spent with patient: 35 or more minutes Anticipated Discharge Disposition: [facility] Facility Anticipated Discharge Timeframe: unknown
[2020-02-26] MEDS: DOXYCYCLINE HYCLATE 100 MG in DEXTROSE 5%-WATER 250 ML IV SCH (21:43)
[2020-02-27] MEDS: PANTOPRAZOLE SODIUM 40 MG TABLET.DR PO SCH ×2 (05:44→16:24)
[2020-02-27 06:02] LABS: HEMATOCRIT 35.8 % (36.0-47.0); HEMOGLOBIN 11.7 g/dL (12.0-15.5); MEAN CORPUSCULAR HGB CONC 32.8 g/dL (32.0-36.0); MEAN CORPUSCULAR VOLUME 89 fl (80-97); RED BLOOD COUNT 4.05 10^6/uL (3.72-5.28); RED CELL DISTRIBUTION WIDTH 13.7 % (11.5-14.0); WHITE BLOOD COUNT 10.5 10^3/uL (4.0-10.5)
[2020-02-27 06:22] LABS: BLOOD UREA NITROGEN 47 mg/dL (7-20); CALCIUM 8.7 mg/dL (8.4-10.2); CARBON DIOXIDE 35 mmol/L (22-30); GLUCOSE 237 mg/dL (75-110); POTASSIUM 4.1 mmol/L (3.6-5.0)
[2020-02-27 06:31] LABS: CHLORIDE 99 mmol/L (98-107)
[2020-02-27 06:32] LABS: ANION GAP 3 (5-19)
[2020-02-27 06:38] LABS: ABSOLUTE LYMPHOCYTES# (MANUAL) 0.1 10^3/uL (0.5-4.7); ABSOLUTE MONOCYTES # (MANUAL) 0.1 10^3/uL (0.1-1.4); BASOPHILS % (MANUAL) 0 % (0-2); EOSINOPHILS % (MANUAL) 0 % (0-6); LYMPHOCYTES % (MANUAL) 1 % (13-45); MONOCYTES % (MANUAL) 1 % (3-13); SEGMENTED NEUTROPHILS % (MAN) 98 % (42-78); TOTAL CELLS COUNTED 100
[2020-02-27 06:39] LABS: PLATELET CLUMPS PRESENT; PLATELET COMMENT ADEQUATE
[2020-02-27 06:40] LABS: PLATELET COUNT 168 10^3/uL (150-450)
[2020-02-27] MEDS: CALCIUM CARBONATE 500 MG TAB.CHEW PO SCH ×4 (08:45→22:15)
[2020-02-27] MEDS: ISOSORBIDE MONONITRATE 30 MG TAB.ER.24H PO SCH (08:45)
[2020-02-27] MEDS: NORMAL SALINE 1000 ML 1,000 ML IV PRN (08:45)
[2020-02-27] MEDS: CHOLECALCIFEROL (D3) 1,000 UNIT (25 MCG) TABLET PO SCH (10:16)
[2020-02-27] MEDS: METHYLPREDNISOLONE INJ 40 MG/1 ML SDV IV SCH ×2 (10:16→22:08)
[2020-02-27] MEDS: ASCORBIC ACID 500 MG TABLET PO SCH ×2 (10:16→18:57)
[2020-02-27] MEDS: SPIRONOLACTONE 25 MG TABLET PO SCH (10:16)
[2020-02-27] MEDS: ESCITALOPRAM OXALATE 10 MG TABLET PO SCH (10:17)
[2020-02-27] MEDS: ZINC SULFATE 220 MG CAPSULE PO SCH (10:17)
[2020-02-27] MEDS: ENOXAPARIN SODIUM INJ 150 MG/1 ML DISP.SYRIN SUBCUT SCH ×2 (10:17→22:14)
[2020-02-27] MEDS: VITAMIN B COMPLEX TABLET PO SCH (10:17)
[2020-02-27] MEDS: GABAPENTIN 300 MG CAPSULE PO SCH ×3 (10:17→18:57)
[2020-02-27] MEDS: AMLODIPINE BESYLATE 5 MG TABLET PO SCH (10:17)
[2020-02-27] MEDS: POLYETHYLENE GLYCOL 3350 POWDER 17 GM/1 PACKET PO SCH (10:17)
[2020-02-27] MEDS: TAMSULOSIN HCL 0.4 MG CAP.SR.24H PO SCH (10:17)
[2020-02-27] MEDS: METOPROLOL SUCCINATE 50 MG TAB.SR.24H PO SCH (10:17)
[2020-02-27] MEDS: UMECLIDINIUM BROMIDE 62.5 MCG/DOSE IH SCH (10:18)
[2020-02-27] MEDS: ALBUTEROL SULFATE HFA (90 MCG/PUFF) 8 GM MDI IH SCH ×3 (10:20→18:59)
[2020-02-27 11:30] LABS: ARTERIAL BLOOD BASE EXCESS 5.4 mmol/L; ARTERIAL BLOOD H2CO3 1.65 mmol/L (1.05-1.35); ARTERIAL BLOOD HCO3 31.9 mmol/L (20-24); ARTERIAL BLOOD O2 SATURATION 89.4 % (94-98); ARTERIAL BLOOD PCO2 54.8 mmHg (35-45); ARTERIAL BLOOD PH 7.38 (7.35-7.45); ARTERIAL BLOOD PO2 58.3 mmHg (80-100); ARTERIAL BLOOD TOTAL CO2 33.6 mmol/L (21-25)
[2020-02-27 11:33] LABS: ARTERIAL BLOOD FIO2 100%
[2020-02-27] MEDS ORDERED: ONDANSETRON 4 MG TAB.RAPDIS PO PRN (14:30)
[2020-02-27] MEDS ORDERED: ONDANSETRON HCL INJ/PF 4 MG/2 ML SDV IV PRN (14:30)
--- NOTE | 2020-02-27 15:03 | PDOC PROGRESS REPORT ---
Subjective Date:: 02/27/20 Subjective:: This morning, she had worsening hypoxemia on 15 L so she was transitioned to CPAP. She feels much better on CPAP. Has had poor oral intake requiring IVF. She had a BM today. Reason For Visit: ACUTE ON CHRONIC HYPOXEMIC RESPIRATORY FAILURE Physical Exam Vital Signs: Temp Pulse Resp BP Pulse Ox 98.3 F 96 20 150/68 H 93 02/27/20 12:06 02/27/20 12:06 02/27/20 14:23 02/27/20 12:06 02/27/20 14:23 Intake & Output 02/26/20 02/27/20 02/28/20 06:59 06:59 06:59 Intake Total 1174 1444 120 Output Total 950 1000 Balance 224 444 120 Weight 127.7 kg 130.3 kg General appearance: PRESENT: no acute distress, cooperative, hard of hearing, morbidly obese Eye exam: ABSENT: scleral icterus Mouth exam: PRESENT: dry mucosa Neck exam: ABSENT: JVD Respiratory exam: PRESENT: rhonchi, tachypnea. ABSENT: crackles Cardiovascular exam: PRESENT: RRR GI/Abdominal exam: PRESENT: normal bowel sounds, soft. ABSENT: tenderness Extremities exam: ABSENT: pedal edema Neurological exam: PRESENT: alert, awake, oriented to person, oriented to place, oriented to time, oriented to situation Psychiatric exam: PRESENT: appropriate affect Skin exam: ABSENT: jaundice, rash Results Laboratory Results: 02/27/20 05:10 02/27/20 05:10 02/26/20 02/27/20 02/27/20 21:34 05:10 05:10 WBC 10.5 RBC 4.05 Hgb 11.7 L Hct 35.8 L MCV 89 MCH 29.0 MCHC 32.8 RDW 13.7 Plt Count 168 Seg Neutrophils % Not Reportable Carbonic Acid HCO3/H2CO3 Ratio ABG pH ABG pCO2 ABG pO2 ABG HCO3 ABG O2 Saturation ABG Base Excess FiO2 Sodium 136.8 L Potassium 4.1 Chloride 99 Carbon Dioxide 35 H Anion Gap 3 L BUN 47 H Creatinine 0.91 Est GFR ( Amer) > 60 Glucose 237 H Calcium 8.7 Ferritin 133.00 02/27/20 10:32 WBC RBC Hgb Hct MCV MCH MCHC RDW Plt Count Seg Neutrophils % Carbonic Acid 1.65 H HCO3/H2CO3 Ratio 19:1 ABG pH 7.38 ABG pCO2 54.8 H ABG pO2 58.3 L ABG HCO3 31.9 H ABG O2 Saturation 89.4 L ABG Base Excess 5.4 FiO2 100% Sodium Potassium Chloride Carbon Dioxide Anion Gap BUN Creatinine Est GFR ( Amer) Glucose Calcium Ferritin Impressions: Chest X-Ray 02/24/20 15:11 IMPRESSION: Bilateral patchy parenchymal opacities in a peripheral distribution. Differential considerations include a multifocal pneumonia (including atypical infections such as COVID-19) and CHF (in the setting of cardiomegaly). Chest/Abdomen CTA 02/24/20 17:23 IMPRESSION: 1. There is no pulmonary embolus. There is no aortic aneurysm or dissection. 2. Bilateral ground-glass infiltrates consistent with an atypical infectious/ inflammatory process such as COVID-19 pneumonia. 3. 5 cm substernal thyroid mass. Assessment and Plan - Diagnosis (1) Pneumonia due to COVID-19 virus Is this a current diagnosis for this admission?: Yes (2) Acute on chronic respiratory failure with hypoxemia Is this a current diagnosis for this admission?: Yes (3) COPD (chronic obstructive pulmonary disease) Qualifiers: COPD type: emphysema Emphysema type: unspecified Qualified Code(s): J43.9 - Emphysema, unspecified Is this a current diagnosis for this admission?: Yes (4) Chronic combined systolic and diastolic CHF (congestive heart failure) Is this a current diagnosis for this admission?: Yes (5) HLD (hyperlipidemia) Is this a current diagnosis for this admission?: Yes (6) History of [place] (myocardial infarction) Is this a current diagnosis for this admission?: Yes (7) HTN (hypertension) Qualifiers: Hypertension type: essential hypertension Qualified Code(s): I10 - Essential (primary) hypertension Is this a current diagnosis for this admission?: Yes - Plan Summary Summary: JEANNIE NAVA is a 74 year old female with past medical history significant for HTN, HLD, CAD/[place] status post PCI, chronic combined CHF, COPD on chronic 2 L O2, morbid obesity with BMI 53 who presented to the ED with an 8-day history of progressive shortness of breath/KRAUSE/F/C/productive cough/diarrhea. She was diagnosed with Covid on 02/17/2020. She had been increasing her home oxygen up to 4 L without any significant relief in her dyspnea. Pneumonia due to COVID-19 virus -Covid-19 test: +02/16 -CXR showed: Bilateral infiltrates -CTA chest showed: Bilateral groundglass opacities consistent with viral pneumonia, negative for PE, 5 cm thyroid mass -standard of care vitamin supplements: zinc, ascorbic acid, vitamin d, melatonin -s/p Ivermectin on days 1 and 3 -D-dimer elevated, continue therapeutic Lovenox -maintain magnesium of 2 mg/dL or higher -Current literature does not show clear benefit from the use of remdesivir, plaquenil, convalescent plasma -supplemental oxygen and BiPAP/CPAP as needed -prn combivent/nebs as able -do not hold anticoagulation unless actively bleeding or platelet count <50 Acute on chronic respiratory failure with hypoxemia Due to Covid pneumonia Chronically on 2 L nasal cannula at home, increased oxygen requirement since rafael COVID-19 Saturation goal is 89 to 92% in the setting of COPD Bronchial hygiene, pulmonary toilet, nebs Severe COPD on 2L Home O2 -Supplemental O2 to maintain sat of 89-92% -duonebs -steroids -bronchial hygiene CAD s/p remote [place] Multivessel disease per patient, status post stents Follows with cardiology in [place] but she does not remember her physician continue Statin, BB, nitrate chronic combined systolic and diastolic CHF: No Recent echocardiograms on file here, last one was from 2018 which showed diastolic CHF and normal EF. -due to dehydration and poor oral intake, her Lasix/spironolactone have been held Dehydration -continue IVF at 75 ml/hr while monitoring closely for volume overload -encourage oral intake Hypertension controlled on home regimen GERD -PPI BID -TUMS PRN Code Status: DNR/DNI - Time Time Spent with patient: 35 or more minutes Anticipated Discharge Disposition: Residential Facility Anticipated Discharge Timeframe: unknown
[2020-02-27] MEDS: DOXYCYCLINE HYCLATE 100 MG in DEXTROSE 5%-WATER 250 ML IV SCH (22:08)
[2020-02-27] MEDS: MORPHINE SULFATE IR 15 MG TABLET PO PRN (22:11)
[2020-02-27] MEDS: ALPRAZOLAM 0.5 MG TABLET PO PRN (23:22)
[2020-02-28] MEDS: NORMAL SALINE 1000 ML 1,000 ML IV PRN ×2 (05:20→18:45)
[2020-02-28] MEDS: PANTOPRAZOLE SODIUM 40 MG TABLET.DR PO SCH ×2 (05:28→17:24)
[2020-02-28 06:30] LABS: HEMATOCRIT 35.6 % (36.0-47.0); HEMOGLOBIN 11.5 g/dL (12.0-15.5); MEAN CORPUSCULAR HGB CONC 32.4 g/dL (32.0-36.0); MEAN CORPUSCULAR VOLUME 90 fl (80-97); PLATELET COUNT 154 10^3/uL (150-450); RED BLOOD COUNT 3.97 10^6/uL (3.72-5.28); RED CELL DISTRIBUTION WIDTH 13.6 % (11.5-14.0); WHITE BLOOD COUNT 7.9 10^3/uL (4.0-10.5)
[2020-02-28 06:57] LABS: ANION GAP 5 (5-19); BLOOD UREA NITROGEN 38 mg/dL (7-20); C-REACTIVE PROTEIN 46.7 mg/L (<10.0); CALCIUM 8.8 mg/dL (8.4-10.2); CARBON DIOXIDE 32 mmol/L (22-30); CHLORIDE 102 mmol/L (98-107); GLUCOSE 223 mg/dL (75-110); POTASSIUM 4.5 mmol/L (3.6-5.0)
[2020-02-28 07:11] LABS: ARTERIAL BLOOD BASE EXCESS 5.5 mmol/L; ARTERIAL BLOOD H2CO3 1.49 mmol/L (1.05-1.35); ARTERIAL BLOOD HCO3 31.1 mmol/L (20-24); ARTERIAL BLOOD O2 SATURATION 87.6 % (94-98); ARTERIAL BLOOD PCO2 49.6 mmHg (35-45); ARTERIAL BLOOD PH 7.42 (7.35-7.45); ARTERIAL BLOOD PO2 53.2 mmHg (80-100); ARTERIAL BLOOD TOTAL CO2 32.6 mmol/L (21-25)
[2020-02-28 07:13] LABS: ARTERIAL BLOOD FIO2 90%
[2020-02-28] MEDS: ASCORBIC ACID 500 MG TABLET PO SCH ×2 (09:30→17:24)
[2020-02-28] MEDS: METOPROLOL SUCCINATE 50 MG TAB.SR.24H PO SCH (09:30)
[2020-02-28] MEDS: AMLODIPINE BESYLATE 5 MG TABLET PO SCH (09:30)
[2020-02-28] MEDS: POLYETHYLENE GLYCOL 3350 POWDER 17 GM/1 PACKET PO SCH (09:30)
[2020-02-28] MEDS: CALCIUM CARBONATE 500 MG TAB.CHEW PO SCH ×4 (09:30→22:20)
[2020-02-28] MEDS: ENOXAPARIN SODIUM INJ 150 MG/1 ML DISP.SYRIN SUBCUT SCH ×2 (09:31→22:20)
[2020-02-28] MEDS: TAMSULOSIN HCL 0.4 MG CAP.SR.24H PO SCH (09:31)
[2020-02-28] MEDS: GABAPENTIN 300 MG CAPSULE PO SCH ×3 (09:31→17:24)
[2020-02-28] MEDS: ZINC SULFATE 220 MG CAPSULE PO SCH (09:31)
[2020-02-28] MEDS: ISOSORBIDE MONONITRATE 60 MG TAB.ER.24H PO SCH (09:31)
[2020-02-28] MEDS: CHOLECALCIFEROL (D3) 1,000 UNIT (25 MCG) TABLET PO SCH (09:31)
[2020-02-28] MEDS: METHYLPREDNISOLONE INJ 40 MG/1 ML SDV IV SCH ×2 (09:31→22:19)
[2020-02-28] MEDS: ALBUTEROL SULFATE HFA (90 MCG/PUFF) 8 GM MDI IH SCH ×3 (09:32→17:24)
[2020-02-28] MEDS: UMECLIDINIUM BROMIDE 62.5 MCG/DOSE IH SCH (09:32)
[2020-02-28] MEDS: ESCITALOPRAM OXALATE 10 MG TABLET PO SCH (09:32)
[2020-02-28] MEDS: VITAMIN B COMPLEX TABLET PO SCH (09:32)
[2020-02-28] MEDS: MORPHINE SULFATE IR 15 MG TABLET PO PRN ×2 (09:33→22:20)
[2020-02-28] MEDS: IPRATROPIUM/ALBUTEROL 0.5-2.5 MG/3 ML AMPUL NEB PRN (09:49)
--- NOTE | 2020-02-28 19:14 | PDOC PROGRESS REPORT ---
Subjective Date:: 02/28/20 Subjective:: NAEO Reason For Visit: ACUTE ON CHRONIC HYPOXEMIC RESPIRATORY FAILURE Physical Exam Vital Signs: Temp Pulse Resp BP Pulse Ox 98.3 F 77 26 H 134/69 H 87 L 02/28/20 15:16 02/28/20 15:16 02/28/20 16:44 02/28/20 15:16 02/28/20 16:44 Intake & Output 02/27/20 02/28/20 02/29/20 06:59 06:59 06:59 Intake Total 1444 1720 120 Output Total 1000 1100 500 Balance 444 620 -380 Weight 130.3 kg 130.9 kg General appearance: PRESENT: no acute distress, cooperative Eye exam: ABSENT: scleral icterus Mouth exam: PRESENT: dry mucosa Throat exam: ABSENT: post pharyngeal erythema Neck exam: ABSENT: JVD Respiratory exam: PRESENT: rhonchi, tachypnea, wheezes. ABSENT: crackles Cardiovascular exam: PRESENT: RRR GI/Abdominal exam: PRESENT: normal bowel sounds, soft. ABSENT: tenderness Extremities exam: ABSENT: pedal edema Neurological exam: PRESENT: alert, awake, oriented to person, oriented to place, oriented to time, oriented to situation Psychiatric exam: PRESENT: appropriate affect Skin exam: ABSENT: jaundice Results Laboratory Results: 02/28/20 05:32 02/28/20 05:32 02/28/20 02/28/20 02/28/20 05:32 05:32 06:25 WBC 7.9 RBC 3.97 Hgb 11.5 L Hct 35.6 L MCV 90 MCH 29.0 MCHC 32.4 RDW 13.6 Plt Count 154 Carbonic Acid 1.49 H HCO3/H2CO3 Ratio 20:1 ABG pH 7.42 ABG pCO2 49.6 H ABG pO2 53.2 L ABG HCO3 31.1 H ABG O2 Saturation 87.6 L ABG Base Excess 5.5 FiO2 90% Sodium 138.6 Potassium 4.5 Chloride 102 Carbon Dioxide 32 H Anion Gap 5 BUN 38 H Creatinine 0.91 Est GFR ( Amer) > 60 Glucose 223 H Calcium 8.8 Magnesium 1.9 C-Reactive Protein 46.7 H Impressions: Chest X-Ray 02/24/20 15:11 IMPRESSION: Bilateral patchy parenchymal opacities in a peripheral distribution. Differential considerations include a multifocal pneumonia (including atypical infections such as COVID-19) and CHF (in the setting of cardiomegaly). Chest/Abdomen CTA 02/24/20 17:23 IMPRESSION: 1. There is no pulmonary embolus. There is no aortic aneurysm or dissection. 2. Bilateral ground-glass infiltrates consistent with an atypical infectious/ inflammatory process such as COVID-19 pneumonia. 3. 5 cm substernal thyroid mass. Assessment and Plan - Diagnosis (1) Pneumonia due to COVID-19 virus Is this a current diagnosis for this admission?: Yes (2) Acute on chronic respiratory failure with hypoxemia Is this a current diagnosis for this admission?: Yes (3) COPD (chronic obstructive pulmonary disease) Qualifiers: COPD type: emphysema Emphysema type: unspecified Qualified Code(s): J43.9 - Emphysema, unspecified Is this a current diagnosis for this admission?: Yes (4) Chronic combined systolic and diastolic CHF (congestive heart failure) Is this a current diagnosis for this admission?: Yes (5) HLD (hyperlipidemia) Is this a current diagnosis for this admission?: Yes (6) History of ND (myocardial infarction) Is this a current diagnosis for this admission?: Yes (7) HTN (hypertension) Qualifiers: Hypertension type: essential hypertension Qualified Code(s): I10 - Essential (primary) hypertension Is this a current diagnosis for this admission?: Yes - Plan Summary Summary: JEANNIE NAVA is a 74 year old female with past medical history significant for HTN, HLD, CAD/ND status post PCI, chronic combined CHF, COPD on chronic 2 L O2, morbid obesity with BMI 53 who presented to the ED with an 8-day history of progressive shortness of breath/KRAUSE/F/C/productive cough/diarrhea. She was diagnosed with Covid on 02/17/2020. She had been increasing her home oxygen up to 4 L without any significant relief in her dyspnea. Pneumonia due to COVID-19 virus: ABG appears to look worse today on CPAP. Will switch to BIPAP and increase to 18/10 at 100%, then repeat ABG. Discussed with RT and RN. -Covid-19 test: +02/16 -CXR showed: Bilateral infiltrates -CTA chest showed: Bilateral groundglass opacities consistent with viral pneumonia, negative for PE, 5 cm thyroid mass -standard of care vitamin supplements: zinc, ascorbic acid, vitamin d, melatonin -s/p Ivermectin on days 1 and 3 -D-dimer elevated, continue therapeutic Lovenox -maintain magnesium of 2 mg/dL or higher -Current literature does not show clear benefit from the use of remdesivir, plaquenil, convalescent plasma -prn combivent/nebs as able Acute on chronic respiratory failure with hypoxemia Due to Covid pneumonia Chronically on 2 L nasal cannula at home, increased oxygen requirement since rafael COVID-19 Saturation goal is 89 to 92% in the setting of COPD Bronchial hygiene, pulmonary toilet, nebs Severe COPD on 2L Home O2 -Supplemental O2 to maintain sat of 89-92% -duonebs -steroids -bronchial hygiene CAD s/p remote ND Multivessel disease per patient, status post stents Follows with cardiology in [place] but she does not remember her physician continue Statin, BB, nitrate chronic combined systolic and diastolic CHF: No Recent echocardiograms on file here, last one was from 2018 which showed diastolic CHF and normal EF. -due to dehydration and poor oral intake, her Lasix/spironolactone have been held Dehydration -continue IVF at 75 ml/hr while monitoring closely for volume overload -encourage oral intake Hypertension controlled on home regimen GERD -PPI BID -TUMS PRN Code Status: DNR/DNI >30 minutes of CC spent in the care of this patient - Time Time Spent with patient: 35 or more minutes Anticipated Discharge Disposition: Long-Term Facility Anticipated Discharge Timeframe: unknown
[2020-02-28 20:47] LABS: ARTERIAL BLOOD BASE EXCESS 3.7 mmol/L; ARTERIAL BLOOD H2CO3 1.54 mmol/L (1.05-1.35); ARTERIAL BLOOD HCO3 29.8 mmol/L (20-24); ARTERIAL BLOOD O2 SATURATION 87.4 % (94-98); ARTERIAL BLOOD PH 7.38 (7.35-7.45); ARTERIAL BLOOD PO2 54.3 mmHg (80-100); ARTERIAL BLOOD TOTAL CO2 31.3 mmol/L (21-25)
[2020-02-28 20:48] LABS: ARTERIAL BLOOD FIO2 100%
[2020-02-28] MEDS: DOXYCYCLINE HYCLATE 100 MG in DEXTROSE 5%-WATER 250 ML IV SCH (22:19)
[2020-02-28] MEDS: ALPRAZOLAM 0.5 MG TABLET PO PRN (22:49)
[2020-02-29 05:33] LABS: HEMATOCRIT 33.9 % (36.0-47.0); HEMOGLOBIN 11.1 g/dL (12.0-15.5); MEAN CORPUSCULAR HEMOGLOBIN 29.3 pg (27.0-33.4); MEAN CORPUSCULAR HGB CONC 32.8 g/dL (32.0-36.0); MEAN CORPUSCULAR VOLUME 89 fl (80-97); PLATELET COUNT 157 10^3/uL (150-450); RED BLOOD COUNT 3.79 10^6/uL (3.72-5.28); RED CELL DISTRIBUTION WIDTH 13.8 % (11.5-14.0); WHITE BLOOD COUNT 8.8 10^3/uL (4.0-10.5)
[2020-02-29 05:47] LABS: ANION GAP 5 (5-19); BLOOD UREA NITROGEN 49 mg/dL (7-20); CALCIUM 8.6 mg/dL (8.4-10.2); CARBON DIOXIDE 29 mmol/L (22-30); CHLORIDE 104 mmol/L (98-107); GLUCOSE 210 mg/dL (75-110)
[2020-02-29] MEDS: PANTOPRAZOLE SODIUM 40 MG TABLET.DR PO SCH ×2 (06:05→16:57)
[2020-02-29] MEDS: MORPHINE SULFATE IR 15 MG TABLET PO PRN ×4 (06:06→22:30)
[2020-02-29 06:36] LABS: ARTERIAL BLOOD BASE EXCESS 1.9 mmol/L; ARTERIAL BLOOD H2CO3 1.44 mmol/L (1.05-1.35); ARTERIAL BLOOD HCO3 27.6 mmol/L (20-24); ARTERIAL BLOOD O2 SATURATION 85.6 % (94-98); ARTERIAL BLOOD PH 7.38 (7.35-7.45); ARTERIAL BLOOD PO2 51.7 mmHg (80-100); ARTERIAL BLOOD TOTAL CO2 29.1 mmol/L (21-25)
[2020-02-29 06:38] LABS: ARTERIAL BLOOD FIO2 100%
[2020-02-29] MEDS: NORMAL SALINE 1000 ML 1,000 ML IV PRN ×2 (08:05→17:39)
[2020-02-29] MEDS: IPRATROPIUM/ALBUTEROL 0.5-2.5 MG/3 ML AMPUL NEB PRN (08:12)
[2020-02-29] MEDS: METOPROLOL SUCCINATE 50 MG TAB.SR.24H PO SCH (09:55)
[2020-02-29] MEDS: ESCITALOPRAM OXALATE 10 MG TABLET PO SCH (09:55)
[2020-02-29] MEDS: ISOSORBIDE MONONITRATE 60 MG TAB.ER.24H PO SCH (09:55)
[2020-02-29] MEDS: CHOLECALCIFEROL (D3) 1,000 UNIT (25 MCG) TABLET PO SCH (09:55)
[2020-02-29] MEDS: ZINC SULFATE 220 MG CAPSULE PO SCH (09:55)
[2020-02-29] MEDS: ASCORBIC ACID 500 MG TABLET PO SCH ×2 (09:55→19:27)
[2020-02-29] MEDS: AMLODIPINE BESYLATE 5 MG TABLET PO SCH (09:55)
[2020-02-29] MEDS: GABAPENTIN 300 MG CAPSULE PO SCH ×3 (09:55→19:28)
[2020-02-29] MEDS: TAMSULOSIN HCL 0.4 MG CAP.SR.24H PO SCH (09:55)
[2020-02-29] MEDS: CALCIUM CARBONATE 500 MG TAB.CHEW PO SCH ×4 (09:55→22:30)
[2020-02-29] MEDS: METHYLPREDNISOLONE INJ 40 MG/1 ML SDV IV SCH (09:56)
[2020-02-29] MEDS: ENOXAPARIN SODIUM INJ 150 MG/1 ML DISP.SYRIN SUBCUT SCH ×2 (10:01→22:29)
[2020-02-29] MEDS: VITAMIN B COMPLEX TABLET PO SCH (10:02)
[2020-02-29] MEDS: POLYETHYLENE GLYCOL 3350 POWDER 17 GM/1 PACKET PO SCH (10:02)
[2020-02-29] MEDS: ALBUTEROL SULFATE HFA (90 MCG/PUFF) 8 GM MDI IH SCH ×3 (10:02→19:28)
[2020-02-29] MEDS: UMECLIDINIUM BROMIDE 62.5 MCG/DOSE IH SCH (10:03)
[2020-02-29] MEDS ORDERED: PHARMACY COMMUNICATION ORDER MC NR (10:45)
--- NOTE | 2020-02-29 12:39 | PDOC PROGRESS REPORT ---
Subjective Date:: 02/29/20 Subjective:: JEANNIE NAVA is a 74 year old female with past medical history significant for HTN, HLD, CAD/MD status post PCI, chronic combined CHF, COPD on chronic 2 L O2, morbid obesity with BMI 53 who presented to the ED with an 8-day history of progressive shortness of breath/KRAUSE/F/C/productive cough/diarrhea. She was diagnosed with Covid on 02/17/2020. She had been increasing her home oxygen up to 4 L without any significant relief in her dyspnea. 02/29/2020. No acute events overnight. Patient is still dependent on BiPAP with FiO2 of 100%, reporting mild improvement of her symptoms otherwise complaining of generalized weakness and not being able to eat as she is on BiPAP 05/09, denies any fever, chills, nausea, vomiting, diarrhea, constipation or any urinary symptoms. Patient would like to be started on remdesivir and convalescent plasma. Reason For Visit: ACUTE ON CHRONIC HYPOXEMIC RESPIRATORY FAILURE Physical Exam Vital Signs: Temp Pulse Resp BP Pulse Ox 97.8 F 69 31 H 123/51 L 90 L 02/29/20 08:11 02/29/20 08:16 02/29/20 12:36 02/29/20 08:11 02/29/20 08:16 Intake & Output 02/28/20 02/29/20 03/01/20 06:59 06:59 06:59 Intake Total 1720 1595 1000 Output Total 1100 1100 Balance 794 692 6110 Weight 130.9 kg 130 kg General appearance: PRESENT: mild distress, morbidly obese Head exam: PRESENT: atraumatic, normocephalic Respiratory exam: PRESENT: decreased breath sounds, symmetrical, tachypnea. ABSENT: rales, rhonchi, wheezes Cardiovascular exam: PRESENT: RRR. ABSENT: diastolic murmur, rubs, systolic murmur GI/Abdominal exam: PRESENT: normal bowel sounds, soft. ABSENT: distended, guarding, mass, organolmegaly, rebound, tenderness Neurological exam: PRESENT: alert, awake, oriented to person, oriented to place, CN II-XII grossly intact. ABSENT: motor sensory deficit Results Laboratory Results: 02/29/20 04:12 02/29/20 04:12 02/28/20 02/29/20 02/29/20 20:30 04:12 04:12 WBC 8.8 RBC 3.79 Hgb 11.1 L Hct 33.9 L MCV 89 MCH 29.3 MCHC 32.8 RDW 13.8 Plt Count 157 Carbonic Acid 1.54 H HCO3/H2CO3 Ratio 19:1 ABG pH 7.38 ABG pCO2 51.0 H ABG pO2 54.3 L ABG HCO3 29.8 H ABG O2 Saturation 87.4 L ABG Base Excess 3.7 FiO2 100% Sodium 138.3 Potassium 5.0 Chloride 104 Carbon Dioxide 29 Anion Gap 5 BUN 49 H Creatinine 0.89 Est GFR ( Amer) > 60 Glucose 210 H Calcium 8.6 Magnesium 2.0 02/29/20 06:25 WBC RBC Hgb Hct MCV MCH MCHC RDW Plt Count Carbonic Acid 1.44 H HCO3/H2CO3 Ratio 19:1 ABG pH 7.38 ABG pCO2 48.0 H ABG pO2 51.7 L ABG HCO3 27.6 H ABG O2 Saturation 85.6 L ABG Base Excess 1.9 FiO2 100% Sodium Potassium Chloride Carbon Dioxide Anion Gap BUN Creatinine Est GFR ( Amer) Glucose Calcium Magnesium Impressions: Chest X-Ray 02/24/20 15:11 IMPRESSION: Bilateral patchy parenchymal opacities in a peripheral distribution. Differential considerations include a multifocal pneumonia (including atypical infections such as COVID-19) and CHF (in the setting of cardiomegaly). Chest/Abdomen CTA 02/24/20 17:23 IMPRESSION: 1. There is no pulmonary embolus. There is no aortic aneurysm or dissection. 2. Bilateral ground-glass infiltrates consistent with an atypical infectious/ inflammatory process such as COVID-19 pneumonia. 3. 5 cm substernal thyroid mass. Assessment and Plan - Diagnosis (1) Acute on chronic respiratory failure with hypoxemia Is this a current diagnosis for this admission?: Yes Plan: Unchanged compared to yesterday. Still on BiPAP with FiO2 of 100%, saturating in the low 90s. Due to Covid pneumonia Chronically on 2 L nasal cannula at home, increased oxygen requirement since rafael COVID-19 Saturation goal is 89 to 92% in the setting of COPD Bronchial hygiene, pulmonary toilet, nebs (2) Pneumonia due to COVID-19 virus Is this a current diagnosis for this admission?: Yes Plan: Mild worsening of hypoxemia, well compensated. Currently on BIPAP 18/10 at 100%, saturating in the low 90s. CXR showed: Bilateral infiltrates on admission. CTA chest showed: Bilateral groundglass opacities consistent with viral pneumonia, negative for PE, 5 cm thyroid mass Received a course of p.o. ivermectin. Day 5 of IV antibiotics. Day 5 IV doxycycline. Day 1/4 of remdesivir. Maintain magnesium of 2 mg/dL or higher Patient wants to be started on remdesivir and convalescent plasma. Continue zinc, ascorbic acid, vitamin d, melatonin Convalescent plasma ordered. (3) Chronic combined systolic and diastolic CHF (congestive heart failure) Is this a current diagnosis for this admission?: Yes Plan: Well compensated. Does not appear to be volume overloaded. No Recent echocardiograms on file here, last one was from 2018 which showed diastolic CHF and normal EF Continue cardiac diet, strict in and out, continue beta-blockers, KVNG. Monitor volume status. (4) COPD (chronic obstructive pulmonary disease) Qualifiers: COPD type: emphysema Emphysema type: unspecified Qualified Code(s): J43.9 - Emphysema, unspecified Is this a current diagnosis for this admission?: Yes Plan: Does not appear to be acutely exacerbated. Continue supplemental O2 to maintain sat of 89-94%, duonebs, steroids, bronchial hygiene, LAMA, LABA, ICS. Outpatient PCP and pulmonology follow-up. (5) History of MD (myocardial infarction) Is this a current diagnosis for this admission?: Yes Plan: Denies any anginal symptoms. History of multivessel disease per patient, status post stents Continue antiplatelets, beta-blockers. Allergic to statins. Follows with cardiology in [place] but she does not remember her physician (6) HLD (hyperlipidemia) Is this a current diagnosis for this admission?: Yes Plan: Continue statins. (7) HTN (hypertension) Qualifiers: Hypertension type: essential hypertension Qualified Code(s): I10 - Essential (primary) hypertension Is this a current diagnosis for this admission?: Yes Plan: Euvolemic. Normotensive. Continue current meds. Adjust meds as needed. - Plan Summary Summary: JEANNIE NAVA is a 74 year old female with past medical history significant for HTN, HLD, CAD/MD status post PCI, chronic combined CHF, COPD on chronic 2 L O2, morbid obesity with BMI 53 who presented to the ED with an 8-day history of progressive shortness of breath/KRAUSE/F/C/productive cough/diarrhea. She was diagnosed with Covid on 02/17/2020. She had been increasing her home oxygen up to 4 L without any significant relief in her dyspnea. Pneumonia due to COVID-19 virus: ABG appears to look worse today on CPAP. Will switch to BIPAP and increase to 18/10 at 100%, then repeat ABG. Discussed with RT and RN. -Covid-19 test: +02/16 -CXR showed: Bilateral infiltrates -CTA chest showed: Bilateral groundglass opacities consistent with viral pneumonia, negative for PE, 5 cm thyroid mass -standard of care vitamin supplements: zinc, ascorbic acid, vitamin d, melatonin -s/p Ivermectin on days 1 and 3 -D-dimer elevated, continue therapeutic Lovenox -maintain magnesium of 2 mg/dL or higher -Current literature does not show clear benefit from the use of remdesivir, plaquenil, convalescent plasma -prn combivent/nebs as able Acute on chronic respiratory failure with hypoxemia Due to Covid pneumonia Chronically on 2 L nasal cannula at home, increased oxygen requirement since rafael COVID-19 Saturation goal is 89 to 92% in the setting of COPD Bronchial hygiene, pulmonary toilet, nebs Severe COPD on 2L Home O2 -Supplemental O2 to maintain sat of 89-92% -duonebs -steroids -bronchial hygiene CAD s/p remote MD Multivessel disease per patient, status post stents Follows with cardiology in [place] but she does not remember her physician continue Statin, BB, nitrate chronic combined systolic and diastolic CHF: No Recent echocardiograms on file here, last one was from 2018 which showed diastolic CHF and normal EF. -due to dehydration and poor oral intake, her Lasix/spironolactone have been held Dehydration -continue IVF at 75 ml/hr while monitoring closely for volume overload -encourage oral intake Hypertension controlled on home regimen GERD -PPI BID -TUMS PRN Code Status: DNR/DNI >30 minutes of CC spent in the care of this patient - Time Time Spent with patient: 35 or more minutes Medications reviewed and adjusted accordingly: Yes Anticipated Discharge Disposition: Home with Home Health Anticipated Discharge Timeframe: within 48 hours
[2020-02-29] MEDS ORDERED: REMDESIVIR 200 MG in NORMAL SALINE 250 ML IV ONE (13:00)
[2020-02-29] MEDS: DEXAMETHASONE 4 MG TABLET PO SCH (14:30)
[2020-02-29] MEDS: ALPRAZOLAM 0.5 MG TABLET PO PRN (17:00)
[2020-02-29] MEDS: DOXYCYCLINE HYCLATE 100 MG in DEXTROSE 5%-WATER 250 ML IV SCH (22:30)
[2020-03-01] MEDS: PANTOPRAZOLE SODIUM 40 MG TABLET.DR PO SCH ×2 (06:42→17:02)
[2020-03-01] MEDS: MORPHINE SULFATE IR 15 MG TABLET PO PRN ×3 (06:42→18:28)
[2020-03-01 07:13] LABS: HEMATOCRIT 33.1 % (36.0-47.0); HEMOGLOBIN 10.7 g/dL (12.0-15.5); MEAN CORPUSCULAR HEMOGLOBIN 28.8 pg (27.0-33.4); MEAN CORPUSCULAR HGB CONC 32.3 g/dL (32.0-36.0); MEAN CORPUSCULAR VOLUME 89 fl (80-97); PLATELET COUNT 150 10^3/uL (150-450); RED BLOOD COUNT 3.71 10^6/uL (3.72-5.28); RED CELL DISTRIBUTION WIDTH 13.8 % (11.5-14.0)
[2020-03-01 07:43] LABS: BLOOD UREA NITROGEN 53 mg/dL (7-20); CALCIUM 8.6 mg/dL (8.4-10.2); GLUCOSE 204 mg/dL (75-110); POTASSIUM 5.3 mmol/L (3.6-5.0)
[2020-03-01 07:49] LABS: CARBON DIOXIDE 29 mmol/L (22-30); CHLORIDE 106 mmol/L (98-107)
[2020-03-01 07:50] LABS: ANION GAP 3 (5-19)
[2020-03-01] MEDS ORDERED: SODIUM POLYSTYRENE SULFONATE 15 GM/60 ML PO ONE (09:30)
[2020-03-01] MEDS: REMDESIVIR 100 MG in NORMAL SALINE 250 ML IV SCH (10:31)
[2020-03-01] MEDS: AMLODIPINE BESYLATE 5 MG TABLET PO SCH (10:31)
[2020-03-01] MEDS: CALCIUM CARBONATE 500 MG TAB.CHEW PO SCH ×4 (10:32→21:34)
[2020-03-01] MEDS: CHOLECALCIFEROL (D3) 1,000 UNIT (25 MCG) TABLET PO SCH (10:32)
[2020-03-01] MEDS: DEXAMETHASONE 4 MG TABLET PO SCH (10:32)
[2020-03-01] MEDS: ASCORBIC ACID 500 MG TABLET PO SCH ×2 (10:32→17:02)
[2020-03-01] MEDS: TAMSULOSIN HCL 0.4 MG CAP.SR.24H PO SCH (10:33)
[2020-03-01] MEDS: VITAMIN B COMPLEX TABLET PO SCH (10:33)
[2020-03-01] MEDS: GABAPENTIN 300 MG CAPSULE PO SCH ×3 (10:33→17:02)
[2020-03-01] MEDS: ISOSORBIDE MONONITRATE 60 MG TAB.ER.24H PO SCH (10:33)
[2020-03-01] MEDS: ZINC SULFATE 220 MG CAPSULE PO SCH (10:33)
[2020-03-01] MEDS: METOPROLOL SUCCINATE 50 MG TAB.SR.24H PO SCH (10:33)
[2020-03-01] MEDS: ESCITALOPRAM OXALATE 10 MG TABLET PO SCH (10:33)
[2020-03-01] MEDS: UMECLIDINIUM BROMIDE 62.5 MCG/DOSE IH SCH (10:34)
[2020-03-01] MEDS: POLYETHYLENE GLYCOL 3350 POWDER 17 GM/1 PACKET PO SCH (10:35)
[2020-03-01] MEDS: ALBUTEROL SULFATE HFA (90 MCG/PUFF) 8 GM MDI IH SCH ×3 (10:35→17:02)
[2020-03-01] MEDS: ENOXAPARIN SODIUM INJ 150 MG/1 ML DISP.SYRIN SUBCUT SCH ×2 (10:35→21:35)
[2020-03-01] MEDS: IPRATROPIUM/ALBUTEROL 0.5-2.5 MG/3 ML AMPUL NEB PRN (10:37)
--- NOTE | 2020-03-01 12:17 | PDOC PROGRESS REPORT ---
Subjective Date:: 03/01/20 Subjective:: JEANNIE NAVA is a 74 year old female with past medical history significant for HTN, HLD, CAD/VA status post PCI, chronic combined CHF, COPD on chronic 2 L O2, morbid obesity with BMI 53 who presented to the ED with an 8-day history of progressive shortness of breath/KRAUSE/F/C/productive cough/diarrhea. She was diagnosed with Covid on 02/17/2020. She had been increasing her home oxygen up to 4 L without any significant relief in her dyspnea. 02/29/2020. No acute events overnight. Patient is still dependent on BiPAP with FiO2 of 100%, reporting mild improvement of her symptoms otherwise complaining of generalized weakness and not being able to eat as she is on BiPAP 24/7, denies any fever, chills, nausea, vomiting, diarrhea, constipation or any urinary symptoms. Patient would like to be started on remdesivir and convalescent plasma. 03/01/2020. No acute events overnight. Patient reporting mild improvement in her symptoms however does not specify, still feeling very weak and hungry, unfortunate patient has not been able to eat much due to the fact that she is dependent on BiPAP 24/7, I have talked to primary nurse to see if she could be transitioned to Oxymizer or nonrebreather and if she could eat some food if not we will have to start her on TPN. Patient has also mentioned that she would like to go to short-term rehab after discharge she is does not feel like she will be able to take care of herself at home. Reason For Visit: ACUTE ON CHRONIC HYPOXEMIC RESPIRATORY FAILURE Physical Exam Vital Signs: Temp Pulse Resp BP Pulse Ox 97.4 F 66 17 118/50 L 87 L 03/01/20 09:07 03/01/20 09:07 03/01/20 10:37 03/01/20 09:07 03/01/20 10:37 Intake & Output 02/29/20 03/01/20 03/02/20 06:59 06:59 06:59 Intake Total 1595 3362 Output Total 1100 1250 Balance 495 2112 Weight 130 kg 128.5 kg General appearance: PRESENT: mild distress, morbidly obese, well-developed, well-nourished, other - on bipap Respiratory exam: PRESENT: decreased breath sounds, tachypnea. ABSENT: rales, rhonchi, wheezes Cardiovascular exam: PRESENT: RRR. ABSENT: diastolic murmur, rubs, systolic murmur GI/Abdominal exam: PRESENT: normal bowel sounds, soft. ABSENT: distended, guarding, mass, organolmegaly, rebound, tenderness Neurological exam: PRESENT: alert, awake, oriented to person, oriented to place, CN II-XII grossly intact. ABSENT: motor sensory deficit Results Laboratory Results: 03/01/20 06:24 03/01/20 06:24 02/29/20 03/01/20 03/01/20 14:15 06:24 06:24 WBC 9.0 RBC 3.71 L Hgb 10.7 L Hct 33.1 L MCV 89 MCH 28.8 MCHC 32.3 RDW 13.8 Plt Count 150 Sodium 137.5 Potassium 5.3 H Chloride 106 Carbon Dioxide 29 Anion Gap 3 L BUN 53 H Creatinine 0.96 Est GFR ( Amer) > 60 Glucose 204 H Calcium 8.6 Magnesium 2.0 Blood Type O POSITIVE Impressions: Chest X-Ray 02/24/20 15:11 IMPRESSION: Bilateral patchy parenchymal opacities in a peripheral distribution. Differential considerations include a multifocal pneumonia (including atypical infections such as COVID-19) and CHF (in the setting of cardiomegaly). Chest/Abdomen CTA 02/24/20 17:23 IMPRESSION: 1. There is no pulmonary embolus. There is no aortic aneurysm or dissection. 2. Bilateral ground-glass infiltrates consistent with an atypical infectious/ inflammatory process such as COVID-19 pneumonia. 3. 5 cm substernal thyroid mass. Assessment and Plan - Diagnosis (1) Pneumonia due to COVID-19 virus Is this a current diagnosis for this admission?: Yes Plan: Mild worsening of hypoxemia, well compensated. Currently on BIPAP 18/10 at 100%, saturating in the low 90s. CXR showed: Bilateral infiltrates on admission. CTA chest showed: Bilateral groundglass opacities consistent with viral pneumoni a, negative for PE, 5 cm thyroid mass Received a course of p.o. ivermectin. Day 6 of IV antibiotics. Day 6 IV doxycycline. Day 1/4 of remdesivir. Status post convalescent plasma transfusion. Maintain magnesium of 2 mg/dL or higher Patient wants to be started on remdesivir and convalescent plasma. Continue zinc, ascorbic acid, vitamin d, melatonin Convalescent plasma ordered. (2) Acute on chronic respiratory failure with hypoxemia Is this a current diagnosis for this admission?: Yes Plan: Unchanged compared to yesterday. Still on BiPAP with FiO2 of 100%, saturating in the low 90s. Due to Covid pneumonia Chronically on 2 L nasal cannula at home, increased oxygen requirement since rafael COVID-19 Saturation goal is 89 to 92% in the setting of COPD Plan as per #1. (3) Chronic combined systolic and diastolic CHF (congestive heart failure) Is this a current diagnosis for this admission?: Yes Plan: Well compensated. Does not appear to be volume overloaded. No Recent echocardiograms on file here, last one was from 2018 which showed santiago stolic CHF and normal EF Continue cardiac diet, strict in and out, continue beta-blockers, KVNG. Monitor volume status. (4) COPD (chronic obstructive pulmonary disease) Qualifiers: COPD type: emphysema Emphysema type: unspecified Qualified Code(s): J43.9 - Emphysema, unspecified Is this a current diagnosis for this admission?: Yes Plan: Does not appear to be acutely exacerbated. Continue supplemental O2 to maintain sat of 89-94%, duonebs, steroids, bronchial hygiene, LAMA, LABA, ICS. Outpatient PCP and pulmonology follow-up. (5) History of VA (myocardial infarction) Is this a current diagnosis for this admission?: Yes Plan: Denies any anginal symptoms. History of multivessel disease per patient, status post stents Continue antiplatelets, beta-blockers. Allergic to statins. Follows with cardiology in [place] but she does not remember her physician (6) HLD (hyperlipidemia) Is this a current diagnosis for this admission?: Yes Plan: Continue statins. (7) HTN (hypertension) Qualifiers: Hypertension type: essential hypertension Qualified Code(s): I10 - Essential (primary) hypertension Is this a current diagnosis for this admission?: Yes Plan: Euvolemic. Normotensive. Continue current meds. Adjust meds as needed. - Plan Summary Summary: JEANNIE NAVA is a 74 year old female with past medical history significant for HTN, HLD, CAD/VA status post PCI, chronic combined CHF, COPD on chronic 2 L O2, morbid obesity with BMI 53 who presented to the ED with an 8-day history of progressive shortness of breath/KRAUSE/F/C/productive cough/diarrhea. She was diagnosed with Covid on 02/17/2020. She had been increasing her home oxygen up to 4 L without any significant relief in her dyspnea. Pneumonia due to COVID-19 virus: ABG appears to look worse today on CPAP. Will switch to BIPAP and increase to 18/10 at 100%, then repeat ABG. Discussed with RT and RN. -Covid-19 test: +02/16 -CXR showed: Bilateral infiltrates -CTA chest showed: Bilateral groundglass opacities consistent with viral pneumonia, negative for PE, 5 cm thyroid mass -standard of care vitamin supplements: zinc, ascorbic acid, vitamin d, melatonin -s/p Ivermectin on days 1 and 3 -D-dimer elevated, continue therapeutic Lovenox -maintain magnesium of 2 mg/dL or higher -Current literature does not show clear benefit from the use of remdesivir, plaquenil, convalescent plasma -prn combivent/nebs as able Acute on chronic respiratory failure with hypoxemia Due to Covid pneumonia Chronically on 2 L nasal cannula at home, increased oxygen requirement since rafael COVID-19 Saturation goal is 89 to 92% in the setting of COPD Bronchial hygiene, pulmonary toilet, nebs Severe COPD on 2L Home O2 -Supplemental O2 to maintain sat of 89-92% -duonebs -steroids -bronchial hygiene CAD s/p remote VA Multivessel disease per patient, status post stents Follows with cardiology in [place] but she does not remember her physician continue Statin, BB, nitrate chronic combined systolic and diastolic CHF: No Recent echocardiograms on file here, last one was from 2018 which showed diastolic CHF and normal EF. -due to dehydration and poor oral intake, her Lasix/spironolactone have been held Dehydration -continue IVF at 75 ml/hr while monitoring closely for volume overload -encourage oral intake Hypertension controlled on home regimen GERD -PPI BID -TUMS PRN Code Status: DNR/DNI >30 minutes of CC spent in the care of this patient - Time Time Spent with patient: 35 or more minutes Anticipated Discharge Disposition: Custodial Facility Anticipated Discharge Timeframe: within 72 hours
[2020-03-01] MEDS ORDERED: FUROSEMIDE INJ/PF 40 MG/4 ML SDV IV ONE (17:00)
[2020-03-01] MEDS: DOXYCYCLINE HYCLATE 100 MG in DEXTROSE 5%-WATER 250 ML IV SCH (21:34)
[2020-03-01] MEDS: ALPRAZOLAM 0.5 MG TABLET PO PRN (21:36)
[2020-03-02] MEDS: PANTOPRAZOLE SODIUM 40 MG TABLET.DR PO SCH ×2 (05:40→17:27)
[2020-03-02 06:39] LABS: HEMATOCRIT 33.5 % (36.0-47.0); MEAN CORPUSCULAR HEMOGLOBIN 29.2 pg (27.0-33.4); MEAN CORPUSCULAR HGB CONC 32.9 g/dL (32.0-36.0); MEAN CORPUSCULAR VOLUME 89 fl (80-97); PLATELET COUNT 159 10^3/uL (150-450); RED BLOOD COUNT 3.78 10^6/uL (3.72-5.28); RED CELL DISTRIBUTION WIDTH 13.6 % (11.5-14.0); WHITE BLOOD COUNT 12.1 10^3/uL (4.0-10.5)
[2020-03-02 06:44] LABS: ARTERIAL BLOOD BASE EXCESS 4.6 mmol/L; ARTERIAL BLOOD H2CO3 1.55 mmol/L (1.05-1.35); ARTERIAL BLOOD HCO3 30.6 mmol/L (20-24); ARTERIAL BLOOD O2 SATURATION 77.2 % (94-98); ARTERIAL BLOOD PCO2 51.4 mmHg (35-45); ARTERIAL BLOOD PH 7.39 (7.35-7.45); ARTERIAL BLOOD PO2 42.6 mmHg (80-100); ARTERIAL BLOOD TOTAL CO2 32.1 mmol/L (21-25)
[2020-03-02 06:45] LABS: ARTERIAL BLOOD FIO2 100%
[2020-03-02 07:07] LABS: BLOOD UREA NITROGEN 55 mg/dL (7-20); CALCIUM 8.6 mg/dL (8.4-10.2); CHLORIDE 101 mmol/L (98-107); GLUCOSE 199 mg/dL (75-110); POTASSIUM 5.1 mmol/L (3.6-5.0)
[2020-03-02 07:14] LABS: CARBON DIOXIDE 32 mmol/L (22-30)
[2020-03-02 07:20] LABS: ANION GAP 3 (5-19)
[2020-03-02] MEDS ORDERED: FUROSEMIDE INJ/PF 40 MG/4 ML SDV ONE (07:51)
[2020-03-02] MEDS ORDERED: FUROSEMIDE INJ/PF 40 MG/4 ML SDV IV ONE (08:32)
[2020-03-02] MEDS ORDERED: CEFTRIAXONE 1 GM/D5W RTU 1 GM/50 ML RTUPB IV SCH (10:00)
--- NOTE | 2020-03-02 11:26 | PDOC PROGRESS REPORT ---
Subjective Date:: 03/02/20 Subjective:: JEANNIE NAVA is a 74 year old female with past medical history significant for HTN, HLD, CAD/RI status post PCI, chronic combined CHF, COPD on chronic 2 L O2, morbid obesity with BMI 53 who presented to the ED with an 8-day history of progressive shortness of breath/KRAUSE/F/C/productive cough/diarrhea. She was diagnosed with Covid on 02/17/2020. She had been increasing her home oxygen up to 4 L without any significant relief in her dyspnea. 02/29/2020. No acute events overnight. Patient is still dependent on BiPAP with FiO2 of 100%, reporting mild improvement of her symptoms otherwise complaining of generalized weakness and not being able to eat as she is on BiPAP 24/7, denies any fever, chills, nausea, vomiting, diarrhea, constipation or any urinary symptoms. Patient would like to be started on remdesivir and convalescent plasma. 03/01/2020. No acute events overnight. Patient reporting mild improvement in her symptoms however does not specify, still feeling very weak and hungry, unfortunate patient has not been able to eat much due to the fact that she is dependent on BiPAP 24/7, I have talked to primary nurse to see if she could be transitioned to Oxymizer or nonrebreather and if she could eat some food if not we will have to start her on TPN. Patient has also mentioned that she would like to go to short-term rehab after discharge she is does not feel like she will be able to take care of herself at home. 03/02/2020. No acute events overnight. Patient still remains hypoxic and BiPAP dependent on 100% oxygen, patient stated that overall she feels the same compared to yesterday except for worsening weakness, I was contacted by primary nurse that patient had mentioned that she wanted to change her CODE STATUS to to APARTMENT LOCATOR, which I believe was a misunderstanding on patient's part, when I went to see her she seems like she wants to continue current treatment but does not want to be intubated or resuscitated, she says she just wants to have a chance to talk to her family and that is why she thought changing her CODE STATUS would facilitate that, I believe patient does not clearly understand what changing APARTMENT LOCATOR means but when I explained it to her she clearly wants to continue current treatment and she wants to reamin DNR/DNI. I encouraged her to contact her family over the phone or FaceTime and check with hospital if she can have visito rs over. Patient still complaining of being hungry however she was able to eat some yesterday, she wants to continue eating whenever possible and when she is able to tolerate being off of BiPAP, she wants to hold TPN at this point. Reason For Visit: ACUTE ON CHRONIC HYPOXEMIC RESPIRATORY FAILURE Physical Exam Vital Signs: Temp Pulse Resp BP Pulse Ox 97.9 F 73 25 H 151/82 H 80 L 03/02/20 08:29 03/02/20 08:29 03/02/20 08:29 03/02/20 08:29 03/02/20 08:29 Intake & Output 03/01/20 03/02/20 03/03/20 06:59 06:59 06:59 Intake Total 3362 2297 Output Total 1250 3700 Balance 2112 -1403 Weight 128.5 kg 128.5 kg General appearance: PRESENT: mild distress, well-nourished - On BiPAP, other Head exam: PRESENT: atraumatic, normocephalic Neck exam: ABSENT: carotid bruit, JVD, lymphadenopathy, thyromegaly Respiratory exam: PRESENT: decreased breath sounds. ABSENT: rales, rhonchi, wheezes Cardiovascular exam: PRESENT: RRR. ABSENT: diastolic murmur, rubs, systolic murmur GI/Abdominal exam: PRESENT: normal bowel sounds, soft. ABSENT: distended, guarding, mass, organolmegaly, rebound, tenderness Neurological exam: PRESENT: alert, awake, oriented to person, oriented to place, oriented to time, oriented to situation, CN II-XII grossly intact. ABSENT: motor sensory deficit Results Laboratory Results: 03/02/20 05:29 03/02/20 05:29 03/02/20 03/02/20 03/02/20 05: 05: 06:20 WBC 12.1 H RBC 3.78 Hgb 11.0 L Hct 33.5 L MCV 89 MCH 29.2 MCHC 32.9 RDW 13.6 Plt Count 159 Carbonic Acid 1.55 H HCO3/H2CO3 Ratio 19:1 ABG pH 7.39 ABG pCO2 51.4 H ABG pO2 42.6 L ABG HCO3 30.6 H ABG O2 Saturation 77.2 L ABG Base Excess 4.6 FiO2 100% Sodium 136.0 L Potassium 5.1 H Chloride 101 Carbon Dioxide 32 H Anion Gap 3 L BUN 55 H Creatinine 0.96 Est GFR ( Amer) > 60 Glucose 199 H Calcium 8.6 Impressions: Chest X-Ray 02/24/20 15:11 IMPRESSION: Bilateral patchy parenchymal opacities in a peripheral distribution. Differential considerations include a multifocal pneumonia (including atypical infections such as COVID-19) and CHF (in the setting of cardiomegaly). Chest/Abdomen CTA 02/24/20 17:23 IMPRESSION: 1. There is no pulmonary embolus. There is no aortic aneurysm or dissection. 2. Bilateral ground-glass infiltrates consistent with an atypical infectious/ inflammatory process such as COVID-19 pneumonia. 3. 5 cm substernal thyroid mass. Assessment and Plan - Diagnosis (1) Pneumonia due to COVID-19 virus Is this a current diagnosis for this admission?: Yes Plan: Mild worsening of hypoxemia however patient is still alert and oriented and does not seem to be in moderate distress. Currently BIPAP 18/10 at 100%, saturating in the 80s CXR showed: Bilateral infiltrates on admission. CTA chest showed: Bilateral groundglass opacities consistent with viral pneumonia, negative for PE, 5 cm thyroid mass Received a course of p.o. ivermectin. Day 7 of IV antibiotics. Day 1 IV ceftriaxone. Day 2/4 of remdesivir. Received 6 days of IV doxycycline. Status post convalescent plasma transfusion. Maintain magnesium of 2 mg/dL or higher Patient wants to be started on remdesivir and convalescent plasma. Continue zinc, ascorbic acid, vitamin d, melatonin (2) Acute on chronic respiratory failure with hypoxemia Is this a current diagnosis for this admission?: Yes Plan: Unchanged compared to yesterday. Still on BiPAP with FiO2 of 100%, saturating in the low 90s. Due to Covid pneumonia Chronically on 2 L nasal cannula at home, increased oxygen requirement since rafael COVID-19 Saturation goal is 89 to 92% in the setting of COPD Plan as per #1. (3) Chronic combined systolic and diastolic CHF (congestive heart failure) Is this a current diagnosis for this admission?: Yes Plan: Well compensated. Does not appear to be volume overloaded. No Recent echocardiograms on file here, last one was from 2018 which showed diastolic CHF and normal EF Continue cardiac diet, strict in and out, continue beta-blockers, KVNG. Monitor volume status. (4) COPD (chronic obstructive pulmonary disease) Qualifiers: COPD type: emphysema Emphysema type: unspecified Qualified Code(s): J43.9 - Emphysema, unspecified Is this a current diagnosis for this admission?: Yes Plan: Does not appear to be acutely exacerbated. Continue supplemental O2 to maintain sat of 89-94%, duonebs, steroids, bronchial hygiene, LAMA, LABA, ICS. Outpatient PCP and pulmonology follow-up. (5) History of RI (myocardial infarction) Is this a current diagnosis for this admission?: Yes Plan: Denies any anginal symptoms. History of multivessel disease per patient, status post stents Continue antiplatelets, beta-blockers. Allergic to statins. Follows with cardiology in [place] but she does not remember her physician (6) HLD (hyperlipidemia) Is this a current diagnosis for this admission?: Yes Plan: Continue statins. (7) HTN (hypertension) Qualifiers: Hypertension type: essential hypertension Qualified Code(s): I10 - Es sential (primary) hypertension Is this a current diagnosis for this admission?: Yes Plan: Euvolemic. Normotensive. Continue current meds. Adjust meds as needed. - Plan Summary Summary: JEANNIE NAVA is a 74 year old female with past medical history significant for HTN, HLD, CAD/RI status post PCI, chronic combined CHF, COPD on chronic 2 L O2, morbid obesity with BMI 53 who presented to the ED with an 8-day history of progressive shortness of breath/KRAUSE/F/C/productive cough/diarrhea. She was diagnosed with Covid on 02/17/2020. She had been increasing her home oxygen up to 4 L without any significant relief in her dyspnea. Pneumonia due to COVID-19 virus: ABG appears to look worse today on CPAP. Will switch to BIPAP and increase to 18/10 at 100%, then repeat ABG. Discussed with RT and RN. -Covid-19 test: +02/16 -CXR showed: Bilateral infiltrates -CTA chest showed: Bilateral groundglass opacities consistent with viral pneumonia, negative for PE, 5 cm thyroid mass -standard of care vitamin supplements: zinc, ascorbic acid, vitamin d, melatonin -s/p Ivermectin on days 1 and 3 -D-dimer elevated, continue therapeutic Lovenox -maintain magnesium of 2 mg/dL or higher -Current literature does not show clear benefit from the use of remdesivir, plaquenil, convalescent plasma -prn combivent/nebs as able Acute on chronic respiratory failure with hypoxemia Due to Covid pneumonia Chronically on 2 L nasal cannula at home, increased oxygen requirement since rafael COVID-19 Saturation goal is 89 to 92% in the setting of COPD Bronchial hygiene, pulmonary toilet, nebs Severe COPD on 2L Home O2 -Supplemental O2 to maintain sat of 89-92% -duonebs -steroids -bronchial hygiene CAD s/p remote RI Multivessel disease per patient, status post stents Follows with cardiology in [place] but she does not remember her physician continue Statin, BB, nitrate chronic combined systolic and diastolic CHF: No Recent echocardiograms on file here, last one was from 2018 which showed diastolic CHF and normal EF. -due to dehydration and poor oral intake, her Lasix/spironolactone have been held Dehydration -continue IVF at 75 ml/hr while monitoring closely for volume overload -encourage oral intake Hypertension controlled on home regimen GERD -PPI BID -TUMS PRN Code Status: DNR/DNI >30 minutes of CC spent in the care of this patient - Time Time Spent with patient: 35 or more minutes Anticipated Discharge Disposition: [facility] Anticipated Discharge Timeframe: within 72 hours
[2020-03-02] MEDS: AMLODIPINE BESYLATE 5 MG TABLET PO SCH (11:56)
[2020-03-02] MEDS: CEFTRIAXONE SODIUM 1,000 MG in DEXTROSE 5%-WATER 50 ML IV SCH (11:56)
[2020-03-02] MEDS: ENOXAPARIN SODIUM INJ 150 MG/1 ML DISP.SYRIN SUBCUT SCH ×2 (11:57→22:44)
[2020-03-02] MEDS: POLYETHYLENE GLYCOL 3350 POWDER 17 GM/1 PACKET PO SCH (11:57)
[2020-03-02] MEDS: GABAPENTIN 300 MG CAPSULE PO SCH ×3 (11:57→17:26)
[2020-03-02] MEDS: CALCIUM CARBONATE 500 MG TAB.CHEW PO SCH ×5 (11:58→22:45)
[2020-03-02] MEDS: TAMSULOSIN HCL 0.4 MG CAP.SR.24H PO SCH (11:58)
[2020-03-02] MEDS: ISOSORBIDE MONONITRATE 60 MG TAB.ER.24H PO SCH (11:58)
[2020-03-02] MEDS: CHOLECALCIFEROL (D3) 1,000 UNIT (25 MCG) TABLET PO SCH (11:59)
[2020-03-02] MEDS: METOPROLOL SUCCINATE 50 MG TAB.SR.24H PO SCH (11:59)
[2020-03-02] MEDS: VITAMIN B COMPLEX TABLET PO SCH (11:59)
[2020-03-02] MEDS: ASCORBIC ACID 500 MG TABLET PO SCH ×2 (11:59→17:27)
[2020-03-02] MEDS: ESCITALOPRAM OXALATE 10 MG TABLET PO SCH (11:59)
[2020-03-02] MEDS: ALBUTEROL SULFATE HFA (90 MCG/PUFF) 8 GM MDI IH SCH ×3 (12:00→17:27)
[2020-03-02] MEDS: UMECLIDINIUM BROMIDE 62.5 MCG/DOSE IH SCH (12:00)
[2020-03-02] MEDS: ZINC SULFATE 220 MG CAPSULE PO SCH (12:00)
[2020-03-02] MEDS: REMDESIVIR 100 MG in NORMAL SALINE 250 ML IV SCH (14:00)
[2020-03-02] MEDS: METHYLPREDNISOLONE INJ 125 MG/2 ML SDV IV SCH (22:45)
[2020-03-03] MEDS: PANTOPRAZOLE SODIUM 40 MG TABLET.DR PO SCH ×2 (05:38→16:27)
[2020-03-03 06:23] LABS: HEMATOCRIT 35.3 % (36.0-47.0); HEMOGLOBIN 11.5 g/dL (12.0-15.5); MEAN CORPUSCULAR HEMOGLOBIN 28.9 pg (27.0-33.4); MEAN CORPUSCULAR HGB CONC 32.7 g/dL (32.0-36.0); MEAN CORPUSCULAR VOLUME 89 fl (80-97); PLATELET COUNT 162 10^3/uL (150-450); RED BLOOD COUNT 3.98 10^6/uL (3.72-5.28); RED CELL DISTRIBUTION WIDTH 13.5 % (11.5-14.0); WHITE BLOOD COUNT 10.1 10^3/uL (4.0-10.5)
[2020-03-03 07:07] LABS: ANION GAP 5 (5-19); BLOOD UREA NITROGEN 62 mg/dL (7-20); C-REACTIVE PROTEIN 65.4 mg/L (<10.0); CALCIUM 8.6 mg/dL (8.4-10.2); GLUCOSE 271 mg/dL (75-110)
[2020-03-03 07:10] LABS: CARBON DIOXIDE 34 mmol/L (22-30); CHLORIDE 99 mmol/L (98-107)
[2020-03-03] MEDS: DEXAMETHASONE 4 MG TABLET PO SCH (07:41)
[2020-03-03] MEDS: CALCIUM CARBONATE 500 MG TAB.CHEW PO SCH ×4 (08:23→21:21)
[2020-03-03] MEDS: ISOSORBIDE MONONITRATE 60 MG TAB.ER.24H PO SCH (08:33)
[2020-03-03] MEDS: REMDESIVIR 100 MG in NORMAL SALINE 250 ML IV SCH (09:51)
[2020-03-03] MEDS: METHYLPREDNISOLONE INJ 125 MG/2 ML SDV IV SCH ×2 (09:52→22:06)
[2020-03-03] MEDS: AMLODIPINE BESYLATE 5 MG TABLET PO SCH (09:52)
[2020-03-03] MEDS: TAMSULOSIN HCL 0.4 MG CAP.SR.24H PO SCH (09:52)
[2020-03-03] MEDS: GABAPENTIN 300 MG CAPSULE PO SCH ×3 (09:52→18:00)
[2020-03-03] MEDS: VITAMIN B COMPLEX TABLET PO SCH (09:52)
[2020-03-03] MEDS: LORAZEPAM INJ 2 MG/1 ML VIAL IV PRN ×2 (09:52→22:07)
[2020-03-03] MEDS: ESCITALOPRAM OXALATE 10 MG TABLET PO SCH (09:52)
[2020-03-03] MEDS: ENOXAPARIN SODIUM INJ 150 MG/1 ML DISP.SYRIN SUBCUT SCH ×2 (09:52→22:07)
[2020-03-03] MEDS: METOPROLOL SUCCINATE 50 MG TAB.SR.24H PO SCH (09:52)
[2020-03-03] MEDS: ASCORBIC ACID 500 MG TABLET PO SCH ×2 (09:52→18:00)
[2020-03-03] MEDS: CHOLECALCIFEROL (D3) 1,000 UNIT (25 MCG) TABLET PO SCH (09:52)
[2020-03-03] MEDS: ZINC SULFATE 220 MG CAPSULE PO SCH (09:52)
[2020-03-03] MEDS: POLYETHYLENE GLYCOL 3350 POWDER 17 GM/1 PACKET PO SCH (09:53)
[2020-03-03] MEDS: UMECLIDINIUM BROMIDE 62.5 MCG/DOSE IH SCH (09:53)
--- NOTE | 2020-03-03 10:30 | PDOC PROGRESS REPORT ---
Subjective Date:: 03/03/20 Subjective:: JEANNIE FIGUEREDO is a 74 year old female with past medical history significant for HTN, HLD, CAD/GA status post PCI, chronic combined CHF, COPD on chronic 2 L O2, morbid obesity with BMI 53 who presented to the ED with an 8-day history of progressive shortness of breath/KRAUSE/F/C/productive cough/diarrhea. She was diagnosed with Covid on 02/17/2020. She had been increasing her home oxygen up to 4 L without any significant relief in her dyspnea. 02/29/2020. No acute events overnight. Patient is still dependent on BiPAP with FiO2 of 100%, reporting mild improvement of her symptoms otherwise complaining of generalized weakness and not being able to eat as she is on BiPAP 24/7, denies any fever, chills, nausea, vomiting, diarrhea, constipation or any urinary symptoms. Patient would like to be started on remdesivir and convalescent plasma. 03/01/2020. No acute events overnight. Patient reporting mild improvement in her symptoms however does not specify, still feeling very weak and hungry, unfortunate patient has not been able to eat much due to the fact that she is dependent on BiPAP 24/7, I have talked to primary nurse to see if she could be transitioned to Oxymizer or nonrebreather and if she could eat some food if not we will have to start her on TPN. Patient has also mentioned that she would like to go to short-term rehab after discharge she is does not feel like she will be able to take care of herself at home. 03/02/2020. No acute events overnight. 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 I encouraged her to contact her family over the phone or FaceTime and check with hospital if she can have visito rs over. Patient still complaining of being hungry however she was able to eat some yesterday, she wants to continue eating whenever possible and when she is able to tolerate being off of BiPAP, she wants to hold TPN at this point. 03/03/2020. Unfortunately patient oxygen demand has not decreased, still on BiPAP requiring 100% oxygen, saturating in the low 80s, patient is still awake alert and oriented however starting to get more anxious at stating that she is not getting enough air, patient has been able to eat some intermittently when she is given her oral medication and when she is able to tolerate being of off BiPAP for short intervals, still does not want to be started on TPN, I have contacted her grandson Mr. Figueredo and I have updated them about her prognosis. They still want her to be DNR/DNI otherwise they want to continue the current treatment. Reason For Visit: ACUTE ON CHRONIC HYPOXEMIC RESPIRATORY FAILURE Physical Exam Vital Signs: Temp Pulse Resp BP Pulse Ox 98.5 F 73 22 H 129/70 H 82 L 03/03/20 08:17 03/03/20 08:17 03/03/20 08:17 03/03/20 08:17 03/03/20 08:17 Intake & Output 03/02/20 03/03/20 03/04/20 06:59 06:59 06:59 Intake Total 2297 310 Output Total 3700 2350 Balance -1403 -2040 Weight 128.5 kg 129.6 kg General appearance: PRESENT: no acute distress, obese, severe distress, well- developed, well-nourished Head exam: PRESENT: atraumatic, normocephalic Neck exam: ABSENT: carotid bruit, JVD, lymphadenopathy, thyromegaly Respiratory exam: PRESENT: accessory muscle use, decreased breath sounds, symmetrical, tachypnea. ABSENT: rales, rhonchi, wheezes Cardiovascular exam: PRESENT: RRR. ABSENT: diastolic murmur, rubs, systolic murmur GI/Abdominal exam: PRESENT: normal bowel sounds, soft. ABSENT: distended, guarding, mass, organolmegaly, rebound, tenderness Neurological exam: PRESENT: alert, awake, oriented to person, oriented to place, CN II-XII grossly intact. ABSENT: motor sensory deficit Psychiatric exam: PRESENT: anxious Results Laboratory Results: 03/03/20 05:12 03/03/20 05:12 03/03/20 03/03/20 05:12 05:12 WBC 10.1 RBC 3.98 Hgb 11.5 L Hct 35.3 L MCV 89 MCH 28.9 MCHC 32.7 RDW 13.5 Plt Count 162 Sodium 137.6 Potassium 5.0 Chloride 99 Carbon Dioxide 34 H Anion Gap 5 BUN 62 H Creatinine 1.08 Est GFR ( Amer) > 60 Glucose 271 H Calcium 8.6 Ferritin 169.00 C-Reactive Protein 65.4 H Impressions: Chest X-Ray 02/24/20 15:11 IMPRESSION: Bilateral patchy parenchymal opacities in a peripheral distribution. Differential considerations include a multifocal pneumonia (including atypical infections such as COVID-19) and CHF (in the setting of cardiomegaly). Chest/Abdomen CTA 02/24/20 17:23 IMPRESSION: 1. There is no pulmonary embolus. There is no aortic aneurysm or dissection. 2. Bilateral ground-glass infiltrates consistent with an atypical infectious/ inflammatory process such as COVID-19 pneumonia. 3. 5 cm substernal thyroid mass. Assessment and Plan - Diagnosis (1) Pneumonia due to COVID-19 virus Is this a current diagnosis for this admission?: Yes Plan: Mild worsening of hypoxemia however patient is still alert and oriented but seems to be getting tired. Currently BIPAP 18/10 at 100%, saturating in the 80s CXR showed: Bilateral infiltrates on admission. CTA chest showed: Bilateral groundglass opacities consistent with viral pneumonia, negative for PE, 5 cm thyroid mass Received a course of p.o. ivermectin. Day 8 of IV antibiotics. Day 2 IV ceftriaxone. Day 3/4 of remdesivir. Received 6 days of IV doxycycline. Status post convalescent plasma transfusion. Maintain magnesium of 2 mg/dL or higher Patient wants to be started on remdesivir and convalescent plasma. Continue zinc, ascorbic acid, vitamin d, melatonin (2) Acute on chronic respiratory failure with hypoxemia Is this a current diagnosis for this admission?: Yes Plan: Unchanged compared to yesterday. Still on BiPAP with FiO2 of 100%, saturating in the low 90s. Due to Covid pneumonia Chronically on 2 L nasal cannula at home, increased oxygen requirement since rafael COVID-19 Saturation goal is 89 to 92% in the setting of COPD Plan as per #1. (3) Chronic combined systolic and diastolic CHF (congestive heart failure) Is this a current diagnosis for this admission?: Yes Plan: Well compensated. Does not appear to be volume overloaded. No Recent echocardiograms on file here, last one was from 2018 which showed diastolic CHF and normal EF Continue cardiac diet, strict in and out, continue beta-blockers, KVNG. Monitor volume status. (4) COPD (chronic obstructive pulmonary disease) Qualifiers: COPD type: emphysema Emphysema type: unspecified Qualified Code(s): J43.9 - Emphysema, unspecified Is this a current diagnosis for this admission?: Yes Plan: Does not appear to be acutely exacerbated. Continue supplemental O2 to maintain sat of 89-94%, duonebs, steroids, bronchial hygiene, LAMA, LABA, ICS. Outpatient PCP and pulmonology follow-up. (5) History of GA (myocardial infarction) Is this a current diagnosis for this admission?: Yes Plan: Denies any anginal symptoms. History of multivessel disease per patient, status post stents Continue antiplatelets, beta-blockers. Allergic to statins. Follows with cardiology in [place] but she does not remember her physician (6) HLD (hyperlipidemia) Is this a current diagnosis for this admission?: Yes Plan: Continue statins. (7) HTN (hypertension) Qualifiers: Hypertension type: essential hypertension Qualified Code(s): I10 - Essential (primary) hypertension Is this a current diagnosis for this admission?: Yes Plan: Euvolemic. Normotensive. Continue current meds. Adjust meds as needed. - Plan Summary Summary: JEANNIE FIGUEREDO is a 74 year old female with past medical history significant for HTN, HLD, CAD/GA status post PCI, chronic combined CHF, COPD on chronic 2 L O2, morbid obesity with BMI 53 who presented to the ED with an 8-day history of progressive shortness of breath/KRAUSE/F/C/productive cough/diarrhea. She was diagnosed with Covid on 02/17/2020. She had been increasing her home oxygen up to 4 L without any significant relief in her dyspnea. Pneumonia due to COVID-19 virus: ABG appears to look worse today on CPAP. Will switch to BIPAP and increase to 18/10 at 100%, then repeat ABG. Discussed with RT and RN. -Covid-19 test: +02/16 -CXR showed: Bilateral infiltrates -CTA chest showed: Bilateral groundglass opacities consistent with viral pneumonia, negative for PE, 5 cm thyroid mass -standard of care vitamin supplements: zinc, ascorbic acid, vitamin d, melatonin -s/p Ivermectin on days 1 and 3 -D-dimer elevated, continue therapeutic Lovenox -maintain magnesium of 2 mg/dL or higher -Current literature does not show clear benefit from the use of remdesivir, plaquenil, convalescent plasma -prn combivent/nebs as able Acute on chronic respiratory failure with hypoxemia Due to Covid pneumonia Chronically on 2 L nasal cannula at home, increased oxygen requirement since rafael COVID-19 Saturation goal is 89 to 92% in the setting of COPD Bronchial hygiene, pulmonary toilet, nebs Severe COPD on 2L Home O2 -Supplemental O2 to maintain sat of 89-92% -duonebs -steroids -bronchial hygiene CAD s/p remote GA Multivessel disease per patient, status post stents Follows with cardiology in [place] but she does not remember her physician continue Statin, BB, nitrate chronic combined systolic and diastolic CHF: No Recent echocardiograms on file here, last one was from 2018 which showed diastolic CHF and normal EF. -due to dehydration and poor oral intake, her Lasix/spironolactone have been held Dehydration -continue IVF at 75 ml/hr while monitoring closely for volume overload -encourage oral intake Hypertension controlled on home regimen GERD -PPI BID -TUMS PRN Code Status: DNR/DNI >30 minutes of CC spent in the care of this patient - Time Time Spent with patient: 35 or more minutes Anticipated [facility]charge Disposition: [facility] Anticipated Discharge Timeframe: within 72 hours
[2020-03-03] MEDS: CEFTRIAXONE SODIUM 1,000 MG in DEXTROSE 5%-WATER 50 ML IV SCH (11:26)
[2020-03-03] MEDS: MORPHINE SULFATE 10 MG/ML INJ IV PRN (15:28)
[2020-03-03] MEDS ORDERED: LABETALOL HCL INJ 20 MG/4 ML DISP.SYRIN IV PRN (18:00)
[2020-03-03] MEDS: RINGERS SOLUTION,LACTATED 1,000 ML IV PRN (22:11)
[2020-03-04] MEDS: MORPHINE SULFATE 10 MG/ML INJ IV PRN ×3 (04:43→16:06)
[2020-03-04] MEDS: PANTOPRAZOLE SODIUM 40 MG TABLET.DR PO SCH (05:35)
[2020-03-04 06:32] LABS: HEMOGLOBIN 12.1 g/dL (12.0-15.5); MEAN CORPUSCULAR HEMOGLOBIN 28.8 pg (27.0-33.4); MEAN CORPUSCULAR HGB CONC 32.7 g/dL (32.0-36.0); MEAN CORPUSCULAR VOLUME 88 fl (80-97); PLATELET COUNT 175 10^3/uL (150-450); RED CELL DISTRIBUTION WIDTH 13.7 % (11.5-14.0); WHITE BLOOD COUNT 12.8 10^3/uL (4.0-10.5)
[2020-03-04 07:07] LABS: ARTERIAL BLOOD BASE EXCESS 6.7 mmol/L; ARTERIAL BLOOD FIO2 100%; ARTERIAL BLOOD H2CO3 1.41 mmol/L (1.05-1.35); ARTERIAL BLOOD HCO3 31.7 mmol/L (20-24); ARTERIAL BLOOD O2 SATURATION 75.5 % (94-98); ARTERIAL BLOOD PCO2 46.9 mmHg (35-45); ARTERIAL BLOOD PH 7.45 (7.35-7.45); ARTERIAL BLOOD TOTAL CO2 33.2 mmol/L (21-25)
[2020-03-04 07:20] LABS: ANION GAP 6 (5-19); BLOOD UREA NITROGEN 63 mg/dL (7-20); CALCIUM 8.9 mg/dL (8.4-10.2); CARBON DIOXIDE 32 mmol/L (22-30); CHLORIDE 103 mmol/L (98-107); GLUCOSE 334 mg/dL (75-110); POTASSIUM 4.7 mmol/L (3.6-5.0)
[2020-03-04] MEDS: CALCIUM CARBONATE 500 MG TAB.CHEW PO SCH ×4 (08:45→22:34)
[2020-03-04] MEDS: LORAZEPAM INJ 2 MG/1 ML VIAL IV PRN (10:01)
--- NOTE | 2020-03-04 10:16 | PDOC PROGRESS REPORT ---
Subjective Date:: 03/04/20 Subjective:: JEANNIE FIGUEREDO is a 74 year old female with past medical history significant for HTN, HLD, CAD/[place] status post PCI, chronic combined CHF, COPD on chronic 2 L O2, morbid obesity with BMI 53 who presented to the ED with an 8-day history of progressive shortness of breath/KRAUSE/F/C/productive cough/diarrhea. She was diagnosed with Covid on 02/17/2020. She had been increasing her home oxygen up to 4 L without any significant relief in her dyspnea. 02/29/2020. No acute events overnight. Patient is still dependent on BiPAP with FiO2 of 100%, reporting mild improvement of her symptoms otherwise complaining of generalized weakness and not being able to eat as she is on BiPAP 24/7, denies any fever, chills, nausea, vomiting, diarrhea, constipation or any urinary symptoms. Patient would like to be started on remdesivir and convalescent plasma. 03/01/2020. No acute events overnight. Patient reporting mild improvement in her symptoms however does not specify, still feeling very weak and hungry, unfortunate patient has not been able to eat much due to the fact that she is dependent on BiPAP 24/7, I have talked to primary nurse to see if she could be transitioned to Oxymizer or nonrebreather and if she could eat some food if not we will have to start her on TPN. Patient has also mentioned that she would like to go to short-term rehab after discharge she is does not feel like she will be able to take care of herself at home. 03/02/2020. No acute events overnight. Patient still remains hypoxic and BiPAP dependent on 100% oxygen, patient stated that overall she feels the same compared to yesterday except for worsening weakness, I was contacted by primary nurse that patient had mentioned that she wanted to change her CODE STATUS to to [employer] T[employer]ER, which I believe was a misunderstanding on patient's part, when I went to see her she seems like she wants to continue current treatment but does not want to be intubated or resuscitated, she says she just wants to have a chance to talk to her family and that is why she thought changing her CODE STATUS would facilitate that, I believe patient does not clearly understand what changing CALC[employer] FURNA[employer] TENDER means but when I explained it to her she clearly wants to continue current treatment and she wants to reamin DNR/DNI. I encouraged her to contact her family over the phone or FaceTime and check with hospital if she can have visito rs over. Patient still complaining of being hungry however she was able to eat some yesterday, she wants to continue eating whenever possible and when she is able to tolerate being off of BiPAP, she wants to hold TPN at this point. 03/03/2020. Unfortunately patient oxygen demand has not decreased, still on BiPAP requiring 100% oxygen, saturating in the low 80s, patient is still awake alert and oriented however starting to get more anxious at stating that she is not getting enough air, patient has been able to eat some intermittently when she is given her oral medication and when she is able to tolerate being of off BiPAP for short intervals, still does not want to be started on TPN, I have contacted her grandson Mr. Figueredo and I have updated them about her prognosis. They still want her to be DNR/DNI otherwise they want to continue the current treatment. 03/04/2020. Unfortunately patient's hypoxemia worsening, she is on BiPAP 100% oxygen saturating in the 70s, remarkably patient is mentating very well however she looks very weak and is stating that she is getting tired, she has been communicating with her family over WebCam, patient still wants to hold TPN, denies any fever, chills, nausea, vomiting. Reason For Visit: ACUTE ON CHRONIC HYPOXEMIC RESPIRATORY FAILURE Physical Exam Vital Signs: Temp Pulse Resp BP Pulse Ox 98.5 F 92 25 H 148/59 H 72 L 03/04/20 08:25 03/04/20 08:25 03/04/20 08:25 03/04/20 08:25 03/04/20 08:25 Intake & Output 03/03/20 03/04/20 03/05/20 06:59 06:59 06:59 Intake Total 310 430 Output Total 2350 750 Balance -2039 -320 Weight 129.6 kg 127.6 kg General appearance: PRESENT: obese, severe distress Head exam: PRESENT: atraumatic, normocephalic Neck exam: ABSENT: carotid bruit, JVD, lymphadenopathy, thyromegaly Respiratory exam: PRESENT: accessory muscle use, decreased breath sounds, symmetrical, tachypnea. ABSENT: rales, rhonchi, wheezes Cardiovascular exam: PRESENT: RRR. ABSENT: diastolic murmur, rubs, systolic murmur GI/Abdominal exam: PRESENT: normal bowel sounds, soft. ABSENT: distended, guarding, mass, organolmegaly, rebound, tenderness Neurological exam: PRESENT: alert, awake, oriented to person, oriented to place, CN II-XII grossly intact. ABSENT: motor sensory deficit Results Laboratory Results: 03/04/20 06:07 03/04/20 06:07 03/04/20 03/04/20 03/04/20 06:07 06:07 06:20 WBC 12.8 H RBC 4.20 Hgb 12.1 Hct 37.0 MCV 88 MCH 28.8 MCHC 32.7 RDW 13.7 Plt Count 175 Carbonic Acid 1.41 H HCO3/H2CO3 Ratio 22:1 ABG pH 7.45 ABG pCO2 46.9 H ABG pO2 39.0 L* ABG HCO3 31.7 H ABG O2 Saturation 75.5 L ABG Base Excess 6.7 FiO2 100% Sodium 140.6 Potassium 4.7 Chloride 103 Carbon Dioxide 32 H Anion Gap 6 BUN 63 H Creatinine 0.97 Est GFR ( Amer) > 60 Glucose 334 H Calcium 8.9 Impressions: Chest X-Ray 02/24/20 15:11 IMPRESSION: Bilateral patchy parenchymal opacities in a peripheral d istribution. Differential considerations include a multifocal pneumonia (including atypical infections such as COVID-19) and CHF (in the setting of cardiomegaly). Chest/Abdomen CTA 02/24/20 17:23 IMPRESSION: 1. There is no pulmonary embolus. There is no aortic aneurysm or dissection. 2. Bilateral ground-glass infiltrates consistent with an atypical infectious/ inflammatory process such as COVID-19 pneumonia. 3. 5 cm substernal thyroid mass. Assessment and Plan - Diagnosis (1) Pneumonia due to COVID-19 virus Is this a current diagnosis for this admission?: Yes Plan: Worsening of hypoxemia however patient is still alert and oriented but seems to be getting tired. Currently BIPAP 18/10 at 100%, saturating in the 70s CXR showed: Bilateral infiltrates on admission. CTA chest showed: Bilateral groundglass opacities consistent with viral pneumon ia, negative for PE, 5 cm thyroid mass Received a course of p.o. ivermectin. Day 9 of IV antibiotics. Day 3 IV ceftriaxone. Day 4/4 of remdesivir. Received 6 days of IV doxycycline. Status post convalescent plasma transfusion. Maintain magnesium of 2 mg/dL or higher Patient wants to be started on remdesivir and convalescent plasma. Continue zinc, ascorbic acid, vitamin d, melatonin (2) Acute on chronic respiratory failure with hypoxemia Is this a current diagnosis for this admission?: Yes Plan: Unchanged compared to yesterday. Still on BiPAP with FiO2 of 100%, saturating in the low 90s. Due to Covid pneumonia Chronically on 2 L nasal cannula at home, increased oxygen requirement since rafael COVID-19 Saturation goal is 89 to 92% in the setting of COPD Plan as per #1. (3) Chronic combined systolic and diastolic CHF (congestive heart failure) Is this a current diagnosis for this admission?: Yes Plan: Well compensated. Does not appear to be volume overloaded. No Recent echocardiograms on file here, last one was from 2018 which showed diastolic CHF and normal EF Continue cardiac diet, strict in and out, continue beta-blockers, KVNG. Monitor volume status. (4) COPD (chronic obstructive pulmonary disease) Qualifiers: COPD type: emphysema Emphysema type: unspecified Qualified Code(s): J43.9 - Emphysema, unspecified Is this a current diagnosis for this admission?: Yes Plan: Does not appear to be acutely exacerbated. Continue supplemental O2 to maintain sat of 89-94%, duonebs, steroids, bronchial hygiene, LAMA, LABA, ICS. Outpatient PCP and pulmonology follow-up. (5) History of [place] (myocardial infarction) Is this a current diagnosis for this admission?: Yes Plan: Denies any anginal symptoms. History of multivessel disease per patient, status post stents Continue antiplatelets, beta-blockers. Allergic to statins. Follows with cardiology in [place] but she does not remember her physician (6) HLD (hyperlipidemia) Is this a current diagnosis for this admission?: Yes Plan: Continue statins. (7) HTN (hypertension) Qualifiers: Hypertension type: essential hypertension Qualified Code(s): I10 - Essential (primary) hypertension Is this a current diagnosis for this admission?: Yes Plan: Euvolemic. Normotensive. Continue current meds. Adjust meds as needed. - Plan Summary Summary: JEANNIE FIGUEREDO is a 74 year old female with past medical history significant for HTN, HLD, CAD/[place] status post PCI, chronic combined CHF, COPD on chronic 2 L O2, morbid obesity with BMI 53 who presented to the ED with an 8-day history of progressive shortness of breath/KRAUSE/F/C/productive cough/diarrhea. She was diagnosed with Covid on 02/17/2020. She had been increasing her home oxygen up to 4 L without any significant relief in her dyspnea. Pneumonia due to COVID-19 virus: ABG appears to look worse today on CPAP. Will switch to BIPAP and increase to 18/10 at 100%, then repeat ABG. Discussed with RT and RN. -Covid-19 test: +02/16 -CXR showed: Bilateral infiltrates -CTA chest showed: Bilateral groundglass opacities consistent with viral pn eumonia, negative for PE, 5 cm thyroid mass -standard of care vitamin supplements: zinc, ascorbic acid, vitamin d, melatonin -s/p Ivermectin on days 1 and 3 -D-dimer elevated, continue therapeutic Lovenox -maintain magnesium of 2 mg/dL or higher -Current literature does not show clear benefit from the use of remdesivir, plaquenil, convalescent plasma -prn combivent/nebs as able Acute on chronic respiratory failure with hypoxemia Due to Covid pneumonia Chronically on 2 L nasal cannula at home, increased oxygen requirement since rafael COVID-19 Saturation goal is 89 to 92% in the setting of COPD Bronchial hygiene, pulmonary toilet, nebs Severe COPD on 2L Home O2 -Supplemental O2 to maintain sat of 89-92% -duonebs -steroids -bronchial hygiene CAD s/p remote [place] Multivessel disease per patient, status post stents Follows with cardiology in [place] but she does not remember her physician continue Statin, BB, nitrate chronic combined systolic and diastolic CHF: No Recent echocardiograms on file here, last one was from 2018 which showed diastolic CHF and normal EF. -due to dehydration and poor oral intake, her Lasix/spironolactone have been held Dehydration -continue IVF at 75 ml/hr while monitoring closely for volume overload -encourage oral intake Hypertension controlled on home regimen GERD -PPI BID -TUMS PRN Code Status: DNR/DNI >30 minutes of CC spent in the care of this patient - Time Time Spent with patient: 35 or more minutes Anticipated Discharge Disposition: Long Term Facility Anticipated Discharge Timeframe: within 72 hours
[2020-03-04] MEDS: REMDESIVIR 100 MG in NORMAL SALINE 250 ML IV SCH (10:35)
[2020-03-04] MEDS: TAMSULOSIN HCL 0.4 MG CAP.SR.24H PO SCH (11:24)
[2020-03-04] MEDS: ISOSORBIDE MONONITRATE 60 MG TAB.ER.24H PO SCH (11:24)
[2020-03-04] MEDS: ESCITALOPRAM OXALATE 10 MG TABLET PO SCH (11:24)
[2020-03-04] MEDS: UMECLIDINIUM BROMIDE 62.5 MCG/DOSE IH SCH (11:24)
[2020-03-04] MEDS: VITAMIN B COMPLEX TABLET PO SCH (11:25)
[2020-03-04] MEDS: GABAPENTIN 300 MG CAPSULE PO SCH ×3 (11:25→17:25)
[2020-03-04] MEDS: ASCORBIC ACID 500 MG TABLET PO SCH ×2 (11:25→17:25)
[2020-03-04] MEDS: AMLODIPINE BESYLATE 5 MG TABLET PO SCH (11:25)
[2020-03-04] MEDS: CHOLECALCIFEROL (D3) 1,000 UNIT (25 MCG) TABLET PO SCH (11:25)
[2020-03-04] MEDS: POLYETHYLENE GLYCOL 3350 POWDER 17 GM/1 PACKET PO SCH (11:25)
[2020-03-04] MEDS: METOPROLOL SUCCINATE 50 MG TAB.SR.24H PO SCH (11:25)
[2020-03-04] MEDS: ZINC SULFATE 220 MG CAPSULE PO SCH (11:26)
[2020-03-04] MEDS: METHYLPREDNISOLONE INJ 125 MG/2 ML SDV IV SCH ×2 (11:54→22:33)
[2020-03-04] MEDS: ENOXAPARIN SODIUM INJ 150 MG/1 ML DISP.SYRIN SUBCUT SCH ×2 (11:54→22:33)
[2020-03-04] MEDS: CEFTRIAXONE SODIUM 1,000 MG in DEXTROSE 5%-WATER 50 ML IV SCH (11:54)
[2020-03-04] MEDS ORDERED: FAMOTIDINE INJ/PF 20 MG/2 ML SDV IV SCH (22:00)
[2020-03-05] MEDS: IPRATROPIUM/ALBUTEROL 0.5-2.5 MG/3 ML AMPUL NEB PRN (01:27)
[2020-03-05] MEDS: MORPHINE SULFATE 10 MG/ML INJ IV PRN ×4 (04:29→12:39)
[2020-03-05] MEDS: RINGERS SOLUTION,LACTATED 1,000 ML IV PRN (04:31)
[2020-03-05 04:43] VITALS: BP 132/70
[2020-03-05 06:11] LABS: HEMATOCRIT 38.5 % (36.0-47.0); HEMOGLOBIN 12.5 g/dL (12.0-15.5); MEAN CORPUSCULAR HEMOGLOBIN 28.7 pg (27.0-33.4); MEAN CORPUSCULAR HGB CONC 32.4 g/dL (32.0-36.0); MEAN CORPUSCULAR VOLUME 89 fl (80-97); PLATELET COUNT 165 10^3/uL (150-450); RED BLOOD COUNT 4.34 10^6/uL (3.72-5.28); RED CELL DISTRIBUTION WIDTH 13.7 % (11.5-14.0); WHITE BLOOD COUNT 17.7 10^3/uL (4.0-10.5)
[2020-03-05 06:44] LABS: ANION GAP 5 (5-19); BLOOD UREA NITROGEN 66 mg/dL (7-20); C-REACTIVE PROTEIN 85.1 mg/L (<10.0); CALCIUM 8.7 mg/dL (8.4-10.2); CARBON DIOXIDE 33 mmol/L (22-30); CHLORIDE 105 mmol/L (98-107); GLUCOSE 356 mg/dL (75-110); POTASSIUM 4.9 mmol/L (3.6-5.0)
[2020-03-05] MEDS: ESCITALOPRAM OXALATE 10 MG TABLET PO SCH (10:02)
[2020-03-05] MEDS: AMLODIPINE BESYLATE 5 MG TABLET PO SCH (10:02)
[2020-03-05] MEDS: UMECLIDINIUM BROMIDE 62.5 MCG/DOSE IH SCH (10:02)
[2020-03-05] MEDS: GABAPENTIN 300 MG CAPSULE PO SCH (10:02)
[2020-03-05] MEDS: CALCIUM CARBONATE 500 MG TAB.CHEW PO SCH (10:02)
[2020-03-05] MEDS: POLYETHYLENE GLYCOL 3350 POWDER 17 GM/1 PACKET PO SCH (10:02)
[2020-03-05] MEDS: ISOSORBIDE MONONITRATE 60 MG TAB.ER.24H PO SCH (10:02)
[2020-03-05] MEDS: METOPROLOL SUCCINATE 50 MG TAB.SR.24H PO SCH (10:08)
[2020-03-05] MEDS: CHOLECALCIFEROL (D3) 1,000 UNIT (25 MCG) TABLET PO SCH (10:08)
[2020-03-05] MEDS: VITAMIN B COMPLEX TABLET PO SCH (10:08)
[2020-03-05] MEDS: ZINC SULFATE 220 MG CAPSULE PO SCH (10:08)
[2020-03-05] MEDS: ASCORBIC ACID 500 MG TABLET PO SCH (10:08)
[2020-03-05] MEDS: LORAZEPAM INJ 2 MG/1 ML VIAL IV PRN (11:03)
[2020-03-05] MEDS ORDERED: LORAZEPAM INJ 2 MG/1 ML VIAL ONE (12:17)
[2020-03-05] MEDS ORDERED: LORAZEPAM INJ 2 MG/1 ML VIAL IV PRN (12:20)
[2020-03-05] MEDS ORDERED: MORPHINE SULFATE 10 MG/ML INJ ONE ×2 (12:20→12:39)
[2020-03-05] MEDS ORDERED: MORPHINE SULFATE 10 MG/ML INJ IV PRN (12:20)
--- NOTE | 2020-03-05 14:05 | Death Summary ---
Summary Date : 03/05/20 Autopsy: No Resuscitation Status: Do Not Resuscitate Primary Care Provider: Kathy Montes De Oca - Final Diagnosis (1) Pneumonia due to COVID-19 virus Is this a current diagnosis for this admission?: Yes (2) Acute on chronic respiratory failure with hypoxemia Is this a current diagnosis for this admission?: Yes (3) Chronic combined systolic and diastolic CHF (congestive heart failure) Is this a current diagnosis for this admission?: Yes (4) COPD (chronic obstructive pulmonary disease) Is this a current diagnosis for this admission?: Yes (5) History of AL (myocardial infarction) Is this a current diagnosis for this admission?: Yes (6) HLD (hyperlipidemia) Is this a current diagnosis for this admission?: Yes (7) HTN (hypertension) Is this a current diagnosis for this admission?: Yes Hospital Course:: JEANNIE NAVA is a 74 year old female with past medical history significant for HTN, HLD, CAD/[place] status post PCI, chronic combined CHF, COPD on chronic 2 L O2, morbid obesity with BMI 53 who presented to the ED with an 8-day history of progressive shortness of breath/KRAUSE/F/C/productive cough/diarrhea. She was diagnosed with Covid on 02/17/2020. She had been increasing her home oxygen up to 4 L without any significant relief in her dyspnea. 03/05/2020. Unfortunately patient due to respiratory distress as a complication of COVID-19 pneumonia. She could not maintain her SPO2 even in the 70s although being on 100% oxygen and BiPAP 24/7, patient will become extremely exhausted and decompensating, becoming more altered and was starting to pull on her BiPAP mask, she had to be placed on two-point soft restraints on bilateral hands in order to prevent her from removing her BiPAP mask. Patient's family were updated about low prognosis and they asked for her CODE STATUS to be switched to [employer]ER. Patient's CODE STATUS switched to [employer] SPRAYER, as per her family's request and patient peacefully passed way while accompanied by her son within about 5 minutes of removing her respiratory support. Her hospitalization course is as below. (1) Pneumonia due to COVID-19 virus Worsening of hypoxemia however patient is still alert and oriented but seems to be getting tired. Currently BIPAP 18/10 at 100%, saturating in the 70s CXR showed: Bilateral infiltrates on admission. CTA chest showed: Bilateral groundglass opacities consistent with viral pneumonia, negative for PE, 5 cm thyroid mass Received a course of p.o. ivermectin. Day 9 of IV antibiotics. Day 3 IV ceftriaxone. Day 4/4 of remdesivir. Received 6 days of IV doxycycline. Status post convalescent plasma transfusion. Maintain magnesium of 2 mg/dL or higher Patient wants to be started on remdesivir and convalescent plasma. Continue zinc, ascorbic acid, vitamin d, melatonin (2) Acute on chronic respiratory failure with hypoxemia Unchanged compared to yesterday. Still on BiPAP with FiO2 of 100%, saturating in the low 90s. Due to Covid pneumonia Chronically on 2 L nasal cannula at home, increased oxygen requirement since rafael COVID-19 Saturation goal is 89 to 92% in the setting of COPD Plan as per #1. (3) Chronic combined systolic and diastolic CHF (congestive heart failure) Well compensated. Does not appear to be volume overloaded. No Recent echocardiograms on file here, last one was from 2018 which showed diastolic CHF and normal EF Continue cardiac diet, strict in and out, continue beta-blockers, KVNG. Monitor volume status. (4) COPD (chronic obstructive pulmonary disease) Does not appear to be acutely exacerbated. Continue supplemental O2 to maintain sat of 89-94%, duonebs, steroids, bronchial hygiene, LAMA, LABA, ICS. Outpatient PCP and pulmonology follow-up. (5) History of AL (myocardial infarction) Denies any anginal symptoms. History of multivessel disease per patient, status post stents Continue antiplatelets, beta-blockers. Allergic to statins. Follows with cardiology in [place] but she does not remember her physician (6) HLD (hyperlipidemia) Continue statins. (7) HTN (hypertension) Euvolemic. Normotensive. Continue current meds. Adjust meds as needed.
== END 2020-03-05 14:33 | DRG 177 ==
LOC: ER 14:16 → EH 20:15 → 3W 22:39
PROVIDERS: ADMIT Internal Medicine; ATTEND Internal Medicine
PROC: 5A09557 Assistance with Respiratory Ventilation, Greater than 96 Consecutive Hours, Continuous Positive Airway Pressure (ICD-10-PCS; 2020-02-27)
PROC: XW033E5 Introduction of Remdesivir Anti-infective into Peripheral Vein, Percutaneous Approach, New Technology Group 5 (ICD-10-PCS; principal; 2020-02-29)
PROC: XW13325 Transfusion of Convalescent Plasma (Nonautologous) into Peripheral Vein, Percutaneous Approach, New Technology Group 5 (ICD-10-PCS; 2020-02-29)
DX: U07.1 COVID-19 (principal); J12.82 Pneumonia due to coronavirus disease 2019; J96.21 Acute and chronic respiratory failure with hypoxia; I50.42 Chronic combined systolic (congestive) and diastolic (congestive) heart failure; Z68.43 Body mass index [BMI] 50.0-59.9, adult; J45.41 Moderate persistent asthma with (acute) exacerbation; E78.5 Hyperlipidemia, unspecified; J43.9 Emphysema, unspecified; I11.0 Hypertensive heart disease with heart failure; I25.10 Atherosclerotic heart disease of native coronary artery without angina pectoris; E66.01 Morbid (severe) obesity due to excess calories; F32.9 Major depressive disorder, single episode, unspecified; K21.9 Gastro-esophageal reflux disease without esophagitis; E86.0 Dehydration; E07.9 Disorder of thyroid, unspecified; Z60.2 Problems related to living alone; Z66 Do not resuscitate; I25.2 Old myocardial infarction; Z78.1 Physical restraint status; Z99.81 Dependence on supplemental oxygen; Z95.5 Presence of coronary angioplasty implant and graft; Z98.42 Cataract extraction status, left eye; Z98.41 Cataract extraction status, right eye; Z87.891 Personal history of nicotine dependence; Z79.899 Other long term (current) drug therapy; Z79.82 Long term (current) use of aspirin; Z79.52 Long term (current) use of systemic steroids; Z88.6 Allergy status to analgesic agent; Z88.3 Allergy status to other anti-infective agents; Z88.2 Allergy status to sulfonamides; Z88.8 Allergy status to other drugs, medicaments and biological substances
CPT/HCPCS: 36415; 36430; 36600; 71045; 71275; 80048; 80053; 81001; 82728; 82803; 83036; 83735; 84100; 84439; 84443; 85025; 85027; 85379; 86140; 86900; 86901; 93005; 93010; 94660; 99285; J0696; J1650; J1940; J2060; J2270; J2405; J2920; J2930; J3490; J7030; J7050; J7060; J7120; J8540; S0028